=== PATIENT | female | born 1995 | race Caucasian/White ===

== ENCOUNTER 2022-10-04 21:47 | Emergency (ER) | payer OTHER, SELFPAY ==
[2022-10-04 21:54] VITALS: BP 141/95; PULSE 109; RESP 18; TEMP 36.8; O2SAT 98; BMI 32.0
--- NOTE | 2022-10-04 22:06 | ED.CHESTPAI1 ---
HPI - Chest Pain General Chief Complaint: Chest Pain Stated Complaint: CHEST PAIN Time Seen by Provider: 10/04/22 22:01 Source: patient Mode of arrival: walk-in Limitations: no limitations History of Present Illness HPI narrative: presents complaining of left sided chest pain. States present all day. 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 Describes lifting more than her share as others have left work for her. States she has a family history of heart disease. No dyspnea MD complaint: Reports chest pain Related Data Home Medications Medication Instructions Recorded Confirmed No Known Home Medications 10/04/22 10/04/22 Allergies Allergy/AdvReac Type Severity Reaction Status Date / Time No Known Drug Allergies Allergy Verified 10/04/22 21:58 Review of Systems ROS Status of ROS 10 or more systems reviewed and unremarkable except as noted in history and below [facility] Social History Smoking status: Current some day smoker Exam Constitutional Vital Signs - 24 hr 10/04/22 21:54 Temperature 98.3 F Pulse Rate [Monitor] 109 H Respiratory Rate 18 Blood Pressure [Left Arm] 141/95 H Pulse Oximetry 98 Oxygen Delivery Method Room Air Common normals: no apparent distress, average body habitus, oriented x3, no limitations and healthy appearing Eye Common normals: EOMs intact bilaterally and conjunctivae normal Chest Other: left chest wall is tender and reproduces symptoms Respiratory Common normals: normal respiratory effort, no retractions, no use of accessory muscles and clear to auscultation bilaterally Cardio Common normals: no JVD, regular rate, regular rhythm, S1 normal heart sound and S2 normal heart sound GI Common normals: Normal to inspection, nondistended, normoactive bowel sounds present and soft to palpation Extremity Common normals: normal to inspection and full ROM Neuro Common normals: oriented x3, CN's II-XII intact bilaterally, moves all extremities and no focal motor deficits Psych Appearance: grossly normal Course Vital Signs Vital signs: Vital Signs Temperature 98.3 F 10/04/22 21:54 Pulse Rate 109 H 10/04/22 21:54 Respiratory Rate 18 10/04/22 21:54 Blood Pressure 141/95 H 10/04/22 21:54 Pulse Oximetry 98 10/04/22 21:54 Oxygen Delivery Method Room Air 10/04/22 21:54 Temperature 98.3 F 10/04/22 21:54 Pulse Rate 109 H 10/04/22 21:54 Respiratory Rate 18 10/04/22 21:54 Blood Pressure 141/95 H 10/04/22 21:54 Pulse Oximetry 98 10/04/22 21:54 Oxygen Delivery Method Room Air 10/04/22 21:54 MDM - Chest Pain MDM Narrative Medical decision making narrative: patient presents complaining of chest pain that has been present all day. Exam with palpation of the chest that reproduces symptoms. workup in the department neg including normal cxray, EKG with 1st degree AVB but no acute changes. Troponin neg. Patient informed of the results and working diagnosis of chest wall strain. Discharged home with prescription of Norflex Lab Data Labs: Lab Results 10/04/22 Range/Units 22:06 WBC 11.1 H (4.0-11.0) 10^3/uL RBC 4.82 (4.20-5.40) 10^6/uL Hgb 12.5 (12.0-16.0) g/dL Hct 39.5 (36.0-48.0) % MCV 82.0 (81.0-99.0) fL MCH 25.9 L (26.7-34.0) pg MCHC 31.6 (29.9-35.2) g/dL RDW 13.5 (11.0-15.0) % Plt Count 328 (150-450) 10^3/uL MPV 10.9 (9.5-13.5) fL Neut % (Auto) 67.1 (43.0-75.0) % Lymph % (Auto) 22.9 (20.5-60.0) % [place] % (Auto) 6.6 (1.7-12.0) % Eos % (Auto) 2.2 (0.9-7.0) % Baso % (Auto) 0.8 (0.2-2.0) % Neut # (Auto) 7.5 H (1.4-6.5) 10^3/uL Lymph # (Auto) 2.6 (1.2-3.8) 10^3/uL [place] # (Auto) 0.7 (0.3-0.8) 10^3/uL Eos # (Auto) 0.2 (0.0-0.7) 10^3/uL Baso # (Auto) 0.1 (0.0-0.1) 10^3/uL Abs Immat Gran (auto) 0.05 H (0.00-0.03) 10^3/uL Imm/Tot Granulo (auto) 0.4 (0.0-0.5) % Sodium 140 (136-145) mmol/L Potassium 3.5 (3.5-5.1) mmol/L Chloride 103 (98-107) mmol/L Carbon Dioxide 24.9 (21.0-32.0) mmol/L Anion Gap 15.6 BUN 8.0 (7.0-18.0) mg/dL Creatinine 0.84 (0.55-1.02) mg/dL Est GFR ( Amer) >60 (>=60) Est GFR (Non-Af Amer) >60 (>=60) BUN/Creatinine Ratio 9.5 Glucose 120 H (74-106) mg/dL Calcium 9.2 (8.5-10.1) mg/dL Troponin I High Sens <4.0 L (4.0-51.3) pg/mL NT-Pro-B Natriuret Pep 35.0 (<=450.0) pg/mL Discharge Plan Discharge Chief Complaint: Chest Pain Clinical Impression: Chest wall muscle strain Patient Disposition: Home, Self-Care Prescriptions / Home Meds: No Action No Known Home Medications Instructions: Chest Wall Pain (ED) Additional Instructions: follow up with the family doctor next week Stand Alone Forms: Portal Instructions Referrals: Physician,Non-Staff, MD [Primary Care Provider] - 1 week
--- NOTE | 2022-10-04 22:10 | XR_ITS ---
[address] [address] Patient Name: SATURDAY Amber VENEGAS MRN: [id number] date: 1995 Sex: F Assigned Patient Location: ER Current Patient Location: ER Accession/Order Number: [id number] Exam Date: 10/04/2022 22:20 Report Date: 10/04/2022 22:52 At the request of: ITALO PINEDA Procedure: XR chest 1V EXAMINATION: XR chest 1V, , 10/04/2022 10:20 PM EDT INDICATION: chest pain HISTORY: Ordering Provider Reason for Exam: chest pain Technologist Note: Additional: COMPARISON: Chest x-ray dated 01/08/2022. TECHNIQUE: Chest x-ray: One view. FINDINGS: No pneumothorax, pleural effusion or focal airspace consolidation. Heart is normal in size. Bony thorax is unremarkable. IMPRESSION: No acute cardiopulmonary process. Electronically authenticated by: MALACHI THORNTON Date: 10/04/2022 22:52
--- NOTE | 2022-10-04 22:10 | ECG_ITS ---
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
--- NOTE | 2022-10-04 22:10 | PC.NURSE ---
patient states she started to develop left sided chest pain when she woke up to get ready for work earlier this evening. states she went to work and while at work the pain intensified. denies any nausea, vomiting, or shortness of breath with pain. denies cardiac history, states nothing like this has happened before. denies any recent injury or trauma.
[2022-10-04 22:20] LABS: Basophils Absolute Auto 0.1 10^3/uL (0.0-0.1); Basophils Percent Auto 0.8 % (0.2-2.0); Eosinophils Absolute Auto 0.2 10^3/uL (0.0-0.7); Eosinophils Percent Auto 2.2 % (0.9-7.0); Hematocrit 39.5 % (36.0-48.0); Hemoglobin 12.5 g/dL (12.0-16.0); Immature Granulocytes Abs Auto 0.05 10^3/uL (0.00-0.03); Immature Granulocytes Pct Auto 0.4 % (0.0-0.5); Lymphocytes Absolute Auto 2.6 10^3/uL (1.2-3.8); Lymphocytes Percent Auto 22.9 % (20.5-60.0); Mean Corpuscular HGB Conc 31.6 g/dL (29.9-35.2); Mean Corpuscular Hemoglobin 25.9 pg (26.7-34.0); Mean Platelet Volume 10.9 fL (9.5-13.5); Monocytes Absolute Auto 0.7 10^3/uL (0.3-0.8); Monocytes Percent Auto 6.6 % (1.7-12.0); Neutrophils Absolute Auto 7.5 10^3/uL (1.4-6.5); Neutrophils Percent Auto 67.1 % (43.0-75.0); Platelet Count 328 10^3/uL (150-450); Red Blood Count 4.82 10^6/uL (4.20-5.40); Red Cell Distribution Width 13.5 % (11.0-15.0); White Blood Count 11.1 10^3/uL (4.0-11.0)
[2022-10-04 22:45] LABS: Anion Gap 15.6; BUN Creatinine Ratio 9.5; Calcium 9.2 mg/dL (8.5-10.1); Carbon Dioxide 24.9 mmol/L (21.0-32.0); Chloride 103 mmol/L (98-107); Estimated GFR (African America >60 (>=60); Estimated GFR (Non-African Ame >60 (>=60); Glucose 120 mg/dL (74-106); Potassium 3.5 mmol/L (3.5-5.1); Sodium 140 mmol/L (136-145); Troponin I High Sensitivity <4.0 pg/mL (4.0-51.3)
[2022-10-04] MEDS: ORPHENADRINE CITRATE 100 MG TABLET.ER PO (23:31)
== END 2022-10-04 23:35 | disposition home or self-care (01) ==
PROVIDERS: Emergency Provider Internal Medicine
DX: S29.011A Strain of muscle and tendon of front wall of thorax, initial encounter (principal); X50.9XXA Other and unspecified overexertion or strenuous movements or postures, initial encounter; F17.210 Nicotine dependence, cigarettes, uncomplicated
CPT/HCPCS: 36415; 71045; 80048; 83880; 84484; 85025; 93005; 99285

== ENCOUNTER 2023-01-18 12:45 | Emergency (ER) | payer OTHER, SELFPAY ==
[2023-01-18 12:50] VITALS: BP 151/97; PULSE 89; RESP 18; O2SAT 99; BMI 37.8
--- NOTE | 2023-01-18 13:42 | ED_ITS ---
HPI - General Adult General Chief complaint: Upper Respiratory Infection Stated complaint: COUGH/BACK PAIN Time Seen by Provider: 01/18/23 12:53 Source: patient Mode of arrival: walk-in Limitations: no limitations History of Present Illness HPI narrative: Patient is a 27-year-old female who is presenting to the Emergency Room with multiple complaints. Patient's complaining of acute on chronic lower back pain. Patient has been diagnosed with scoliosis when she was and had a epidural with her child, that a hard time doing the epidural. Patient has no urinary complaints of frequency, urgency or burning. 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 Patient's been having chronic ongoing back pain with no radiation or paresthesias into her stomach. No signs or symptoms associated or cauda equina. Patient does have insurance. Patient has not called her insurance company, or done anything to establish PCP. Patient lives in [place], patient does not want to seek medical care in [place] because she does not like the physicians there she told me. Patient has no back specialist, no spinal specialist, no specialist for scoliosis. No new injury, fall, trauma, no other acute complaints. Patient is also complaining of upper respiratory and sinus congestion for the past 4-5 days.Patient went to an urgent care 4 days ago, was seen and evaluated and placed on prednisone. Patient is not doing any antihistamines, Flonase, Tylenol, Motrin, or anything to help treat her symptoms. . All systems are negative except as noted/marked. All systems reviewed and otherwise negative. . Nurses note and vital signs reviewed and patient is not hypoxic. General: The patient appears well and in no apparent distress. Patient is re sting comfortably on cart. Patient is not toxic, lethargic, or listless Skin: Warm, dry, no pallor noted. There is no rash noted. No petechiae, purpura. Multiple piercings and tattoos, no secondary signs of infection. Head: Normocephalic, atraumatic; Mild tenderness to palpation to bilateral frontal sinuses, no tenderness to palpation to bilateral maxillary sinuses. Eye: Normal conjunctiva, no drainage, EOMI. PERRL Ears, Nose, Mouth, and Throat: oral mucosa is moist. Nares patent. Mouth without vesicles. Cardiovascular: Regular Rate and Rhythm, no murmur, gallop, rub Respiratory: Patient is in no distress, no accessory muscle use, lungs are clear to auscultation, no wheezing, rales or rhonchi Back: Diffuse bilateral paralumbar tenderness to palpation, patient does have some evidence of curvature to her lumbar spine, patient has no new acute midline thoracic or lumbar tenderness to palpation, no tenderness to palpation to bilateral piriformis muscle, negative straight leg raising test bilateral, no signs of saddle anesthesia or cauda equina. otherwise non-tender, no CVA tenderness bilaterally to percussion. No CT LS midline pain GI: soft, obese, no tenderness to palpation, no masses appreciated. No rebound, guarding, or rigidity noted. No flank pain bilateral, No distention Musculoskeletal: Patient has full range of motion of all of the extremities, no motor, sensory, or focal neurological deficits Neurological: A&O x3, normal speech Psychiatric: Cooperative Related Data Home Medications Medication Instructions Recorded Confirmed No Known Home Medications 10/04/22 10/04/22 Allergies Allergy/AdvReac Type Severity Reaction Status Date / Time No Known Drug Allergies Allergy Verified 10/04/22 21:58 [facility] Social History Smoking status: Current every day smoker Exam Constitutional Vital Signs, click to edit/add: Last Vital Signs Pulse 89 01/18/23 12:50 Resp 18 01/18/23 12:50 BP 151/97 H 01/18/23 12:50 Pulse Ox 99 01/18/23 12:50 O2 Del Method Room Air 01/18/23 12:50 Course Vital Signs Vital signs: Vital Signs Pulse Rate 89 01/18/23 12:50 Respiratory Rate 18 01/18/23 12:50 Blood Pressure 151/97 H 01/18/23 12:50 Pulse Oximetry 99 01/18/23 12:50 Oxygen Delivery Method Room Air 01/18/23 12:50 Pulse Rate 89 01/18/23 12:50 Respiratory Rate 18 01/18/23 12:50 Blood Pressure 151/97 H 01/18/23 12:50 Pulse Oximetry 99 01/18/23 12:50 Oxygen Delivery Method Room Air 01/18/23 12:50 Medical Decision Making MDM Narrative Medical decision making narrative: Patient was educated that she can call her insurance company and asked them with PCP locally to her that she can see in her insurance plan. Patient was given multiple ideas and resources on how to follow up with a spinal surgeon to help treat with her scoliosis. Patient's chief concern today was she needed a work note for [place] secondary to not going to work today because of sinus congestion and bilateral lower back pain that is chronic. Patient has no acute findings on today's exam. Patient needs to start using mfno-xni-srgugpi products to help treat her symptoms. Education on DayQuil, NyQuil, Flonase was discussed at bedside. Discharge Plan Discharge Chief Complaint: Upper Respiratory Infection Clinical Impression: Scoliosis, Upper respiratory infection, Sinus congestion, Chronic bilateral back pain Patient Disposition: Home, Self-Care Condition: Fair Prescriptions / Home Meds: No Action No Known Home Medications Instructions: Upper Respiratory Infection (ED), Cold Symptoms (ED), Chronic Back Pain (DC), How to Use Nasal [place] (ED) Additional Instructions: Using DayQuil, NyQuil, Flonase. Use Tylenol and Motrin alternating every 4 hours. Use ice as needed 20 minutes on, 20 minutes off. Lumbar stretching exercises as discussed. Follow-up and establish PCP. As discussed at bedside, call your insurance company to see what PCP and year insurance plan you can see. Stand Alone Forms: Work/School Release, Portal Instructions Referrals: Physician,Non-Staff, MD [Primary Care Provider] - 1 week
== END 2023-01-18 13:57 | disposition home or self-care (01) ==
PROVIDERS: Emergency Provider Emergency Medicine
DX: M54.50 Low back pain, unspecified (principal); M41.9 Scoliosis, unspecified; R09.81 Nasal congestion; J06.9 Acute upper respiratory infection, unspecified; G89.29 Other chronic pain; F17.210 Nicotine dependence, cigarettes, uncomplicated; E66.9 Obesity, unspecified; Z68.37 Body mass index [BMI] 37.0-37.9, adult
CPT/HCPCS: 99281

== ENCOUNTER 2023-01-31 15:40 | Emergency (ER) | payer OTHER, SELFPAY ==
[2023-01-31 15:45] VITALS: BP 127/68; PULSE 77; RESP 14; TEMP 37.2; O2SAT 98; BMI 30.7
--- NOTE | 2023-01-31 16:10 | XR_ITS ---
[address] [address] Patient Name: SATURDAY Amber VENEGAS MRN: [id number] date: 1995 Sex: F Assigned Patient Location: ER Current Patient Location: ER Accession/Order Number: [id number] Exam Date: 01/31/2023 16:28 Report Date: 01/31/2023 17:02 At the request of: CAMMIE TAMEZ Procedure: XR acute abdomen series EXAMINATION: XR acute abdomen series HISTORY: Generalized abdominal pain COMPARISON: Chest x-ray 10/04/2022 TECHNIQUE: Portable chest FINDINGS: The lung parenchyma is free of consolidation or infiltrate. No pneumothorax or pleural effusion. The cardiac, mediastinal and hilar contours are normal. The bowel gas pattern is nonobstructed. No free intraperitoneal air or abdominal calcification. The visualized osseous structures exhibit no gross abnormality. XR/XR acute abdomen series IMPRESSION: No visualized abnormality. Electronically authenticated by: LUPILLO MORAN Date: 01/31/2023 17:02
--- NOTE | 2023-01-31 16:10 | ED_ITS ---
HPI - Abdominal Pain General Chief Complaint: Abdominal Pain Stated Complaint: ABDOMINAL PAIN Time Seen by Provider: 01/31/23 15:41 Source: patient Mode of arrival: walk-in Limitations: no limitations History of Present Illness HPI narrative: patient is a 27-year-old female who presents to the Emergency Room for three week history of diffuse abdominal pain. She reports some associated diarrhea. She has never seen a PCP before for the symptoms. She states pain had increased today to the point where she had a missed work so she came to the Emergency Room. She has had no fevers or vomiting. She denies urinary symptoms, flank or back pain. No medications taken prior to arrival for her symptoms. Related Data Home Medications Medication Instructions Recorded Confirmed prednisone 20 mg tablet 20 mg PO DAILY 01/31/23 01/31/23 Previous Rx's Medication Instructions Recorded dicyclomine 20 mg tablet 20 mg PO QID PRN abdominal pain 01/31/23 #12 tabs ondansetron 4 mg disintegrating 4 mg PO Q6H PRN nausea and 01/31/23 tablet vomiting #12 tabs Allergies Allergy/AdvReac Type Severity Reaction Status Date / Time No Known Drug Allergies Allergy Verified 10/04/22 21:58 Review of Systems ROS Constitutional Denies: fever or chills Ears, nose, mouth, and throat Denies: throat pain Cardiovascular Denies: chest pain Respiratory Denies: shortness of breath or cough Gastrointestinal Reports: abdominal pain and diarrhea; Denies: nausea or vomiting Genitourinary Denies: painful urination Musculoskeletal Denies: back pain or neck pain Neurological Denies: headache PFSH PFSH Social History Smoking status: Never smoker Exam Narrative Exam Narrative: Gen.: Awake, alert, in no distress Head: Normocephalic, atraumatic ENT: Moist mucous membranes Respiratory: No respiratory distress Gastrointestinal: Abdomen is soft, diffusely mildly tender to palpation with no guarding or rebound. No point tenderness Extremities: Moves extremities equally, no edema noted Psych: Normal mood and affect Neuro: No focal neuro deficit Skin: Warm, dry, intact Constitutional Vital Signs, click to edit/add: Last Vital Signs Temp 99.0 F 01/31/23 15:45 Pulse 76 01/31/23 17:04 Resp 18 01/31/23 17:04 BP 126/82 01/31/23 17:04 Pulse Ox 98 01/31/23 17:04 O2 Del Method Room Air 01/31/23 15:45 Course Vital Signs Vital signs: Vital Signs Temperature 99.0 F 01/31/23 15:45 Pulse Rate 77 01/31/23 15:45 Respiratory Rate 14 01/31/23 15:45 Blood Pressure 127/68 01/31/23 15:45 Pulse Oximetry 98 01/31/23 15:45 Oxygen Delivery Method Room Air 01/31/23 15:45 Temperature 99.0 F 01/31/23 15:45 Pulse Rate 76 01/31/23 17:04 Respiratory Rate 18 01/31/23 17:04 Blood Pressure 126/82 01/31/23 17:04 Pulse Oximetry 98 01/31/23 17:04 Oxygen Delivery Method Room Air 01/31/23 15:45 MDM - Abdominal Pain MDM Narrative Medical decision making narrative: patient given Levsin, Zofran and Toradol in the Emergency Room. Abdomen is soft and benign. Vital signs within normal limits. Symptoms of the present for several weeks with stable labs studies, unremarkable abdominal x-rays. She has no focal tenderness to the right lower quadrant. Follow-up with PCP, she was given referral list. Zofran, Bentyl given for home. Return to the Emergency Room if symptoms change or worsen Medical Records Attestation: I reviewed the patient's medical records. Lab Data Attestation: I reviewed the patient's lab results. Labs: Lab Results 01/31/23 01/31/23 Range/Units 16:00 16:18 WBC 7.7 (4.0-11.0) 10^3/uL RBC 4.78 (4.20-5.40) 10^6/uL Hgb 12.5 (12.0-16.0) g/dL Hct 39.4 (36.0-48.0) % MCV 82.4 (81.0-99.0) fL MCH 26.2 L (26.7-34.0) pg MCHC 31.7 (29.9-35.2) g/dL RDW 13.9 (11.0-15.0) % Plt Count 282 (150-450) 10^3/uL MPV 11.0 (9.5-13.5) fL Neut % (Auto) 56.4 (43.0-75.0) % Lymph % (Auto) 30.6 (20.5-60.0) % [place] % (Auto) 7.4 (1.7-12.0) % Eos % (Auto) 3.9 (0.9-7.0) % Baso % (Auto) 1.3 (0.2-2.0) % Neut # (Auto) 4.3 (1.4-6.5) 10^3/uL Lymph # (Auto) 2.4 (1.2-3.8) 10^3/uL [place] # (Auto) 0.6 (0.3-0.8) 10^3/uL Eos # (Auto) 0.3 (0.0-0.7) 10^3/uL Baso # (Auto) 0.1 (0.0-0.1) 10^3/uL Abs Immat Gran (auto) 0.03 (0.00-0.03) 10^3/uL Imm/Tot Granulo (auto) 0.4 (0.0-0.5) % Sodium 137 (136-145) mmol/L Potassium 3.5 (3.5-5.1) mmol/L Chloride 101 (98-107) mmol/L Carbon Dioxide 27.2 (21.0-32.0) mmol/L Anion Gap 12.3 BUN 9.0 (7.0-18.0) mg/dL Creatinine 0.76 (0.55-1.02) mg/dL Est GFR ( Amer) >60 (>=60) Est GFR (Non-Af Amer) >60 (>=60) BUN/Creatinine Ratio 11.8 Glucose 110 H (74-106) mg/dL Calcium 9.2 (8.5-10.1) mg/dL Total Bilirubin 0.3 (0.2-1.0) mg/dL AST 15 (15-37) U/L ALT 17 (14-59) U/L Alkaline Phosphatase 86 (46-116) U/L Total Protein 7.6 (6.4-8.2) g/dL Albumin 3.5 (3.4-5.0) g/dL Globulin 4.1 g/dL Albumin/Globulin Ratio 0.9 Lipase 26.0 (16.0-77.0) U/L Serum HCG, Qual Negative (NEGATIVE) Urine Color Lt. yellow (YELLOW) Urine Clarity Clear (CLEAR) Urine pH 6.0 (5.0-9.0) Ur Specific [place] 1.025 (1.005-1.025) Urine Protein Negative (NEG/TRACE) mg/dL Urine Glucose (UA) Negative (NEGATIVE) mg/dL Urine Ketones Negative (NEGATIVE) mg/dL Urine Occult Blood Negative (NEGATIVE) Urine Nitrite Negative (NEGATIVE) Urine Bilirubin Negative (NEGATIVE) Urine Urobilinogen 0.2 (0.2-1.0) EU/dL Ur Leukocyte Esterase Negative (NEGATIVE) Imaging Data Abdominal x-ray: Attestation: I have reviewed the pertinent imaging results. Radiologist's impression: Procedure: XR acute abdomen series EXAMINATION: XR acute abdomen series HISTORY: Generalized abdominal pain COMPARISON: Chest x-ray 10/04/2022 TECHNIQUE: Portable chest FINDINGS: The lung parenchyma is free of consolidation or infiltrate. No pneumothorax or pleural effusion. The cardiac, mediastinal and hilar contours are normal. The bowel gas pattern is nonobstructed. No free intraperitoneal air or abdominal calcification. The visualized osseous structures exhibit no gross abnormality. IMPRESSION: No visualized abnormality. Electronically authenticated by: LUPILLO MORAN Date: 01/31/2023 17:02 Discharge Plan Discharge Chief Complaint: Abdominal Pain Clinical Impression: Abdominal pain Patient Disposition: Home, Self-Care Time of Disposition Decision: 17:07 Condition: Good Prescriptions / Home Meds: New dicyclomine 20 mg tablet 20 mg PO QID PRN (Reason: abdominal pain) Qty: 12 0RF ondansetron 4 mg tablet,disintegrating 4 mg PO Q6H PRN (Reason: nausea and vomiting) Qty: 12 0RF No Action prednisone 20 mg tablet 20 mg PO DAILY Instructions: Abdominal Pain (ED) Stand Alone Forms: Portal Instructions Referrals: Physician,Non-Staff, MD [Primary Care Provider] - 1 week
[2023-01-31] MEDS: ONDANSETRON 4 MG RAPDIS TABLET SL (16:22)
[2023-01-31] MEDS: KETOROLAC TROMETHAMINE 10 MG TABLET PO (16:22)
[2023-01-31] MEDS: HYOSCYAMINE SULFATE 0.125 MG TAB.SUBL SL (16:22)
[2023-01-31 16:23] LABS: Basophils Absolute Auto 0.1 10^3/uL (0.0-0.1); Basophils Percent Auto 1.3 % (0.2-2.0); Eosinophils Absolute Auto 0.3 10^3/uL (0.0-0.7); Eosinophils Percent Auto 3.9 % (0.9-7.0); Hematocrit 39.4 % (36.0-48.0); Hemoglobin 12.5 g/dL (12.0-16.0); Immature Granulocytes Abs Auto 0.03 10^3/uL (0.00-0.03); Immature Granulocytes Pct Auto 0.4 % (0.0-0.5); Lymphocytes Absolute Auto 2.4 10^3/uL (1.2-3.8); Lymphocytes Percent Auto 30.6 % (20.5-60.0); Mean Corpuscular HGB Conc 31.7 g/dL (29.9-35.2); Mean Corpuscular Hemoglobin 26.2 pg (26.7-34.0); Mean Corpuscular Volume 82.4 fL (81.0-99.0); Monocytes Absolute Auto 0.6 10^3/uL (0.3-0.8); Monocytes Percent Auto 7.4 % (1.7-12.0); Neutrophils Absolute Auto 4.3 10^3/uL (1.4-6.5); Neutrophils Percent Auto 56.4 % (43.0-75.0); Platelet Count 282 10^3/uL (150-450); Red Blood Count 4.78 10^6/uL (4.20-5.40); Red Cell Distribution Width 13.9 % (11.0-15.0); White Blood Count 7.7 10^3/uL (4.0-11.0)
[2023-01-31 16:26] LABS: Bilirubin Urine NEGATIVE (NEGATIVE); Blood Urine NEGATIVE (NEGATIVE); Clarity Urine CLEAR (CLEAR); Color Urine LT. YELLOW (YELLOW); Glucose Urine UA NEGATIVE (NEGATIVE); Ketones Urine NEGATIVE (NEGATIVE); Leukocyte Esterase Urine NEGATIVE (NEGATIVE); Nitrite Urine NEGATIVE (NEGATIVE); Protein Urine NEGATIVE (NEG/TRACE); Specific Gravity Urine 1.025 (1.005-1.025); Urobilinogen Urine 0.2 EU/dL (0.2-1.0)
[2023-01-31 16:28] LABS: Urine Microscopic Indicated NO
[2023-01-31 16:41] LABS: Alanine Aminotransferase 17 U/L (14-59); Albumin Globulin Ratio 0.9; Albumin Level 3.5 g/dL (3.4-5.0); Alkaline Phosphatase 86 U/L (46-116); Anion Gap 12.3; Aspartate Amino Transferase 15 U/L (15-37); BUN Creatinine Ratio 11.8; Bilirubin Total 0.3 mg/dL (0.2-1.0); Calcium 9.2 mg/dL (8.5-10.1); Carbon Dioxide 27.2 mmol/L (21.0-32.0); Chloride 101 mmol/L (98-107); Estimated GFR (African America >60 (>=60); Estimated GFR (Non-African Ame >60 (>=60); Globulin 4.1 g/dL; Glucose 110 mg/dL (74-106); Potassium 3.5 mmol/L (3.5-5.1); Sodium 137 mmol/L (136-145); Total Protein 7.6 g/dL (6.4-8.2)
[2023-01-31 16:53] LABS: HCG Qualitative NEGATIVE (NEGATIVE)
[2023-01-31 17:04] VITALS: BP 126/82; PULSE 76; RESP 18; O2SAT 98
== END 2023-01-31 17:16 | disposition home or self-care (01) ==
PROVIDERS: Physician Assistant; Emergency Provider Emergency Medicine
DX: R10.9 Unspecified abdominal pain (principal)
CPT/HCPCS: 36415; 74022; 80053; 81003; 83690; 84703; 85025; 99285

== ENCOUNTER 2023-09-12 07:52 | Emergency (ER) | payer OTHER, SELFPAY ==
[2023-09-12 07:57] VITALS: BP 143/79; PULSE 87; TEMP 37.2; O2SAT 98; BMI 29.0
--- OUTSIDE RECORDS SUMMARY | 2023-09-12 08:01 | XMS_ITS | CCD ---
Author Organization [facility] Care Team Providers Care Trench Digger Name Role Phone NOHEMI TOM Attending Unavailable NONE Primary Care Unavailable Unavailable Primary Care Provider UnavailJesus Zapata Primary Care Provider Jesus Jessica DO Primary Care Provider LATANYA HUTCHINSON Attending Unavailable NO, PHYSICIAN Primary Care Unavailable Unavailable Primary Care Provider UnavailJESUS Zapata Primary Care Unavailable TANIA NEUMANN Attending Unavailable MARCIA HAIDER Attending Unavailable JESUS JESSICA Primary Care Unavailable SOL ROBLEDO Referring Unavailable JESUS JESSICA Primary Care Unavailable JESUS JESSICA Referring Unavailable JESUS JESSICA Primary Care Unavailable DON SOLO Referring Unavailable None, No PCP Unavailable Unavailable Unavailable Unavailable Required, No Pcp Unavailable Unavailable Harinder Horton Unavailable Lechuga, Racquel Unavailable Unavailable Manocchio, Renuka Unavailable Unavailable Unavailable Unavailable Deborah Dias Unavailable Unavailable DR JADYN MADDOX Admitting Unavailable VARSHA, DR SALAMANCA Attending Unavailable SARAH, DR VU LISTED Primary Care Unavaila DR JADYN Yusuf Consulting Unavailable DR JAMEE MCGOWAN Consulting Unavailable Magali Zhong Primary Care Physician Juliette ROGEL Unavailable Mayte Hahn Unavailable [phone] HINA KO Attending Unavailable Luigi King Attending Unavailable HINA KO Attending Unavailable Dk De León Attending Unavailable Allergies Allergy Classification Reported Allergen(s) Allergy Type Date of Onset Reaction(s) Facility (6 sources) Acetaminophen; Translations: [acetaminophen] Drug Allergy Palpitations [facility] Medications Current Medications Medication Drug Class(es) Dates Sig (Normalized) Sig (Original) acetaminophen 325 mg oral capsule (1 source) Start: 09-25-2021 take 3 capsules by mouth every six hours as needed acetaminophen 325 mg oral capsule ; 3 cap(s) orally every 6 hours, As Needed -.Meds to Beds Quantity: 45 Refills: 0 Ordered: 25-Sep-2021 Vanda Valle Start: 25-Sep-2021 Generic Substitution Allowed benzocaine 0.2 mg/mg oral gel (1 source) Standardized Chemical Allergen Start: 02-07-2021 benzocaine (ORAJEL) 20 % mucosal gel brompheniramine maleate 0.4 mg/ml / dextromethorphan hydrobromide 2 mg/ml / pseudoephedrine hydrochloride 6 mg/ml oral solution (1 source) alpha-Adrenergic Agonist, Uncompetitive T-asikeg-T-aspartate Receptor Antagonist, Sigma-1 Agonist Start: 02-04-2023 End: 02-09-2023 take 5 mL by mouth every six hours brompheniramine/d extromethorphan/P SE 2 mg-10 mg-30 mg/5 mL oral syrup 5 mL, Oral, q6hr for cold symptoms for 5 day(s), 120 mL, Refill(s) 0, [id number], 170, cm, 02/04/23 14:52:00 EST, Height/Length Dosing, 88.3, kg, 02/04/23 14:52:00 EST, Weight Dosing Start Date: 02/04/23 Stop Date: 02/09/23 Status: Ordered cephalexin 500 mg oral capsule (3 sources) Cephalosporin Antibacterial Start: 11-18-2020 take 1 capsule by mouth twice daily cephALEXin (KEFLEX) 500 MG capsule take 1 capsule by mouth twice a day 0 11/18/2020 Active dicyclomine hydrochloride 20 mg oral tablet (2 sources) Anticholinergic Start: 02-04-2023 dicyclomine 20 mg Tab Refills(s) 0 Start Date: 02/04/23 Status: Ordered docusate sodium 100 mg oral capsule (1 source) Start: 09-25-2021 take 1 capsule by mouth twice daily Colace 100 mg oral capsule ; 1 cap(s) orally 2 times a day, As Needed -.Meds to Beds Quantity: 60 Refills: 1 Ordered: 25-Sep-2021 Vanda Valle Start: 25-Sep-2021 Generic Substitution Allowed Comments: Medication should be taken with plenty of water. Comment on above: Medication should be taken with plenty of water. ferrous sulfate 325 mg oral tablet (11 sources) Start: 09-25-2021 take 1 tablet by mouth every other day ferrous sulfate 325 mg (65 mg elemental iron) oral tablet ; 1 tab(s) orally every other day Quantity: 0 Refills: 0 Ordered: 25-Sep-2021 Vanda Valle Start: 25-Sep-2021 Generic Substitution Allowed Start: 08-01-2021 Ferrous Sulfat e 325 (65 Fe) MG Oral Tablet TAKE 1 TABLET Other Take 1 tablet every other day for the remainder of the Quantity: 30 Refills: 10 Ordered: 01-Aug-2021 Racquel Lechuga DO Start : 01-Aug-2021 Active 120 actuat fluticasone propionate 0.22 mg/actuat metered dose inhaler (3 sources) Corticosteroid Start: 06-17-2020 End: 06-17-2021 take 2 puff(s) by inhalation twice daily fluticasone (FLOVENT HFA) 220 MCG/ACT inhaler Indications: Moderate asthma with acute exacerbation, unspecified whether persistent Inhale 2 puffs into the lungs 2 times daily 1 Inhaler 3 06/17/2020 06/17/2021 Active ketorolac tromethamine 10 mg oral tablet (3 sources) Nonsteroidal Anti-inflammatory Drug, Cyclooxygenase Inhibitor Start: 02-07-2021 take 1 tablet by mouth every eight hours as needed for pain ketorolac (TORADOL) 10 MG tablet Take 1 tablet by mouth every 8 hours as needed for Pain 15 tablet 0 02/07/2021 Active Start: 10-30-2019 End: 10-30-2019 ketorolac (TORADOL) injectio n 15 mg lidocaine hydrochloride 20 mg/ml mucous membrane topical solution (1 source) Antiarrhythmic, Amide Local Anesthetic Start: 02-07-2021 lidocaine viscous hcl (XYLOCAINE) 2 % solution 15 mL ondansetron 4 mg oral tablet (20 sources) Serotonin-3 Receptor Antagonist Start: 04-20-2023 take 1 tablet by mouth three times daily as needed for nausea Zofran ODT 4 mg Tab 4 mg = 1 tab(s), Oral, TID, PRN Nausea/Vomiting, # 12 tab(s), Refills(s) 0, Pharmacy: [facility] #[id number], 170, cm, 04/20/23 14:38:00 EST, Height/Length Dosing, 91.8, kg, 04/20/23 14:38:00 EST, Weight Dosing Start Date: 04/20/23 Status: Ordered Start: 02-04-2023 ondansetron 4 mg Dis Tab Refills(s) 0 Start Date: 02/04/23 Status: Ordered Start: 04-12-2021 take 1 tablet by patricia th every six hours Ondansetron HCl - 4 MG Oral Tablet TAKE 1 TABLET Every 6 hours PRN Quantity: 120 Refills: 10 Ordered: 12-Apr-2021 Ottoniel CLEARY Racquel Start : 12-Apr-2021 Active Start: 11-18-2020 ondansetron (Z OFRAN-ODT) 4 MG disintegrating tablet dissolve 1 tablet ON TONUGE three times a day 0 11/18/2020 Active penicillin v potassium 500 mg oral tablet (1 source) Start: 02-07-2021 End: 02-17-2021 take 1 tablet by mouth four times daily penicillin v potassium (VEETID) 500 MG tablet Take 1 tablet by mouth 4 times daily for 10 days 40 tablet 0 02/07/2021 02/17/2021 Active predniSONE 20 mg oral tablet (3 sources) Start: 01-29-2023 End: 02-03-2023 take 2 tablets by mouth once daily predniSONE 20 mg Tab 40 mg = 2 tab(s), Oral, Daily, X 5 day(s), # 10 tab(s), Refills(s) 0, Pharmacy: [facility] #[id number], 170, cm, 01/29/23 15:20:00 EDT, Height/Length Dosing, 88.7, kg, 01/29/23 15:20:00 EDT, Weight Dosing Start Date: 01/29/23 Stop Date: 02/03/23 Status: Ordered Start: 01-17-2023 End: 01-22-2023 take 1 tablet by mouth once daily predniSONE 20 mg Tab 20 mg = 1 tab(s), Oral, Daily, X 5 day(s), # 5 tab(s), Refills(s) 0, Pharmacy: [facility] #[id number], 168, cm, 01/17/23 12:52:00 EDT, Height/Length Dosing, 88.7, kg, 01/17/23 12:52:00 EDT, Weight Dosing Start Date: 01/17/23 Stop Date: 01/22/23 Status: Ordered Start: 05-25-2020 End: 05-28-2020 take 1 tablet by mouth once daily predniSONE (DELTASONE) 20 MG tablet Indications: Moderate asthma with acute exacerbation, unspecified whether persistent Take 1 tablet by mouth daily for 3 days 3 tablet 0 05/25/2020 05/28/2020 Active 1 oral capsule (1 source) take 1 tablet by mouth once daily 1 oral capsule ; 1 tab(s) orally once a day Quantity: 0 Refills: 0 Ordered: 06-Sep-2021 Anca Huizar Generic Substitution Allowed Respiratory Therapy Supplies (NEBULIZER/TUBING/PATRICIA THPIECE) KIT (3 sources) Start: Respiratory Therapy Supplies (NEBULIZER/TUBING/PATRICIA THPIECE) KIT Indications: Moderate asthma with acute exacerbation, unspecified whether persistent 1 kit by Does not apply route daily as needed (sob) 1 kit 0 06/22/2020 Active sertraline 50 mg oral tablet (4 sources) Serotonin Reuptake Inhibitor Start: 1 take 1 tablet by mouth once daily sertraline (ZOLOFT) 50 MG tablet Indications: Generalized anxiety disorder , Medication refill Take 1 tablet by mouth daily 60 tablet 1 07/26/2020 Active Start: 05-25-2020 take 1 tablet by patricia th once daily sertraline (ZOLOFT) 50 MG tablet Indications: Generalized anxiety disorder Take 1 tablet by mouth daily 30 tablet 0 05/25/2020 Active triamcinolone acetonide 1 mg/ml topical cream (2 sources) Corticosteroid Start: 04-20-2023 triamcinolone Top 0.1% Crm 15 gram 1 jose g, Topical, TID eczema rash, 60 gm, Refill(s) 0, [facility] #[id number], 170, cm, 04/20/23 14:38:00 EST, Height/Length Dosing, 91.8, kg, 04/20/23 14:38:00 EST, Weight Dosing Start Date: 04/20/23 Status: Ordered Start: 05-25-2020 End: 06-01-2020 triamcinolone (KENALOG) 0.1 % ointment Indications: Eczema, unspecified type Apply topically 2 times daily for 7 days 453.6 g 1 05/25/2020 06/01/2020 Active Completed/Discontinued Medications Medication Drug Class(es) Dates Sig (Normalized) Sig (Original) albuterol 5 mg/ml inhalation solution (20 sources) beta2-Adrenergic Agonist Start: 04-12-2021 Albuterol Sulfate 2.5 MG/0.5ML Inhalation Nebulization Solution USE 0.5ML IN 2 TO 3 ML OF SALINE EVERY 4 TO 6 HOURS NEEDED FOR COUGH AND WHEEZE. Quantity: 12 Refills: 10 Ordered: 12-Apr-2021 Racquel Lechuga DO Start : 12-Apr-2021 Active Start: 04-12-2021 take 1-2 puff(s) by inhalation every four to six hours as needed Albuterol Sulfate HFA 108 (90 Base) MCG/ACT Inhalation Aerosol Solution INHALE 1 TO 2 PUFFS EVERY 4 TO 6 HOURS NEEDED. Quantity: 1 Refills: 10 Ordered: 12-Apr-2021 Racquel Lechuga DO Start : 12-Apr-2021 Active Start: 04-12-2021 take 1-2 puff(s) by inhalation every four to six hours as needed Albuterol Sulfate HFA 108 (90 Base) MCG/ACT Inhalation Aerosol Solution INHALE 1 TO 2 PUFFS EVERY 4 TO 6 HOURS NEEDED. Quantity: 1 Refills: 10 Ordered: 12-Apr-2021 Racquel Lechuga DO Start : 12-Apr-2021 Active Start: 06-17-2020 albuterol (PRO VENTIL) (2.5 MG/3ML) 0.083% nebulizer solution Indications: Moderate asthma with acute exacerbation, unspecified whether persistent Take 3 mLs by nebulization every 6 hours as needed for Wheezing 120 each 3 06/17/2020 Active Start: 05-25-2020 take 2 puff(s) by in halation four times daily as needed for wheezing albuterol sulfate HFA (VENTOLIN HFA) 108 (90 Base) MCG/ACT inhaler Indications: History of asthma , Moderate asthma with acute exacerbation, unspecified whether persistent Inhale 2 puffs into the lungs 4 times daily as needed for Wheezing 1 Inhaler 5 05/25/2020 Active Start: 05-25-2020 take 2 puff(s) by in halation four times daily as needed for wheezing albuterol sulfate HFA (VENTOLIN HFA) 108 (90 Base) MCG/ACT inhaler Indications: History of asthma , Moderate asthma with acute exacerbation, unspecified whether persistent Inhale 2 puffs into the lungs 4 times daily as needed for Wheezing 1 Inhaler 5 05/25/2020 Active amoxicillin 875 mg oral tablet (2 sources) Penicillin-class Antibacterial Start: 07-08-2021 End: 07-17-2021 take 1 tablet by mouth every twelve hours amoxicillin 875 mg oral tablet ; 1 tab(s) orally every 12 hours Quantity: 20 Refills: 0 Ordered: 08-Jul-2021 Renuka Bryan Start: 08-Jul-2021 End: 17-Jul-2021 Status: Other Generic Substitution Allowed Comments: Finish all this medication unless otherwise directed by prescriber. Comment on above: Finish all this medi cation unless otherwise directed by prescriber. diphenhydrAMINE hydrochloride 25 mg oral capsule (1 source) Histamine-1 Receptor Antagonist End: 10-30-2019 take 1 capsule by mouth every six hours as needed diphenhydrAMINE (BENADRYL) 25 MG capsule Take 25 mg by mouth every 6 hours as needed for Itching. 0 10/30/2019 Discontinued famotidine 40 mg oral tablet (12 sources) Histamine-2 Receptor Antagonist Start: 06-06-2021 take 1 tablet by mouth once daily Famotidine 40 MG Oral Tablet TAKE 1 TABLET DAILY. Quantity: 30 Refills: 10 Ordered: 06-Jun-2021 Racquel Lechuga DO Start : 06-Jun-2021 Active ibuprofen 600 mg oral tablet (1 source) Nonsteroidal Anti-inflammatory Drug Start: 09-25-2021 take 1 tablet by mouth every six hours as needed ibuprofen 600 mg oral tablet ; 1 tab(s) orally every 6 hours, As Needed -.Meds to Beds Quantity: 40 Refills: 0 Ordered: 25-Sep-2021 Vanda Valle Start: 25-Sep-2021 Generic Substitution Allowed Comments: Do not take this drug if you are .It is very important that you take or use this exactly as directed. Do not skip doses or discontinue unless directed by your doctor.May cause drowsiness or dizziness.Obtain medical advice before taking any non-prescription drugs as some may affect the action of this medication.Take with food or milk. Comment on above: Do not take this kathia g if you are .It is very important that you take or use this exactly as directed. Do not skip doses or discontinue unless directed by your doctor.May cause drowsiness or dizziness.Obtain medical advice before taking any non-prescription drugs as some may affect the action of this medication.Take with food or milk. 3 ml insulin detemir 100 unt/ml pen injector (3 sources) Insulin Analog Start: 09-05-2021 Levemir FlexTouch 100 UNIT/ML Subcutaneous Solution Pen-injector Inject 10 units at night. May take up to 30 units if directed by physician. Quantity: 1 Refills: 5 Ordered: 05-Sep-2021 Maciej Betts MD Start : 05-Sep-2021 Active Please assist [facility] [place] assistance if needed. Levemir FlexTouc h 100 units/mL subcutaneous solution ; 10 microcurie subcutaneous once a day (at bedtime) Quantity: 0 Refills: 0 Ordered: 06-Sep-2021 Anca Huizar Status: Discontinued Generic Substitution Allowed magnesium oxide 400 mg oral tablet (16 sources) Start: 04-12-2021 take 1 tablet by mouth twice daily Magnesium Oxide 400 MG Oral Tablet TAKE 1 TABLET TWICE DAILY. Quantity: 60 Refills: 10 Ordered: 12-Apr-2021 Ottoniel CLEARY Racquel Start : 12-Apr-2021 Active Vitamin 27-0.8 MG Oral Tablet (19 sources) Start: 03-22-2021 take 1 tablet by mouth once daily Vitamin 27-0.8 MG Oral Tablet TAKE 1 TABLET DAILY DIRECTED. Quantity: 30 Refills: 10 Ordered: 22-Mar-2021 Lechuga DO, Racquel Start : 22-Mar-2021 Active 24 hr NIFEdipine 90 mg extended release oral tablet (1 source) Dihydropyridine Calcium Channel Liz Start: 09-25-2021 take 1 tablet by mouth once daily NIFEdipine 90 mg oral tablet, extended release ; 1 tab(s) orally once a day -.Meds to Beds Quantity: 30 Refills: 2 Ordered: 25-Sep-2021 Vanda Valle Start: 25-Sep-2021 Generic Substitution Allowed Comments: Avoid grapefruit and grapefruit juice while taking this medication.It is very important that you take or use this exactly as directed. Do not skip doses or discontinue unless directed by your doctor.Some non-prescription drugs may aggravate your condition. Read all labels carefully. If a warning appears, check with your doctor before taking.Swallow whole. Do not crush. Comment on above: Avoid grapefruit and grapefruit juice while taking this medication.It is very important that you take or use this exactly as directed. Do not skip doses or discontinue unless directed by your doctor.Some non-prescription drugs may aggravate your condition. Read all labels carefully. If a warning appears, check with your doctor before taking.Swallow whole. Do not crush. pantoprazole 40 mg delayed release oral tablet (13 sources) Proton Pump Inhibitor Start: 09-06-2021 take 1 tablet by mouth once daily Pantoprazole Sodium 40 MG Oral Tablet Delayed Release TAKE 1 TABLET DAILY. Quantity: 30 Refills: 10 Ordered: 06-Sep-2021 Racquel Lechuga DO Start : 06-Sep-2021 Active Start: 05-10-2021 take 40 mg by mouth once daily Pantoprazole Sodium 40 MG Oral Packet TAKE 40 MG Daily Quantity: 30 Refills: 10 Ordered: 10-May-2021 Racquel Lechuga DO Start : 10-May-2021 Active polyethylene glycol 3350 06681 mg powder for oral solution (13 sources) Osmotic Laxative Start: 05-10-2021 Polyethylene Glycol 3350 17 GM Oral Packet MIX 1 PACKET IN 8 OUNCES OF LIQUID AND DRINK ONCE DAILY. Quantity: 30 Refills: 10 Ordered: 10-May-2021 Racquel Lechuga DO Start : 10-May-2021 Active Pre- Formula TABS (19 sources) Pre- Formul a TABS Quantity: 0 Refills: 0 Ordered: 22-Mar-2021 DO Active prochlorperazine 10 mg oral tablet (17 sources) Phenothiazine Start: 03-22-2021 take 1 tablet by mouth every six hours Prochlorperazine Maleate 10 MG Oral Tablet TAKE 1 TABLET EVERY 6 HOURS NEEDED FOR NAUSEA. Quantity: 120 Refills: 10 Ordered: 22-Mar-2021 Racquel Lechuga DO Start : 22-Mar-2021 Active 50 ml sodium chloride 9 mg/ml injection (1 source) Start: 10-30-2019 End: 10-30-2019 0.9 % sodium chloride bolus Problems Active Problems Problem Classification Problem Date Documented Da te Episodic/Chronic Abdominal pain (1 source) Lower abdominal pain; Translations: [Lower abdominal pain] Episodic Anxiety disorders (9 sources) Generalized anxiety disorder; Translations: [Generalized anxiety disorder] Onset: 1 05-25-2020 Chronic Asthma (18 sources) Exacerbation of asthma; Translations: [Asthma, unspecified type, with (acute) exacerbation] Chronic Diabetes mellitus without complication (2 sources) Diabetes mellitus; Translations: [Diabetes mellitus without mention of complication, type II or unspecified type, not stated as uncontrolled] Chronic Diabetes or abnormal glucose tolerance complicating ; childbirth; or the puerperium (8 sources) Gestational diabetes mellitus; Translations: [Abnormal glucose tolerance of mother, unspecified as to episode of care or not applicable] Onset: 2 09-25-2021 Episodic Disorders of teeth and jaw (2 sources) Toothache; Translations: [Other specified disorders of teeth and supporting structures] Episodic Esophageal disorders (2 sources) Gastroesophageal reflux disease; Translations: [Esophageal reflux] Chronic Esophageal disorders (1 source) Esophageal disorders Onset: 9 Headache; including migraine (19 sources) Migraine; Translations: [Migraine, unspecified, without mention of intractable migraine without mention of status migrainosus] Chronic Heart valve disorders (2 sources) Aortic valve disorder; Translations: [Aortic valve disorders] Onset: 2 09-21-2021 Chronic Heart valve disorders (9 sources) Systolic murmur; Translations: [Cardiac murmur, unspecified] Onset: 1 05-25-2020 Episodic Hypertension complicating ; childbirth and the puerperium (4 sources) -induced hypertension; Translations: [Transient hypertension of , antepartum condition or complication] Onset: 2 09-25-2021 Episodic Immunizations and screening for infectious disease (19 sources) Contact with or exposure to other viral diseases; Translations: [Patient encounter status] Episodic Malaise and fatigue (1 source) Fatigue; Translations: [Other fatigue] Onset: 4 Episodic Menstrual disorders (1 source) Menorrhagia; Translations: [Menorrhagia with regular cycle] Chronic Nausea and vomiting (1 source) Nausea; Translations: [Nausea] Onset: 4 Episodic Nonspecific chest pain (3 sources) Chest pain, unspecified; Translations: [Chest pain, unspecified] Onset: 9 Episodic Other complications of (1 source) Low back pain in ; Translations: [Other specified related conditions, first trimester] Episodic Other gastrointestinal disorders (13 sources) Constipation; Translations: [Constipation, unspecified] Episodic Other gastrointestinal disorders (1 source) Diarrhea; Translations: [Diarrhea, unspecified] Onset: 3 Episodic Other lower respiratory disease (1 source) Shortness of breath Onset: 9 Episodic Other lower respiratory disease (20 sources) H/O: asthma; Translations: [Personal history of other diseases of the respiratory system] Onset: 1 05-25-2020 Episodic Other nutritional; endocrine; and metabolic disorders (3 sources) Obese class I; Translations: [Body mass index (BMI) 30.0-30.9, adult] Onset: 3 Chronic Other and delivery including normal (20 sources) Urine test positive; Translations: [ examination or test, positive result] 09-21-2021 Episodic Other upper respiratory infections (1 source) Acute upper respiratory infection; Translations: [Acute upper respiratory infection, unspecified] Onset: 3 Episodic Residual codes; unclassified (18 sources) Gestation period, 11 weeks; Translations: [ state, incidental] Episodic Residual codes; unclassified (13 sources) Gestation period, 15 weeks; Translations: [ state, incidental] Episodic Residual codes; unclassified (12 sources) Gestation period, 19 weeks; Translations: [ state, incidental] Episodic Residual codes; unclassified (9 sources) Gestation period, 27 weeks; Translations: [ state, incidental] Episodic Screening and history of mental health and substance abuse codes (1 source) H/O: Disorder; Translations: [Personal history of nicotine dependence] Onset: 3 Episodic Spondylosis; intervertebral disc disorders; other back problems (4 sources) Low back pain; Translations: [Low back pain, unspecified] Onset: 3 Episodic Substance-related disorders (17 sources) Nicotine dependence, cigarettes, uncomplicated; Translations: [Nicotine dependence] Onset: 9 05-25-2020 Chronic Comment on above: Added secondary to d ocumentation in Social History. Outside Source Comme nt: Comment on above: Added secondary to documentation in Social History. Unclassified (1 source) Family hx of ischem heart dis and oth dis of the circ sys Onset: 9 Unclassified (2 sources) 10 WEEKS PREG VOMITING 03-29-2021 Comment on above: 10 WEEKS PREG VOMITI NG Unclassified (1 source) 3 WK OB - PAP AND CULTURES 03-22-2021 Comment on above: 3 WK OB - PAP AND CU LTURES Unclassified (2 sources) TOOTH PAIN 24 WEEKS PREG 07-08-2021 Comment on above: TOOTH PAIN 24 WEEKS PREG Unclassified (1 source) 4 WEEK OB 07-04-2021 Comment on above: 4 WEEK OB Unclassified (1 source) Pain, dental 07-08-2021 Unclassified (2 sources) IUP @ 37WKS 09-21-2021 Comment on above: IUP @ 37WKS Unclassified (1 source) GESTATIONAL DIABETES - (O24.419) 09-06-2021 Comment on above: GESTATIONAL DIABETES - (O24.419) Unclassified (1 source) 09-21-2021 Unclassified (1 source) 35 weeks gestation of 09-21-2021 Unclassified (1 source) examination following vaginal delivery 09-23-2021 Unclassified (1 source) Severe pre-eclampsia in third trimester 09-25-2021 Unclassified (1 source) Severe pre-eclampsia, 09-25-2021 Unclassified (1 source) Gestational diabetes mellitus in the puerperium, insulin controlled 09-25-2021 Unclassified (1 source) Normal spontaneous vaginal delivery 09-25-2021 Viral infection (10 sources) Viral disease; Translations: [Viral infection, unspecified] Onset: 3 Episodic Past or Other Problems Problem Classification Problem Date Documented Da te Episodic/Chronic Unclassified (19 sources) Finding of menstrual bleeding; Translations: [Menstruation] Comment on above: AGE 14; Unclassified (1 source) IUP 37 09-21-2021 Comment on above: IUP 37 Results Test Name Value Interpretation Reference Range Facility Consent for Treatmenton 01-30 Consent for Treatment [id number] Normal [facility] ED Clinical Summaryon 2022 ED Clinical Summary [address] [address] ED Clinical Summary Person Information Name: THEO Saturday Suzanne[place] Age: 27 Years : 1995 Sex: Female Language: Tuvaluan PCP: Magali Zhong DO Marital Status: Single Phone: [phone] Visit Id: Visit Reason: Rash; RASH ON BOTH HANDS NOT SURE WHAT IS CAUSING IT Speciality: Acuity: 5 Enc Type: Emergency Med Service: Emergency Arrival: 02/17/2023 15:00:40 Discharge: 02/17/2023 16:16:04 LOS: 000 01:16 Checkin: 02/17/2023 15:00:40 Checkout: 02/17/2023 16:16:04 Dispo Type: Left Without Being Seen EVENTS: Event Name Event Status Request Date/Time Start Date/Time Complete Date/Time Arrive Complete 02/17/2023 15:00:40 02/17/2023 15:00:40 02/17/2023 15:00:40 Document Home Meds Request 02/17/2023 15:00:40 Triage Complete 02/17/2023 15:00:40 02/17/2023 15:14:36 02/17/2023 15:14:36 Registration Complete 02/17/2023 15:08:13 02/17/2023 15:08:13 02/17/2023 15:08:13 Reg Complete Request 02/17/2023 15:08:13 Reg Bed Request Complete 02/17/2023 15:08:13 02/17/2023 15:08:13 02/17/2023 15:08:13 Bed Assign Complete 02/17/2023 16:11:37 02/17/2023 16:11:37 02/17/2023 16:11:37 Dr Exam Complete 02/17/2023 16:11:37 02/17/2023 16:13:32 02/17/2023 16:13:32 RN Exam Request 02/17/2023 16:11:37 Registration Start 02/17/2023 16:13:32 02/17/2023 16:14:26 Discharge Complete 02/17/2023 16:16:17 02/17/2023 16:16:17 02/17/2023 16:16:17 Transfer Complete 02/17/2023 16:16:17 02/17/2023 16:16:17 02/17/2023 16:16:17 ADDRESS: [address] [place] [id number] [facility] DOC NOTES: MEDICAL INFORMATION: Prescriptions Given: Medications to Continue with No Changes Other Medications dicyclomine (dicyclomine 20 mg Tab) ondansetron (ondansetron 4 mg Dis Tab) PATIENT EDUCATION INFORMATION: Instructions: Follow up: DIAGNOSIS: [facility] ED Patient Education Noteon 02-17-2023 ED Patient Education Note [facility] ED Patient Summaryon 023 ED Patient Summary (Inserted Image. Yeni ble to display) [place] [id number] Patient Discharge Instructions Person Information Name: THEO Saturday Age: 27 Years Arrival Date: 02/17/2023 15:00:40 Discharge Diagnosis: Primary Care Physician: Magali Zhong DO Provider Information Primary Provider: [employer] Executive Director:None The exam and treatment you received in the Emergency Department were for an urgent problem and are not intended as complete care. It is important that you follow up with a doctor, nurse practitioner, or physician?s gallery assistant for ongoing care. If your symptoms become worse or you do not improve as expected and you are unable to reach your usual health care provider, you should return to the Emergency Department. We are available 24 hours a day. THEO, SATURDAY S has been given the following list of patient education materials, prescriptions and follow-up instructions: Follow-up Instructions: In the event that this physician does not participate in your insurance network, please consult with your insurance company to find a nearby participating provider. Patient Education Materials: A MESSAGE TO ALL PATIENTS REGARDING OPIOIDS PRESCRIPTION OPIOIDS: WHAT YOU NEED TO KNOW Prescription opioids can be used to help relieve mwphgvjq-qr-xgohbv pain and are often prescribed following a surgery or injury, or for certain health conditions. These medications can be an important part of the treatment but also come with serious risks. It is important to work with your healthcare provider to make sure you are getting the safest, most effective care. WHAT ARE THE RISKS AND SIDE EFFECTS OF OPIOID USE? Prescription opioids carry serious risks of addiction and overdose, especially with prolonged use. An opioid overdose, often marked by slowed breathing, can cause sudden . The use of prescription opioids can have a number of side effects as well, even when taken as directed: ? Tolerance?meaning you might need to take more of the medication for the same pain relief ? Physical dependence?meaning you have symptoms of withdrawal when a medication is stopped ? Increased sensitivity to pain ? Constipation ? Nausea, vomiting, and dry mouth ? Sleepiness and dizziness ? Confusion ? Depression ? Low levels of testosterone that can result in lower sex drive, energy, and strength ? Itching and sweating RISKS ARE GREATER WITH: ? History of drug misuse, substance use disorder, or overdose ? Mental health conditions (such as depression or anxiety) ? Sleep apnea ? Older age (65 years and older) ? Avoid alcohol while taking prescription opioids. Also, unless specifically advised by your health care provider, medications to avoid include: ? Benzodiazepines (such as Xanax or Valium) ? Muscle relaxants (such as Soma or Flexeril) ? Hypnotics (such as Ambien or Lunesta) ? Other prescription opioids KNOW YOUR OPTIONS Talk to your health care provider about ways to manage your pain that don?t involve prescription opioids. Some of these options may actually work better and have fewer risks and side effects. Options may include: ? Pain relievers such as acetaminophen, ibuprofen, and naproxen ? Some medication that are also used for depression or seizures ? Physical therapy and exercise ? Cognitive behavioral therapy, a psychological, goal-directed approach, in which patients learn how to modify physical, behavioral, and emotional triggers of pain and stress. IF YOU ARE PRESCRIBED OPIOIDS FOR PAIN: ? Never take opioids in greater amounts or more often than prescribed. ? Follow up with your primary health care provider. o Work together to create a plan on how to manage your pain. o Talk about ways to help manage your pain that don?t involve prescription opioids. o Talk about any and all concerns and side effects. ? Help prevent misuse and abuse o Never sell or share prescription opioids. o Never use another person?s prescription opioids. ? Store prescription opioids in a secure place and out of reach of others (this may include visitors, children, friends, and family). ? Safely dispose of unused prescription opioids: Find your community drug take-back program or your pharmacy mail-back program, or flush them down the toilet, following guidance from the Food and Drug Administration (www.fda.gov/Drugs/Resourc esForYou). ? Visit www.cdc.gov/drugoverdose to learn about the risks of opioids abuse and overdose. ? If you believe you may be struggling with addiction, tell your health health care marketing specialist and ask for guidance or call [facility] National Helpline at 3-970-167-OLBG. v Source: US Department of Health and Human Services/Center for Disease Control & Prevention [facility] Medications Given: Medication Dose Route No medications found. Medication Information: (more content not included)... [facility] Family Medicine Office/Clini c Noteon 02-04-2023 Family Medicine Office/Clinic Note Chief Complaint Current pt lower stomach pain, cough, nausea, diarrhea HPI Staff Saturday, 27 yo female stomach ache, pain/cramping, cough, diarrhea Symptoms began 2 days ago with worsening Pt states her lower abdomen has been hurting w/dry heaving, nausea, diarrhea Pt has a cough, sore throat from cough Pt has tested for COVID 3 times with negative results Pt denies OTC History of Present Illness I have reviewed and verified the staff HPI to be accurate for this encounter. Portions of this record have been created with voice recognition software. Occasional wrong-word or ?jmnuu-x-alpb? substitutions may have occurred due to the inherent limitations of voice recognition software. 27 yo female presents today with diarrhea, abdominal cramping, and cough. Patient was seen by myself about 1 week ago on January 29 at that time was treated for low back pain with prednisone 40 mg daily x5 days duration. She states a few days after seeing me approximately 5 days ago she developed dry cough runny stuffy nose. Denies ear pain sore throat body aches headache fever chills. Denies any concern for COVID-19 or influenza. States she has a hole in the back of home COVID-19 test which she test herself 3 times which were all negative. Patient also states intermittent constipation and diarrhea in which she has had diarrhea x1 episode today. States intermittent dry heaving with nausea but is wondering if that is also related to her coughing. Patient believes she has IBS that she states her brother has IBS. States she does not currently have a primary care provider needs to see a specialist. She states she has been seen in the past which she does have Zofran and Bentyl at home but believes that she is allergic to dicyclomine or Bentyl as she states it gave her palpitations are made it feel like her heart was racing. 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 He has no other concerns at this time. Review of Systems PHQ Score Initial Depression Screen Score: 0 ROS negative unless otherwise stated in HPI. Physical Exam Vitals & Measurements T: 36.7 ?C(Oral) HR: 77(Peripheral) BP: 122/78 SpO2: 99% HT: 67 in HT: 170 cm WT: 88.3 kg WT: 194.26 lb BMI: 30.55 General: Pleasant obese female, no acute distress Eyes: Bilateral conjunctiva within normal limits no injection Ears: Bilateral tympanic membranes are within normal limits. No erythema or bulging. Bilateral external auditory canals are within normal limits no erythema or edema. Nose: No deformity, discharge, inflammation, or lesions Mouth: Moist mucous membranes. No tonsillar erythema or exudate. No signs of peritonsillar abscess. No trismus or drooling. Neck: no adenopathy Lungs: Lung sounds are clear bilaterally. No wheezes rhonchi or crackles on exam. Cardio: S1, S2, regular rhythm. No murmurs gallops rubs. Abdomen: Bowel sounds are present x4 quadrants. Abdomen is soft, nontender, nondistended. No rigidity rebound or guarding on exam. Musculoskeletal: not assessed Extremity: Patient walked back into convenient care on her own without gait abnormality. Neurologic: not assessed Skin: No rashes, ulcerations, or suspicious lesions Mental Status: Alert and oriented x3. Normal mood and affect Assessment/Plan I spoke with patient in regards to her symptoms. Patient states she has taken 3 at home COVID-19 test which did not feel necessary to swab patient for COVID-19 or influenza at this time given patient duration of symptoms x5 days. Discussed with patient that she most likely has a viral upper respiratory infection in which I can send a prescription for Bromfed-DM cough suppressant 5 mL every 6 hours as needed for cough and congestion. Patient is in agreement. Discussed in regards to the intermittent diarrhea and constipation she could have underlying irritable bowel syndrome however she needs to seek primary care provider. At patient's last visit on January 29 I did give patient information for providers within [facility] system in addition to pamphlet for PCP and family health services here in [place]. Discussed with her that they also have not been at the office that she does work at [employer] and did not ski. Patient is understanding. Discussed with patient to increase fiber drink plenty of water make sure she is eating fruits and vegetables which patient is in agreement with. Patient declines Bentyl or dicyclomine given previous allergy. States that she does have Zofran at home which I discussed taking and dissolving 1 tablet under the tongue every 8 hours as needed for nausea or vomiting. Patient is understanding. She will return if needed for any worsening or concerning symptoms. She is provided with a work note for today as she states she missed her shift today. She does have tomorrow off. Patient agrees and understands plan of care. 1. Viral URI (J06.9: Acute upper respiratory infection, unspecified) Discussed exam and hx are cons (more content not included)... [facility] Comment on above: Result Comment: Elec tronically Signed By: Fernando FLORES, Luigi Perez\.br\Date and Time Signed: 02/04/23 15:23 EST Patient Educationon 02-05-20 Patient Education Infectious Disease Diarrhea, Adult Diarrhea is frequent loose and watery bowel movements. Diarrhea can make you feel weak and cause you to become dehydrated. Dehydration can make you tired and thirsty, cause you to have a dry mouth, and decrease how often you urinate. Diarrhea typically lasts 2?3 days. However, it can last longer if it is a sign of something more serious. It is important to treat your diarrhea as told by your health care provider. Follow these instructions at home: Eating and drinking Follow these recommendations as told by your health care provider: ? Take an oral rehydration solution (ORS). This is an amvt-mbx-skimmdw medicine that helps return your body to its normal balance of nutrients and water. It is found at pharmacies and retail stores. ? Drink plenty of fluids, such as water, ice chips, diluted fruit juice, and low-calorie sports drinks. You can drink milk also, if desired. ? Avoid drinking fluids that contain a lot of sugar or caffeine, such as energy drinks, sports drinks, and soda. ? Eat bland, iwkn-te-krprjx foods in small amounts as you are able. These foods include bananas, applesauce, rice, lean meats, toast, and crackers. ? Avoid alcohol. ? Avoid spicy or fatty foods. Medicines ? Take cvfq-gfg-csjrars and prescription medicines only as told by your health care provider. ? If you were prescribed an antibiotic medicine, take it as told by your health care provider. Do not stop using the antibiotic even if you start to feel better. General instructions ? Wash your hands often using soap and water. If soap and water are not available, use a hand nursery laborer. Others in the household should wash their hands as well. Hands should be washed: ? After using the toilet or changing a diaper. ? Before preparing, cooking, or serving food. ? While caring for a sick person or while visiting someone in a hospital. ? Drink enough fluid to keep your urine pale yellow. ? Rest at home while you recover. ? Watch your condition for any changes. ? Take a warm bath to relieve any burning or pain from frequent diarrhea episodes. ? Keep all follow-up visits as told by your health care provider. This is important. Contact a health care provider if: ? You have a fever. ? Your diarrhea gets worse. ? You have new symptoms. ? You cannot keep fluids down. ? You feel light-headed or dizzy. ? You have a headache. ? You have muscle cramps. Get help right away if: ? You have chest pain. ? You feel extremely weak or you faint. ? You have bloody or black stools or stools that look like tar. ? You have severe pain, cramping, or bloating in your abdomen. ? You have trouble breathing or you are breathing very quickly. ? Your heart is beating very quickly. ? Your skin feels cold and clammy. ? You feel confused. ? You have signs of dehydration, such as: ? Dark urine, very little urine, or no urine. ? Cracked lips. ? Dry mouth. ? Sunken eyes. ? Sleepiness. ? Weakness. Summary ? Diarrhea is frequent loose and sometimes watery bowel movements. Diarrhea can make you feel weak and cause you to become dehydrated. ? Drink enough fluids to keep your urine pale yellow. ? Make sure that you wash your hands after using the toilet. If soap and water are not available, use hand nursery laborer. ? Contact a health care provider if your diarrhea gets worse or you have new symptoms. ? Get help right away if you have signs of dehydration. This information is not intended to replace advice given to you by your health care provider. Make sure you discuss any questions you have with your health care provider. Document Revised: 09/27/2021 Document Reviewed: 09/27/2021 [employer] [facility] Patient Education ? 2022 [employer] Upper Respiratory Infection, Adult An upper respiratory infection (URI) is a common viral infection of the nose, throat, and upper air passages that lead to the lungs. The most common type of URI is the common cold. URIs usually get better on their own, without medical treatment. What are the causes? A URI is caused by a virus. You may catch a virus by: ? Breathing in droplets from an infected person's cough or sneeze. ? Touching something that has been exposed to the virus (is contaminated) and then touching your mouth, nose, or eyes. What increases the risk? You are more likely to get a URI if: ? You are very young or very old. ? You have close contact with others, such as at work, school, or a health care facility. ? You smoke. ? You have long-term (chronic) heart or lung disease. ? You have a weakened disease-fighting system (immune system). ? You have nasal allergies or asthma. ? You are experiencing a lot of stress. ? You have poor nutrition. What are the signs or symptoms? A URI usually involves some of the following symptoms: ? Runny or stuffy (congested) nose. ? (more content not included)... [facility] Patient Letter FTMCon 2022 Patient Letter [facility] [address] [place] [address] [id number] February 04, 2023Saturday THEO [address] [place] [address] : 1995 Please excuse , SATURDAY S from work . Date and/or Time of Absence: From: 02/04/23 To: 02/06/23 May return to work on: 02/06/23 Restrictions: None Comments: Please excuse due to an acute illness. 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 [address] [facility] [place] 01-30-2023 Consent [phone] [id number] [facility] Family Medicine Office/Clini c Noteon 01-29-2023 Family Medicine Office/Clinic Note Chief Complaint lower back pain HPI Staff 27 yr old female here for lower back pain. hx of scoliosis. History of Present Illness I have reviewed and verified the staff HPI to be accurate for this encounter. Portions of this record have been created with voice recognition software. Occasional wrong-word or ?lkwbz-e-ejub? substitutions may have occurred due to the inherent limitations of voice recognition software. 27 yo female presents today with cc of severe back pain. Patient states she has had intermittent back pain x1 week duration. She denies any falls trauma or injuries. 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 Patient states a history of scoliosis in which they noted or stated during delivery of her daughter in 2021 as they noted that her spine was not in the anatomic position per patient. Patient states that they had to put her epidural in from the side or sideways. She states on occasion the back pain will flare which she relates this to the cool weather. States the cold weather seems to make this flare. Patient states she does not currently have a primary care provider and has not ever been seen in regards to back pain. She denies any dysuria hematuria urinary urgency or frequency with her back discomfort denies any abdominal pain nausea vomiting or diarrhea with back discomfort. Denies any flank pain or history of kidney stones. Denies any fever chills or weakness. Denies any numbness tingling or weakness of the lower extremities pain does not travel into the lower extremities. She denies any urinary or bowel incontinence or retention. Denies any saddle anesthesia. She has no other concerns at this time. Patient states that she has tried modifying factors including heating pad and ibuprofen. Has not taken any ibuprofen today as she states it did not seem to be helping. Review of Systems PHQ Score Initial Depression Screen Score: 0 ROS negative unless otherwise stated in HPI. Physical Exam Vitals & Measurements T: 36.7 ?C(Oral) HR: 78(Peripheral) BP: 115/77 SpO2: 96% HT: 67 in HT: 170 cm WT: 88.7 kg WT: 195.14 lb BMI: 30.69 General: Pleasant obese female, no acute distress Eyes: not assessed Ears: not assessed Nose: not addressed Mouth: not assessed Neck: Normal alignment of cervical spine. No step-offs. No localized cervical spine or paraspinal tenderness. Normal range of motion of the neck. Neck is supple. Lungs: Lung sounds are clear bilaterally. No wheezing rhonchi or crackles on exam. Cardio: S1, S2, regular rhythm. No murmurs gallops or rubs. Abdomen: not assessed Musculoskeletal: Normal alignment of spinal column. No acute curvature noted on my examination today. No localized thoracic or lumbar spine tenderness. No paraspinal tenderness. No CVA tenderness. Patient has pain and discomfort just to the left of the spinal column no pain of bilateral SI joint regions with palpation. Bilateral straight leg raise is negative. Patient stood from a seated position without difficulty in the room. Extremity: Patient walked back in the convenient care on her own without gait abnormality. Neurologic: not assessed Skin: No rashes, ulcerations, or suspicious lesions Mental Status: Alert and oriented x3. Normal mood and affect Assessment/Plan 1. Low back pain (M54.50: Low back pain, unspecified) I spoke with patient in regards to flare of low back pain. There is no falls trauma or injuries which I do not believe patient requires any x-ray imaging at this time in which patient is in agreement with patient has not tried any modifying factors in which I discussed with her in regards to an injection of Toradol 30 mg here in office which patient is in agreement with discussed to refrain from use of NSAID medications for 8 hours and while taking prednisone 40 mg daily x5 days duration for treatment of low back pain and discomfort. Patient is understanding and agreement understands that she may take Tylenol as needed for pain or discomfort. Patient does not currently have a primary care provider was provided with a list of providers within [facility] in addition to family health services pamphlet. She understands to return if needed for any worsening or concerning symptoms in which patient agrees and understands plan of care. She understands to seek ER for reevaluation if she were develop any saddle anesthesia any weakness numbness or tingling of the extremities any difficulty walking any urinary or bowel incontinence or retention or for any other worsening or concerning symptoms. Ordered: ketorolac, 30 mg = 1 mL, Injection, IntraMuscular, Once, Stop date 01/29/23 15:33:00 EDT, Routine, Start date 01/29/23 15:33:00 EDT, 01/29/23 15:33:00 EDT predniSONE, 40 mg = 2 tab(s), Oral, Daily, X 5 day(s), # 10 tab(s), Refills(s) 0, Pharmacy: [id number], 170, cm, 01/29/23 15:20:00 EDT, Height/Length Dosing, 88.7, kg, 01/29/23 15:20:00 EDT, Weight Dosing 2. Former smoker (more content not included)... [facility] Comment on above: Result Comment: Elec tronically Signed By: Fernando FLORES, Luigi Perez\.br\Date and Time Signed: 01/29/23 16:00 EDT Patient Educationon 01-30-20 Patient Education Nutrition BMI for Adults What is BMI? Body mass index (BMI) is a number that is calculated from a person's weight and height. BMI can help estimate how much of a person's weight is composed of fat. BMI does not measure body fat directly. Rather, it is an alternative to procedures that directly measure body fat, which can be difficult and expensive. BMI can help identify people who may be at higher risk for certain medical problems. What are BMI measurements used for? BMI is used as a screening tool to identify possible weight problems. It helps determine whether a person is obese, overweight, a healthy weight, or underweight. BMI is useful for: ? Identifying a weight problem that may be related to a medical condition or may increase the risk for medical problems. ? Promoting changes, such as changes in diet and exercise, to help reach a healthy weight. BMI screening can be repeated to see if these changes are working. How is BMI calculated? BMI involves measuring your weight in relation to your height. Both height and weight are measured, and the BMI is calculated from those numbers. This can be done either in [place] or metric measurements. Note that charts and online BMI calculators are available to help you find your BMI quickly and easily without having to do these calculations yourself. To calculate your BMI in [place] measurements: 1. Measure your weight in pounds (lb). 2. Multiply the number of pounds by 703. ? For example, for a person who weighs 180 lb, multiply that number by 703, which equals 126,540. 3. Measure your height in inches. Then multiply that number by itself to get a measurement called inches squared. ? For example, for a person who is 70 inches tall, the inches squared measurement is 70 inches x 70 inches, which equals 4,900 inches squared. 4. Divide the total from step 2 (number of lb x 703) by the total from step 3 (inches squared): 126,540 ? 4,900 = 25.8. This is your BMI. To calculate your BMI in metric measurements: 1. Measure your weight in kilograms (kg). 2. Measure your height in meters (m). Then multiply that number by itself to get a measurement called meters squared. ? For example, for a person who is 1.75 m tall, the meters squared measurement is 1.75 m x 1.75 m, which is equal to 3.1 meters squared. 3. Divide the number of kilograms (your weight) by the meters squared number. In this example: 70 ? 3.1 = 22.6. This is your BMI. What do the results mean? BMI charts are used to identify whether you are underweight, normal weight, overweight, or obese. The following guidelines will be used: ? Underweight: BMI less than 18.5. ? Normal weight: BMI between 18.5 and 24.9. ? Overweight: BMI between 25 and 29.9. ? Obese: BMI of 30 or above. Keep these notes in mind: ? Weight includes both fat and muscle, so someone with a muscular build, such as an athlete, may have a BMI that is higher than 24.9. In cases like these, BMI is not an accurate measure of body fat. ? To determine if excess body fat is the cause of a BMI of 25 or higher, further assessments may need to be done by a health care provider. ? BMI is usually interpreted in the same way for men and women. Where to find more information For more information about BMI, including tools to quickly calculate your BMI, go to these websites: ? Centers for Disease Control and Prevention: www.cdc.gov ? [place] [employer]: www.heart.org ? National Heart, Lung, and Blood Mathews: www.nhlbi.nih.gov Summary ? Body mass index (BMI) is a number that is calculated from a person's weight and height. ? BMI may help estimate how much of a person's weight is composed of fat. BMI can help identify those who may be at higher risk for certain medical problems. ? BMI can be measured using [place] measurements or metric measurements. ? BMI charts are used to identify whether you are underweight, normal weight, overweight, or obese. This information is not intended to replace advice given to you by your health care provider. Make sure you discuss any questions you have with your health care provider. Document Revised: 12/09/2019 Document Reviewed: 10/16/2019 ElseDapt Patient Education ? 2022 [employer] Orthopedics Acute Back Pain, Adult Acute back pain is sudden and usually short-lived. It is often caused by an injury to the muscles and tissues in the back. The injury may result from: ? A muscle, tendon, or ligament getting overstretched or torn. Ligaments are tissues that connect bones to each other. Lifting something improperly can cause a back strain. ? Wear and tear (degeneration) of the spinal disks. Spinal disks are circular tissue that provide cushioning between the bones of the spine (vertebrae). ? Twisting motions, such as while playing sports or doing yard work. ? A hit to the back. ? Arthritis. You may have a physical exam, lab tests, and imaging tests to find t (more content not included)... Normal [facility] Patient Letter FTMCon 2022 Patient Letter [facility] [address] [place] [address] [id number] January 29, 2023Saturday THEO [address] [place] [address] : 1995 Please excuse THOE, SATURDAY S from work . Date and/or Time of Absence: From: 01/29/23 To: 01/31/23 May return to work on: 01/31/23 Restrictions: None Comments: Please excuse due to an acute illness. 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 [address] Normal [facility] Family Medicine Office/Clini c Noteon 01-17-2023 Family Medicine Office/Clinic Note Chief Complaint EST runny nose stomach pain HPI Staff 27 year old female presents with runny nose and stomach pain for 2 nights History of Present Illness Reviewed and agree with above documented HPI by medical aides teacher. Portions of this record may have been created with voice recognition artificial intelligence software, specifically [employer], [employer] and or [place]. Substitutions may have occurred due to the inherent limitations of voice recognition and artificial intelligence software. Patient is a 27-year-old female who presents to [facility], for clear nasal drainage, sinus congestion, abdominal pain, patient states symptoms started 2 days ago, worsening pain at night, sat postnasal drip, states she continues to eat and drink, has had nausea but without vomiting, but is able to eat. Patient states no one else at home is sick. Patient states she missed work today. Patient states concerned about COVID-19. States he does have a history of GERD and IBS chronic diarrhea and chronic constipation, has not seen a doctor in a while, thinks that her GERD is irritating her IBS, denies any vomiting, ongoing nausea, fevers, chills, headache, dizziness, sore throat, difficulty swallowing, cough, chest pain, shortness of breath, symptoms, patient, worsening diarrhea, or worsening abdominal pain. Review of Systems PHQ Score Initial Depression Screen Score: 0 Physical Exam Vitals & Measurements T: 37 ?C(Oral) HR: 91(Peripheral) BP: 120/80 SpO2: 97% HT: 66 in HT: 168 cm WT: 88.7 kg WT: 195.14 lb BMI: 31.43 General: Well developed, well nourished, in no acute distress, patient appears ill but not septic, no respiratory disorders noted, answers questions appropriately in complete sentences, and follows commands appropriately. Head: Normocephalic/atraumatic, no upper respiratory infections noted. Eyes: Pupils equal, round, and reactive to light. Conjunctivae and sclerae normal Ears: Bilateral TMs and bilateral external canals are both within normal limits. Hearing is intact. Nose: No deformity, discharge, inflammation, or lesions Mouth: Mucous membranes moist. Normal oropharynx, and posterior pharynx without any erythema, lesions, or exudates. Lungs: Normal respiratory effort and clear to auscultation throughout, no wheezing, no rales, crackles, or decreased breath sounds noted on examination. Cardio: regular rate and rhythm, no murmur, no chest wall tenderness. Abdomen: soft, nondistended, BS normal and active x4. Denies tenderness with palpation, no guarding, no grimacing, no left or right CVA tenderness. No lumbar back pain on examination. No acute abdomen. Extremity: patient is able to move all 4 extremities equally well no pain or weakness. Neurologic: Grossly normal Skin: No rashes, ulcerations, or suspicious lesions Lymph Nodes: no lad Mental Status: alert, active Assessment/Plan Discussed with patient negative COVID-19 results. 27-year-old female presents to [facility], for viral illness started 2 days ago, had abdominal pain, which subsided, send no nausea or vomiting, patient did appear ill but not septic, no respiratory disorder or difficulty swallowing was noted. Patient was given a prescription for prednisone, instructed take [id number] Tylenol as needed for body aches, fevers, or headaches. Drink plenty water stay hydrated. Given a work excuse note. Patient agree with the plan. 1. Viral illness (B34.9: Viral infection, unspecified) See above Ordered: predniSONE, 20 mg = 1 tab(s), Oral, Daily, X 5 day(s), # 5 tab(s), Refills(s) 0, Pharmacy: [facility] #[id number], 168, cm, 01/17/23 12:52:00 EDT, Height/Length Dosing, 88.7, kg, 01/17/23 12:52:00 EDT, Weight Dosing Rapid COVID POC [id number] Follow-up With When Contact Information Magali Zhong DO Additional Instructions: Patient Education Viral Respiratory Infection, Ulep-Dc-Bomt Problem List/Past Medical History Ongoing Smoker Viral illness Historical Anxiety depression Heart murmur Medications predniSONE 20 mg Tab, 20 mg= 1 tab(s), Oral, Daily Allergies acetaminophen (Palpitations) Social History Alcohol - Denies Alcohol Use, 06/08/2016 Current, 04/17/2018 Current, 12/02/2017 Current, 07/03/2017 Substance Abuse - Denies Substance Abuse, 06/08/2016 Current, 04/17/2018 Tobacco - High Risk, 08/07/2016 Former smoker, quit more than 30 days ago Tobacco Use:. Yes, 01/17/2023 4 or less cigarettes(less than 1/4 pack)/day in last 30 days Tobacco Use:., 04/17/2018 10 or more cigarettes (1/2 pack or more)/day in last 30 days Tobacco Use:., 01/30/2018 4 or less cigarettes(less than 1/4 pack)/day in last 30 days Tobacco Use:., 01/07/2018 4 or less cigarettes(less than 1/4 pack)/day in last 30 days Tobacco Use:. Cigarettes, 12/02/2017 5-9 cigarettes (between 1/4 to 1/2 pack)/day in last 30 days Tobacco Use:. Cigarettes, 07/03/2017 Current Every Day Smoker, Cigarettes, 08/07/2016 Famil (more content not included)... Normal [facility] Comment on above: Result Comment: Elec tronically Signed By: SALEEM FLORES, HINA\.br\Date and Time Signed: 01/17/23 18:40 EDT Patient Educationon 01-18-20 Patient Education Infectious Disease Viral Respiratory Infection A viral respiratory infection is an illness that affects parts of the body that are used for breathing. These include the lungs, nose, and throat. It is caused by a germ called a virus. Some examples of this kind of infection are: ? A cold. ? The flu (influenza). ? A respiratory syncytial virus (RSV) infection. What are the causes? This condition is caused by a virus. It spreads from person to person. You can get the virus if: ? You breathe in droplets from someone who is sick. ? You come in contact with people who are sick. ? You touch mucus or other fluid from a person who is sick. What are the signs or symptoms? Symptoms of this condition include: ? A stuffy or runny nose. ? A sore throat. ? A cough. ? Shortness of breath. ? Trouble breathing. ? Yellow or green fluid in the nose. Other symptoms may include: ? A fever. ? Sweating or chills. ? Tiredness (fatigue). ? Achy muscles. ? A headache. How is this treated? This condition may be treated with: ? Medicines that treat viruses. ? Medicines that make it easy to breathe. ? Medicines that are sprayed into the nose. ? Acetaminophen or NSAIDs, such as ibuprofen, to treat fever. Follow these instructions at home: Managing pain and congestion ? Take xhst-phk-rmobnhr and prescription medicines only as told by your doctor. ? If you have a sore throat, gargle with salt water. Do this 3?4 times a day or as needed. ? To make salt water, dissolve ??1 tsp (3?6 g) of salt in 1 cup (237 mL) of warm water. Make sure that all the salt dissolves. ? Use nose drops made from salt water. This helps with stuffiness (congestion). It also helps soften the skin around your nose. ? Take 2 tsp (10 mL) of honey at bedtime to lessen coughing at night. ? Do not give honey to children who are younger than 1 year old. ? Drink enough fluid to keep your pee (urine) pale yellow. General instructions ? Rest as much as possible. ? Do not drink alcohol. ? Do not smoke or use any products that contain nicotine or tobacco. If you need help quitting, ask your doctor. ? Keep all follow-up visits. How is this prevented? ? Get a flu shot every year. Ask your doctor when you should get your flu shot. ? Do not let other people get your germs. If you are sick: ? Wash your hands with soap and water often. Wash your hands after you cough or sneeze. Wash hands for at least 20 seconds. If you cannot use soap and water, use hand nursery laborer. ? Cover your mouth when you cough. Cover your nose and mouth when you sneeze. ? Do not share cups or eating utensils. ? Clean commonly used objects often. Clean commonly touched surfaces. ? Stay home from work or school. ? Avoid contact with people who are sick during cold and flu season. This is in fall and winter. Get help if: ? Your symptoms last for 10 days or longer. ? Your symptoms get worse over time. ? You have very bad pain in your face or forehead. ? Parts of your jaw or neck get very swollen. ? You have shortness of breath. Get help right away if: ? You feel pain or pressure in your chest. ? You have trouble breathing. ? You faint or feel like you will faint. ? You keep vomiting and it gets worse. ? You feel confused. These symptoms may be an emergency. Get help right away. Call your local emergency services (911 in the [place] ? Do not wait to see if the symptoms will go away. ? Do not drive yourself to the hospital. Summary ? A viral respiratory infection is an illness that affects parts of the body that are used for breathing. ? Examples of this illness include a cold, the flu, and a respiratory syncytial virus (RSV) infection. ? The infection can cause a runny nose, cough, sore throat, and fever. ? Follow what your doctor tells you about taking medicines, drinking lots of fluid, washing your hands, resting at home, and avoiding people who are sick. This information is not intended to replace advice given to you by your health care provider. Make sure you discuss any questions you have with your health care provider. Document Revised: 06/22/2021 Document Reviewed: 06/22/2021 Elsevier Patient Education ? 2022 [employer] Normal [facility] Patient Letter FTon 2022 Patient Letter [facility] [address], [place] [address] January 17, 2023Saturday THEO [address] [place] [address] : 1995 Please excuse THEO, SATURDAY S from work . Date and/or Time of Absence: From: 01/17/23 May return to work on: 01/18/23 Restrictions: None Comments: Please excuse due to an acute illness. Provider Signature: Hina Ko PA-C [facility] [address] [place] [address] Normal [facility] XR CHEST 2 Von 01-08-2022 XR CHEST 2 V EXAMINATION: XR CHES T 2 V HISTORY: Chest pain ; acute right chest pain for 2 months COMPARISON: No relevant comparison available. FINDINGS: LUNGS: No significant pulmonary parenchymal abnormalities. VASCULATURE: No increased pulmonary vasculature. PLEURA: No pneumothorax, effusion, or pleural thickening. CARDIAC: No cardiomegaly or cardiac silhouette abnormality. MEDIASTINUM: No visible mass or adenopathy. BONES: No fracture or visible bone lesion. OTHER: Negative. IMPRESSION: 1. No acute or specific findings to account for patient's symptoms. Electronically authenticated by: JAMEE MCGOWAN Date: 2022-01-08 16:[address] [facility] ABO/RH GROUP TESTon 09-26-19 22 RH TYPE Positive Normal [facility] Comment on above: Performed By: #### V ERAB #### [facility] [address] [place] [address] Clinical Event Note-BP Cuffo n 09-25-2021 Clinical Event Note-BP Cuff Clinical Event: Clinical Event Note: TopicBP Cuff Details Patient meets criteria for home monitoring of blood pressure post discharge. Met with patient to assess for availability of home BP monitor. Patient stated she owns home BP monitor. Patient educated on importance of continuing to monitor BP at home, recording BP on home monitoring log and s/sx of when to call her provider. Pt verbalized understanding the above information. 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 Home Medications Review Status for Reconciliation: Complete Med Status: Patient Currently Takes Medications Drug Name: acetaminophen 325 mg oral capsule Instructions: 3 cap(s) orally every 6 hours, As Needed -.Meds to Beds Drug Name: Colace 100 mg oral capsule Instructions: 1 cap(s) orally 2 times a day, As Needed -.Meds to Beds Drug Name: ibuprofen 600 mg oral tablet Instructions: 1 tab(s) orally every 6 hours, As Needed -.Meds to Beds Drug Name: NIFEdipine 90 mg oral tablet, extended release Instructions: 1 tab(s) orally once a day -.Meds to Beds Medications Delivered Topatient Delivery Date/[id number] 11:29 Education TopicADR counseling; dosage, frequency, storage; medication indication Learnerpatient Barriers to Learningnone Methodverbal Outcome Evaluation2=meets goals/outcomes Allergy: Allergies Summary No Known Allergies Electronic Signatures: Kwabena Duarte (PharmD) (Signed 25-Sep-2021 13:29) Authored: Discharge Meds, Allergy Last Updated: 25-Sep-2021 13:29 by Kwabena Duarte (PharmD) Normal [facility] Order Reconciliationon 09-25 Order Reconciliation Page 1 Discharge Reconciliation Document Reconciliation Type: Discharge requested on behalf of Vanda Valle (Advanced Practice Nurse) done by Vanda Valle (BAG BUNDLER-CANDY SPREADER) Discharge - Reconciliation: 25-Sep-2021 08:41 by: Vanda Valle (BAG BUNDLER-CANDY SPREADER) Home Medications EnteredHOME MEDICATIONS AT DISCHARGE DateReconciliation Comment/ Additional Information Levemir FlexTouch 100 units/mL subcutaneous solution 10 microcurie subcutaneous once a day (at bedtime) 06-Sep-2021 13:53 Discontinued; Discontinue from ORM Levemir FlexTouch 100 units/mL subcutaneous solution is not required 1 oral capsule 1 tab(s) orally once a day 06-Sep-2021 13:54 1 oral capsule 1 tab(s) orally once a day 06-Sep-2021 13:54 1 oral capsule is continued as 1 oral capsule Current OrdersDateHOME MEDICATIONS AT DISCHARGE DateReconciliation Comment/ Additional Information Acetaminophen Tablet (TYLENOL)DOSE = 975 mg Oral Every 6 HoursClinician Notes: Give with Ibuprofen. 22-Sep-2021 06:00 Acetaminophen is not required Benzocaine 20% - Menthol 0.5% Topical [place] (DERMOPLAST)DOSE = 1 application(s) Topical 4 Times a Day, PRN DiscomfortApply to Perianal Area 22-Sep-2021 06:00 Benzocaine 20% - Menthol 0.5% Topical is not required Bisacodyl Rectal Suppository (DULCOLAX)DOSE = 10 mg Rectal Daily, PRN Severe constipation 22-Sep-2021 06:00 Bisacodyl Rectal is not required Calcium Gluconate Injectable DOSE = 1 gram(s) IntraVenous Push Once, PRN Magnesium toxicityClinician Notes: IV push over 5 minutes 21-Sep-2021 01:04 Calcium Gluconate Injectable is not required Carboprost IntraMuscular (HEMABATE)DOSE = 250 microgram(s) IntraMuscular Once, PRN post bleeding in non-asthmatic patientClinician Notes: Consult provider prior to administration. 22-Sep-2021 06:00 Carboprost IntraMuscular is not required diphenhydrAMINE Capsule (BENADRYL)DOSE = 25 mg Oral Every 6 Hours, PRN Itching 22-Sep-2021 06:00 diphenhydrAMINE is not required Docusate Capsule (COLACE)DOSE = 100 mg Oral 2 Times a Day, PRN Stool Softening 22-Sep-2021 06:00 Docusate is not required Enoxaparin SubCutaneous (LOVENOX)DOSE = 40 mg SubCutaneous Every 24 HoursClinician Notes: Wait 4 hours after neuraxial catheter removal AND 12 hours after placement of neuraxial catheter. BMI less than 35 with a score greater than 5 OR BMI 35 to 39. 22-Sep-2021 06:00 Enoxaparin SubCutaneous is not required Ferrous Sulfate Tablet (FEOSOL)DOSE = 325 mg Oral Every Other Day 21-Sep-2021 01:29 ferrous sulfate 325 mg (65 mg elemental iron) oral tablet 1 tab(s) orally every other day 25-Sep-2021 08:41 Ferrous Sulfate is continued as ferrous sulfate 325 mg (65 mg elemental iron) oral tablet hydrALAZINE (APRESOLINE) Injectable DOSE = 5 mg IntraVenous Push Once, PRN Acute-onset, severe HTN w/out known, suspected CADClinician Notes: Consult provider prior to administration. Push over more than 2 minutes. Systolic greater than or equal to 16 22-Sep-2021 06:00 hydrALAZINE (APRESOLINE) Injectable is not required hydrOXYzine Pamoate (VISTARIL) CapsuleDOSE = 50 mg Oral At Bedtime, PRN insomnia 24-Sep-2021 19:32 hydrOXYzine Pamoate (VISTARIL) is not required Ibuprofen Tablet (ADVIL, MOTRIN)DOSE = 600 mg Oral Every 6 HoursClinician Notes: Give with Acetaminophen. 22-Sep-2021 06:00 Ibuprofen is not required Labetalol Injectable (TRANDATE)DOSE = 20 mg IntraVenous Push Once, PRN Acute-onset, sev HTN w/o active asthma, mesfin<60Clinician Notes: Consult provider prior to administration. Push over more than 2 minutes. Systolic greater than or equal to 160 OR 22-Sep-2021 06:00 Labetalol Injectable is not required Lanolin Topical Ointment (LANSINOH)DOSE = 1 application(s) Topical Every 24 Hours, PRN Dry SkinApply to NippleClinician Notes: After and PRN 22-Sep-2021 06:00 Lanolin Topical is not required Loperamide Capsule (IMODIUM)DOSE = 4 mg Oral Every 2 Hours, PRN If Carboprost given or loose stoolsClinician Notes: Max dose of 16mg / 24 hours 22-Sep-2021 06:00 Loperamide is not required Magnesium Hydroxide -Al Hydrox -Simethicone Oral Liquid (MAALOX)DOSE = 30 mL Oral Every 4 Hours, PRN Indigestion 22-Sep-2021 06:00 Magnesium Hydroxide -Al Hydrox -Simethicone Oral Liquid is not required Magnesium Hydroxide Oral Liquid CONCENTRATE (MILK OF MAGNESIA)DOSE = 10 mL Oral Every 24 Hours, PRN Constipation 22-Sep-2021 06:00 Magnesium Hydroxide Oral Liquid CONCENTRATE is not required Magnesium Sulfate 20 gram/ Sterile Water 500 mL Infusion with Bolus from Bag IntraVenous INITIAL Bolus = 0 gram(s) infused over 20 minutesDose Rate: 2 g/hrAdmin Rate = 50 mL/hrClinician Notes: Continuous pulse ox throughout IV bolus. 21-Sep-2021 01:04 Magnesium Sulfate 20 gram/ Sterile Water 500 mL Infusion with Bolus from Bag is not required Methylergonovine Injectable (METHERGINE)DOSE = 0.2 mg IntraMuscular Once, PRN PPH in pts w/o HTN or receiving A (more content not included)... Normal [facility] Daily Progress Note - OB-Pos t-partumon 09-24-2021 Daily Progress Note - HP-Qhpz-[id number] Current Stage: Stage: Post- Subjective Data: Post : : Resting comfortably. Denied VENEGAS, changes in vision, shortness of breath, or RUQ pain. No acute concerns voiced. Pain is well controlled. Patient tearful and visibly upset due to separation from partner and family. Both live about 1 hour from . Her FOB had to leave for work. Patient feels overwhelmed with caring for in the NICU and losing the support of her FOB. She reports a history of anxiety with medication use but states that it made things much worse when she was on medication. She denies having an established counselor or therapist; however, she is interested in establishing care. Objective Information: Objective Information: T PRBPMAPSpO2 [id number]% Date/Time09/24 12: 12: 12: 12: 12: 12:29 Range(36.3C - 37.2C ) (77 - 109 ) (18 - 20 ) (125 - 143 )/ (68 - 92 ) (90 - 108 ) (89% - 99% ) Highest temp of 37.2 C was recorded at 09/24 4:43 Pain reported at 09/24 16:10: 6 = Moderate Physical Exam: Constitutional: alert, oriented, NAD, tearful Obstetric: Fundus firm, below umbilicus Respiratory/Thorax: no respiratory distress, normal effort; CTAB Cardiovascular: RRR Gastrointestinal: soft, non-tender Extremities: no calf tenderness, redness, or swelling Neurological: 2+ reflexes Psychological: appropriate affect, normal mood Skin: no rashes or lesions visualized Assessment and Plan: Assessment: 26 yo who is PPD#2 s/p @ 35.1 wga (09/21) in s/o PEC Severe PEC - dx based on elevated BP requiring IV antihypertensive and P:C 0.7 - asymptomatic at this time - HELLP labs neg x2 - s/p Mg for 24hr - s/p IV hydral 5/10, 5, 5/5 (1315 09/21) - PO Nifedipine 90mg (09/21 @1999) - UOP adequate GDMA2 - FBS 86 on PPD#1, 2hr OGT at 6 wk visit Asthma - Continue albuterol as needed - continue routine care - declines PPBC, counselled on recommendations for safe spacing and availability of a variety of contraceptive options, should she desire Anxiety - Appears to be exacerbated by state and social issues (separation from FOB for work, separation from baby overnight in NICU, etc.) - Patient reports minimal sleep over the last couple of days. She is amenable to Vistaril PRN for anxiety and sleep - She is also amenable to social work consultation with possible arrangement of outpatient mental health follow up. Will reassess with social work and tomorrow AM rounds. Dispo: likely home on PPD#3 pending blood pressure control. Ladan Cowan MD Obstetrics & Gynecology Electronic Signatures: Ladan Cowan ( (Fellow)) (Signed 24-Sep-2021 21:39) Authored: Current Stage, Subjective Data, Objective Data, Assessment and Plan, Note Completion Last Updated: 24-Sep-2021 21:39 by Ladan Cowan ( (Fellow)) Normal [facility] Clinical Event Note-Mag Chec megan 09-23-2021 Clinical Event Note-Mag Check Clinical Event: Clinical Event Note: TopicMag Check Details investment officer at bedside for Mag check. Pt denying VENEGAS, changes in vision, shortness of breath, or right upper quadrant pain. Vitals below. Physical Exam: General: well-appearing Cardiac: S1/S2, no murmurs Pulm: LCTA, bilateral chest expansion wnl GI: nontender to palpation MSK: ROM intact Neuro: 2+ reflexes bilaterally UOP adequate. sPEC -Diagnosed by severe range BPs requiring IV antihypertensives -s/p IV hydral 08/08, 5, 5/ (1315 09/21) -PO Nifedipine 90mg (09/21 @1999) -HELLP labs neg x2 -P:C 0.7 -Asymptomatic -Mg @ 2g/hr Maciej Betts, PGY3 d/w Dr. Delgado Obstetrics & Gynecology Objective Information T PRBPMAPSpO2 [id number]% Date/ 23: 1: 23: 1: 1: 1:06 Range(36.1C - 37.6C ) (83 - 136 ) (17 - 18 ) (87 - 167 )/ (44 - 93 ) (63 - 120 ) (90% - 99% ) Highest temp of 37.6 C was recorded at 09/22 7:35 Electronic Signatures: Maciej Betts ( (Resident)) (Signed 23-Sep-2021 01:13) Authored: Clinical Event Note Last Updated: 23-Sep-2021 01:13 by Maciej Betts ( (Resident)) Normal [facility] Daily Progress Note - OB-Pos t-partumon 09-23-2021 Daily Progress Note - XE-Koih-szmwbm Current Stage: Stage: Post- Subjective Data: Post : : Resting comfortably. Denied VENEGAS, changes in vision, shortness of breath, or RUQ pain. No acute concerns voiced. Pain is well controlled. Objective Information: Objective Information: T PRBPMAPSpO2 [id number]/538027% Date/Time09/23 1: 5: 4: 4: 4: 5:01 Range(36.1C - 37.6C ) (83 - 136 ) (17 - 18 ) (87 - 167 )/ (44 - 93 ) (63 - 120 ) (89% - 99% ) Highest temp of 37.6 C was recorded at 09/22 7:35 Pain reported at 09/23 4:41: 0 = None ---- Intake and Output ----- Mn/Dy/Year TimeIntakeOutputNet Sep 21, 2021 10:00 [id number] Sep 21, 2021 2:00 [id number] Sep 21, 2021 6:00 [id number] The Intake and Output Totals for the last 24 hours are: IntakeOutputNet [id number] Physical Exam: Constitutional: alert, oriented, NAD Obstetric: Fundus firm, below umbilicus Respiratory/Thorax: no respiratory distress, normal effort; CTAB Cardiovascular: RRR Gastrointestinal: soft, non-tender Extremities: no calf tenderness, redness, or swelling Neurological: 2+ reflexes Psychological: appropriate affect, normal mood Skin: no rashes or lesions visualized Assessment and Plan: Assessment: 26 yo who is PPD#1 s/p @ 35.1 wga (09/21) in s/o PEC Severe PEC - dx based on elevated BP requiring IV antihypertensive and P:C 0.7 - asymptomatic at this time - HELLP labs neg x2 - s/p Mg for 24hr - s/p IV hydral 5/10, 5, 5/5 (1315 09/21) - PO Nifedipine 90mg (09/21 @1999) - UOP adequate GDMA2 - For FBS this AM, 2hr OGT at 6 wk visit Asthma - Continue albuterol as needed - continue routine care - declines, counselled on recommendations for safe spacing and availability of a variety of contraceptive options, should she desire - EBL 200. Fundus boggy, 350 cc --> straight cath 1100 cc, bleeding improved. Total EBL 550 cc Dispo: likely home on PPD#3 pending blood pressure control. Maciej Betts, PGY3 Obstetrics & Gynecology Attestation: Note Completion: I am a: Resident/Fellow Attending AttestationI saw and evaluated the patient. I personally obtained the tejada and critical portions of the history and physical exam or was physically present for tejada and critical portions performed by the resident/fellow. I reviewed the resident/fellows documentation and discussed the patient with the resident/fellow. I agree with the resident/fellows medical decision making as documented in the note. I personally evaluated the patient [id number] Electronic Signatures: Maciej Betts ( (Resident)) (Signed 23-Sep-2021 06:10) Authored: Current Stage, Subjective Data, Objective Data, Assessment and Plan, Note Completion Chad Brian) (Signed 23-Sep-2021 06:43) Authored: Note Completion Co-Signer: Current Stage, Subjective Data, Objective Data, Assessment and Plan, Note Completion Last Updated: 26-Sep-2021 10:02 by Dallin Santillan) Normal [facility] Discharge Planning [id number] 09-23-2021 Discharge Planning Note2 Discharge Planning: Anticipated Discharge [id number] Discharge Planning Date and Time: 09/23/2021 @ 0540 Nursing Note/Admission/Health Maintenance: D: Patient admitted to the ANTICHECKING IRON WORKER unit from L&D Patient admitted for or s/p @ 35.1wks Patient lives at home Patient was independent with ambulation and ADL's prior to admission. Patient's caregiver/help after discharge will be family Home going needs anticipated at this time: none Upon arrival, admitting assessment completed. See flowsheets. Stable upon admission. Discharge folder handouts and/or brochures given to patient/caregiver and reviewed with them. E: Discharge planning initiated. P: Continue to assess home going/discharge needs. Coordinate with Dietitian Chief as needed. Signature: Chris Stern RN Assessment: Discharge Planning Assessment [id number] Lives Withsignificant other(1) [place]) Resource/Environmental Concernsnon(1) Anticipated Transition [place](1) Services Anticipated at Transitionnon(1) Discharge Documentation: [place] DNR Form Sent with Patient and/or Familyn/a Electronic Signatures: Zandra Stern) (Signed 23-Sep-2021 05:45) Authored: Discharge Planning, Assessment, Discharge Documentation Last Updated: 23-Sep-2021 05:45 by Zandra Stern (MARK) References: 1. Data Referenced From Patient Profile - OB v3 21-Sep-2021 00:19 [facility] Discharge [id number] Discharge Profile2 Discharge Orders: Anticipated Discharge Date: Anticipated Discharge [id number] DNAR: Code Status at Discharge: Full Code : Call Provider: Call your OB Provider if you have: (If you can't reach your healthcare provider, call 911 or go to an emergency room). Headache that does not get better, even after taking medicine; bad headache with vision changes; pain in the upper right area of your belly. Activity: Return to normal activity as tolerated. Patient Instructions: Pelvic Rest: DO NOT place anything in vagina until cleared by OB Provider. Blood Pressure: Any Blood Pressure Systolic (upper number) 160 or higher OR Diastolic (bottom number) 110 or higher, call your doctor or sleeve turner immediately. Blood Pressure Systolic (upper number) 150 - 159 OR Diastolic (bottom number) 100 - 109, repeat in one hour. If repeat Blood Pressure Systolic 150 - 159 OR Diastolic 100 - 109, call your doctor or sleeve turner to discuss blood pressure management.. Follow-Up - OB Provider: Physician/Dept/ServiceOB Provider Call to Schedule in1 week LocationMac 1200 CommentsConcierge order placed for blood pressure check within 7 days of DC Provider FINAL REVIEW of Orders: Final Review: Final Review of Medication Reconciliation and Orders Completedby CHARI Wright at 25-Sep-2021 16:18:58 Appointments: Follow-Up Appointment 01: Physician/Dept/ServiceRN Renae / ANTICHECKING IRON WORKER CommentsOrder received after discharge. Reached out to patient lvm Follow-Up Appointment 02: Physician/Dept/ServiceDr. Lechuga ANTICHECKING IRON WORKER CommentsOrder received after discharge. Reached out to patient lvm Other Clinician Instructions: Other Instructions: Nursing InstructionsAny woman can have complications after the of a baby including a blood clot, a heart problem, hypertensive disorder/eclampsia, depression, hemorrhage, or infection. Notify all providers of your delivery date up to one year after .* Call 911 or go to nearest emergency room right away if you have: PAIN or pressure in chest; OBSTRUCTED breathing or shortness of breath; SEIZURES; THOUGHTS of hurting yourself or your baby; heart palpitations/racing; change in alertness/confusion. Call your provider if you have: BLEEDING, soaking through a pad/hour, or blood clots the size of an egg or bigger; INCISION (episiotomy stitches or site) that is not healing (increased redness, pain, drainage/pus, or separation); RED or swollen leg/calf that is painful or warm to touch, especially in one leg more than the other; TEMPERATURE of 100.4 F or higher or chills; HEADACHE that does not get better with medicine, rest or hydration, or bad headache with vision changes like spots or flashing lights; increased swelling of face, hands or legs; severe cramps or upper right belly pain; red or swollen breast that is painful or warm to touch; an unusual, foul odor from your vaginal discharge; pain, burning, or difficulty during urination; severe constipation (more than 5 days); feelings of depression (such as depressed mood, loss of interest in enjoyable things, unable to care for yourself, trouble sleeping, lack of appetite, or feeling worthless). If you cant reach your provider or symptoms worsen, call 911 or go to nearest emergency room. *Information obtained from [facility]: Save Your Life: Get Care for These POST- Warning Signs Other Clinician InstructionsA few days after your discharge, one of our care coordinators, will be calling you to see how things have been going at home. This phone call also gives you the opportunity to clarify any information on your discharge instructions or ask any questions that may have come up since leaving the hospital. Electronic Signatures: Sneha Knutson (PT ACC REP) (Signed 26-Sep-2021 14:51) Authored: Discharge Orders, Appointments Vanda Valle (BAG BUNDLER-CANDY SPREADER) (Signed 25-Sep-2021 16:18) Authored: Discharge Orders, , Provider FINAL REVIEW of Orders Zandra Stern (RN) (Signed 23-Sep-2021 05:52) Authored: Discharge Orders, Other Clinician Instructions, Gold Form - Second Baller Summary Last Updated: 26-Sep-2021 14:51 by Sneha Knutson (PT ACC REP) Normal [facility] GLUCOSE-POCTon 09-23-2021 Glucose [Mass/Vol] 86 mg/dL Normal 74 - 99 [facility] Comment on above: Performed By: #### G TTP3 #### [place] [address] Laboratory - Chemistry and C hemistry - challengeon 09-23-2021 Glucose [Mass/Vol] 86 mg/dL 74 - 99 [facility] [place] Work Phone: Spreader Operator Automatic Noteon 09-23-2021 Spreader Operator Automatic Note Feeding Source/Method: Nutrition Sourceat NICU Feeding Methodat NICU Assessments: Feeding Assessment: Unable to assess infant feeding at this timeat NICU Pumping: Methodhospital grade electric pump, double breast pumping Frequency8-10 times per day Cfuyixfl10-35 minutes per session Breast Shield Size and Type24 mm Volume of Milk Productiondrops Recommendations/Summary: Recommendations / Summary Mom pumping q2-3 hours for 35 week in NICU. not yet going to breast. Denies question regarding use of pump. Supplies given and instructed on cleaning and sterilizing of pump parts. Has pump for use at home. Discussed availability of Geoff rental pump as well along with need for $20 refundable deposit. Discussed milk production and reassured about only getting drops. Discussed benefits of skin to skin and encouraged as much as possible when visiting infant. Praised for all her efforts to provide breast milk for her infant. Electronic Signatures: Layne Roy (OSCAR) (Signed 23-Sep-2021 11:15) Authored: Feeding Source/Method, Assessments, Pumping, Recommendations/Summary Last Updated: 23-Sep-2021 11:15 by Layne Roy (OSCAR) Normal [facility] ABO/RH GROUP TESTon 09-23-19 22 ABO TYPE O Normal [facility] Comment on above: Performed By: #### V ERAB #### [facility] [address] [place] [address] Clinical Event Note-Pit paus edon 09-22-2021 Clinical Event Note-Pit paused Clinical Event: Clinical Event Note: TopicPit paused Details Comfortable s/p epidural. Denies PEC sx. Ctx q2 min. Recurrent late decels with moderate variability and good recovery in between. BPs 80s/50s after epidural. Anesthesia at bedside treating. Pit paused. To continue to treat BPs and restart pit when clinically able. Serenity Phipps MD PGY-4, ANTICHECKING IRON WORKER Electronic Signatures: Serenity Phipps ( (Resident)) (Signed 22-Sep-2021 01:37) Authored: Clinical Event Note Last Updated: 22-Sep-2021 01:37 by Serenity Phipps (Resident)) Normal [facility] Daily Progress Note - OB-Pos t-partumon 09-22-2021 Daily Progress Note - FK-Irth-fuskli Current Stage: Stage: Post- Subjective Data: Post : : Feeling well this AM. Tolerating PO well. Pain is well controlled. Pt is pumping/. Mood is good. Objective Information: Objective Information: T PRBPMAPSpO2 [id number]% Date/Time09/22 17: 21: 18: 20: 20: 21:01 Range(36.1C - 37.6C ) (83 - 136 ) (16 - 18 ) (87 - 180 )/ (44 - 96 ) (63 - 124 ) (83% - 100% ) Highest temp of 37.6 C was recorded at 09/22 7:35 Pain reported at 09/22 17:32: 0 = None ---- Intake and Output ----- Mn/Dy/Year TimeIntakeOutputNet Sep 22, 2021 2:00 [id number] Sep 22, 2021 6:00 [id number] Sep 21, 2021 10:00 [id number] The Intake and Output Totals for the last 24 hours are: IntakeOutputNet [id number] Physical Exam: Constitutional: alert, oriented, NAD Obstetric: Fundus firm, below umbilicus Respiratory/Thorax: no respiratory distress, normal effort; CTAB Cardiovascular: RRR Gastrointestinal: soft, non-tender Extremities: no calf tenderness, redness, or swelling Neurological: 2+ reflexes Psychological: appropriate affect, normal mood Skin: no rashes or lesions visualized Assessment and Plan: Assessment: 26 yo who is PPD#0 s/p @ 35.1 wga (09/21) in s/o PEC Severe PEC - dx based on elevated BP requiring IV antihypertensive and P:C 0.7 - asymptomatic at this time - HELLP labs neg x2 - onMg for 24 hours - s/p IV hydral 5/10, 5, 5/5 (1315 09/21) - PO Nifedipine 90mg (09/21 @1999) - UOP adequate - continue routine care - declines, counselled on recommendations for safe spacing and availability of a variety of contraceptive options, should she desire - EBL 200. Fundus boggy, 350 cc --> straight cath 1100 cc, bleeding improved. Total EBL 550 cc Dispo: On L&D for 24hrs of PP mag until 09/23 D/w Dr. Danny Hart MD, PGY-2 Vocera Attestation: Note Completion: I am a: Resident/Fellow Attending AttestationI saw and evaluated the patient. I personally obtained the tejada and critical portions of the history and physical exam or was physically present for tejada and critical portions performed by the resident/fellow. I reviewed the resident/fellows documentation and discussed the patient with the resident/fellow. I agree with the resident/fellows medical decision making as documented in the note. I personally evaluated the patient [id number] Electronic Signatures: Elsie Delgado) (Signed 22-Sep-2021 21:25) Authored: Note Completion Co-Signer: Current Stage, Subjective Data, Objective Data, Assessment and Plan, Note Completion Radha Hart (Resident)) (Signed 22-Sep-2021 21:08) Authored: Current Stage, Subjective Data, Objective Data, Assessment and Plan, Note Completion Last Updated: 22-Sep-2021:25 by Elsie Delgado) Normal [facility] Daily Progress Note - MI-Wvmg-rmpcxt Current Stage: Stage: Post- Subjective Data: Intrapartum: Intrapartum Progress Notes Uncomfortable with ctx, denies PEC sx Post : : Denies VENEGAS, CP, SOB, RUQ pain, vision changes. Objective Information: Objective Information: T PRBPMAPSpO2 [id number]/791586% Date/Time09/22 16: 17: 16: 16: 16: 17:16 Range(36.2C - 37.6C ) (83 - 136 ) (16 - 18 ) (87 - 180 )/ (44 - 96 ) (63 - 124 ) (83% - 100% ) Highest temp of 37.6 C was recorded at 09/22 7:35 Pain reported at 09/22 16:31: 2 = Mild ---- Intake and Output ----- Mn/Dy/Year TimeIntakeOutputNet Sep 22, 2021 2:00 [id number] Sep 22, 2021 6:00 [id number] Sep 21, 2021 10:00 [id number] The Intake and Output Totals for the last 24 hours are: [facility] [id number] Physical Exam: Constitutional: Awake, alert, no acute distress Obstetric: fundus firm Eyes: Clear sclera ENMT: MMM Head/Neck: NC/AT Respiratory/Thorax: normal respiratory effort, lungs clear, no wheezes or rhonchi Cardiovascular: S1 S2 RRR, no murmurs Gastrointestinal: Gravid, no RUQ tenderness Genitourinary: Arriola draining clear yellow urine Musculoskeletal: Moving all four extremities Neurological: Alert and oriented, DTRs 2+ Psychological: Appropriate affect Skin: Warm and dry Medications: Medications: ANTI-INFECTIVES: 1. Penicillin G Potassium 3 Million Units/ D5W 50 mL Premix IVPB: 3 million units IntraVenous Piggyback Every 4 Hours 2. Penicillin G Potassium 3 Million Units/ D5W 50 mL Premix IVPB: 3 million units IntraVenous Piggyback Every 4 Hours CARDIOVASCULAR AGENTS: 1. Labetalol Injectable: 20 mg IntraVenous Push Once PRN 2. NIFEdipine (PROCARDIA) Immediate Release: 10 mg Oral Once PRN 3. hydrALAZINE (APRESOLINE) Injectable: 5 mg IntraVenous Push Once CENTRAL NERVOUS SYSTEM AGENTS: 1. Acetaminophen Rectal: 650 mg Rectal Once PRN 2. Nalbuphine Injectable: 10 mg IntraVenous Push Once 3. Magnesium Sulfate 20 gram/ Sterile Water 500 mL Infusion with Bolus from Ba g/hr IntraVenous 4. Ondansetron Injectable: 4 mg IntraVenous Push Once PRN COAGULATION MODIFIERS: 1. Tranexamic Acid Injectable: 1000 mg IntraVenous Push Once PRN GASTROINTESTINAL AGENTS: 1. Loperamide: 4 mg Oral Every 2 Hours PRN 2. miSOPROStol IntraVaginal: 25 microgram(s) IntraVaginal Every 3 Hours 3. miSOPROStol Rectal: 800 microgram(s) Rectal Once PRN GENITOURINARY TRACT AGENTS: 1. Carboprost IntraMuscular: 250 microgram(s) IntraMuscular Once PRN 2. Methylergonovine Injectable: 0.2 mg IntraMuscular Once PRN 3. Oxytocin 30 units/ NaCL 0.9% 500 mL Infusion.: 2 milliunits/min IntraVenous 4. Oxytocin Injectable: 10 unit(s) IntraMuscular Once PRN HORMONES/HORMONE MODIFIERS: 1. Levonorgestrel (LILETTA) 52 mg Implant: 52 mg IntraUterine Once PRN METABOLIC AGENTS: 1. Insulin Lispro Customizable Corrective Scale: unit(s) SubCutaneous Every 4 Hours 2. Dextrose 50% in Water Injectable: 25 gram(s) IntraVenous Push Every 15 Minutes PRN 3. Glucagon Injectable: 1 mg IntraMuscular Every 15 Minutes PRN NUTRITIONAL PRODUCTS: 1. Lactated Ringers Infusion: 1000 mL IntraVenous 2. Lactated Ringers IV Bolus: 500 mL IntraVenous Piggyback Once PRN 3. Lactated Ringers IV Bolus: 500 mL IntraVenous Piggyback Once PRN 4. Ferrous Sulfate: 325 mg Oral Every Other Day 5. Calcium Gluconate Injectable: 1 gram(s) IntraVenous Push Once PRN 6. Sodium Chloride 0.9% Injectable Flush: 10 mL IntraVenous Flush Every 12 Hours and as Needed PRN 7. with Folic Acid: 1 tablet(s) Oral Daily RESPIRATORY AGENTS: 1. Terbutaline Injectable: 0.25 mg SubCutaneous Once PRN Conditional Medication Orders ------ 1. Oxytocin Injectable: 10 unit(s) IntraMuscular Once Recent Lab Results: Results: CBC: 09/21/2021 03:17 \ Hgb / \ Canceled / WBC Plt Canceled Canceled / Hct \ / Canceled \ RBC: Canceled MCV: Canceled CMP: 09/21/2021 03:17 NA+ Cl- BUN / 136 100 5 L / ------ Glucose - 81 K+ HCO3- Creat \ 3.9 19 L 0.43 L \ \ T Bili / \ 0.4 / AST x ---- x ALT 21 x ---- x 13 / Alk P \ / 208 H \ Calcium : 8.4 L Anion Gap : 21 H Albumin : 3.7 T Protein : 7.2 Testing: NST Interpretation - Baby A: Variabilitymoderate (amplitude range 6 to 25 bpm) Assessment and Plan: Assessment: 26 yo who is PPD#0 s/p @ 35.1 wga (09/21) in s/o PEC Severe PEC - dx based on elevated BP requiring IV antihypertensive and P:C 0.7 - asymptomatic at this time - HELLP labs neg x2 - Mg for 24 hours -s/p IV hydral 5/10, 5, 5/5 (1315 09/21) -PO Nifedipine 90mg (09/21 @1999) -UOP adequate - continue routine care - declines, counselled (more content not included)... Normal [facility] Delivery Recordon 09-22-2021 Delivery Record Lab Tests/Results: Labs: Labs: Blood Typed Date: 26-Apr-2021 Blood Type: O positive Chlamydia Date: 12-Apr-2021 Chlamydia Results: negative Gonorrhea Date: 12-Apr-2021 Gonorrhea Results: negative Strep Results: not ordered GCT (dd--): 01-Aug-2021 GCT result: 197 GTT - Extended (--): 11-Aug-2021 GTT - Extended - Fastin GTT - Extended - 1 hour: 193 GTT - Extended - 2 hour: 201 GTT - Extended - 3 hour: 154 HBsAG Date: 26-Apr-2021 HBsAG Results: negative Hemoglobin A1C (--): 06-Sep-2021 Hemoglobin A1C: 5.4 % Estimated Average Glucose: 108 HIV Date: 26-Apr-2021 HIV Results: negative Rubella Date: 01-Aug-2021 Rubella Results: pending result Rubella Comments: Result Value null Syphilis (mmm--yy): 21-Sep-2021 Syphilis Results: negative Urine Spot (): 20-Sep-2021 Total Protein/Creatinine Ratio: 0.7 Maternal Delivery Information: Vaginal Delivery Information: Counts Correctyes Circulating MARK Khan [place] Delivery Information: Team: Team -[id number] 05:26 Code Level CalledCode [place] Level 2 team [id number] 05:30 [place] A Delivery Information: Baby A Delivery: Rupture of Membranes date/[id number] 20:45 Amniotic Fluid Colorclear Delivery Typevaginal delivery Delivery Locationlabor and delivery Delivery Date/Nctz67-[id number]-1605 05:32 Delivery Date/Time Verified ByMARK pelletier and MARK Slade Length of Time of ROM (rounded down to nearest hour)8 Sexfemale Identification Band [id number] Electronic Transponder [id number] ID Bands Verified byMARK pelletier and MARK slade 4th ID band tofather Weight (kg)1.87 kilogram(s) Length (cm)45 centimeter(s) Head Circumference (cm)32 centimeter(s) Delivery of Placenta (hh:mm)05:33 Baby A: Placenta disposalsent to pathology 1 Min: Heart [place] than 100 beats/min Respiratory Rategood, crying Muscle Toneflaccid Reflex Irritabilitycough or sneeze Colorbody pink, extremities blue 1 Minute Score, Baby A7 Apgars assessed MARK Bailey 5 Min: Heart [place] than 100 beats/min Respiratory Rategood, crying Muscle Tonesome flexion of extremities Reflex Irritabilitycough or sneeze Colorbody pink, extremities blue 5 Minute Score, Baby A8 Apgars assessed MARK Bailey Resuscitation Efforts: Vigorous at Birthyes Resuscitation Effortssee Code Sheet Baby A: Transfer Baby A: Transfer toRemains with mother Baby A: Labs sentCord Blood Workup (Type/Rh/Antibody) Delivery Team: Bo Plascencia RN Neonatal TeamchMARK glover Respiratory Therapyjudith, RT Electronic Signatures: Batool Pelletier) (Signed 22-Sep-2021 06:07) Authored: Lab Tests/Results, Maternal Delivery Information, Delivery Information Last Updated: 22-Sep-2021 06:07 by Batool Pelletier) Normal [facility] GLUCOSE-POCTon 09-22-2021 Glucose [Mass/Vol] 124 mg/dL High 74 - 99 [facility] Comment on above: Performed By: #### V ERAB #### [facility] [address] [place] [address] Glucose [Mass/Vol] 153 mg/dL High 74 - 99 [facility] Comment on above: Performed By: #### V ERAB #### [facility] [address] [place] [address] Laboratory - Blood bankon ABO group Nom (Bld) O [facility] ANTICHECKING IRON WORKER [facility] [place] Work Phone: Rh immune globulin screen (Bld) [Interp] Positive [facility] ANTICHECKING IRON WORKER [facility] [place] Work Phone: Laboratory - Chemistry and C hemistry - challengeon 09-22-2021 Glucose [Mass/Vol] 124 mg/dL above high threshold 74 - 99 [facility] ANTICHECKING IRON WORKER [facility] [place] Work Phone: Glucose [Mass/Vol] 153 mg/dL above high threshold 74 - 99 [facility] ANTICHECKING IRON WORKER [facility] [place] Work Phone: No Panel Informationon 09-22 [facility] ANTICHECKING IRON WORKER [facility] [place] Work Phone: Order Reconciliationon 09-22 Order Reconciliation Page 1 Transfer Reconciliation Document Reconciliation Type: Transfer requested on behalf of Belinda Hogan (Resident) done by Belinda Hogan ( (Resident)) Transfer - Reconciliation: 22-Sep-2021 05:58 by: Belinda Hogan ( (Resident)) Pre-Transfer OrdersDateReconciliation Comment/ Additional InformationPost Transfer OrdersDateStop Medications Acetaminophen Rectal Suppository (TYLENOL)DOSE = 650 mg Rectal Once, PRN Initial pain mgmt following deliveryClinician Notes: Administer in the OR. 21-Sep-2021 00:59 Betamethasone Injectable (CELESTONE)DOSE = 12 mg IntraMuscular Once 21-Sep-2021 16:00 Betamethasone Injectable (CELESTONE)DOSE = 12 mg IntraMuscular Once 21-Sep-2021 16:01 Calcium Gluconate Injectable DOSE = 1 gram(s) IntraVenous Push Once, PRN Magnesium toxicityClinician Notes: IV push over 5 minutes 21-Sep-2021 01:04 Reviewed and Reconciled Calcium Gluconate Injectable DOSE = 1 gram(s) IntraVenous Push Once, PRN Magnesium toxicityClinician Notes: IV push over 5 minutes 21-Sep-2021 01:04 21-Sep-2022 23:59 Carboprost IntraMuscular (HEMABATE)DOSE = 250 microgram(s) IntraMuscular Once, PRN post bleeding in non-asthmatic patientClinician Notes: Consult provider prior to administration. 21-Sep-2021 00:59 Dextrose 50% in Water Injectable DOSE = 25 gram(s) IntraVenous Push Every 15 Minutes, PRN Blood Glucose 70 mg/dL or LESS & HAS IV accessClinician Notes: IF patient HAS a secure IV access & is Unconscious, Conscious, NPO or Unable to Eat or Drink. Repe 21-Sep-2021 01:29 Discontinue/Cancel Dextrose 50% in Water Injectable DOSE = 25 gram(s) IntraVenous Push Every 15 Minutes, PRN Blood Glucose 70 mg/dL or LESS & HAS IV accessClinician Notes: IF patient HAS a secure IV access & is Unconscious, Conscious, NPO or Unable to Eat or Drink. Repe 21-Sep-2021 01:29 22-Sep-2021 05:57 Ferrous Sulfate Tablet (FEOSOL)DOSE = 325 mg Oral Every Other Day 21-Sep-2021 01:26 Reviewed and Reconciled Ferrous Sulfate Tablet (FEOSOL)DOSE = 325 mg Oral Every Other Day 21-Sep-2021 01:26 21-Sep-2022 23:59 Glucagon Injectable DOSE = 1 mg IntraMuscular Every 15 Minutes, PRN Blood Glucose 70 mg/dL or LESS & NO IV accessClinician Notes: IF patient DOES NOT have secure IV access & is Unconscious, Conscious, NPO or Unable to Eat or Drink. Repeat until BG hamzah 21-Sep-2021 01:29 Discontinue/Cancel Glucagon Injectable DOSE = 1 mg IntraMuscular Every 15 Minutes, PRN Blood Glucose 70 mg/dL or LESS & NO IV accessClinician Notes: IF patient DOES NOT have secure IV access & is Unconscious, Conscious, NPO or Unable to Eat or Drink. Repeat until BG hamzah 21-Sep-2021 01:29 22-Sep-2021 05:57 hydrALAZINE (APRESOLINE) Injectable DOSE = 5 mg IntraVenous Push Once 21-Sep-2021 09:41 hydrALAZINE (APRESOLINE) Injectable DOSE = 5 mg IntraVenous Push Once 21-Sep-2021 11:55 hydrALAZINE (APRESOLINE) Injectable DOSE = 5 mg IntraVenous Push Once 21-Sep-2021 13:12 Reviewed and Reconciled hydrALAZINE (APRESOLINE) Injectable DOSE = 5 mg IntraVenous Push Once 21-Sep-2021 13:12 21-Sep-2022 23:59 hydrALAZINE (APRESOLINE) Injectable DOSE = 5 mg IntraVenous Push Once, PRN Acute-onset, severe HTN w/out known, suspected CADClinician Notes: Consult provider prior to administration. Push over more than 2 minutes. Systolic greater than or equal to 16 21-Sep-2021 00:59 Insulin Detemir (Levemir) Injectable DOSE = 10 unit(s) SubCutaneous At BedtimeClinician Notes: 30 minutes pre-meal or, no more than 5 minutes pre-meal if combined with Lispro. Morning and Bedtime Meals.Notes from Pharmacy: JAVAD 21-Sep-2021 01:28 Insulin Lispro Customizable Corrective Scale Give SubCutaneous 3 Times a Day After Meals 0 unit(s) if Blood Glucose is between 0 - 119 2 unit(s) if Blood Glucose is between 120 - 150 4 unit(s) if Blood Glucose is between 151 - 200 6 unit 21-Sep-2021 06:46 Insulin Lispro Customizable Corrective Scale Give SubCutaneous 3 Times a Day After Meals Hypogylcemia Protocol Call LIP unit(s) if Blood Glucose is between 0 - 70 0 unit(s) if Blood Glucose is between 71 - 150 2 unit(s) if Blood Glucose is b 21-Sep-2021 07:00 Insulin Lispro Customizable Corrective Scale Give SubCutaneous Every 4 Hours 0 unit(s) if Blood Glucose is between 0 - 119 2 unit(s) if Blood Glucose is between 120 - 150 4 unit(s) if Blood Glucose is between 151 - 200 6 unit(s) if Blood 21-Sep-2021 11:17 Discontinue/Cancel Insulin Lispro Customizable Corrective Scale Give SubCutaneous Every 4 Hours 0 unit(s) if Blood Glucose is between 0 - 119 2 unit(s) if Blood Glucose is between 120 - 150 4 unit(s) if Blood Glucose is between 151 - 200 6 unit(s) if Blood 21-Sep-2021 11:17 22-Sep-2021 05:57 Labetalol Injectable (TRANDATE)DOSE = 20 mg IntraVenous Push Once, PRN Acute-onset, sev HTN w/o active asthma/ mesfin<60Clinician Notes: Consult provider prior to administration. Push over more than 2 minutes. Systolic greater than or equ (more content not included)... Normal [facility] Surgical Pathology Depar tmenton 09-22-2021 [facility] Surgical Pathology Department Name THEO SATURDAY Silvia Pathologist: HÉCTOR SAMANIEGO DO Date of Procedure: 09/22/2021 Date Received: 09/23/2021 Date Reported 09/28/2021 Submitting Physician: VIOLETTE ALVAREZ MD Location: [id number] Copy To/Referring/Attending: DEBORAH DIAS MD Other External # FINAL DIAGNOSIS A. PLACENTA: -- HISTOLOGICALLY MATURE MATURE PLACENTA (332 GRAMS). -- FINDINGS CONSISTENT WITH VASCULAR MALPERFUSION: STEM VESSEL OCCLUSION AND MULTIPLE LARGE AND SMALL FOCI OF AVASCULAR VILLI. -- MARGINAL FOCUS OF INCREASED PERIVASCULAR FIBRIN ASSOCIATED WITH CHRONIC LOW-GRADE VILLITIS AND AVASCULAR VILLI. SEE NOTE. Note: Chronic villitis can be associated with adverse outcomes and has a recurrence risk of 25-50%. technology methodology consultant (A3-5): Dr. Xin Álvarez. Electronically Signed Out By HÉCTOR SAMANIEGO DO/CMB By the signature on this report, the individual or group listed as making the Final Interpretation/Diagnosis certifies that they have reviewed this case. Diagnostic interpretation performed at [facility], [place], operated by [facility] [address] [facility] [address] Clinical History: Gestational age: 35.1 Ob index: G 2, Full term 0, Tristen 0, Ab 1, Lvg 0 Maternal history: presenting as a transfer from [facility] for severe pre-eclampsia diagnosed based on severe range BP requiring IV antihypertensive and P:C 0.7. GDMA2. Asthma. BMI 30 at first visit Baby weight: 1.87 kg Apgars: 7 at 1 minute, 8 at 5 minutes Specific questions: Hypertensive disorder Specimens Submitted As: A: PLACENTA A: 0 CORD CLAMP Gross Description: Received fresh, labeled with the patient?s name and hospital number, with an accompanying placental record sheet, is a placenta. The placental membranes are translucent, and complete. The membrane insertion is marginal. The point of membrane rupture is 5.4 cm from the nearest margin. The umbilical cord is pale-yellow, 23.2 cm in total length, and inserts in the placenta, 3.9 cm from the margin. The umbilical cord has 3 coils per 10 cm. On cut section, the cord has 3 vessels, and measures 1.0 x 0.8 cm. The placenta is discoid, 16.2 x 11.7 x 2.4 cm, and weighs 332 g without cord or membranes. The surface is blue-red, and translucent. The maternal surface is complete. The cut surface is dark red, and spongy. A white-hough, firm, peripheral lesion is present measuring 2.0 x 2.2 x 1.8 cm. Mineral Surveying Technician sections are submitted in 5 cassettes. CJN Summary of Cassettes: Specimen Label Site A 1 umbilical cord sections 2 membrane rolls 3 placental parenchyma, umbilical cord insertion site 4 placental parenchyma 5 placental parenchyma with lesion cjn/09/23/2021 [facility] Department of Pathology [address] [place] [address] Comment on above: Performed By: #### H BA1E #### [place] [address] Admission Risk Screen - OBon 09-21-2021 Admission Risk Screen - OB Allergies: Allergies: No Known Allergies: Patient Verification: New W ID Band Applied in my Departmentyes Patient Identity Verified Bypatient ID Band FULL Name, include Middle, spelling matches patient's ID used for verificationyes ID Band Matches Patient ID used for Verficationyes ID Band MRN Matches EMR MRNyes Visitor Restriction: Coronavirus Visitor Restriction: Reasonable restrictions to in-person visitors will be observed due to current coronavirus pandemic. Travel History: COVID-19 Screening Completedno exposure or symptoms(1) Travel or Exposure Past 30 DaysNO travel to International locations in the past 30 days Advance Directive: Advance Directive/DNRno Advance Directive Information Givenpatient/family declined Reyes Fall Screen: History of falling (immediate or previous)no (0) Secondary Diagnosisyes (15) Intravenous Therapy/ Heparin/Saline Lockyes (20) Gait/Transferringnormal/be drest/wheelchair (0) Ambulatory Aidsnone/bedrest/nurse assist (0) Mental Statusoriented to own ability (0) Score: Low risk (<25). Moderate risk (25-44). High risk (>44).35 Reyes InterventionsMODERATE INTERVENTIONS: *Low Interventions Plus: * falls risk band/sticker applied to patient, *yellow non-skid footwear, *instruct to call for assistance before getting out of bed, *bed/chair/bedside commode/toilet alarms, *sensory devices/ambulatory aides available and in reach, *medications reviewed for potential side effects and care planning. Functional screen: Functional Screen: In the recent/past 2-4 weeks, patient or family have noticedno issues that require a rehabilitation consult at this time Learning Assessment (Patient): Patient is Able to be Assessed for Learningyes Factors Influencing Readiness to Learninterest in learning; motivation to learn Factors that Impact Ability to Learnnone Devices/Methods Used to Communicatenone Learning Preferencesverbal instruction Cultural Considerationsnone Developmental Considerationsnone Religion Considerationsnone Learning Assessment (Other Learner): Other learner availableno Nutrition Risk Screen: Nutrition Risk Screendiabetes in Nutrition Consult needed this visitno Can Patient Participate in Room Serviceyes Pain Screen: Pain Control Method: Labornone Pain Control Method: Postpartumnone Pain Scalenumerical 0-10 Pain Scale Educationteaching provided Acceptable Pain Level5 = Moderate Expression of Pain (nonverbal)verbalization Chronic Painno Skin - Darnell Scale: Darnell Scale (daily): Darnell: Sensory Perception (response to environment)(4) no impairment Darnell: Moisture (degree skin exposed to moisture)(4) rarely moist Darnell: Activity (ability to walk)(1) bedfast Darnell: Mobility (amount/control of body movement)(4) no limitation Darnell: Nutrition (quality of food intake)(3) adequate Darnell: Friction and Shear(3) no apparent problem Darnell: Score19 Pressure Injury Present on Admissionno Spiritual Screen: Are there any cultural, spiritual, holiness practices/values/needs that are important for us to knowno Depression Screen: During the past month, have you often been bothered by feeling down, depressed or hopelessno During the past month, have you often had little interest or pleasure in doing thingsno Have you had any thoughts of harming anyone elseno [place] Suicide: Risk Screen Not Applicable/Able to Answerable to be screened In the Past Month: Have you wished you were or could go to sleep and not wake upno In the Past Month: Have you had any actual thoughts of killing yourselfno Lifetime: Have you ever done, started to do, or prepared to do anything to end your lifeno [place] Suicide Risknegative Family Violence Screen: Are you or have you been threatened or abused physically, emotionally, or sexually by anyoneno Do you feel UNSAFE going back to the place where you are livingno Clinical assessment: Are there any apparent signs of injuries/behaviors that could be related to abuse/neglectno Social Service Consult for abuse/neglect needed this visitno Vaccinations: Vaccination - Influenza Vaccination Screen: Is it flu season (between and June 29)No Vaccination - Pneumonia Vaccination Screen: Patient has received a previous pneumonia vaccine:no/unknown... Immunocompetent persons with underlying chronic conditions or reside in termite inspector care facilitiesnone of these conditions Persons with Functional or Anatomic Asplenianone of these conditions Immunocompromised Personsnone of these conditions Pneumonia vaccine NOT indicated due to:patient DOES NOT have a condition that indicates vaccination Vaccination - TDap Vaccination Screen: Have you received a TDap vaccine this pregnancyyes (no further action required) Significant Indicatiors: Significant Indicators: Complete Note Name:Admission (more content not included)... Normal [facility] CBCon 09-21-2021 HCT Canceled Normal [facility] Comment on above: Order Comment: TEST CBC WAS CANCELLED, 09/21/2021 08:53 DUPLICATE ORDER. Performed By: #### V ERAB #### [facility] [address] [place] [id number] HGB Canceled Normal [facility] Comment on above: Order Comment: TEST CBC WAS CANCELLED, 09/21/2021 08:53 DUPLICATE ORDER. Performed By: #### V ERAB #### [facility] [address] [place] [address] MCHC Canceled Normal [facility] Comment on above: Order Comment: TEST CBC WAS CANCELLED, 09/21/2021 08:53 DUPLICATE ORDER. Performed By: #### V ERAB #### [facility] [address] [place] [address] MCV Canceled Normal [facility] Comment on above: Order Comment: TEST CBC WAS CANCELLED, 09/21/2021 08:53 DUPLICATE ORDER. Performed By: #### V ERAB #### [place] [address] [place] [address] NUCLEATED RBC Canceled Normal [facility] Comment on above: Order Comment: TEST CBC WAS CANCELLED, 09/21/2021 08:53 DUPLICATE ORDER. Performed By: #### V ERAB #### [facility] [address] [place] [address] PLT Canceled Normal [facility] Comment on above: Order Comment: TEST CBC WAS CANCELLED, 09/21/2021 08:53 DUPLICATE ORDER. Performed By: #### V ERAB #### [facility] [address] [place] [address] RBC Canceled Normal [facility] Comment on above: Order Comment: TEST CBC WAS CANCELLED, 09/21/2021 08:53 DUPLICATE ORDER. Performed By: #### V ERAB #### [facility] [address] [place] [address] RDW-CV Canceled Normal [facility] Comment on above: Order Comment: TEST CBC WAS CANCELLED, 09/21/2021 08:53 DUPLICATE ORDER. Performed By: #### V ERAB #### [facility] [address] [place] [address] WBC Canceled Normal [facility] Comment on above: Order Comment: TEST CBC WAS CANCELLED, 09/21/2021 08:53 DUPLICATE ORDER. Performed By: #### V ERAB #### [facility] [address] [place] [address] Erythrocyte distribution width (RBC) [Ratio] 15.3 % High 11.5 - 14.5 [facility] Comment on above: Performed By: #### G LUS1 #### [facility] [address] [place] [address] Hematocrit (Bld) [Volume fraction] 46.2 % High 36.0 - 46.0 [facility] Comment on above: Performed By: #### G LUS1 #### [address] [address] Hemoglobin (Bld) [Mass/Vol] 14.9 g/dL Normal 12.0 - 16.0 [facility] Comment on above: Performed By: #### Moisés LUS1 #### [address] [address] MCHC (RBC) [Mass/Vol] 32.3 g/dL Normal 32.0 - 36.0 [facility] Comment on above: Performed By: #### Moisés ANNS1 #### [address] [address] MCV (RBC) [Entitic vol] 89 fL Normal 80 - 100 [facility] Comment on above: Performed By: #### Moisés ANNS1 #### [address] [address] NUCLEATED RBC 0.0 /100 WBC Normal 0.0-0.0 [facility] Comment on above: Performed By: #### Moisés ANNS1 #### [address] [address] Platelets (Bld) [#/Vol] 233 10*3/uL Normal 150 - 450 [facility] Comment on above: Performed By: #### Moisés LUS1 #### [address] [address] RBC 5.19 x10E12/L Normal 4.00 - 5.20 [facility] Comment on above: Performed By: #### Moisés LUS1 #### [address] [address] WBC (Bld) [#/Vol] 11.7 10*3/uL High 4.4 - 11.3 [facility] Comment on above: Performed By: #### Moisés LUS1 #### [address] [address] HCT Canceled Normal [facility] Comment on above: Order Comment: TEST TYPE + SCREEN WAS CANCELLED, 04/26/2021 13:20 T+S DONE SEPERATELY. Performed By: #### T +S #### [facility] [address] [place] [address] HGB Canceled Normal [facility] Comment on above: Order Comment: TEST TYPE + SCREEN WAS CANCELLED, 04/26/2021 13:20 T+S DONE SEPERATELY. Performed By: #### T +S #### [facility] [address] [place] [address] MCHC Canceled Normal [facility] Comment on above: Order Comment: TEST TYPE + SCREEN WAS CANCELLED, 04/26/2021 13:20 T+S DONE SEPERATELY. Performed By: #### T +S #### [facility] [address] [place] [address] MCV Canceled Normal [facility] Comment on above: Order Comment: TEST TYPE + SCREEN WAS CANCELLED, 04/26/2021 13:20 T+S DONE SEPERATELY. Performed By: #### T +S #### [facility] [address] [place] [address] NUCLEATED RBC Canceled Normal [facility] Comment on above: Order Comment: TEST TYPE + SCREEN WAS CANCELLED, 04/26/2021 13:20 T+S DONE SEPERATELY. Performed By: #### T +S #### [facility] [address] [place] [address] PLT Canceled Normal [facility] Comment on above: Order Comment: TEST TYPE + SCREEN WAS CANCELLED, 04/26/2021 13:20 T+S DONE SEPERATELY. Performed By: #### T +S #### [facility] [address] [place] [address] RBC Canceled Normal [facility] Comment on above: Order Comment: TEST TYPE + SCREEN WAS CANCELLED, 04/26/2021 13:20 T+S DONE SEPERATELY. Performed By: #### T +S #### [facility] [address] [place] [address] RDW-CV Canceled Normal [facility] Comment on above: Order Comment: TEST TYPE + SCREEN WAS CANCELLED, 04/26/2021 13:20 T+S DONE SEPERATELY. Performed By: #### T +S #### [facility] [address] [place] [address] WBC Canceled Normal [facility] Comment on above: Order Comment: TEST TYPE + SCREEN WAS CANCELLED, 04/26/2021 13:20 T+S DONE SEPERATELY. Performed By: #### T +S #### [facility] [address] [place] [address] COMPREHENSIVE PANELon 2021 Albumin [Mass/Vol] 3.7 g/dL Normal 3.4 - 5.0 [facility] Comment on above: Performed By: #### V ERAB #### [facility] [address] [place] [address] ALP [Catalytic activity/Vol] 208 U/L High 33 - 110 [facility] Comment on above: Performed By: #### V ERAB #### [facility] [address] [place] [address] ALT [Catalytic activity/Vol] 13 U/L Normal 7 - 45 [facility] Comment on above: Result Comment: Hali ents treated with Sulfasalazine may generate falsely decreased results for ALT. Performed By: #### V ERAB #### [facility] [address] [place] [address] Anion gap [Moles/Vol] 21 mmol/L High 10 - 20 [facility] Comment on above: Performed By: #### V ERAB #### [facility] [address] [place] [address] AST [Catalytic activity/Vol] 21 U/L Normal 9 - 39 [facility] Comment on above: Performed By: #### V ERAB #### [facility] [address] [place] [address] Bilirubin [Mass/Vol] 0.4 mg/dL Normal 0.0 - 1.2 [facility] Comment on above: Performed By: #### V ERAB #### [facility] [address] [place] [address] Calcium [Mass/Vol] 8.4 mg/dL Low 8.6 - 10.6 [facility] Comment on above: Performed By: #### V ERAB #### [facility] [address] [place] [address] Chloride [Moles/Vol] 100 mmol/L Normal 98 - 107 [facility] Comment on above: Performed By: #### V ERAB #### [facility] [address] [place] [address] Creatinine [Mass/Vol] 0.43 mg/dL Low 0.50 - 1.05 [facility] Comment on above: Performed By: #### V ERAB #### [facility] [address] [place] [address] eGFR FEMALE >90 Normal >90 [facility] Comment on above: Result Comment: CALC ULATIONS OF ESTIMATED GFR ARE PERFORMED USING THE 2020 CKD-EPI STUDY REFIT EQUATION WITHOUT THE RACE VARIABLE FOR THE IDMS-TRACEABLE CREATININE METHODS. https://jasn.asnjournals.org/content//ASN.488813109 8 Performed By: #### V ERAB #### [facility] [address] [place] [address] Glucose [Mass/Vol] 81 mg/dL Normal 74 - 99 [facility] Comment on above: Performed By: #### V ERAB #### [facility] [address] [place] [address] HCO3 (Bld) [Moles/Vol] 19 mmol/L Low 21 - 32 [facility] Comment on above: Performed By: #### V ERAB #### [facility] [address] [place] [address] Potassium [Moles/Vol] 3.9 mmol/L Normal 3.5 - 5.3 [facility] Comment on above: Performed By: #### V ERAB #### [facility] [address] [place] [address] Protein [Mass/Vol] 7.2 g/dL Normal 6.4 - 8.2 [facility] Comment on above: Performed By: #### V ERAB #### [facility] [address] [place] [address] Sodium [Moles/Vol] 136 mmol/L Normal 136 - 145 [facility] Comment on above: Performed By: #### V ERAB #### [facility] [address] [place] [address] Urea nitrogen [Mass/Vol] 5 mg/dL Low [facility] Comment on above: Performed By: #### V ERAB #### [facility] [address] [place] [address] Clinical Event Note-AROMon 0 09-21-2021 Clinical Event Note-AROM Clinical Event: Clinical Event Note: TopicAROM Details Comfortable with nubain. 5/-3. 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 Denies VENEGAS, CP, SOB, RUQ pain, vision changes. baseline 120s, mod variability, + accels, - decels rare ctx 26 yo at 35.0 wga (09/21) by last menstrual period c/w 9 wk ultrasound admitted for severe pre-eclampsia. IOL had been delayed to allow for echo given discovered h/o heart surgery. Echo wnl, ok to proceed with IOL Severe PEC - dx based on elevated BP requiring IV antihypertensive and P:C 0.7 - asymptomatic at this time - HELLP labs neg x2 - On mag at 2g/hr, asx on mg, no si/sxs mag tox - IV 08/08 hydralazine 09/20, hydral 5 09/21 @ 0945, continue to treat BPs >/= 160/110 with IV antihypertensive therapy - on nifedipien 30 mg ER daily (09/21) - proceed with delivery given GA Delivery plan - IOL SVE 0.5/0/-3, CRB and cyto#1 placed - for Pit & AROM as indicated IUP - Cat 1 FHT, cEFM - betamethasone administered prior to transfer, plan for repeat dose in24 hours given GDM and well controlled GDMA2 - well controlled on levemir 10 u every night, held for IOL - EFW 1863g/20th%ile on 09/05 - plan for fasting and postprandial bgs during cervical ripening with corrective scale insulin, transition to every 4 hr BGs once pitocin initiated - offer 2 hr glucose tolerance test during hospitalization Asthma - albuterol as needed - avoid hemabate and labetalol Migraines - none present currently, treat sx as needed Contraception - declines Discussed with and seen by Dr. Jena Amaral MD, PGY-3 Electronic Signatures: Rose Amaral ( (Resident)) (Signed 21-Sep-2021 11:57) Authored: Clinical Event Note Last Updated: 21-Sep-2021 11:57 by Rose Amaral ( (Resident)) Normal [facility] Clinical Event Note-cyto#on 09-21-2021 Clinical Event Note-cyto# Clinical Event: Clinical Event Note: Topiccyto# Details cyto#2 placed baseline 120s, mod variability, - accels, - decels ctx every 2-3 min cat 1 FHT, cEFM GDMA2, every 4 hr BG, SSI sPEC, on nifedipine 60 mg ER daily, continue Mg, no s/s Mg tox Rose Amaral MD, PGY-3 Electronic Signatures: Rose Amaral (Resident)) (Signed 21-Sep-2021 15:18) Authored: Clinical Event Note Last Updated: 21-Sep-2021 15:18 by Rose Amaral ( (Resident)) Normal [facility] Daily Progress Note - OB-Int rapartumon 09-21-2021 Daily Progress Note - OB-Intrapartum Current Stage: Stage: Intrapartum Subjective Data: Intrapartum: Intrapartum Progress Notes Uncomfortable with ctx, denies PEC sx Objective Information: Objective Information: T PRBPMAPSpO2 [id number]% Date/Time09/21 19: 20: 19: 19: 19: 20:15 Range(36.2C - 36.8C ) (96 - 121 ) (16 - 18 ) (136 - 180 )/ (74 - 96 ) (99 - 124 ) (83% - 100% ) Pain reported at 09/21 10:46: 0 = None ---- Intake and Output ----- [facility] 21, 2021 2:00 [id number] Sep 21, 2021 6:00 [id number] Sep 20, 2021 10:00 [id number] The Intake and Output Totals for the last 24 hours are: IntakeOuttsaile [facility] centerNet [id number] Physical Exam: Constitutional: Awake, alert, no acute distress Obstetric: TOCO: ctx q2-4 min SVE: 4/50/-3 Eyes: Clear sclera ENMT: MMM Head/Neck: NC/AT Respiratory/Thorax: normal respiratory effort, lungs clear, no wheezes or rhonchi Cardiovascular: S1 S2 RRR, no murmurs Gastrointestinal: Gravid, no RUQ tenderness Genitourinary: Arriola draining clear yellow urine Musculoskeletal: Moving all four extremities Neurological: Alert and oriented, DTRs 3+ Psychological: Appropriate affect Skin: Warm and dry Medications: Medications: ANTI-INFECTIVES: 1. Penicillin G Potassium 3 Million Units/ D5W 50 mL Premix IVPB: 3 million units IntraVenous Piggyback Every 4 Hours 2. Penicillin G Potassium 3 Million Units/ D5W 50 mL Premix IVPB: 3 million units IntraVenous Piggyback Every 4 Hours CARDIOVASCULAR AGENTS: 1. Labetalol Injectable: 20 mg IntraVenous Push Once PRN 2. NIFEdipine (PROCARDIA) Immediate Release: 10 mg Oral Once PRN 3. hydrALAZINE (APRESOLINE) Injectable: 5 mg IntraVenous Push Once CENTRAL NERVOUS SYSTEM AGENTS: 1. Acetaminophen Rectal: 650 mg Rectal Once PRN 2. Nalbuphine Injectable: 10 mg IntraVenous Push Once 3. Magnesium Sulfate 20 gram/ Sterile Water 500 mL Infusion with Bolus from Ba g/hr IntraVenous 4. Ondansetron Injectable: 4 mg IntraVenous Push Once PRN COAGULATION MODIFIERS: 1. Tranexamic Acid Injectable: 1000 mg IntraVenous Push Once PRN GASTROINTESTINAL AGENTS: 1. Loperamide: 4 mg Oral Every 2 Hours PRN 2. miSOPROStol IntraVaginal: 25 microgram(s) IntraVaginal Every 3 Hours 3. miSOPROStol Rectal: 800 microgram(s) Rectal Once PRN GENITOURINARY TRACT AGENTS: 1. Carboprost IntraMuscular: 250 microgram(s) IntraMuscular Once PRN 2. Methylergonovine Injectable: 0.2 mg IntraMuscular Once PRN 3. Oxytocin 30 units/ NaCL 0.9% 500 mL Infusion.: 2 milliunits/min IntraVenous 4. Oxytocin Injectable: 10 unit(s) IntraMuscular Once PRN HORMONES/HORMONE MODIFIERS: 1. Levonorgestrel (LILETTA) 52 mg Implant: 52 mg IntraUterine Once PRN METABOLIC AGENTS: 1. Insulin Lispro Customizable Corrective Scale: unit(s) SubCutaneous Every 4 Hours 2. Dextrose 50% in Water Injectable: 25 gram(s) IntraVenous Push Every 15 Minutes PRN 3. Glucagon Injectable: 1 mg IntraMuscular Every 15 Minutes PRN NUTRITIONAL PRODUCTS: 1. Lactated Ringers Infusion: 1000 mL IntraVenous 2. Lactated Ringers IV Bolus: 500 mL IntraVenous Piggyback Once PRN 3. Lactated Ringers IV Bolus: 500 mL IntraVenous Piggyback Once PRN 4. Ferrous Sulfate: 325 mg Oral Every Other Day 5. Calcium Gluconate Injectable: 1 gram(s) IntraVenous Push Once PRN 6. Sodium Chloride 0.9% Injectable Flush: 10 mL IntraVenous Flush Every 12 Hours and as Needed PRN 7. with Folic Acid: 1 tablet(s) Oral Daily RESPIRATORY AGENTS: 1. Terbutaline Injectable: 0.25 mg SubCutaneous Once PRN Conditional Medication Orders ------ 1. Oxytocin Injectable: 10 unit(s) IntraMuscular Once Recent Lab Results: Results: CBC: 09/21/2021 03:17 \ Hgb / \ Canceled / WBC Plt Canceled Canceled / Hct \ / Canceled \ RBC: Canceled MCV: Canceled CMP: 09/21/2021 03:17 NA+ Cl- BUN / 136 100 5 L / ------ Glucose - 81 K+ HCO3- Creat \ 3.9 19 L 0.43 L \ \ T Bili / \ 0.4 / AST x ---- x ALT 21 x ---- x 13 / Alk P \ / 208 H \ Calcium : 8.4 L Anion Gap : 21 H Albumin : 3.7 T Protein : 7.2 Testing: NST Interpretation - Baby A: Baseline [id number] Variabilitymoderate (amplitude range 6 to 25 bpm) InterpretationReactive (2 15x15 accels) Accelerations+ Decelerations- Assessment and Plan: Assessment: 26 yo at 35.0 wga (09/21) by last menstrual period c/w 9 wk ultrasound undergoing IOL for sPEC Severe PEC - dx based on elevated BP requiring IV antihypertensive and P:C 0.7 - asymptomatic at this time - HELLP labs unremarkable prior to transfer, repeat set pending - Mg infusion initiated prior to transfer, to continue - last IV 5 mg hydralazine at 1700 09/20, continue to treat BPs >/= 160/110 w (more content not included)... Normal [facility] Echocardiogramon 09-21-2021 Echocardiography [facility], [address] [place] [address] and TRANSTHORACIC ECHOCARDIOGRAM REPORT Patient Name: Saturday THEO Reading Physician: [id number] Junito Winn MD Study Date: 09/21/2021 Referring SHIRA MORRISSEY Physician: MRN/PID: [id number] PCP: Accession/Order#: [id number] Department [place] [address] Location: Date of : 1995 Fellow: Gender: F Nurse: Admit Date: Event Decorator: Mino Tucker [facility] Admission Status: Inpatient - Additional Staff: Critical/Stat (within 1-3 hours) Height: 170.18 cm CC Report to: [address] Weight: 107.05 kg Study Type: Echocardiogram BSA: 2.17 m2 Blood Pressure: 142 /83 mmHg Diagnosis/ICD: 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 Study Detail: The following Echo studies were performed: 2D, M-Mode, Doppler and color flow. PHYSICIAN INTERPRETATION: Left Ventricle: The left ventricular systolic function is normal, with an estimated ejection fraction of 60-65%. There are no regional wall motion abnormalities. The left ventricular cavity size is normal. Spectral Doppler shows a normal pattern of left ventricular diastolic filling. Left Atrium: The left atrium is normal in size. Right Ventricle: The right ventricle is normal in size. There is normal right ventricular global systolic function. Right Atrium: The right atrium is normal in size. Aortic Valve: The aortic valve is trileaflet. There is no evidence of aortic valve regurgitation. The peak instantaneous gradient of the aortic valve is 11.4 mmHg. The mean gradient of the aortic valve is 7.0 mmHg. Mitral Valve: The mitral valve is normal in structure. There is trace mitral valve regurgitation. Tricuspid Valve: The tricuspid valve is structurally normal. There is trace tricuspid regurgitation. Pulmonic Valve: The pulmonic valve is structurally normal. There is trace pulmonic valve regurgitation. Pericardium: There is a trivial pericardial effusion. Aorta: The aortic root is normal. Systemic Veins: The inferior vena cava appears to be of normal size. There is IVC inspiratory collapse greater than 50%. CONCLUSIONS: 1. The left ventricular systolic function is normal with a 60-65% estimated ejection fraction. QUANTITATIVE DATA SUMMARY: 2D MEASUREMENTS: Normal Ranges: LAs: 3.70 cm (2.7-4.0cm) IVSd: 1.00 cm (0.6-1.1cm) LVPWd: 1.00 cm (0.6-1.1cm) LVIDd: 4.50 cm (3.9-5.9cm) LVIDs: 2.90 cm LV Mass Index: 70.7 g/m2 LV % FS 35.6 % LA VOLUME: Normal Ranges: LA Vol A4C: 55.7 ml (22+/-6mL/m2) LA Vol A2C: 70.1 ml LA Vol BP: 63.8 ml LA Vol Index A4C: 25.7ml/m2 LA Vol Index A2C: 32.3 ml/m2 LA Vol Index BP: 29.4 ml/m2 LA Area A4C: 21.1 cm2 LA Area A2C: 24.2 cm2 LA Major [place] A4C: 6.8 cm LA Major [place] A2C: 7.1 cm LA Vol A4C: 55.7 ml LA Vol A2C: 68.9 ml RA VOLUME BY A/L METHOD: Normal Ranges: RA Area A4C: 19.2 cm2 AORTA MEASUREMENTS: Normal Ranges: Asc Ao, d: 2.40 cm (2.1-3.4cm) LV DIASTOLIC FUNCTION: Normal Ranges: MV Peak E: 1.02 m/s (0.7-1.2 m/s) MV e' 0.10 m/s (>8.0) MV lateral e' 0.08 m/s MV medial e' 0.11 m/s E/e' Ratio: 10.20 (<8.0) AORTIC VALVE: Normal Ranges: AoV Vmax: 1.69 m/s (<1.7m/s) AoV Peak P.4 mmHg (<20mmHg) AoV Mean P.0 mmHg (1.7-11.5mmHg) LVOT Max Grant: 1.23 m/s (<1.1m/s) AoV VTI: 28.20 cm (18-25cm) LVOT VTI: 17.30 cm LVOT Diameter: 2.00 cm (1.8-2.4cm) AoV Area, VTI: 1.93 cm2 (2.5-5.5cm2) AoV Area,Vmax: 2.29 cm2 (2.5-4.5cm2) AoV Dimensionless Index: 0.61 RIGHT VENTRICLE: RV 1 3.9 cm RV 2 2.6 cm RV 3 8.5 cm TAPSE: 29.6 mm RV s' 0.18 m/s PULMONIC VALVE: Normal Ranges: PV Max Grant: 2.0 m/s (0.6-0.9m/s) PV Max P.4 mmHg [id number] Junito Winn MD Electronically signed on 09/21/2021 at 10:53:02 AM Final Normal [facility] GLUCOSE-POCTon 09-21-2021 Glucose [Mass/Vol] 110 mg/dL High 74 - 99 [facility] Comment on above: Performed By: #### V ERAB #### [facility] [address] [place] [address] Glucose [Mass/Vol] 125 mg/dL High 74 - 99 [facility] Comment on above: Performed By: #### G LUI #### [facility] [address] [place] [address] Glucose [Mass/Vol] 127 mg/dL High 74 - 99 [facility] Comment on above: Performed By: #### T +S #### [facility] [address] [place] [address] Glucose [Mass/Vol] 131 mg/dL High 74 - 99 [facility] Comment on above: Performed By: #### T +S #### [facility] [address] [place] [address] Glucose [Mass/Vol] 99 mg/dL Normal 74 - 99 [facility] Comment on above: Performed By: #### T +S #### [facility] [address] [place] [address] Laboratory - Blood bankon ABO group Nom (Bld) O -[facility] [employer] [facility] [place] Work Phone: [phone] Blood group antibody screen Ql Negative -[facility] [employer] [facility] [place] Work Phone: [phone] Rh immune globulin screen (Bld) [Interp] Positive -[facility] [employer] [facility] [place] Work Phone: [phone] Laboratory - Chemistry and C hemistry - challengeon 09-21-2021 Glucose [Mass/Vol] 110 mg/dL above high threshold 74 - 99 -[facility] [employer] [facility] [place] Work Phone: [phone] Glucose [Mass/Vol] 125 mg/dL above high threshold 74 - 99 -[facility] [employer] [facility] [place] Work Phone: Glucose [Mass/Vol] 127 mg/dL above high threshold 74 - 99 -[facility] [employer] [facility] [place] Work Phone: [phone] Glucose [Mass/Vol] 131 mg/dL above high threshold 74 - 99 [facility] [employer] [employer] [facility] [employer] Work Phone: [phone] Albumin BCP dye [Mass/Vol] 3.7 g/dL 3.4 - 5.0 [facility] [employer] Work Phone: [phone] ALP [Catalytic activity/Vol] 208 U/L above high threshold 33 - 110 [facility] [employer] Work Phone: [phone] ALT With P-5'-P [Catalytic activity/Vol] 13 U/L 7 - 45 [facility] [employer] Work Phone: [phone] Comment on above: Patients treated wit Sulfasalazine may generate falsely decreased results for ALT. Anion gap [Moles/Vol] 21 mmol/L above high threshold 10 - 20 [facility] [employer] Work Phone: [phone] With P-5'-P [Catalytic activity/Vol] 21 U/L 9 - 39 [facility] [employer] Work Phone: [phone] Bilirubin [Mass/Vol] 0.4 mg/dL 0.0 - 1.2 [facility] [employer] Work Phone: [phone] Calcium [Mass/Vol] 8.4 mg/dL below low threshold 8.6 - 10.6 [facility] [employer] [facility] [employer] Work Phone: [phone] Chloride [Moles/Vol] 100 mmol/L 98 - 107 [facility] [employer] Work Phone: [phone] CO2 [Moles/Vol] 19 mmol/L below low threshold 21 - 32 [facility] [employer] [facility] [employer] Work Phone: [phone] Creatinine [Mass/Vol] 0.43 mg/dL below low threshold See Below [facility] [employer] [facility] [employer] Work Phone: [phone] Comment on above: Reference Range: 0.5 0 - 1.05 Glucose [Mass/Vol] 81 mg/dL 74 - 99 [facility] [employer] [facility] [employer] [place] Work Phone: [phone] Potassium [Moles/Vol] 3.9 mmol/L 3.5 - 5.3 [facility] [employer] [facility] [employer] [place] Work Phone: [phone] Protein [Mass/Vol] 7.2 g/dL 6.4 - 8.2 [facility] [employer] [facility] [employer] [place] Work Phone: [phone] Sodium [Moles/Vol] 136 mmol/L 136 - 145 [facility] [employer] [facility] [employer] [place] Work Phone: [phone] Urea nitrogen [Mass/Vol] 5 mg/dL below low threshold 6 - 23 [facility] [employer] [facility] [employer] [place] Work Phone: [phone] Glucose [Mass/Vol] 99 mg/dL 74 - 99 -[employer] [place] Work Phone: [phone] Laboratory - Hematology and Cell countson 09-21-2021 Hematocrit (Bld) [Volume fraction] Canceled -[facility] [employer] [facility] [employer] [place] Work Phone: [phone] Hemoglobin (Bld) [Mass/Vol] Canceled -[facility] [employer] [facility] [place] Work Phone: [phone] Platelets (Bld) [#/Vol] Canceled [facility] [employer] [facility] [employer] [place] Work Phone: [phone] RBC (Bld) [#/Vol] Canceled [facility] [employer] [facility] [place] Work Phone: [phone] Erythrocyte distribution width (RBC) [Ratio] 15.3 % above high threshold See Below [facility] [employer] [facility] [place] Work Phone: [phone] Comment on above: Reference Range: 11. 5 - 14.5 Hematocrit (Bld) [Volume fraction] 46.2 % above high threshold See Below -[facility] [employer] [facility] [place] Work Phone: [phone] Comment on above: Reference Range: 36. 0 - 46.0 Hemoglobin (Bld) [Mass/Vol] 14.9 g/dL See Below -[facility] [employer] [facility] [place] Work Phone: [phone] Comment on above: Reference Range: 12. 0 - 16.0 MCHC (RBC) [Mass/Vol] 32.3 g/dL See Below -[facility] [employer] [facility] [place] Work Phone: [phone] Comment on above: Reference Range: 32. 0 - 36.0 MCV (RBC) [Entitic vol] 89 fL 80 - 100 [facility] [employer] [facility] [place] Work Phone: [phone] Platelets (Bld) [#/Vol] 233 10*3/uL 150 - 450 [facility] [employer] [facility] [place] Work Phone: [phone] RBC (Bld) [#/Vol] 5.19 {x10E12/L} See Below [facility] [employer] [facility] [place] Work Phone: [phone] Comment on above: Reference Range: 4.0 0 - 5.20 WBC (Bld) [#/Vol] 11.7 10*3/uL above high threshold 4.4 - 11.3 -[facility] [employer] [facility] [place] Work Phone: [phone] Panel Informationon 09-21 ORDER RECD [facility] [employer] [facility] [place] Work Phone: [phone] Canceled [facility] [employer] [facility] [place] Work Phone: [phone] >90 >90 [facility] [employer] [facility] [place] Work Phone: [phone] Comment on above: CALCULATIONS OF MEL MATED GFR ARE PERFORMED USING THE 2020 CKD-EPI STUDY REFIT EQUATION WITHOUT THE RACE VARIABLE FOR THE IDMS-TRACEABLE CREATININE METHODS.https://jasn.asnjournals.org/content//ASN.2 901150224 0.0 {/100_WBC} 0.0-0.0 [facility] [employer] [employer] [place] Work Phone: Order Reconciliationon 09-21 Order Reconciliation Page 1 Admission Reconciliation Document Reconciliation Type: Admission requested on behalf of Shira Morrissey (Resident) done by Shira Morrissey ( (Resident)) Admission - Reconciliation: 21-Sep-2021 01:29 by: Shira Morrissey ( (Resident)) Home MedicationsEnteredLast Dose TakenReconciled with current Order Reconciliation Comment/ Additional Information ferrous sulfate 325 mg (65 mg elemental iron) oral tablet 1 tab(s) orally every other day 21-Sep-2021 Ferrous Sulfate Tablet (FEOSOL)DOSE = 325 mg Oral Every Other DayDiscontinued ferrous sulfate 325 mg (65 mg elemental iron) oral tablet continued as the inpatient order Ferrous Sulfate Levemir FlexTouch 100 units/mL subcutaneous solution 10 microcurie subcutaneous once a day (at bedtime)21-Sep-2021 Communication Order Every 15 Minutes, PRN, BG 41-70 mg/dLGive 15 Grams of Carbohydrates and Repeat until BG reaches goal. Select 1 of the followin cup of skim milk, or 4 ounces of fruit juice or regular soda. Patient must be CONSCIOUS & able to eat or drink. Discontinue when BG reaches 100 mg/dL or greater.Levemir FlexTouch 100 units/mL subcutaneous solution continued as the inpatient order Communication Order; Levemir FlexTouch 100 units/mL subcutaneous solution continued as the inpatient order Blood Glucose POCT; Levemir FlexTouch 100 units/mL subcutaneous solution continued as the inpatient order Education, Diabetes Self Management; Levemir FlexTouch 100 units/mL subcutaneous solution continued as the inpatient order Call Provider; Levemir FlexTouch 100 units/mL subcutaneous solution continued as the inpatient order Call Provider; Levemir FlexTouch 100 units/mL subcutaneous solution continued as the inpatient order Dextrose 50% in Water Injectable; Levemir FlexTouch 100 units/mL subcutaneous solution continued as the inpatient order Glucagon Injectable; Levemir FlexTouch 100 units/mL subcutaneous solution continued as the inpatient order Insulin Detemir (Levemir) Injectable; Levemir FlexTouch 100 units/mL subcutaneous solution continued as the inpatient order Call Physician; Levemir FlexTouch 100 units/mL subcutaneous solution continued as the inpatient order Education, Diabetes Self Management Levemir FlexTouch 100 units/mL subcutaneous solution 10 microcurie subcutaneous once a day (at bedtime)21-Sep-2021 Blood Glucose POCT Once, PRN for BG 41-70 mg/dL Retest BG 15 Minutes AFTER every hypoglycemic intervention. Discontinue when BG is greater than 100 mg/dL.Levemir FlexTouch 100 units/mL subcutaneous solution continued as the inpatient order Communication Order; Levemir FlexTouch 100 units/mL subcutaneous solution continued as the inpatient order Blood Glucose POCT; Levemir FlexTouch 100 units/mL subcutaneous solution continued as the inpatient order Education, Diabetes Self Management; Levemir FlexTouch 100 units/mL subcutaneous solution continued as the inpatient order Call Provider; Levemir FlexTouch 100 units/mL subcutaneous solution continued as the inpatient order Call Provider; Levemir FlexTouch 100 units/mL subcutaneous solution continued as the inpatient order Dextrose 50% in Water Injectable; Levemir FlexTouch 100 units/mL subcutaneous solution continued as the inpatient order Glucagon Injectable; Levemir FlexTouch 100 units/mL subcutaneous solution continued as the inpatient order Insulin Detemir (Levemir) Injectable; Levemir FlexTouch 100 units/mL subcutaneous solution continued as the inpatient order Call Physician; Levemir FlexTouch 100 units/mL subcutaneous solution continued as the inpatient order Education, Diabetes Self Management Levemir FlexTouch 100 units/mL subcutaneous solution 10 microcurie subcutaneous once a day (at bedtime)21-Sep-2021 Education, Diabetes Self Management Educational materials to be reviewed by Nursing Division of Care.Levemir FlexTouch 100 units/mL subcutaneous solution continued as the inpatient order Communication Order; Levemir FlexTouch 100 units/mL subcutaneous solution continued as the inpatient order Blood Glucose POCT; Levemir FlexTouch 100 units/mL subcutaneous solution continued as the inpatient order Education, Diabetes Self Management; Levemir FlexTouch 100 units/mL subcutaneous solution continued as the inpatient order Call Provider; Levemir FlexTouch 100 units/mL subcutaneous solution continued as the inpatient order Call Provider; Levemir FlexTouch 100 units/mL subcutaneous solution continued as the inpatient order Dextrose 50% in Water Injectable; Levemir FlexTouch 100 units/mL subcutaneous solution continued as the inpatient order Glucagon Injectable; Levemir FlexTouch 100 units/mL subcutaneous solution continued as the inpatient order Insulin Detemir (Levemir) Injectable; Levemir FlexTouch 100 units/mL subcutaneous solution continued as the inpatient order Call Physician; Levemir FlexTouch 100 units/mL subcutaneous solution continued as the inpatient order (more content not included)... Normal [facility] Patient Profile - OB v3on Patient Profile - OB v3 Profile: Initial Info: How to be Addressedwednesday Spoken Language PreferredEnglish (1) Source of Informationpatient Reason for admission this visitpregnancy complication Wants Family/Rep Notified of Admissionn/a; family present Notify PCPdo not notify PCP Informed of Patient Visiting Rightsyes [place] [facility] Bel[facility]ings Remaining with Patientcash/credit card; cell phone/electronics; clothing Home Meds have been Reviewed and Verified with Patient/Familyyes Medications Brought to Hospitalno Info: Gravida2 (1) Term Deliveries0 (1) Deliveries0 (1) Abortions1 (1) Living Children0 (1) Patient stated [id number] Calculation of EGA based on patient stated EDD35 Records availableyes Trimester Care Initiatedfirst Care ProviderRafaela Lechuga Current Risksgestational diabetes, preeclampsia Previous live (any gestational age)no Baby's Post Discharge Care Provider (Provider Name, Address and Phone Number) undecided Feedingbreastmilk Benefits of Breast Milk DiscussionThe benefits of exclusive breast milk feeding and the risk of adding formula have been discussed with patient / mother. Discussion Date / [id number] 00:22 Previous Experienceno General Health: Current Weight in kg107 kilogram(s) Current Weight in vrg873.8 pound(s) Weight Methodstated Pre Weight (lb)200 pound(s) Total Weight Gain (lb)35 pound(s) Height in feet5 feet Height in inches6.97 inch(es) Height in cm170.1 centimeter(s) Height Methodstated BMI (kg/m2)36.98 square meter Patient or Family Member Reaction to Anesthesiano previous reaction Blood Avoidance/Restrictionsnone Previous Transfusion Reactionnot applicable Rsp Based Care: How would you like to participate in your caremake decisions What is the number one concern for you during this hospitalizationhaving my baby early What is the most important thing we can do to support you during this hospitalizationcommunicati on Is there anything we need to know to best care for younot at this time Substance: Smoking Statusformer smoker (2) Alcohol Usedenies(2) Drug Usedenies (2) Drug 2 Usedenies (2) Health Mgmt: Symptoms/Conditions Managed at Homerespiratory Respiratory Symptoms/Conditionsasthma Respiratory Management Strategiesmedication therapy Respiratory Managementmanaged Relationship/Environ: Primary Source of Support/Comfortsignificant other; parent Lives Withsignificant other Resource/Environmental Concernsnone Anticipated Transition [facility] Anticipated at Transitionnone Additional Information: Information Review: Allergies and Significant Events have been Reviewed and Verified with Patient/Familyyes Allergy, Intolerance, Adverse Event: Allergies: No Known Allergies: Active Electronic Signatures: Sharona Rowe (MARK) (Signed 21-Sep-2021 00:24) Authored: Initial Info, Info, General Health, Rsp Based Care, Substance, Health Mgmt, Relationship/Environ, Additional Information Last Updated: 21-Sep-2021 00:24 by Sharona Rowe (MARK) References: 1. Data Referenced From Triage Note - OB v4 20-Sep-2021 13:02 2. Data Referenced From History and Physical - OB 20-Sep-2021 17:23 Normal [facility] REQUEST-LEUKOREDUCED RED MORIAH LSon 09-21-2021 REQUEST-LEUKOREDUC ED RED CELLS ORDER RECD Normal [facility] Comment on above: Performed By: #### V ERAB #### [facility] [address] [place] [address] SYPHILIS SCREENING WITH REFL EXon 09-21-2021 SYPHILIS TOTAL AB Non-Reactive Normal NONREACTIVE [facility] Comment on above: Result Comment: No s ignificant level of Treponema pallidum antibody detected. Repeat testing in 2 to 4 weeks may be considered if early infection or incubating syphilis infection is suspected. Performed By: #### V ERAB #### [facility] [address] [place] [address] Lab Specimen Source Normal [facility] Comment on above: Performed By: #### V ERAB #### [facility] [address] [place] [address] T. pallidum IgG+IgM IA Ql (S) Non-Reactive See Below [facility] [employer] [facility] [place] Work Phone: Comment on above: SOURCE: Reference Ra nge: NONREACTIVENo significant level of Treponema pallidum antibody detected. Repeat testing in 2 to 4 weeks may be considered if early infection or incubating syphilis infection is suspected. TYPE + SCREENon 09-21-2021 ABO TYPE O Normal [facility] Comment on above: Performed By: #### V ERAB #### [facility] [address] [place] [address] RH TYPE Positive Normal [facility] Comment on above: Performed By: #### V ERAB #### [facility] [address] [place] [address] CBCon 09-20-2021 Erythrocyte distribution width (RBC) [Ratio] 15.7 % High 11.5 - 14.5 [facility] Comment on above: Performed By: #### C BC #### [address] [address] Hematocrit (Bld) [Volume fraction] 36.6 % Normal 36.0 - 46.0 [facility] Comment on above: Performed By: #### C BC #### [address] [address] Hemoglobin (Bld) [Mass/Vol] 12.7 g/dL Normal 12.0 - 16.0 [facility] Comment on above: Performed By: #### C BC #### [address] [address] MCHC (RBC) [Mass/Vol] 34.6 g/dL Normal 32.0 - 36.0 [facility] Comment on above: Performed By: #### C BC #### [address] [address] MCV (RBC) [Entitic vol] 83 fL Normal 80 - 100 [facility] Comment on above: Performed By: #### C BC #### [place] [id number] Platelets (Bld) [#/Vol] 177 10*3/uL Normal 150 - 450 [facility] Comment on above: Performed By: #### C BC #### [place] [id number] RBC 4.43 x10E12/L Normal 4.00 - 5.20 [facility] Comment on above: Performed By: #### C BC #### [place] [id number] WBC (Bld) [#/Vol] 8.3 10*3/uL Normal 4.4 - 11.3 [facility] Comment on above: Performed By: #### C BC #### [place] [address] COMPREHENSIVE PANELon 09-20- 2021 Albumin [Mass/Vol] 3.0 g/dL Low 3.4 - 5.0 [facility] Comment on above: Performed By: #### C MP #### [place] [id number] ALP [Catalytic activity/Vol] 164 U/L High 33 - 110 [facility] Comment on above: Performed By: #### C MP #### [place] [address] ALT [Catalytic activity/Vol] 12 U/L Normal 7 - 45 [facility] Comment on above: Result Comment: Hali ents treated with Sulfasalazine may generate falsely decreased results for ALT. Performed By: #### C MP #### [place] [id number] Anion gap [Moles/Vol] 11 mmol/L Normal 10 - 20 [facility] Comment on above: Performed By: #### C MP #### [place] [id number] AST [Catalytic activity/Vol] 17 U/L Normal 9 - 39 [facility] Comment on above: Performed By: #### C MP #### [address] [address] Bilirubin [Mass/Vol] 0.3 mg/dL Normal 0.0 - 1.2 [facility] Comment on above: Performed By: #### C MP #### [address] [address] Calcium [Mass/Vol] 8.7 mg/dL Normal 8.6 - 10.3 [facility] Comment on above: Performed By: #### C MP #### [address] [address] Chloride [Moles/Vol] 105 mmol/L Normal 98 - 107 [facility] Comment on above: Performed By: #### C MP #### [address] [address] Creatinine [Mass/Vol] 0.39 mg/dL Low 0.50 - 1.05 [facility] Comment on above: Performed By: #### C MP #### [address] [address] eGFR FEMALE >90 Normal >90 [facility] Comment on above: Result Comment: CALC ULATIONS OF ESTIMATED GFR ARE PERFORMED USING THE 2020 CKD-EPI STUDY REFIT EQUATION WITHOUT THE RACE VARIABLE FOR THE IDMS-TRACEABLE CREATININE METHODS. https://jasn.asnjournals.org/content//ASN.513166986 8 Performed By: #### C MP #### [address] [address] Glucose [Mass/Vol] 80 mg/dL Normal 74 - 99 [facility] Comment on above: Performed By: #### C MP #### [address] [address] HCO3 (Bld) [Moles/Vol] 26 mmol/L Normal 21 - 32 [facility] Comment on above: Performed By: #### C MP #### [address] [address] Potassium [Moles/Vol] 3.7 mmol/L Normal 3.5 - 5.3 [facility] Comment on above: Performed By: #### C MP #### [place] [address] Protein [Mass/Vol] 6.1 g/dL Low 6.4 - 8.2 [facility] Comment on above: Performed By: #### C MP #### [place] [address] Sodium [Moles/Vol] 138 mmol/L Normal 136 - 145 [facility] Comment on above: Performed By: #### C MP #### [place] [address] Urea nitrogen [Mass/Vol] 6 mg/dL Normal 6 - 23 [facility] Comment on above: Performed By: #### C MP #### [place] [address] CORONAVIRUS 2019, SCREEN ASY MPTOMATICon 09-20-2021 SARS-CoV-2 (COVID-19) RNA DILCIA+probe Ql (Unsp spec) Not detected Normal Not Detected [facility] Comment on above: Result Comment: . This test has received FDA Emergency Use Authorization (EUA) and has been verified by [facility]. This test is only authorized for the duration of time that circumstances exist to justify the authorization of the emergency use of in vitro diagnostic tests for the detection of SARS-CoV-2 virus and/or diagnosis of COVID-19 infection under section 564(b)(1) of the Act, 21 U.S.C. 360bbb-3(b)(1), unless the authorization is terminated or revoked sooner. [facility] is certified under CLIA-88 as qualified to perform high complexity testing. Testing is performed in the [facility] laboratory located at [address] [place] [address]. SARS-CoV-2/Flu/RSV Multiplex Test: Fact sheet for providers: https://www.fda.gov/media/971241/download Fact sheet for patients: https://www.fda.gov/media/692371/download Performed By: #### C OVSC #### [place] [address] Lab Specimen Source Nasal, Nasopharyngeal Normal [facility] Comment on above: Performed By: #### C OVSC #### [place] [id number] Coronavirus 2019 RNA by PCR, Screening Asymptomticon 09-20-2021 Coronavirus 2019 RNA by PCR, Screening Asymptomtic Not detected Normal See Below -[facility] [employer] [place] Work Phone: Comment on above: SOURCE: Nasal, Nasop haryngealReference Range: Not Detected.This test has received FDA Emergency Use Authorization (EUA) and has been verified by [facility]. This test is only authorized for the duration of time that circumstances exist to justify the authorization of the emergency use of in vitro diagnostic tests for the detection of SARS-CoV-2 virus and/or diagnosis of COVID-19 infection under section 564(b)(1) of the Act, 21 U.S.C. 360bbb-3(b)(1), unless the authorization is terminated or revoked sooner. [facility] is certified under CLIA-88 as qualified to perform high complexity testing. Testing is performed in the [facility] laboratory located at [address] [place] [address].SARS-CoV-2/Flu/RSV Multiplex Test: Fact sheet for providers: https://www.fda.gov/media/392878/downloadFact sheet for patients: https://www.fda.gov/media/533111/download Covid 19 Resultson 2 SARS-CoV-2 (COVID-19) RNA DILCIA+probe Ql (Unsp spec) NEGATIVE COVID-19 Test Coronaviruses are common world-wide and are the cause of many common colds. SARS-COV2 is a new coronavirus that began circulating worldwide in 2019 so we are calling it COVID-19. It has been estimated that four out of five patients with COVID-19 will recover at home without the need for medical attention. Symptoms of COVID-19 may include cough, fever, shortness of breath, loss of taste or smell and other flu-like symptoms including chills, sore muscles, sore throat, and headache. Severe illness is more common in older people and people with other health problems such as high blood pressure, obesity, and immune system problems. If the test is positive, you have COVID-19. You will be contacted by the ordering physicians office and instructed to remain on home isolation, in accordance with CDC guidelines. You may also be contacted by the [facility] to see if any of your close contacts may have been exposed to the virus and need to quarantine. If the test is negative, you likely do not have COVID-19 at this time, but you still may have a different illness that can spread to other people (like Influenza, or the Flu) and could still be at risk for getting COVID-19. We recommend that you stay away from other people to limit the spread of illness until your symptoms are improving and you are fever-free for 24 hours without the use of fever lowering medications such as acetaminophen or ibuprofen. No test is 100% accurate so if you are still concerned you may have COVID-19, talk to your doctor about the need to continue to stay away from others. Medicines Unless your provider told you not to use the following: Acetaminophen (Tylenol and others) is generally safe. Anti-inflammatory medications, such as Ibuprofen (Advil or Motrin) or Naproxen (Aleve) can also be used. Newx-gnm-gdtpsqq cough and cold medicines can be used according to the instructions on the package. Some pdsu-ymc-rohfrts medicines also contain acetaminophen. Make sure you are not taking more than your recommended dose. For those not hospitalized, there is no specific treatment available for this illness. Antibiotics do not treat Coronaviruses. Follow-Up Follow up with your doctor by scheduling a virtual visit or consider follow-up at one of our urgent care fever clinics. If you are having difficulty breathing, or are very weak and having difficulty standing, this is a medical emergency. Call 911 or have someone take you to the nearest emergency room immediately. If possible, wear a facemask. Additional guidance from the CDC for patients who tested POSITIVE for COVID-19 How to isolate: Isolate yourself in a specific room at home and limit your contact with others. Use a separate bathroom from other members of the household, when possible. Leave home only to get essential medical care. Do not go to work, school or public areas. Avoid using public transportation, ride-sharing, or taxis. Restrict contact with pets and other animals. If you must care for your pet or be around animals while you are sick, wash your hands before and after your interaction and wear a facemask. Make sure that shared spaces in the home have good airflow, such as by an air conditioner or an opened window, weather permitting. Personal Hygiene Procedures: Wear a face mask when in the same room as other people or pets. If a face mask interferes with your breathing, others should wear a mask when sharing space with you. Frequent hand-washing: wash your hands with soap and water for at least 20 seconds. If soap and water are not available, use alcohol-based hand nursery laborer. Avoid touching your eyes, nose, and mouth with unwashed hands. Household Hygiene Procedures: Avoid sharing personal household items such as dishes, glassware, cups, eating utensils, towels or bedding with other people or pets in your home. After use, these items should be washed with soap and hot water. Disinfect all high-touch surfaces every day with antibacterial cleaning solutions such as Lysol wipes, bleach, cleansers, etc. High-touch surfaces include tabletops, doorknobs, bathroom fixtures, toilets, phones, keyboards, tablets and bedside tables. Immediately clean any surfaces that may have blood, poop or body fluids on them, using antibacterial cleaning solutions such as Lysol wipes, bleach, cleansers, etc. If clothing or bedding come into contact with blood, poop or body fluids, they should be washed immediately. Follow the directions on the laundry detergent and clothing labels but hot water is recommended when possible. Stopping home isolation precautions: If possible, consult your doctor before stopping home isolation precautions. According to the CDC, you can discontinue home isolation precautions when you have met both of these criteria: Your fever and respiratory symptoms have been gone for 24 cale (more content not included)... Normal [facility] GROUP B STREP SCREENon 09-20 GROUP B STREP SCREEN PATIENT: THEO SATURDAY S LOCATION: [facility] BILL#: [id number] : 89 AGE: SEX: F ORDERED BY: RACQUEL LECHUGA SOURCE: VAG-RECTAL COLLECTED: 09/20/21 16:15 ANTIBIOTICS AT [facility].: RECEIVED : 09/20/21 23:03 SITE: R Shara Clark U Malini T S GROUP B STREP SCREEN FINAL 09/22/21 09:39 NEGATIVE FOR GROUP B BETA STREP. [facility] Comment on above: Performed By: #### G BSCR #### [facility] [address] [place] [address] Laboratory - Chemistry and C hemistry - challengeon 09-20-2021 Albumin BCP dye [Mass/Vol] 3.0 g/dL below low threshold 3.4 - 5.0 [facility] [employer] [facility] [place] Work Phone: [phone] ALP [Catalytic activity/Vol] 164 U/L above high threshold 33 - 110 [facility] [employer] [facility] [place] Work Phone: [phone] ALT With P-5'-P [Catalytic activity/Vol] 12 U/L 7 - 45 [facility] [employer] [facility] [place] Work Phone: [phone] Comment on above: Patients treated wit h Sulfasalazine may generate falsely decreased results for ALT. Anion gap [Moles/Vol] 11 mmol/L 10 - 20 [facility] [employer] [facility] [place] Work Phone: [phone] AST With P-5'-P [Catalytic activity/Vol] 17 U/L 9 - 39 [facility] [employer] [facility] [place] Work Phone: [phone] Bilirubin [Mass/Vol] 0.3 mg/dL 0.0 - 1.2 [facility] [employer] [facility] [place] Work Phone: [phone] Calcium [Mass/Vol] 8.7 mg/dL 8.6 - 10.3 [facility] [employer] [facility] [place] Work Phone: [phone] Chloride [Moles/Vol] 105 mmol/L 98 - 107 [facility] [employer] [facility] [place] Work Phone: [phone] CO2 [Moles/Vol] 26 mmol/L 21 - 32 -[facility] [employer] [facility] [place] Work Phone: [phone] Creatinine [Mass/Vol] 0.39 mg/dL below low threshold See Below [facility] [employer] [facility] [place] Work Phone: [phone] Comment on above: Reference Range: 0.5 0 - 1.05 Glucose [Mass/Vol] 80 mg/dL 74 - 99 -[employer] [facility] [place] Work Phone: [phone] Potassium [Moles/Vol] 3.7 mmol/L 3.5 - 5.3 [facility] [employer] [facility] [employer] Work Phone: [phone] Protein [Mass/Vol] 6.1 g/dL below low threshold 6.4 - 8.2 [facility] [employer] [facility] [employer] Work Phone: [phone] Sodium [Moles/Vol] 138 mmol/L 136 - 145 [facility] [employer] [facility] [employer] Work Phone: [phone] Urea nitrogen [Mass/Vol] 6 mg/dL 6 - 23 [facility] [employer] [facility] [employer] Work Phone: Laboratory - Hematology and Cell countson 09-20-2021 Erythrocyte distribution width (RBC) [Ratio] 15.7 % above high threshold See Below [facility] [employer] [facility] [employer] Work Phone: Comment on above: Reference Range: 11. 5 - 14.5 Hematocrit (Bld) [Volume fraction] 36.6 % See Below [facility] [employer] [facility] [place] Work Phone: Comment on above: Reference Range: 36. 0 - 46.0 Hemoglobin (Bld) [Mass/Vol] 12.7 g/dL See Below [facility] [employer] [facility] [place] Work Phone: Comment on above: Reference Range: 12. 0 - 16.0 MCHC (RBC) [Mass/Vol] 34.6 g/dL See Below [facility] [place] Work Phone: [phone] Comment on above: Reference Range: 32. 0 - 36.0 MCV (RBC) [Entitic vol] 83 fL 80 - 100 [facility] [place] Work Phone: [phone] Platelets (Bld) [#/Vol] 177 10*3/uL 150 - 450 [facility] [place] Work Phone: [phone] RBC (Bld) [#/Vol] 4.43 {x10E12/L} See Below [facility] [place] Work Phone: [phone] Comment on above: Reference Range: 4.0 0 - 5.20 WBC (Bld) [#/Vol] 8.3 10*3/uL 4.4 - 11.3 [facility] [place] Work Phone: [phone] Laboratory - Microbiology an d Antimicrobial susceptibilityon 09-20-2021 Bacteria identified Aer cx Nom (Genital specimen) [facility] [place] Work Phone: [phone] No Panel Informationon 09-20 >90 >90 [facility] [place] Work Phone: [phone] Comment on above: CALCULATIONS OF MEL MATED GFR ARE PERFORMED USING THE 2020 CKD-EPI STUDY REFIT EQUATION WITHOUT THE RACE VARIABLE FOR THE IDMS-TRACEABLE CREATININE METHODS.https://jasn.asnjournals.org/content//ASN.2 824308043 Order Reconciliationon 09-20 Order Reconciliation Page 1 Admission Reconciliation Document Reconciliation Type: Admission requested on behalf of Racquel Lechuga (Physician) done by Racquel Lechuga) Admission - Reconciliation: 20-Sep-2021 17:31 by: Racquel Lechuga) Home MedicationsEnteredLast Dose TakenReconciled with current Order Reconciliation Comment/ Additional Information ferrous sulfate 325 mg (65 mg elemental iron) oral tablet 1 tab(s) orally every other [id number] PM Reviewed and Held Levemir FlexTouch 100 units/mL subcutaneous solution 10 microcurie subcutaneous once a day (at bedtime)2021 PM Reviewed and Held 1 oral capsule 1 tab(s) orally once a [id number] PM Reviewed and Held Additional Current Orders Acetaminophen Rectal Suppository (TYLENOL)DOSE = 650 mg Rectal Once, PRN Initial pain mgmt following deliveryClinician Notes: Administer in the OR. Betamethasone Injectable (CELESTONE)DOSE = 12 mg IntraMuscular Every 24 Hours Calcium Gluconate Injectable DOSE = 1 gram(s) IntraVenous Push Once, PRN Magnesium toxicityClinician Notes: IV push over 5 minutes Carboprost IntraMuscular (HEMABATE)DOSE = 250 microgram(s) IntraMuscular Once, PRN post bleeding in non-asthmatic patientClinician Notes: Consult provider prior to administration. Enoxaparin SubCutaneous (LOVENOX)DOSE = 40 mg SubCutaneous Every 24 HoursClinician Notes: Wait 4 hours after neuraxial catheter removal AND 12 hours after placement of neuraxial catheter. BMI less than 35 with a score greater than 5 OR BMI 35 to 39.9 regardless of score. Labetalol Injectable (TRANDATE)DOSE = 20 mg IntraVenous Push Once, PRN Acute-onset, sev HTN w/o active asthma/ mesfin<60Clinician Notes: Consult provider prior to administration. Push over more than 2 minutes. Systolic greater than or equal to 160 OR Diastolic greater than or equal to 110. Contraindications: active asthma, heart disease, heart failure, maternal bradycardia < 60. Lactated Ringers Infusion IV Bag Volume = 1,000 mL Run at: 125 mL/hr IntraVenous Lactated Ringers IV Bolus DOSE = 500 mL Once, PRN resuscitationInfuse over 30 minute(s) Lactated Ringers IV Bolus DOSE = 500 mL Once, PRN If patient is given an EpiduralInfuse over 30 minute(s)Clinican Notes: Give 30 minutes prior to Epidural catheter placement Magnesium Sulfate 20 gram/ Sterile Water 500 mL Infusion with Bolus from Bag IntraVenous INITIAL Bolus = 6 gram(s) infused over 20 minutesDose Rate: 2 g/hrAdmin Rate = 50 mL/hrClinician Notes: Continuous pulse ox throughout IV bolus. Blood pressure, pulse, respirations and pulse oximetry every 15 minutes first hour of Magnesium Sulfate administration, then every hour.Notes from Pharmacy: DOSE Rate = 2 g/hr = 50 mL/hr. Magnesium Sulfate IV Bolus DOSE = 6 gram(s) OnceInfuse over 20 minute(s)Clinican Notes: Continuous Pulse Ox throughout IV Bolus. Blood pressure, pulse, respirations and pulse oximetry every 15 minutes x 1 hour, then hourly. Creatinine greater than or equal to 2.5 mg/dL; IV bolus only, no continuous IV infusion. Methylergonovine Injectable (METHERGINE)DOSE = 0.2 mg IntraMuscular Once, PRN PPH in pts w/o HTN or receiving ART for HIV mgmt.Clinician Notes: Consult provider prior to administration.Notes from Pharmacy: Reproductive Risk - Single Nitrile Glove miSOPROStol Rectal Tablet (Cytotec)DOSE = 800 microgram(s) Rectal Once, PRN post bleedingClinician Notes: Consult provider prior to administration.Notes from Pharmacy: Reproductive Risk - Single Nitrile Glove NIFEdipine (PROCARDIA) Immediate Release CapsuleDOSE = 10 mg Oral Once, PRN Acute-onset, severe HTN w/out IV access/ pref oralClinician Notes: Consult provider prior to administration. Systolic greater than or equal to 160 OR Diastolic greater than or equal to 110. Capsules administered orally and swallowed whole; Do not puncture or crush; Do not administer sublingually. Ondansetron Injectable (ZOFRAN)DOSE = 4 mg IntraVenous Push Once, PRN Nausea & Vomiting Oxytocin 30 units/ NaCL 0.9% 500 mL Infusion with Bolus from Bag IntraVenous (PITOCIN)INITIAL Bolus = 600 milliunits/min infused over 30 minutesDose Rate: 60 milliunits/minAdmin Rate = 60 mL/hrStop After 1 DosesClinician Notes: 600 milliunits/min x 30 mins., then 60 milliunits/min for the remainder of the bag. Begin infusion at delivery of (s).Notes from Pharmacy: DOSE Rate = 60 milliunits/min = 60 mL/hr.Reproductive Risk - Single Nitrile Glove Oxytocin 30 units/ NaCL 0.9% 500 mL Infusion with Bolus from Bag IntraVenous (PITOCIN)INITIAL Bolus = 600 milliunits/min infused over 30 minutesDose Rate: 60 milliunits/minAdmin Rate = 60 mL/hrStop After 1 DosesClinician Notes: Conditional order. 600 milliunits/min x 30 mins., then 60 milliunits/min for the remainder of the bag. Consult Provider prior to administration.Notes from Pharmacy: DOSE Rate = 60 milliunits/min = (more content not included)... Normal [facility] Risk Screen - OB Triageon Risk Screen - OB Triage Allergies: Allergies: Allergies: No Known Allergies: Patient Verification: Patient Verification: New W ID Band Applied in my Departmentyes Patient Identity Verified Bypatient ID Band FULL Name, include Middle, spelling matches patient's ID used for verificationyes ID Band Matches Patient ID used for Verficationyes ID Band MRN Matches EMR MRNyes Travel History: Travel History: COVID-19 Screening Completedno exposure or symptoms Travel or Exposure Past 30 DaysNO travel to International locations in the past 30 days Advance Directives: Advance Directive: Advance Directive/DNRno Advance Directive Information Givenpatient/family declined Falls Risk: Reyes Fall Screen: History of falling (immediate or previous)no (0) Secondary Diagnosisno (0) Intravenous Therapy/ Heparin/Saline Lockno (0) Gait/Transferringnormal/be drest/wheelchair (0) Ambulatory Aidsnone/bedrest/nurse assist (0) Mental Statusoriented to own ability (0) Score: Low risk (<25). Moderate risk (25-44). High risk (>44).0 Reyes InterventionsLOW INTERVENTIONS: *patient oriented to surroundings and call system, * patient/family falls education completed and documented, *patients fall status communicated during bedside handoff, *whiteboard updated, *mode of toileting discussed with patient, *bed in low position with brakes locked, *call light in reach, * non-skid footwear Learning Assessment (Patient): Learning Assessment (Patient): Patient is Able to be Assessed for Learningyes Factors Influencing Readiness to Learnanxiety Factors that Impact Ability to Learnnone Devices/Methods Used to Communicatenone Learning Preferencesverbal instruction Cultural Considerationsnone Developmental Considerationsnone Religion Considerationsnone Other Learnerssignificant other Learning Assessment (Other Learner): Other learner availableyes... Learnersignificant other Factors Influencing Readiness to Learnanxiety Factors that Impact Ability to Learnnone Devices/Methods Used to Communicatenone Learning Preferencesverbal instruction Cultural Considerationsnone Developmental Considerationsnone Religion Considerationsnone Depression/Suicide: Depression Screen: During the past month, have you often been bothered by feeling down, depressed or hopelessno During the past month, have you often had little interest or pleasure in doing thingsno Have you had any thoughts of harming anyone elseno [place] Suicide: Risk Screen Not Applicable/Able to Answerable to be screened In the Past Month: Have you wished you were or could go to sleep and not wake upno In the Past Month: Have you had any actual thoughts of killing yourselfno Lifetime: Have you ever done, started to do, or prepared to do anything to end your lifeno [place] Suicide Risknegative Family Violence: Abuse Screen: Are you or have you been threatened or abused physically, emotionally, or sexually by anyoneno Do you feel UNSAFE going back to the place where you are livingno Clinical assessment: Are there any apparent signs of injuries/behaviors that could be related to abuse/neglectno Electronic Signatures: Megan Lopez (RN) (Signed 20-Sep-2021 16:43) Authored: Allergies, Patient Verification, Travel History, Advance Directives, Reyes Fall Screen, Learning Assessment (Patient), Learning Assessment (Other Learner), Depression/Suicide, Family Violence Last Updated: 20-Sep-2021 16:43 by Megan Lopez (RN) Normal [facility] TOTAL PROTEIN, URINE SPOTon 09-20-2021 CREATININE,URINE 53.0 mg/dL Normal 20.0 - 320.0 [facility] Comment on above: Performed By: #### T PS2 ####[address] [address] T. PROTEIN/CREAT RATIO 0.70 mg/mg Creat High 0.00 - 0.17 [facility] Comment on above: Performed By: #### T PS2 ####[address] [address] TOTAL PROT,URINE SPOT 37 mg/dL High 5 - 24 [facility] Comment on above: Performed By: #### T PS2 ####[address] [place] [address] Total Protein, Urine Spoton 09-20-2021 Creatinine (U) [Mass/Vol] 53.0 mg/dL See Below [facility] [employer] Work Phone: Comment on above: Reference Range: 20. 0 - 320.0 Protein (U) [Mass/Vol] 37 mg/dL above high threshold 5 - 24 [facility] [employer] Work Phone: [phone] Protein/Creatinine (U) [Ratio] 0.70 {mg/mg_Creat} above high threshold See Below [facility] [employer] Work Phone: Comment on above: Reference Range: 0.0 0 - 0.17 Triage Note - OB v4on 2021 Triage Note - OB v4 Triage: General Info: Time of Arrival on [id number] 12:55 [facility] Acuity Level5 Time Acuity Level [id number]-[id number] 12:55 Chief Complaintscheduled NST pt states has high blood pressure during the and gestational diabetes Spoken Language PreferredEnglish (1) Weight in kg107 kilogram(s) Weight in oos074.8 pound(s) Weight Methodactual (measured) Scale Typestanding Height in feet5 feet Height in inches6.97 inch(es) Height in cm170.1 centimeter(s) Height Methodstated BMI (kg/m2)36.98 square meter Patient Belongingsremains with patient Patient Belongings Remaining with Patientcell phone/electronics Home Meds have been Reviewed and Verified with Patient/Familyyes Info: Gravida2 Term Deliveries0 Deliveries0 Abortions1 Living Children0 Patient stated [id number] Calculation of EGA based on patient stated EDD34.6 Records availableyes Trimester Care Initiatedfirst Care Providerdr lechuga Current Risksgestational diabetes, hypertension, gestational Testsnonstress test Previous live (any gestational age)no Substance: Smoking Statusformer smoker Alcohol Usedenies Drug Usedenies Drug 2 Usedenies Disposition/Disch: Dispositiontransferred to another facility Reason for Facility Transferpre eclampsia Patient Meets Criteria for Home Blood Pressure Monitorno Admission/Observation/Disc harge/Transfer Date/[id number]-Neh-7745 22:07 Discharged Accompanied Bysignificant other/partner; parent Discharge [facility] Transportation Methodambulance Travel History: Travel or ExposureNO travel to International locations in the past 30 days Additional Information: Information Review: Allergies have been Reviewed and Verified with Patient/Familyyes Allergy, Intolerance, Adverse Event: Allergies: No Known Allergies: Active Electronic Signatures: Kierra Montero (RN) (Signed 20-Sep-2021 13:10) Authored: General Info, Info, Substance, Disposition/Disch, Travel History, Additional Information Megan Lopez (MARK) (Signed 20-Sep-2021 22:35) Authored: Disposition/Disch Last Updated: 20-Sep-2021 22:35 by Megan Lopez (RN) References: 1. Data Referenced From Triage Note - OB v4 06-Sep-2021 13:48 Normal [facility] CBCon 09-06-2021 Erythrocyte distribution width (RBC) [Ratio] 15.1 % High 11.5 - 14.5 [facility] Comment on above: Performed By: #### G LUS1 #### [address] [address] Hematocrit (Bld) [Volume fraction] 36.7 % Normal 36.0 - 46.0 [facility] Comment on above: Performed By: #### G LUS1 #### [address] [address] Hemoglobin (Bld) [Mass/Vol] 12.7 g/dL Normal 12.0 - 16.0 [facility] Comment on above: Performed By: #### G LUS1 #### [address] [address] MCHC (RBC) [Mass/Vol] 34.6 g/dL Normal 32.0 - 36.0 [facility] Comment on above: Performed By: #### G LUS1 #### [address] [address] MCV (RBC) [Entitic vol] 82 fL Normal 80 - 100 [facility] Comment on above: Performed By: #### G LUS1 #### [address] [address] Platelets (Bld) [#/Vol] 210 10*3/uL Normal 150 - 450 [facility] Comment on above: Performed By: #### G LUS1 #### [address] [address] RBC 4.47 x10E12/L Normal 4.00 - 5.20 [facility] Comment on above: Performed By: #### G LUS1 #### [address] [address] WBC (Bld) [#/Vol] 8.7 10*3/uL Normal 4.4 - 11.3 [facility] Comment on above: Performed By: #### Moisés ANNS1 #### [address] [address] COMPREHENSIVE PANELon 2021 Albumin [Mass/Vol] 3.2 g/dL Low 3.4 - 5.0 [facility] Comment on above: Performed By: #### G LUS1 #### [address] [address] ALP [Catalytic activity/Vol] 147 U/L High 33 - 110 [facility] Comment on above: Performed By: #### G LUS1 #### [address] [address] ALT [Catalytic activity/Vol] 10 U/L Normal 7 - 45 [facility] Comment on above: Result Comment: Hali ents treated with Sulfasalazine may generate falsely decreased results for ALT. Performed By: #### G LUS1 #### [address] [address] Anion gap [Moles/Vol] 13 mmol/L Normal 10 - 20 [facility] Comment on above: Performed By: #### G LUS1 #### [address] [address] AST [Catalytic activity/Vol] 15 U/L Normal 9 - 39 [facility] Comment on above: Performed By: #### Moisés LUS1 #### [address] [address] Bilirubin [Mass/Vol] 0.3 mg/dL Normal 0.0 - 1.2 [facility] Comment on above: Performed By: #### G LUS1 #### [address] [address] Calcium [Mass/Vol] 8.9 mg/dL Normal 8.6 - 10.3 [facility] Comment on above: Performed By: #### G LUS1 #### [address] [address] Chloride [Moles/Vol] 104 mmol/L Normal 98 - 107 [facility] Comment on above: Performed By: #### G LUS1 #### [address] [address] Creatinine [Mass/Vol] 0.36 mg/dL Low 0.50 - 1.05 [facility] Comment on above: Performed By: #### G LUS1 #### [address] [address] eGFR FEMALE >90 Normal >90 [facility] Comment on above: Result Comment: CALC ULATIONS OF ESTIMATED GFR ARE PERFORMED USING THE 2020 CKD-EPI STUDY REFIT EQUATION WITHOUT THE RACE VARIABLE FOR THE IDMS-TRACEABLE CREATININE METHODS. https://jasn.asnjournals.org/content//ASN.678936928 8 Performed By: #### G LUS1 #### [address] [address] Glucose [Mass/Vol] 89 mg/dL Normal 74 - 99 [facility] Comment on above: Performed By: #### G LUS1 #### [address] [address] HCO3 (Bld) [Moles/Vol] 23 mmol/L Normal 21 - 32 [facility] Comment on above: Performed By: #### G LUS1 #### [address] [address] Potassium [Moles/Vol] 3.7 mmol/L Normal 3.5 - 5.3 [facility] Comment on above: Performed By: #### G LUS1 #### [address] [address] Protein [Mass/Vol] 6.2 g/dL Low 6.4 - 8.2 [facility] Comment on above: Performed By: #### G LUS1 #### [address] [address] Sodium [Moles/Vol] 136 mmol/L Normal 136 - 145 [facility] Comment on above: Performed By: #### G LUS1 #### [address] [address] Urea nitrogen [Mass/Vol] 5 mg/dL Low 6 - 23 [facility] Comment on above: Performed By: #### G LUS1 #### [address] [address] Daily Progress Note - OB-Ant enatal Testingon 09-06-2021 Daily Progress Note - OB- Testing Current Stage: Stage: Testing OB Dating: EDC/EGA: Final [id number] EGA32.6 Testing: NST Interpretation - Baby A: InterpretationReactive (2 15x15 accels) Assessment and Plan: Additional Dx: 32 weeks gestation of : Entered Date: 06-Sep-2021 13:31 Insulin controlled gestational diabetes mellitus (GDM) in third trimester: Entered Date: 06-Sep-2021 13:31 Assessment: 1. Intrauterine at 32 weeks 6 days 2. Gestational diabetes on insulin 3. Reactive NST Electronic Signatures: Noe Adame) (Signed 06-Sep-2021 13:32) Authored: Current Stage, OB Dating, Objective Data, Testing, Assessment and Plan, Note Completion Last Updated: 06-Sep-2021 13:32 by Noe Adame) Normal [facility] HEMOGLOBIN A1Con 09-06-2021 Glucose [Mass/Vol] 108 mg/dL Normal [facility] Comment on above: Performed By: #### H BA1E #### [address] [address] HbA1c (Bld) [Mass fraction] 5.4 % Normal [facility] Comment on above: Result Comment: Diag nosis of Diabetes-Adults Non-Diabetic: < or = 5.6% Increased risk for developing diabetes: 5.7-6.4% Diagnostic of diabetes: > or = 6.5% . Monitoring of Diabetes Age (y) Therapeutic Goal (%) Adults: >18 <7.0 Pediatrics: 13-18 <7.5 7-12 <8.0 0- 6 7.5-8.5 [employer]. Diabetes Care 33(S1), Apr 2009. Performed By: #### H BA1E #### [facility] [address] [place] [address] Hemoglobin A1Con 09-06-2021 Glucose [Mass/Vol] 108 mg/dL MG-OBG YN-Ris man 320 Work Phone: HbA1c (Bld) [Mass fraction] 5.4 % SQ-ZYQCH-Jfn man 320 Work Phone: Comment on above: Diagnosis of Diabete s-Adults Non-Diabetic: < or = 5.6% Increased risk for developing diabetes: 5.7-6.4% Diagnostic of diabetes: > or = 6.5%. Monitoring of Diabetes Age (y) Therapeutic Goal (%) Adults: >18 <7.0 Pediatrics: 13-18 <7.5 7-12 <8.0 0- 6 7.5-8.5 [employer]. Diabetes Care 33(S1), Apr 2009. Laboratory - Chemistry and C hemistry - challengeon 09-06-2021 Albumin BCP dye [Mass/Vol] 3.2 g/dL below low threshold 3.4 - 5.0 CN-CCBAD-Rjt man 320 Work Phone: ALP [Catalytic activity/Vol] 147 U/L above high threshold 33 - 110 JE-BSYZA-Xyf man 320 Work Phone: ALT With P-5'-P [Catalytic activity/Vol] 10 U/L 7 - 45 OF-OCLIK-Mwl man 320 Work Phone: Comment on above: Patients treated wit h Sulfasalazine may generate falsely decreased results for ALT. Anion gap [Moles/Vol] 13 mmol/L 10 - 20 QX-BTVVX-Cjc man 320 Work Phone: AST With P-5'-P [Catalytic activity/Vol] 15 U/L 9 - 39 GD-OLNBU-Ekc man 320 Work Phone: [phone] Bilirubin [Mass/Vol] 0.3 mg/dL 0.0 - 1.2 NH-ZPQIZ-Cfo man 320 Work Phone: [phone] Calcium [Mass/Vol] 8.9 mg/dL 8.6 - 10.3 MG-OBG YN-Ris man 320 Work Phone: [phone] Chloride [Moles/Vol] 104 mmol/L 98 - 107 KJ-SHNXH-Sub man 320 Work Phone: [phone] CO2 [Moles/Vol] 23 mmol/L 21 - 32 MG-OBGYN- Ris man 320 Work Phone: [phone] Creatinine [Mass/Vol] 0.36 mg/dL below low threshold See Below MG-BRPNG-Ocw man 320 Work Phone: [phone] Comment on above: Reference Range: 0.5 0 - 1.05 Glucose [Mass/Vol] 89 mg/dL 74 - 99 MG-OBG YN-Ris man 320 Work Phone: [phone] Potassium [Moles/Vol] 3.7 mmol/L 3.5 - 5.3 RF-VINZA-Ehw man 320 Work Phone: [phone] Protein [Mass/Vol] 6.2 g/dL below low threshold 6.4 - 8.2 RW-SGHGU-Iwd man 320 Work Phone: [phone] Sodium [Moles/Vol] 136 mmol/L 136 - 145 MG-OBG YN-Ris man 320 Work Phone: [phone] Urea nitrogen [Mass/Vol] 5 mg/dL below low threshold 6 - 23 GB-GEMOY-Gix man 320 Work Phone: [phone] Laboratory - Hematology and Cell countson 09-06-2021 Erythrocyte distribution width (RBC) [Ratio] 15.1 % above high threshold See Below EU-VFKGM-Lxe man 320 Work Phone: [phone] Comment on above: Reference Range: 11. 5 - 14.5 Hematocrit (Bld) [Volume fraction] 36.7 % See Below VJ-UKPNQ-Iny man 320 Work Phone: [phone] Comment on above: Reference Range: 36. 0 - 46.0 Hemoglobin (Bld) [Mass/Vol] 12.7 g/dL See Below BI-PJBXR-Txw man 320 Work Phone: Comment on above: Reference Range: 12. 0 - 16.0 MCHC (RBC) [Mass/Vol] 34.6 g/dL See Below EF-SRJZW-Gso man 320 Work Phone: [phone] Comment on above: Reference Range: 32. 0 - 36.0 MCV (RBC) [Entitic vol] 82 fL 80 - 100 LR-EECNF-Lvd man 320 Work Phone: [phone] Platelets (Bld) [#/Vol] 210 10*3/uL 150 - 450 WT-VYXAE-Fth man 320 Work Phone: [phone] RBC (Bld) [#/Vol] 4.47 {x10E12/L} See Below MG -OBGYN-Ris man 320 Work Phone: [phone] Comment on above: Reference Range: 4.0 0 - 5.20 WBC (Bld) [#/Vol] 8.7 10*3/uL 4.4 - 11.3 MG-OBG YN-Ris man 320 Work Phone: No Panel Informationon 09-06 >90 >90 DO-DLKZA-Dsy man 320 Work Phone: Comment on above: CALCULATIONS OF MEL MATED GFR ARE PERFORMED USING THE 2020 CKD-EPI STUDY REFIT EQUATION WITHOUT THE RACE VARIABLE FOR THE IDMS-TRACEABLE CREATININE METHODS.https://jasn.asnjournals.org/content//ASN.2 775912175 Triage Note - OB v4on 2021 Triage Note - OB v4 Triage: General Info: Time of Arrival on [id number] 12:55 [facility] Acuity Level5 Time Acuity Level Mjwtnjbt28-Qkw-5589 13:05 Chief ComplaintNST GDM Spoken Language PreferredEnglish (1) Weight in kg104.1 kilogram(s) Weight in upa181.5 pound(s) Weight Methodactual (measured) Scale Typestanding Home Meds have been Reviewed and Verified with Patient/Familyyes Info: Gravida2 Term Deliveries0 Deliveries0 Abortions1 Living Children0 Patient stated [id number] Calculation of EGA based on patient stated EDD32.6 Records availablerequesting Current Risksgestational diabetes Testsnonstress test Previous live (any gestational age)no Substance: Smoking Statusnever smoker Alcohol Usedenies Drug Usedenies Drug 2 Usedenies Disposition/Disch: Dispositiondischarged from facility, home with own care Patient Meets Criteria for Home Blood Pressure Monitoryes Home Blood Pressure Monitor Providedyes, patient provided with blood pressure monitor and log; educated on proper use and indications to call provider Admission/Observation/Disc harge/Transfer Date/Rlzh34-Vha-4773 13:35 Discharged Accompanied Bysignificant other/partner Discharge Modeambulatory Transportation Methodprivate car Travel History: Travel or ExposureNO travel to International locations in the past 30 days Additional Information: Information Review: Allergies have been Reviewed and Verified with Patient/Familyyes Allergy, Intolerance, Adverse Event: Allergies: No Known Allergies: Active Electronic Signatures: Anca Huizar (MARK) (Signed 06-Sep-2021 13:52) Authored: General Info, Info, Substance, Disposition/Disch, Travel History, Additional Information Last Updated: 06-Sep-2021 13:52 by Anca Huizar (MARK) References: 1. Data Referenced From Triage - ED 08-Jul-2021 10:27 Normal [facility] URIC ACIDon 09-06-2021 Urate [Mass/Vol] 4.5 mg/dL Normal 2.3 - 6.7 [facility] Comment on above: Result Comment: Marlene puncture immediately after or during the administration of Metamizole may lead to falsely low results. Testing should be performed immediately prior to Metamizole dosing. Performed By: #### G LUS1 #### [address] [place] [address] Uric Acid, Serumon Urate [Mass/Vol] 4.5 mg/dL 2.3 - 6.7 MG-OBGYN -Ris man 320 Work Phone: Comment on above: Venipuncture immedia tely after or during the administration of Metamizole may lead to falsely low results. Testing should be performed immediately prior to Metamizole dosing. Falls Risk Screeningon 09-05 Fall risk assessment a) No falls within the last year PD-SFZMZ-Xzc man 320 Work Phone: GLUCOSE-POCTon 09-05-2021 Glucose [Mass/Vol] 103 mg/dL High 74 - 99 [facility] Comment on above: Performed By: #### G LUS1 #### [facility] [address] [place] [address] Laboratory - Chemistry and C hemistry - challengeon 09-05-2021 Glucose [Mass/Vol] 103 mg/dL above high threshold 74 - 99 WR-IXNDA-Xug man 320 Work Phone: No Panel Informationon 09-05 Normal RB-YXHHY-Rcs man 320 Work Phone: OB Biophysical profile (w/o NST)on 09-05-2021 OB Biophysical profile (w/o NST) Indication ======== Third Trimester Scan for Diabetes Mellitus, Gestational- Diet Controlled,?Asthma, Class I Obesity (BMI 30-34.9) History ====== General History Height 170 cm Height (ft) 5 ft Height (in) 7 in Previous Outcomes 2 Para 0 Abortions (A) 1 Miscarriages 1 Maternal Assessment Height 170 cm Height (ft) 5 ft Height (in) 7 in Weight 89 kg Weight (lb) 197 lb BMI 30.85 kg/m? ========= Merrill . Number of fetuses: 1 Dating ====== LMP on: 01/19/2021 Cycle: Very certain LMP GA by LMP 32 w + 5 d LUDWIG by LMP: 10/26/2021 Ultrasound examination on: 09/05/2021 GA by U/S based upon: AC, BPD, Femur, HC GA by U/S 32 w + 3 d LUDWIG by U/S: 10/28/2021 Assigned: based on the LMP, selected on 09/05/2021 Assigned GA 32 w + 5 d Assigned LUDWIG: 10/26/2021 Growth Overview Exam date GA BPD (mm) HC (mm) AC (mm) FL (mm) HL (mm) EFW (g) 09/05/2021 32w 5d 81.7 46% 299.1 23% 272.5 14% 62.2 25% 53.1 14% 1863 20% Impression ========= Patient here for third trimester anatomy for transfer of care in the setting of gestational diabetes, asthma, and class I obesity - biometry is consistent with the assigned gestational age - No malformations on this survey limited by gestational age - BPP 8/8, normal amniotic fluid Patient has an appointment with MFM to follow. Follow-up recommendations per them. General Evaluation Cardiac activity present. FHR 158 bpm. movements: visualized. Presentation: cephalic Placenta: Placental site: posterior, left Umbilical cord: Cord vessels: 3 vessel cord. Insertion site: Suboptimal Amniotic fluid: Amount of AF: normal amount. MVP 3.1 cm. ISAI 7.8 cm. Q1 0.8 cm, Q2 1.5 cm, Q3 2.6 cm, Q4 2.9 cm Biometry Standard BPD 81.7 mm 32w 6d 46% Hadlock OFD 105.3 mm 51% INTERGROWTH-21st HC 299.1 mm 33w 1d 23% Hadlock Cerebellum tr 44.5 mm 34w 3d 80% Hill AC 272.5 mm 31w 2d 14% Hadlock Femur 62.2 mm 32w 2d 25% Hadlock Humerus 53.1 mm 14% Chitty HC / AC 1.10 EFW 1,863 g 31w 4d 20% Hadlock EFW (lb) 4 lb EFW (oz) 2 oz EFW by: Hadlock (ERR-[id number]-FL) Extended Nail Puller 4.2 mm Head / Face / Neck Cephalic index 0.78 25% Nicolaides Extremities / Bony Struc FL / BPD 0.76 FL / HC 0.21 FL / AC 0.23 Other Structures FHR 158 bpm Anatomy Cranium: Normal Lateral ventricles: Normal Midline falx: Normal Cavum septi pellucidi: Normal Cerebellum: Normal Head / Neck Thalami: Normal Lips: Normal Profile: Normal Nose: Normal 4-chamber view: Normal RVOT view: Normal LVOT view: Normal 3-vessel view: Normal Heart / Thorax Cardiac axis: Normal Cardiac size: normal (approx. 1/3 of thoracic area) Cardiac proportions: proportioned (normal) Diaphragm: Normal Cord insertion: suboptimal Stomach: Visible, with correct situs Kidneys: Normal Bladder: Visible Genitals: Normal Abdomen Abdom. wall: suboptimal Rt kidney: Normal Lt kidney: Normal Large bowel: Normal Cervical spine: suboptimal Thoracic spine: suboptimal Lumbar spine: suboptimal Sacral spine: suboptimal Arms: Both Upper Extremities Seen Legs: Both Lower Extremities Seen sex: female Wants to know sex: yes Biophysical Profile 2: breathing movements 2: Gross body movements 2: tone 2: Amniotic fluid volume 8/8 Biophysical profile score Maternal Structures Uterus / Cervix Uterus: Normal Cervix: Not visualized Ovaries / Tubes / Adnexa Rt ovary: Visualized Rt ovary details: Normal Rt ovary D1 27.0 mm Rt ovary D2 18.8 mm Rt ovary D3 21.7 mm Rt ovary Vol 5.8 cm? Lt ovary: Visualized Lt ovary details: Normal Lt ovary D1 27.9 mm Lt ovary D2 31.0 mm Lt ovary D3 10.9 mm Lt ovary Vol 4.9 cm? Method ====== Transabdominal ultrasound examination. View: Suboptimal view: limited by late gestational age. Suboptimal view: limited by maternal body habitus Electronically signed by: CHRISTA MONSALVE MD Normal [facility] OB Completed scan + Detailed Anatomyon 09-05-2021 OB Completed scan + Detailed Anatomy Indication ======== Third Trimester Scan for Diabetes Mellitus, Gestational- Diet Controlled,?Asthma, Class I Obesity (BMI 30-34.9) History ====== General History Height 170 cm Height (ft) 5 ft Height (in) 7 in Previous Outcomes 2 Para 0 Abortions (A) 1 Miscarriages 1 Maternal Assessment Height 170 cm Height (ft) 5 ft Height (in) 7 in Weight 89 kg Weight (lb) 197 lb BMI 30.85 kg/m? ========= Merrill . Number of fetuses: 1 Dating ====== LMP on: 01/19/2021 Cycle: Very certain LMP GA by LMP 32 w + 5 d LUDWIG by LMP: 10/26/2021 Ultrasound examination on: 09/05/2021 GA by U/S based upon: AC, BPD, Femur, HC GA by U/S 32 w + 3 d LUDWIG by U/S: 10/28/2021 Assigned: based on the LMP, selected on 09/05/2021 Assigned GA 32 w + 5 d Assigned LUDWIG: 10/26/2021 Growth Overview Exam date GA BPD (mm) HC (mm) AC (mm) FL (mm) HL (mm) EFW (g) 09/05/2021 32w 5d 81.7 46% 299.1 23% 272.5 14% 62.2 25% 53.1 14% 1863 20% Impression ========= Patient here for third trimester anatomy for transfer of care in the setting of gestational diabetes, asthma, and class I obesity - biometry is consistent with the assigned gestational age - No malformations on this survey limited by gestational age - BPP 8/8, normal amniotic fluid Patient has an appointment with MFM to follow. Follow-up recommendations per them. General Evaluation Cardiac activity present. FHR 158 bpm. movements: visualized. Presentation: cephalic Placenta: Placental site: posterior, left Umbilical cord: Cord vessels: 3 vessel cord. Insertion site: Suboptimal Amniotic fluid: Amount of AF: normal amount. MVP 3.1 cm. ISAI 7.8 cm. Q1 0.8 cm, Q2 1.5 cm, Q3 2.6 cm, Q4 2.9 cm Biometry Standard BPD 81.7 mm 32w 6d 46% Hadlock OFD 105.3 mm 51% INTERGROWTH-21st HC 299.1 mm 33w 1d 23% Hadlock Cerebellum tr 44.5 mm 34w 3d 80% Hill AC 272.5 mm 31w 2d 14% Hadlock Femur 62.2 mm 32w 2d 25% Hadlock Humerus 53.1 mm 14% Chitty HC / AC 1.10 EFW 1,863 g 31w 4d 20% Hadlock EFW (lb) 4 lb EFW (oz) 2 oz EFW by: Hadlock ([id number]) Extended Nail Puller 4.2 mm Head / Face / Neck Cephalic index 0.78 25% Nicolaides Extremities / Bony Struc FL / BPD 0.76 FL / HC 0.21 FL / AC 0.23 Other Structures FHR 158 bpm Anatomy Cranium: Normal Lateral ventricles: Normal Midline falx: Normal Cavum septi pellucidi: Normal Cerebellum: Normal Head / Neck Thalami: Normal Lips: Normal Profile: Normal Nose: Normal 4-chamber view: Normal RVOT view: Normal LVOT view: Normal 3-vessel view: Normal Heart / Thorax Cardiac axis: Normal Cardiac size: normal (approx. 1/3 of thoracic area) Cardiac proportions: proportioned (normal) Diaphragm: Normal Cord insertion: suboptimal Stomach: Visible, with correct situs Kidneys: Normal Bladder: Visible Genitals: Normal Abdomen Abdom. wall: suboptimal Rt kidney: Normal Lt kidney: Normal Large bowel: Normal Cervical spine: suboptimal Thoracic spine: suboptimal Lumbar spine: suboptimal Sacral spine: suboptimal Arms: Both Upper Extremities Seen Legs: Both Lower Extremities Seen sex: female Wants to know sex: yes Biophysical Profile 2: breathing movements 2: Gross body movements 2: tone 2: Amniotic fluid volume 8/8 Biophysical profile score Maternal Structures Uterus / Cervix Uterus: Normal Cervix: Not visualized Ovaries / Tubes / Adnexa Rt ovary: Visualized Rt ovary details: Normal Rt ovary D1 27.0 mm Rt ovary D2 18.8 mm Rt ovary D3 21.7 mm Rt ovary Vol 5.8 cm? Lt ovary: Visualized Lt ovary details: Normal Lt ovary D1 27.9 mm Lt ovary D2 31.0 mm Lt ovary D3 10.9 mm Lt ovary Vol 4.9 cm? Method ====== Transabdominal ultrasound examination. View: Suboptimal view: limited by late gestational age. Suboptimal view: limited by maternal body habitus Electronically signed by: CHRISTA MONSALVE MD Normal [facility] ANTICHECKING IRON WORKER - Office Visiton ANTICHECKING IRON WORKER - Office Visit Diagnoses/Problems Assessed Gestational diabetes (648.80) (O24.419) Insulin dependent diabetes mellitus (250.00,V58.67) Orders MAC Imaging Order; Status:Active; Requested for:05Sep2021; Radiologist to Determine Optimal Study : Y What are the patient's signs and symptoms? : gdm Start: Blood Pressure KIT; Patient is instructed to take blood pressure twice a day. Report blood pressure readings systolic > or= 160 and diastolic > or = 110 Start: Alcohol Swabs 70 % Pad; use one prior to each injection Start: BD Pen Needle Mini U/F 31G X 5 MM; USE DIRECTED. Use one for each injection Start: Levemir FlexTouch 100 UNIT/ML Subcutaneous Solution Pen-injector; Inject 10 units at night. May take up to 30 units if directed by physician Provider Impressions 26yo at 32.6wks by 20wk US presenting for consultation for GDMA. A1DM Patient was recently diagnosed with gestational diabetes (GDM). We discussed the implications of the diagnosis including increased risk of pre-eclampsia, LGA/macrosomia, shoulder dystocia, stillbirth as well as hypoglycemia, hyperbilirubinemia and respiratory distress. We reviewed the importance of glycemic control and its impact on lowering these risks. Discussed management ranging from dietary changes to pharmacotherapy and that insulin is considered first line therapy rather than oral agents if medication is ultimately needed. Discussed our recommendation for serial growth ultrasounds and starting testing at 32 weeks if treatment is required. We also stressed the potential persistence of impaired glucose tolerance post in up to 30% of patients and increased lifetime risk of 50% and recommendations for screening at 6 weeks post- and, if normal, routine screening at least every 3 years. We did discuss that a healthy diet and maintenance of a normal body weight may reduce those risks - EFW 20%ile with normal amniotic fluid today - Attended virtual Boot Camp - BG reviewed and has persistently elevated fasting values, already having bedtime snack and so will start on 10 units of Levemir qHS. - Met with DNE today for insulin teaching. Mild intermittent asthma - Discussed with her that during , a woman's asthma symptoms can get better, worse, or stay the same. 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 -Currently on albuterol, using it once a month usually. Migraines -symptoms often improve during due to increased estrogen, on no medication. - Reviewed can try Tylenol and caffeine for symptoms relief but NSAIDs should be avoided. In summary the following is recommended: 1. We will continue to co-manage diabetes via the Bloodsugar line with weekly assessment of glycemic control. Current regimen is 10 units levemir before bedtime 2. We will plan for a follow up MD visit at 36 weeks to assess overall control and provide delivery timing recommendations. Patient reports difficulty in transportation so will arrange this virtually 3. Recommend serial growth ultrasounds every 4 weeks (can be performed locally due to above noted transportation issues) 4. Weekly testing is recommended until 36 weeks at which twice weekly testing is recommended. 5. Delivery is recommended at 39 weeks, though if glycemic control is suboptimal then delivery at 37-39 weeks may be considered. 6. If the EFW is >4500g at the time of delivery should be considered 7. A 2hr GTT is recommended 6 weeks PP (can be performed as soon as PPD2), if normal then screening for T2DM is recommended every 1-3 years. Abby Henderson, MS4 [facility] Seen and discussed with Dr. Cartagena. Chief Complaint Pt here for MFM consult Referred By: Dr. Racquel Lechuga Chain Person: Declined Adult Risk ScreeningThere are no spiritual/cultural practices/values/needs that are important to know Initial Fall Risk Screening: SATURDAY has not fallen in the last 6 months. Pain Scale: On a scale of 0 to 10, the patient rates the pain at 0. Living Will. Living Will: No living will on file. Tobacco Screening: SATURDAY does not use tobacco. Domestic Violence Screen: Does not feel threatened or abused physically, emotionally or sexually. Do you feel UNSAFE? The patient feels safe in the home. Depression/Suicide Screening: During the past 2 weeks, the patient has not felt down, depressed or hopeless. During the past 2 weeks, the patient has not felt little interest or pleasure in doing things. Single alcohol screening question: In the past year the patient has had 5 or more drinks (men) or 4 or more drinks (women)? 0 time(s). Single substance abuse screening question: In the past year the patient has used a recreational drug or used a prescription drug for non-medical reasons? 0 time(s). Procedure or Sedation Areas: patient has not had alcohol, recreatio (more content not included)... [facility] 08-25-2021 Nutrition-Adult Medical Diagnosis Assessed Gestational diabetes (648.80) (O24.419) Nutrition Intervention Nutrition Interventions: Food/Nutrient Delivery: 1. Introduced patient to a carbohydrate controlled diet. Explained the following: - foods that contribute carbohydrate (fruit, grains, legumes, milk/yogurt, sugar, starchy vegetables) - foods that contribute no/minimal carbohydrate (protein, fats, non-starchy vegetables) - advised her to eat about 1-1.5 cups of carbohydrate-containing foods at each meal. No more than 2 cups per meal. 2. Utilize the Plate Method at meals in order to balance meals. - half of the plate full of non-starchy vegetables. - one quarter of plate including protein foods. - one quarter of the plate including grain foods. Aim to eat at least half of the daily grains as whole grains. - include a serving of fruit if desired if it fits within her 1.5 cups of carbohydrate food at the meal. - include a dairy food if desired. Include this if it fits within her 1.5 cups of carbohydrate foods at a meal. One of her suggested snacks is to drink a cup of milk with 1-2 hard-boiled eggs. 3. Stressed to her that spreading her food out into small/frequent meals about 6 times per day can help distribute the carbohydrate intake across the day. Wrote a sample meal plan with her to illustrate 5-6 meals she is interested in eating. 4. Discussed food insecurity. Encouraged her to work with the resources that she has, i.e. if she only has rice and pasta, these are ok to eat, she just needs to limit the portion of them. Told her about [employer] and that I will inquire about if she can be set up with this. Referral to RDN with [employer]: emailed Valerie from the [employer] to see if patient could qualify for using the food pantry when she has appointments at [facility] (or [facility]). Nutrition Diagnosis Diagnosis 1: new Food- and nutrition-related knowledge deficit related to lack of prior exposure to nutrition-related information as evidenced by patient has questions about how to manage diet for gestational diabetes. Diagnosis 2: new Altered nutrition-related laboratory values related to endocrine dysfunction due to as evidenced by elevated 1, 2 and 3-hour glucose tolerance tests (193, 201, 154 respectively). Reason For Visit Reason For Visit: Patient is here for initial nutrition assessment, date: 08/25/21. Referring provider is Dr. Racquel Lechuga, effective date is 08/14/21 and expiration date is 08/14/22. An interactive audio and video telecommunication system which permits real time communications between the patient (at the originating site) and provider (at the distant site) was utilized to provide this telehealth service. Verbal consent was requested and obtained from SATURDAY THEO on this date, 08/25/2021 10:00 AM , for a telehealth visit. History of Present Illness Height/Weight: UBW 223# (08/22/21), 207# (05/10/21), 197# (03/22/21) Food/Nutrition related history: The visit is for gestational diabetes. Patient lives with her boyfriend. She has food insecurity. She receives SNAP, but said that it doesn't last all month. She has visited food pantries in her area, but the selection is not adequate (no meat) and some of the pantries in her area tell her that they cannot serve her because she doesn't reside inside their service area. Since gas is expensive she also said that traveling to the food pantries is prohibitive. She is on WIC. She has been limiting intake of sweets since her diagnosis, such as eating 1 square of chocolate. She is due October 27, LMP 01/26/21. Typical day: Wakes at 11 B: 12-1 - higgins, eggs, toast L: 3-4 - primarily chicken (breast or nuggets) - pizza S: - potatoes, fries D: 8 pm - similar to lunch, i.e. chicken/pizza, sometimes red meat Bed around 12-1 She likes tuna, eggs, frozen or fresh veggies, she eats canned veggies also. She does not like legumes. Food Allergy/Intolerance: Patient has no food allergies. Patient has no food intolerance. Appetite: Good - larger appetite than pre-. Fluid Intake: milk, water and Crystal Light mix sometimes, sometimes juice (apple/orange). GI Symptoms: reflux. Oral Problems: denies Dietary Supplements: iron Food Preparation Cooking: patient and spouse/significant other. Food Preparation Grocery Shopping: patient and spouse/significant other. Active Problems Problems Asthma exacerbation (493.92) (J45.901) Constipation (564.00) (K59.00) Gestational diabetes (648.80) (O24.419) Positive urine test (V72.42) (Z32.01) with 11 completed weeks gestation (V22.2) (Z3A.11) with 15 completed weeks gestation (V22.2) (Z3A.15) with 19 completed weeks gestation (V22.2) (Z3A.19) with 27 completed weeks gestation (V22.2) (Z3A.27) Screening for STD (sexually transmitted disease) (V74.5) (Z11.3) Past Medical History Problems History of asthma (V12.69) (Z8 (more content not included)... Normal [employer] Nutrition-[place] 08-21-2021 Nutrition-Adult No report was sent Normal [facility] [employer] [facility] GLUCOSE AMAN,3HR PREGNANCYon 08-11-2021 Glucose [Mass/Vol] 154 mg/dL Abnormal <140 [facility] Comment on above: Performed By: #### G TTP3 #### [address] [address] Glucose [Mass/Vol] 201 mg/dL Abnormal <155 [facility] Comment on above: Performed By: #### G TTP3 #### [address] [address] Glucose [Mass/Vol] 193 mg/dL Abnormal <180 [facility] Comment on above: Performed By: #### G TTP3 #### [address] [address] Glucose [Mass/Vol] 89 mg/dL Normal <95 [facility] Comment on above: Performed By: #### G TTP3 #### [place] [address] INTERPRETATION SEE BELOW Normal [facility] Comment on above: Result Comment: Diag nostics with glucose loading dose of 100 g. Reference values from [employer]. Diabetes Care 2015;38(Suppl.1):S8-S16. Performed By: #### G TTP3 #### [place] [address] No Panel Informationon 08-11 SEE BELOW [facility] [address] Work Phone: [phone] Comment on above: Diagnostics with glu cose loading dose of 100 g. Reference values from [employer]. Diabetes Care 2015;38(Suppl.1):S8-S16. 154 mg/dL Abnormal <140 [facility] [address] [employer] Work Phone: [phone] 201 mg/dL Abnormal <155 [facility] [address] Work Phone: [phone] 193 mg/dL Abnormal <180 [facility] [address] Work Phone: 89 mg/dL <95 [facility] [address] [employer] Work Phone: [phone] RUBELLA IGG ABon 08-02-2021 RUBELLA IGG AB Equivocal Normal [facility] Comment on above: Result Comment: INTE RPRETATIVE COMMENT NEGATIVE: No IgG antibodies specific to Rubella detected. It is likely that the patient has not had a previous exposure to Rubella through infection or vaccination. Alternatively, the patient may have been exposed to Rubella but a failure to respond may indicate immunodeficiency. EQUIVOCAL:Equivocal results; obtain additional sample for retesting. POSITIVE: IgG antibody to Rubella detected. This may indicate that the patient was exposed to Rubella through infection or vaccination. The interpretation of serological tests should take into account the immunological status of the patient. Test results for patients, including immunocompromised patients, neonates, and pediatric patients, reflect their capacity to respond immunologically to the virus as well as their exposure to the pathogen. Patients treated with IVIG may demonstrate altered results in serological assays. Performed By: #### T +S #### [facility] [address] [place] [address] CBC AND DIFFERENTIALon 08-01 Basophils (Bld) [#/Vol] 0.00 10*3/uL Normal 0.00 - 0.10 [facility] Comment on above: Performed By: #### G LUS1 #### [address] [address] Basophils/100 WBC (Bld) 0.4 % Normal 0.0 - 2.0 [facility] Comment on above: Performed By: #### G LUS1 #### [address] [address] Eosinophils (Bld) [#/Vol] 0.20 10*3/uL Normal 0.00 - 0.70 [facility] Comment on above: Performed By: #### G LUS1 #### [address] [address] Eosinophils/100 WBC (Bld) 2.0 % Normal 0.0 - 6.0 [facility] Comment on above: Performed By: #### G LUS1 #### [address] [address] Erythrocyte distribution width (RBC) [Ratio] 14.8 % High 11.5 - 14.5 [facility] Comment on above: Performed By: #### G LUS1 #### [address] [address] Hematocrit (Bld) [Volume fraction] 34.1 % Low 36.0 - 46.0 [facility] Comment on above: Performed By: #### G LUS1 #### [address] [address] Hemoglobin (Bld) [Mass/Vol] 11.8 g/dL Low 12.0 - 16.0 [facility] Comment on above: Performed By: #### G LUS1 #### [address] [address] Lymphocytes (Bld) [#/Vol] 1.50 10*3/uL Normal 1.20 - 4.80 [facility] Comment on above: Performed By: #### G LUS1 #### [address] [address] Lymphocytes/100 WBC (Bld) 17.6 % Normal 13.0 - 44.0 [facility] Comment on above: Performed By: #### G LUS1 #### [address] [address] MCHC (RBC) [Mass/Vol] 34.6 g/dL Normal 32.0 - 36.0 [facility] Comment on above: Performed By: #### G LUS1 #### [address] [address] MCV (RBC) [Entitic vol] 84 fL Normal 80 - 100 [facility] Comment on above: Performed By: #### Moisés LUS1 #### [address] [address] Monocytes (Bld) [#/Vol] 0.60 10*3/uL Normal 0.10 - 1.00 [facility] Comment on above: Performed By: #### G LUS1 #### [address] [address] Monocytes/100 WBC (Bld) 7.3 % Normal 2.0 - 10.0 [facility] Comment on above: Performed By: #### G LUS1 #### [address] [address] Neutrophils (Bld) [#/Vol] 6.10 10*3/uL Normal 1.20 - 7.70 [facility] Comment on above: Result Comment: Perc ent differential counts (%) should be interpreted in the context of the absolute cell counts (cells/L). Performed By: #### G LUS1 #### [address] [address] Neutrophils/100 WBC (Bld) 72.7 % Normal 40.0 - 80.0 [facility] Comment on above: Performed By: #### G LUS1 #### [address] [address] Platelets (Bld) [#/Vol] 208 10*3/uL Normal 150 - 450 [facility] Comment on above: Performed By: #### G LUS1 #### [address] [address] RBC 4.07 x10E12/L Normal 4.00 - 5.20 [facility] Comment on above: Performed By: #### G LUS1 #### [address] [address] WBC (Bld) [#/Vol] 8.4 10*3/uL Normal 4.4 - 11.3 [facility] Comment on above: Performed By: #### G LUS1 #### [address] [address] Complete Blood Count + Diffe adyon 08-01-2021 Basophils/100 WBC (Bld) 0.4 % 0.0 - 2.0 [facility] [address] [employer] Work Phone: [phone] Erythrocyte distribution width (RBC) [Ratio] 14.8 % above high threshold See Below [facility] [address] [employer] Work Phone: [phone] Comment on above: Reference Range: 11. 5 - 14.5 Hematocrit (Bld) [Volume fraction] 34.1 % below low threshold See Below [facility] [address] [employer] Work Phone: [phone] Comment on above: Reference Range: 36. 0 - 46.0 Hemoglobin (Bld) [Mass/Vol] 11.8 g/dL below low threshold See Below [facility] [address] [employer] Work Phone: [phone] Comment on above: Reference Range: 12. 0 - 16.0 Lymphocytes/100 WBC (Bld) 17.6 % See Below [facility] [address] [employer] Work Phone: [phone] Comment on above: Reference Range: 13. 0 - 44.0 MCHC (RBC) [Mass/Vol] 34.6 g/dL See Below [facility] [address] Work Phone: [phone] Comment on above: Reference Range: 32. 0 - 36.0 MCV (RBC) [Entitic vol] 84 fL 80 - 100 [facility] [address] Work Phone: [phone] Monocytes/100 WBC (Bld) 7.3 % 2.0 - 10.0 [facility] [address] Work Phone: [phone] Neutrophils/100 WBC (Bld) 72.7 % See Below [facility] [address] Work Phone: [phone] Comment on above: Reference Range: 40. 0 - 80.0 Platelets (Bld) [#/Vol] 208 10*3/uL 150 - 450 [facility] [address] Work Phone: [phone] RBC (Bld) [#/Vol] 4.07 {x10E12/L} See Below [facility] [address] Work Phone: [phone] Comment on above: Reference Range: 4.0 0 - 5.20 WBC (Bld) [#/Vol] 8.4 10*3/uL 4.4 - 11.3 [facility] [address] Work Phone: [phone] Complete Blood Count + Differential 0.00 {x10E9/L} See Below [facility] [address] Work Phone: [phone] Comment on above: Reference Range: 0.0 0 - 0.10 Complete Blood Count + Differential 0.20 {x10E9/L} See Below [facility] [address] Work Phone: [phone] Comment on above: Reference Range: 0.0 0 - 0.70 Complete Blood Count + Differential 0.60 {x10E9/L} See Below [facility] [address] Work Phone: [phone] Comment on above: Reference Range: 0.1 0 - 1.00 Complete Blood Count + Differential 1.50 {x10E9/L} See Below [facility] [address] Work Phone: [phone] Comment on above: Reference Range: 1.2 0 - 4.80 Complete Blood Count + Differential 6.10 {x10E9/L} See Below [facility] [address] Work Phone: [phone] Comment on above: Reference Range: 1.2 0 - 7.70 Percent differential counts (%) should be interpreted in the context of the absolute cell counts (cells/L). Complete Blood Count + Differential 2.0 % 0.0 - 6.0 [facility] [address] [employer] Work Phone: GLUCOSE,1 HR SCREEN, PREGon 08-01-2021 Glucose [Mass/Vol] 197 mg/dL Abnormal <135 [facility] Comment on above: Result Comment: Diag nostic value with glucose loading dose of 50 g. Reference values from [employer]. Diabetes Care 2015;38(Suppl.1):S8-S16 Performed By: #### G LUS1 #### [address] [place] [address] Glucose, 1 Hour Screen, Preg nancyon 08-01-2021 Glucose 1 Hr post 50 g glucose PO [Mass/Vol] 197 mg/dL Abnormal <135 [facility] [address] [employer] Work Phone: Comment on above: Diagnostic value wit h glucose loading dose of 50 g. Reference values from [employer]. Diabetes Care 2015;38(Suppl.1):S8-S16 Rubella IgG Antibodyon 08-01 Rubella virus IgG IA Ql Equivocal [facility] [address] [employer] Work Phone: Comment on above: INTERPRETATIVE COMME NT NEGATIVE: No IgG antibodies specific to Rubella detected. It is likely that the patient has not had a previous exposure to Rubella through infection or vaccination. Alternatively, the patient may have been exposed to Rubella but a failure to respond may indicate immunodeficiency. EQUIVOCAL:Equivocal results; obtain additional sample for retesting. POSITIVE: IgG antibody to Rubella detected. This may indicate that the patient was exposed to Rubella through infection or vaccination.The interpretation of serological tests should take into accountthe immunological status of the patient. Test results forpatients, including immunocompromised patients, neonates, andpediatric patients, reflect their capacity to respondimmunologically to the virus as well as their exposure to thepathogen. Patients treated with IVIG may demonstrate alteredresults in serological assays. Provider Note - ED v3on 04-0 Provider Note - ED v3 Provider Note: Chart Review: ED NOTES ED NOTES: ====HPI==== Patient is a 26-year-old female who presents to the emergency department with a chief complaint of a left upper dental pain. She states that she has had pain for approximately 4 days. She states that she is approximately 24 weeks . She states that 4 days ago her 2 began cracking. She states that she has had remnants of her tooth in which she has found in her mouth. She denies any fever. No swelling or drainage. She has not been to a dentist in quite some time. She denies any allergies. No difficulty swallowing or shortness of breath PMHX: Asthma Social HX: Denies TOBACCO Denies ETOH Denies DRUGS ====Review of Systems==== 10 point system review is negative except for those specifically mentioned in history of present illness ====Physical Exam==== Constitutional/General: Alert and oriented x3, well appearing, nontoxic, and in NAD. Head: Normocephalic and atraumatic. Eyes: EOMI, conjunctive normal, sclera nonicteric, subconjunctival layer is pink. Mouth: Tooth number 12 is fractured. No drainable abscess. No swelling to the gums. Oropharynx clear, handling secretions, no trismus, no asymmetry of the posterior oropharynx or uvular edema Neck: Supple, full ROM, non tender to palpation in the midline, no stridor, no crepitus, no meningeal signs. Trachea at midline. Respiratory: Lungs clear to auscultation bilaterally, no wheezes, rales, or rhonchi, not in respiratory distress. Cardiovascular: Regular rate, regular rhythm, no murmurs, gallops, or rubs, 2+ distal pulses. Musculoskeletal: Moves all extremities x4 Integument: Skin warm and dry, no rashes. Neurologic: No focal deficits Psychiatric: Normal affect. ====ED Course and Medical Decision Making==== See MDM section for review of findings & plan of care. Portions of this note were dictated by speech recognition. An attempt at proof reading was made to minimize errors. Minor errors in instructor product inspection may be present. Please call if questions.. HISTORY OF PRESENTING ILLNESS SATURDAY is a 26 year old Female and was seen by me at 08-Jul-2021 10:23 for a chief complaint of toothache (left upper tooth pain x 4 days my tooth is breaking and I have a hole in it )(1). Triage Information: Most recent Vital Sign Value Date Temp (F): 98.1 07-08-2021 10:27 Temp (C): 36.7 07-08-2021 10:27 Heart Rate (beats/min): 106 07-08-2021 10:27 Respirations (breaths/min): 18 07-08-2021 10:27 SpO2 (%): 99 07-08-2021 10:27 BP Systolic (mm Hg): 145 07-08-2021 10:27 BP Diastolic (mm Hg): 86 07-08-2021 10:27 PAST MEDICAL HISTORY ALLERGIES/INTOLERANCES: No Known Allergies HEALTH HISTORY: No documented data. OUTPATIENT MEDICATIONS: Home Medications Review Status for Reconciliation: Not Done Med Status: Patient Currently Takes Medications Drug Name: amoxicillin 875 mg oral tablet Instructions: 1 tab(s) orally every 12 hours SIGNIFICANT EVENTS: Past Medical History Description:heart murmur Description:Asthma DISPOSITION Diagnosis/Annotation: ED Dx Name:Pain, dental Code:K08.89 Disposition: discharged CONSULT CRITICAL CARE TIME Is this a critically ill patient: no Electronic Signatures: Renuka Bryan (PAC) (Signed 08-Jul-2021 10:39) Authored: ED Notes, HPI, PMH, Clinical Impression, Attestation, Chart Review, Scores Last Updated: 08-Jul-2021 10:39 by Renuka Bryan (PAC) References: 1. Data Referenced From Triage - ED 08-Jul-2021 10:[address] [facility] Risk Screen - Adult Emergenc yon 07-08-2021 Risk Screen - Adult Emergency Preferred Language: Preferred Language: Preferred Language for Discussing Health Care (patient/designee)Tuvaluan Advanced Directives: Advance Directive/DNRnot applicable Family Violence Adult: Abuse Screen: Are you or have you been threatened or abused physically, emotionally, or sexually by anyoneno Learning Assessment (Patient): Learning Assessment (Patient): Patient is Able to be Assessed for Learningyes Factors Influencing Readiness to Learnacuteness of illness Factors that Impact Ability to Learnnone Devices/Methods Used to Communicatenone Learning Preferencesaudio Cultural Considerationsnone Developmental Considerationsnone Religion Considerationsnone Learning Assessment (Other Learner): Learning Assessment (Other Learner): Other learner availableno Pressure Injury/TB/Substance: Pressure Injury: Do you have a coughno Smoking Statusformer smoker Alcohol Usedenies Drug Usedenies Admission Risk Screen: Significant IndicatorsComplete CAGE: CAGE: Is this an injured patient at a Trauma Center ([facility]/[place]): no Electronic Signatures: Annie Carnes (RN) (Signed 08-Jul-2021 10:32) Authored: Preferred Language, Advanced Directives, Family Violence Adult, Learning Assessment (Patient), Learning Assessment (Other Learner), Pressure Injury/TB/Substance, Pressure Injury, CAGE Last Updated: 08-Jul-2021 10:32 by Annie Carnes (RN) [facility] Triage - EDon 07-08-2021 Triage - ED Quick Triage: Are You yes Have You Given In The Last 6 Weeksno Are You Currently Breastfeedingno Chart Review: ARRIVAL INFORMATION Means of Arrival: Ambulatory Mode of Arrival: private vehicle Arrival From: home Language: Spoken Language Preferred: Tuvaluan CHIEF COMPLAINT SATURDAY Amber VENEGAS is a Female patient with a chief complaint of toothache (left upper tooth pain x 4 days my tooth is breaking and I have a hole in it ). Triage Date/Time: 08-Jul-2021 10:27 MARIELENA: 5 Pain Rating (0-10): 8 = Severe Vital Signs: Temperature: 98.1F ( 36.7C) taken forehead Blood Pressure: 145/86 Mean: Heart Rate: 106 Respiratory Rate: 18 Pulse Oximetry: 99% Height: 5 feet 6.00 inches. 167.6 CM Weight: 216.0 pounds. Calculated 98.0 kg. (stated) Calculated BMI (kg/m2): 34.888 Calculated BSA (m2) 2.14 [employer] History: Patient has homicidal thoughts: no Risk Screens Suicide Risk Screen In the Past Month: Have you wished you were or wished you could go to sleep and not wake up no In the Past Month: Have you had any actual thoughts of killing yourself no In Your Lifetime: Have you ever done anything, started to do anything, or prepared to do anything to end your life no Interventions: Reyes Fall Interventions: LOW INTERVENTIONS: *patient oriented to surroundings and call system, * patient/family falls education completed and documented, *patients fall status communicated during bedside handoff, *whiteboard updated, *mode of toileting discussed with patient, *bed in low position with brakes locked, *call light in reach, * non-skid footwear TRAVEL HISTORY Travel History Coronavirus Screening: no exposure or symptoms Travel Exposure History: NO travel to International locations in the past 30 days PAIN Pain Scale Used: LULY Pain Rating (0-10): 8 = Severe Past Medical History: Past Medical History Reviewedyes Asthma: Past Medical History, Active heart murmur: Past Medical History, Active Electronic Signatures: Annie Carnes (MARK) (Signed 08-Jul-2021 10:31) Entered: Risk Screens, Pain, Arrival, Travel History, Chart Review, Scores, Past Medical History Authored: Quick Triage, Risk Screens, Pain, Arrival, Travel History, Chart Review, Scores, Past Medical History Last Updated: 08-Jul-2021 10:31 by Annie Carnes (MARK) [facility] Panel Informationon 06-14 [facility] [address] [employer] Work Phone: OB COMPLETEon 06-14-2021 OB COMPLETE Patient Name: THEO SATURDAY STUDY: US OB COMPLETE 06/14/2021 10:06 am INDICATION: anatomy Z3A.15: with 15 completed weeks gestation. COMPARISON: None. ACCESSION NUMBER(S): [id number] ORDERING CLINICIAN: RACQUEL LECHUGA TECHNIQUE: Routine ultrasound of the pelvis was performed. Evaluation of the female pelvis was performed by transabdominal. FINDINGS: There is a single live intrauterine gestation in variable position. BPD 50mm, 21 weeks, 0 days HC 186mm, 21 weeks, 0 days AC 149mm, 20 weeks, 1 days FL 34mm, 20 weeks, 4 days This results in a composite gestational age of 20 weeks, 5 days, + / -10 days. The estimated date of delivery by ultrasound is 10/27/2021. By dates the fetus should be 20 weeks, 6 days, which is concordant with the ultrasound dating. There is an estimated weight of 351 g + / -53 g (23rd percentile). heart rate measures 150 beats per minute. Anatomy: HEART (FOUR-CHAMBER): Seen THREE-VESSEL CORD: Seen UMBILICAL CORD INSERTION: Seen BLADDER: Seen STOMACH: Seen SPINE: Seen KIDNEYS: Seen DIAPHRAGM: Seen LATERAL VENTRICLE: Seen The placenta is in posterior position. No evidence of placenta previa is seen. The amniotic fluid volume is within normal limits. Maternal anatomy: The cervix is closed, measuring up to 5.4 cm in length. IMPRESSION: Single live intrauterine gestation corresponding to 20 weeks, 5 days, + / -10 days. No gross anatomic abnormalities identified. Recommend continued routine follow-up imaging evaluation. Electronically signed by: ZHANG VENTURA MD Normal [facility] Laboratory - Chemistry and C hemistry - challengeon 05-10-2021 Second trimester quad maternal screen panel SEE BELOW [facility] [address] Work Phone: Comment on above: Genetics test res ults are available electronically in the [facility] under Diagnostic Testing-> Genetics.Results will be sent on a separate report. QUADCHECK-TRIPLE CHECK WITH INHIBINon 05-10-2021 QUADCHECK INTERPRETATION, SEE BELOW Normal [facility] Comment on above: Result Comment: G enetics test results are available electronically in the [facility] under Diagnostic Testing-> Genetics. Results will be sent on a separate report. Performed By: #### G LUS1 #### [address] [address] HEPATITIS B SURFACE AGon HEP.B SURFACE AG Non-Reactive Normal NONREACTIVE [facility] Comment on above: Result Comment: Biot in interference may cause falsely decreased results. Patients taking a Biotin dose of up to 5 mg/day should refrain from taking Biotin for 24 hours before sample collection. Providers may contact their local laboratory for further information. Performed By: #### G LUS1 #### [address] [address] HIV 1/2 ANTIGEN/ANTIBODY SCR EEN WITH REFLEX TO CONFIRMATIONon 04-27-2021 HIV 1/2 AG/AB SCREEN Non-Reactive Normal NONREACTIVE [facility] Comment on above: Result Comment: HIV Ag/Ab screen is performed using the [employer] HIV Ag/Ab Combo assay which detects the presence of HIV p24 antigen as well as antibodies to HIV-1 (Group M and O) and HIV-2. . No laboratory evidence of HIV infection. If acute HIV infection is suspected, consider testing for HIV RNA by PCR (viral load). Performed By: #### G LUS1 #### [address] [address] RUBELLA IGG ABon 04-27-2021 RUBELLA IGG AB Equivocal Normal [facility] Comment on above: Result Comment: INTE RPRETATIVE COMMENT NEGATIVE: No IgG antibodies specific to Rubella detected. It is likely that the patient has not had a previous exposure to Rubella through infection or vaccination. Alternatively, the patient may have been exposed to Rubella but a failure to respond may indicate immunodeficiency. EQUIVOCAL:Equivocal results; obtain additional sample for retesting. POSITIVE: IgG antibody to Rubella detected. This may indicate that the patient was exposed to Rubella through infection or vaccination. The interpretation of serological tests should take into account the immunological status of the patient. Test results for patients, including immunocompromised patients, neonates, and pediatric patients, reflect their capacity to respond immunologically to the virus as well as their exposure to the pathogen. Patients treated with IVIG may demonstrate altered results in serological assays. Performed By: #### V ERAB #### [facility] [address] [place] [address] SYPHILIS SCREENING WITH REFL EXon 04-27-2021 SYPHILIS TOTAL AB Non-Reactive Normal NONREACTIVE [facility] Comment on above: Result Comment: No s ignificant level of Treponema pallidum antibody detected. Repeat testing in 2 to 4 weeks may be considered if early infection or incubating syphilis infection is suspected. Performed By: #### G LUS1 #### [address] [address] CBC AND DIFFERENTIALon 04-26 Basophils (Bld) [#/Vol] 0.10 10*3/uL Normal 0.00 - 0.10 [facility] Comment on above: Performed By: #### H BA1E #### [address] [address] Basophils/100 WBC (Bld) 1.3 % Normal 0.0 - 2.0 [facility] Comment on above: Performed By: #### H BA1E #### [address] [address] Eosinophils (Bld) [#/Vol] 0.30 10*3/uL Normal 0.00 - 0.70 [facility] Comment on above: Performed By: #### H BA1E #### [address] [address] Eosinophils/100 WBC (Bld) 4.3 % Normal 0.0 - 6.0 [facility] Comment on above: Performed By: #### H BA1E #### [address] [address] Erythrocyte distribution width (RBC) [Ratio] 15.8 % High 11.5 - 14.5 [facility] Comment on above: Performed By: #### H BA1E #### [address] [address] Hematocrit (Bld) [Volume fraction] 38.1 % Normal 36.0 - 46.0 [facility] Comment on above: Performed By: #### H BA1E #### [address] [address] Hemoglobin (Bld) [Mass/Vol] 12.8 g/dL Normal 12.0 - 16.0 [facility] Comment on above: Performed By: #### H BA1E #### [address] [address] Lymphocytes (Bld) [#/Vol] 1.60 10*3/uL Normal 1.20 - 4.80 [facility] Comment on above: Performed By: #### H BA1E #### [address] [address] Lymphocytes/100 WBC (Bld) 22.3 % Normal 13.0 - 44.0 [facility] Comment on above: Performed By: #### H BA #### [address] [address] MCHC (RBC) [Mass/Vol] 33.5 g/dL Normal 32.0 - 36.0 [facility] Comment on above: Performed By: #### H ADELIA1E #### [address] [address] MCV (RBC) [Entitic vol] 82 fL Normal 80 - 100 [facility] Comment on above: Performed By: #### H ADELIA #### [address] [address] Monocytes (Bld) [#/Vol] 0.50 10*3/uL Normal 0.10 - 1.00 [facility] Comment on above: Performed By: #### H ADLEIA #### [address] [address] Monocytes/100 WBC (Bld) 6.2 % Normal 2.0 - 10.0 [facility] Comment on above: Performed By: #### H ADELIA #### [address] [address] Neutrophils (Bld) [#/Vol] 4.80 10*3/uL Normal 1.20 - 7.70 [facility] Comment on above: Result Comment: Perc ent differential counts (%) should be interpreted in the context of the absolute cell counts (cells/L). Performed By: #### H ADELIA #### [address] [address] Neutrophils/100 WBC (Bld) 65.9 % Normal 40.0 - 80.0 [facility] Comment on above: Performed By: #### H ADELIA #### [address] [address] Platelets (Bld) [#/Vol] 216 10*3/uL Normal 150 - 450 [facility] Comment on above: Performed By: #### H ADELIA #### [address] [address] RBC 4.67 x10E12/L Normal 4.00 - 5.20 [facility] Comment on above: Performed By: #### H BA #### [address] [address] WBC (Bld) [#/Vol] 7.3 10*3/uL Normal 4.4 - 11.3 [facility] Comment on above: Performed By: #### H BA1E #### [facility] [address] [id number] Complete Blood Count + Diffe christen 04-26-2021 Basophils/100 WBC (Bld) 1.3 % 0.0 - 2.0 [facility] [address] Work Phone: [phone] Erythrocyte distribution width (RBC) [Ratio] 15.8 % above high threshold See Below [facility] [address] Work Phone: [phone] Comment on above: Reference Range: 11. 5 - 14.5 Hematocrit (Bld) [Volume fraction] 38.1 % See Below [facility] [address] Work Phone: [phone] Comment on above: Reference Range: 36. 0 - 46.0 Hemoglobin (Bld) [Mass/Vol] 12.8 g/dL See Below [facility] [address] Work Phone: [phone] Comment on above: Reference Range: 12. 0 - 16.0 Lymphocytes/100 WBC (Bld) 22.3 % See Below [facility] [address] Work Phone: [phone] Comment on above: Reference Range: 13. 0 - 44.0 MCHC (RBC) [Mass/Vol] 33.5 g/dL See Below [facility] [address] Work Phone: [phone] Comment on above: Reference Range: 32. 0 - 36.0 MCV (RBC) [Entitic vol] 82 fL 80 - 100 [facility] [address] Work Phone: [phone] Monocytes/100 WBC (Bld) 6.2 % 2.0 - 10.0 [facility] [address] Work Phone: [phone] Neutrophils/100 WBC (Bld) 65.9 % See Below [facility] [address] Work Phone: [phone] Comment on above: Reference Range: 40. 0 - 80.0 Platelets (Bld) [#/Vol] 216 10*3/uL 150 - 450 [facility] [address] Work Phone: [phone] RBC (Bld) [#/Vol] 4.67 {x10E12/L} See Below [facility] [address] Work Phone: [phone] Comment on above: Reference Range: 4.0 0 - 5.20 WBC (Bld) [#/Vol] 7.3 10*3/uL 4.4 - 11.3 [facility] [address] Work Phone: [phone] Complete Blood Count + Differential 0.10 {x10E9/L} See Below [facility] [address] Work Phone: [phone] Comment on above: Reference Range: 0.0 0 - 0.10 Complete Blood Count + Differential 0.30 {x10E9/L} See Below [facility] [address] Work Phone: [phone] Comment on above: Reference Range: 0.0 0 - 0.70 Complete Blood Count + Differential 0.50 {x10E9/L} See Below [facility] [address] [employer] Work Phone: [phone] Comment on above: Reference Range: 0.1 0 - 1.00 Complete Blood Count + Differential 1.60 {x10E9/L} See Below [facility] [address] Work Phone: [phone] Comment on above: Reference Range: 1.2 0 - 4.80 Complete Blood Count + Differential 4.80 {x10E9/L} See Below [facility] [address] Work Phone: [phone] Comment on above: Reference Range: 1.2 0 - 7.70 Percent differential counts (%) should be interpreted in the context of the absolute cell counts (cells/L). Complete Blood Count + Differential 4.3 % 0.0 - 6.0 [facility] [address] Work Phone: [phone] HIV 1/2 ANTIGEN/ANTIBODY SCR EEN WITH REFLEX TO CONFIRMATIONon 04-26-2021 Lab Specimen Source Normal [facility] Comment on above: Performed By: #### G LUS1 #### [facility] [address] [place] [address] HIV 1+2 Ab Qn (S) Non-Reactive See Below [facility] [address] Work Phone: [phone] Comment on above: SOURCE: Reference Ra nge: NONREACTIVE HIV Ag/Ab screen is performed using the [employer] HIV Ag/Ab Combo assay which detects the presence of HIV p24 antigen as well as antibodies to HIV-1 (Group M and O) and HIV-2..No laboratory evidence of HIV infection. If acute HIV infection is suspected, consider testing for HIV RNA by PCR (viral load). Hepatitis B Surface Antigeno n 04-26-2021 Hepatitis B Surface Antigen Non-Reactive See Below [facility] [address] Work Phone: [phone] Comment on above: SOURCE: Reference Ra nge: NONREACTIVE Biotin interference may cause falsely decreased results. Patients taking a Biotin dose of up to 5 mg/day should refrain from taking Biotin for 24 hours before sample collection. Providers may contact their local laboratory for further information. Laboratory - Blood bankon ABO group Nom (Bld) O [facility] [address] Work Phone: [phone] Blood group antibody screen Ql Negative [facility] [address] Work Phone: [phone] Rh immune globulin screen (Bld) [Interp] Positive [facility] [address] Work Phone: [phone] ABO group Nom (Bld) Canceled [facility] [address] Work Phone: [phone] Blood group antibody screen Ql Canceled [facility] [address] Work Phone: [phone] Rh immune globulin screen (Bld) [Interp] Canceled [facility] [address] Work Phone: [phone] Rubella IgG Antibodyon 04-26 Rubella virus IgG IA Ql Equivocal [facility] [address] Work Phone: [phone] Comment on above: INTERPRETATIVE COMME NT NEGATIVE: No IgG antibodies specific to Rubella detected. It is likely that the patient has not had a previous exposure to Rubella through infection or vaccination. Alternatively, the patient may have been exposed to Rubella but a failure to respond may indicate immunodeficiency. EQUIVOCAL:Equivocal results; obtain additional sample for retesting. POSITIVE: IgG antibody to Rubella detected. This may indicate that the patient was exposed to Rubella through infection or vaccination.The interpretation of serological tests should take into accountthe immunological status of the patient. Test results forpatients, including immunocompromised patients, neonates, andpediatric patients, reflect their capacity to respondimmunologically to the virus as well as their exposure to thepathogen. Patients treated with IVIG may demonstrate alteredresults in serological assays. SYPHILIS SCREENING WITH REFL EXon 04-26-2021 T. pallidum IgG+IgM IA Ql (S) Non-Reactive See Below [facility] [address] [employer] Work Phone: Comment on above: Reference Range: NON REACTIVENo significant level of Treponema pallidum antibody detected. Repeat testing in 2 to 4 weeks may be considered if early infection or incubating syphilis infection is suspected. TYPE + SCREENon 04-26-2021 ABO TYPE O Normal [facility] Comment on above: Performed By: #### T +S ####[place] [address] RH TYPE Positive Normal [facility] Comment on above: Performed By: #### T +S ####[address] [id number] ABO TYPE Canceled Normal [facility] Comment on above: Order Comment: TEST TYPE + SCREEN WAS CANCELLED, 04/26/2021 13:20 T+S DONE SEPERATELY. Performed By: #### T +S #### [facility] [address] [place] [address] RH TYPE Canceled Normal [facility] Comment on above: Order Comment: TEST TYPE + SCREEN WAS CANCELLED, 04/26/2021 13:20 T+S DONE SEPERATELY. Performed By: #### T +S #### [facility] [address] [place] [address] GC + CHLAMYDIA BY AMPLIFIED DETECTIONon 04-13-2021 CHLAMYDIA TRACH.,AMPLIFIED Negative Normal Negative [facility] Comment on above: Result Comment: The APTIMA Combo 2 assay is FDA-approved for Chlamydia trachomatis and Neisseria gonorrhoeae testing on female endocervical and vaginal swabs, ThinPrep liquid pap samples, male urine samples and urethral swabs. Performance characteristics for Chlamydia trachomatis and Neisseria gonorrhoeae testing on specific tsv-EMJ-srcnowyx sample types (female urine samples) have been validated by [facility]. This laboratory is certified by CLIA to perform high complexity testing. Samples from all other sites are not validated for this method. Performed By: #### G TTP3 #### [address] [address] N.GONORRHEA,AMPLIF IED Negative Normal Negative [facility] Comment on above: Result Comment: The APTIMA Combo 2 assay is FDA-approved for Chlamydia trachomatis and Neisseria gonorrhoeae testing on female endocervical and vaginal swabs, ThinPrep liquid pap samples, male urine samples and urethral swabs. Performance characteristics for Chlamydia trachomatis and Neisseria gonorrhoeae testing on specific dgd-GQA-khrmenhb sample types (female urine samples) have been validated by [facility]. This laboratory is certified by CLIA to perform high complexity testing. Samples from all other sites are not validated for this method. Performed By: #### G TTP3 #### [address] [address] Cult, Urineon 04-12-2021 Bacteria identified Cx Nom (U) [facility] [address] Work Phone: GC + CHLAMYDIA BY AMPLIFIED DETECTIONon 04-12-2021 Lab Specimen Source Urine Normal [facility] Comment on above: Performed By: #### G TTP3 #### [address] [address] GC + Chlamydia By Amplified Detectionon 04-12-2021 C. trachomatis rRNA DILCIA+probe Ql (Unsp spec) Negative Negative [facility] [address] Work Phone: Comment on above: The APTIMA Combo 2 a ssay is FDA-approved for Chlamydia trachomatis and Neisseria gonorrhoeae testing on female endocervical and vaginal swabs, ThinPrep liquid pap samples, male urine samples and urethral swabs. Performance characteristics for Chlamydia trachomatis and Neisseria gonorrhoeae testing on specific dwb-FJN-utztjltl sample types (female urine samples) have been validated by [facility]. This laboratory is certified by CLIA to perform high complexity testing. Samples from all other sites are not validated for this method. N. gonorrhoeae rRNA DILCIA+probe Ql (Unsp spec) Negative Negative [facility] [address] [employer] Work Phone: Comment on above: SOURCE: Urine The AP SARAN Combo 2 assay is FDA-approved for Chlamydia trachomatis and Neisseria gonorrhoeae testing on female endocervical and vaginal swabs, ThinPrep liquid pap samples, male urine samples and urethral swabs. Performance characteristics for Chlamydia trachomatis and Neisseria gonorrhoeae testing on specific srs-DNU-ztbopipa sample types (female urine samples) have been validated by [facility]. This laboratory is certified by CLIA to perform high complexity testing. Samples from all other sites are not validated for this method. LMPon 04-12-2021 Last menstrual period start date 19Jan2021 [facility] [address] [employer] Work Phone: Laboratory - Cytologyon 04-01 Cytology report Cyto stain.thin prep Doc (Cvx/Vag) [facility] [place] [address] [employer] Work Phone: URINE CULTURE,BACTERIALon URINE CULTURE,BACTERIAL PATIENT: THEO SATURDAY S LOCATION: [facility] [place] BILL#: [id number] : 89 AGE: SEX: F ORDERED BY: RACQUEL LECHUGA SOURCE: URINE COLLECTED: 04/12/21 11:00 ANTIBIOTICS AT [facility].: RECEIVED : 04/12/21 18:54 SITE: Clean Catch/Voided R E S U L T S URINE CULTURE,BACTERIAL FINAL 04/13/21 11:28 NO SIGNIFICANT GROWTH. Normal [facility] Comment on above: Performed By: #### G TTP3 #### [place] [address] BASIC METABOLIC PANELon 12-2 Anion gap [Moles/Vol] 15 mmol/L Normal 10 - 20 [facility] Comment on above: Performed By: #### B MP #### [address] [address] Calcium [Mass/Vol] 9.0 mg/dL Normal 8.6 - 10.3 [facility] Comment on above: Performed By: #### B MP #### [address] [address] Chloride [Moles/Vol] 102 mmol/L Normal 98 - 107 [facility] Comment on above: Performed By: #### B MP #### [address] [address] Creatinine [Mass/Vol] 0.49 mg/dL Low 0.50 - 1.05 [facility] Comment on above: Performed By: #### B MP #### [address] [address] GFR- AM. >60 Normal >60 [facility] Comment on above: Result Comment: CALC ULATIONS OF ESTIMATED GFR ARE PERFORMED USING THE MDRD STUDY EQUATION FOR THE IDMS-TRACEABLE CREATININE METHODS. CLIN CHEM 2007;53:766-72 Performed By: #### B MP #### [address] [address] GFR-NON AM. >60 Normal >60 [facility] Comment on above: Performed By: #### B MP #### [address] [address] Glucose [Mass/Vol] 97 mg/dL Normal 74 - 99 [facility] Comment on above: Performed By: #### B MP #### [address] [address] HCO3 (Bld) [Moles/Vol] 21 mmol/L Normal 21 - 32 [facility] Comment on above: Performed By: #### B MP #### [address] [address] Potassium [Moles/Vol] 3.7 mmol/L Normal 3.5 - 5.3 [facility] Comment on above: Performed By: #### B MP #### [address] [place] [address] Sodium [Moles/Vol] 134 mmol/L Low 136 - 145 [facility] Comment on above: Performed By: #### B MP #### [address] [place] [address] Urea nitrogen [Mass/Vol] 6 mg/dL Normal 6 - 23 [facility] Comment on above: Performed By: #### B MP #### [address] [address] Laboratory - Chemistry and C hemistry - challengeon 03-29-2021 Anion gap [Moles/Vol] 15 mmol/L 10 - 20 [facility] [address] Work Phone: [phone] Calcium [Mass/Vol] 9.0 mg/dL 8.6 - 10.3 [facility] [address] Work Phone: [phone] Chloride [Moles/Vol] 102 mmol/L 98 - 107 [facility] [address] Work Phone: [phone] CO2 [Moles/Vol] 21 mmol/L 21 - 32 [facility] [address] Work Phone: [phone] Creatinine [Mass/Vol] 0.49 mg/dL below low threshold See Below [facility] [address] Work Phone: [phone] Comment on above: Reference Range: 0.5 0 - 1.05 Glucose [Mass/Vol] 97 mg/dL 74 - 99 [facility] [address] Work Phone: [phone] Potassium [Moles/Vol] 3.7 mmol/L 3.5 - 5.3 [facility] [address] Work Phone: [phone] Sodium [Moles/Vol] 134 mmol/L below low threshold 136 - 145 [facility] [address] Work Phone: [phone] Urea nitrogen [Mass/Vol] 6 mg/dL 6 - 23 [facility] [address] Work Phone: [phone] No Panel Informationon 03-29 >60 >60 [facility] [address] Work Phone: Comment on above: CALCULATIONS OF MEL MATED GFR ARE PERFORMED USING THE MDRD STUDY EQUATION FOR THE IDMS-TRACEABLE CREATININE METHODS. CLIN CHEM 2007;53:766-72 Triage - EDon 03-29-2021 Triage - ED Quick Triage: Are You yes Have You Given In The Last 6 Weeksno Are You Currently Breastfeedingno The patient and/or guardian verbally acknowledges placement for services into the following (when Urgent Care Service hours are operating):emergency department Chart Review: ARRIVAL INFORMATION Mode of Arrival: private vehicle CHIEF COMPLAINT SATURDAY Amber VENEGAS is a Female patient with a chief complaint of vomiting. Triage Date/Time: 29-Mar-2021 00:59 MARIELENA: 3V Pain Rating (0-10): 0 = None Vital Signs: Temperature: 97.5F ( 36.4C) Blood Pressure: 131/80 Mean: Heart Rate: 111 Respiratory Rate: 18 Pulse Oximetry: 98% Height: 5 feet 7.00 inches. 170.1 CM Weight: 204.3 pounds. Calculated 92.7 kg. 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 Patient has homicidal thoughts: no Last Known Well: known Time Last Known Well Date/Time: 29-Mar-2021 01:03 Risk Screens Suicide Risk Screen In the Past Month: Have you wished you were or wished you could go to sleep and not wake up no In the Past Month: Have you had any actual thoughts of killing yourself no In Your Lifetime: Have you ever done anything, started to do anything, or prepared to do anything to end your life no Interventions: Reyes Fall Interventions: LOW INTERVENTIONS: *patient oriented to surroundings and call system, * patient/family falls education completed and documented, *patients fall status communicated during bedside handoff, *whiteboard updated, *mode of toileting discussed with patient, *bed in low position with brakes locked, *call light in reach, * non-skid footwear TRAVEL HISTORY Travel History Coronavirus Screening: no exposure or symptoms Travel Exposure History: NO travel to International locations in the past 30 days PAIN Pain Scale Used: LULY Pain Rating (0-10): 0 = None Past Medical History: Past Medical History Reviewedyes Electronic Signatures: Richardson Zepeda (MARK) (Signed 29-Mar-2021 01:03) Entered: Risk Screens, Pain, Travel History, Chart Review, Scores, Past Medical History Authored: Quick Triage, Risk Screens, Pain, Travel History, Chart Review, Scores, Past Medical History Last Updated: 29-Mar-2021 01:03 by Richardson Zepeda (MARK) [facility] URINALYSIS WITH CULTURE IF I NDICATEDon 03-29-2021 Appearance (U) Canceled [facility] Comment on above: Order Comment: TEST URINALYSIS WITH CULTURE IF INDICATED WAS CANCELLED, 03/29/2021 15:33 PATIENT DISCHARGED. Performed By: #### U ARFX #### [place] [address] ASCORBIC ACID Canceled [facility] Comment on above: Order Comment: TEST URINALYSIS WITH CULTURE IF INDICATED WAS CANCELLED, 03/29/2021 15:33 PATIENT DISCHARGED. Result Comment: Conc entrations > = 20 mg/dL of ascorbic acid can be expected to cause strong interference in the reactions testing for glucose, nitrite and blood. It is recommended to discontinue Vitamin C administration and retest in 10 hours. Performed By: #### U ARFX #### [id number] Bilirubin Ql (U) Canceled [facility] Comment on above: Order Comment: TEST URINALYSIS WITH CULTURE IF INDICATED WAS CANCELLED, 03/29/2021 15:33 PATIENT DISCHARGED. Performed By: #### U ARFX #### [address] [address] Color (U) Canceled [facility] Comment on above: Order Comment: TEST URINALYSIS WITH CULTURE IF INDICATED WAS CANCELLED, 03/29/2021 15:33 PATIENT DISCHARGED. Performed By: #### U ARFX #### [address] [address] Glucose Ql (U) Canceled [facility] Comment on above: Order Comment: TEST URINALYSIS WITH CULTURE IF INDICATED WAS CANCELLED, 03/29/2021 15:33 PATIENT DISCHARGED. Performed By: #### U ARFX #### [address] [address] Hemoglobin Ql (U) Canceled [facility] Comment on above: Order Comment: TEST URINALYSIS WITH CULTURE IF INDICATED WAS CANCELLED, 03/29/2021 15:33 PATIENT DISCHARGED. Performed By: #### U ARFX #### [address] [id number] Ketones Ql (U) Canceled [facility] Comment on above: Order Comment: TEST URINALYSIS WITH CULTURE IF INDICATED WAS CANCELLED, 03/29/2021 15:33 PATIENT DISCHARGED. Performed By: #### U ARFX #### [place] [address] Leukocyte esterase Test strip Ql (U) Canceled [facility] Comment on above: Order Comment: TEST URINALYSIS WITH CULTURE IF INDICATED WAS CANCELLED, 03/29/2021 15:33 PATIENT DISCHARGED. Performed By: #### U ARFX #### [place] [address] Nitrite Ql (U) Canceled [facility] Comment on above: Order Comment: TEST URINALYSIS WITH CULTURE IF INDICATED WAS CANCELLED, 03/29/2021 15:33 PATIENT DISCHARGED. Performed By: #### U ARFX #### [address] [id number] pH Canceled [facility] Comment on above: Order Comment: TEST URINALYSIS WITH CULTURE IF INDICATED WAS CANCELLED, 03/29/2021 15:33 PATIENT DISCHARGED. Performed By: #### U ARFX #### [address] [address] Protein Ql (U) Canceled [facility] Comment on above: Order Comment: TEST URINALYSIS WITH CULTURE IF INDICATED WAS CANCELLED, 03/29/2021 15:33 PATIENT DISCHARGED. Performed By: #### U ARFX #### [address] [address] Specific gravity (U) [Rel density] Canceled Normal [facility] Comment on above: Order Comment: TEST URINALYSIS WITH CULTURE IF INDICATED WAS CANCELLED, 03/29/2021 15:33 PATIENT DISCHARGED. Performed By: #### U ARFX #### [address] [address] UROBILINOGEN Canceled Normal [facility] Comment on above: Order Comment: TEST URINALYSIS WITH CULTURE IF INDICATED WAS CANCELLED, 03/29/2021 15:33 PATIENT DISCHARGED. Performed By: #### U ARFX #### [address] [address] IO HCG, Urine Test on 03-22-2021 HCG ( test) Ql (U) Positive [facility] [address] [employer] Work Phone: [phone] LMPon 03-22-2021 Last menstrual period start date 19Jan2021 [facility] [address] [employer] Work Phone: [phone] ANTIC[employer]ING [employer] WORK[employer] - Office Visiton 03-02 [employer] WORKER - Office Visit Diagnoses/Problems Assessed Positive urine test (V72.42) (Z32.01) Orders IO HCG, Urine Test; Status:Complete; Done: [id number] 09:49AM IO HCG, Urine Test; Status:Resulted - Requires Verification,Retrospective Authorization; Done: [id number] 09:55AM Provider Impressions Patient 26-year-old who comes in for confirmation of . Confirmed a viable at 8 weeks and 6 days. We will send a prescription for Zofran and vitamins to her pharmacy. We will begin care in 3 weeks Chief Complaint PATIENT HERE TODAY FOR AMENORRHEA. LMP: 01/18/2021 COMPLAINS OF NAUSEA AND VOMITING, SLIGHT CRAMPING AND BREAST TENDERNESS. History of Present IllnessPatient is a 26-year-old 2 para 1 with a last menstrual period of January 26. This was a planned . The patient reports that she has been having moderate nausea and vomiting. She tried Zofran that she got from a friend who was and did not tolerate it. Patient denies any vaginal bleeding. The patient reports she quit smoking 2 months ago. Patient has no additional concerns today. Patient declined transvaginal ultrasound Review of Systems Per HPI Active Problems Problems Positive urine test (V72.42) (Z32.01) Past Medical History Problems History of asthma (V12.69) (Z87.09) History of Menstruation AGE 14 History of Migraines (346.90) (G43.909) Family History Mother Family history of asthma (V17.5) (Z82.5) Family history of migraine headaches (V17.2) (Z82.0) Family history of Irregular heartbeat Father Family history of migraine headaches (V17.2) (Z82.0) Grandfather Family history of hypertension (V17.49) (Z82.49) Family history of myocardial infarction (V17.3) (Z82.49) Social History Problems Does not use illicit drugs (V49.89) (Z78.9) No alcohol use Allergies Medication No Known Drug Allergies Recorded By: Rosemary Regalado; 03/22/2021 9:32:48 AM Current Meds Medication NameInstruction Pre-Darrick Formula TABS Vitals Vital Signs Recorded: 22Mar2021 09:48AM [id number] F [id number] Dezjpgkuq99 Height5 ft 7 in Dtubla313 lb 2 oz BMI Rvuxtebbex21.87 kg/m2 BSA Calculated2.01 [id number] Physical Exam Constitutional: Healthy-appearing young female in no distress. Head and Face: No gross lesions. Abdomen: Soft nontender no masses. Refused Musculoskeletal: Good mobility of all extremities. Psychiatric: Appropriately oriented with normal mood and affect. Transabdominal ultrasound confirmed a viable at 9 weeks and 0 days heart tones were 176. Final EDC is October 26, 2021 consistent with her last menstrual period Results/Data IO HCG, Urine [id number] 09:55AMRacquel Lechuga medline lot:[id number] exp:05/29/2022 Test NameResultFlagReference IO Urine hCGPositive Signatures Electronically signed by : Racquel Lechuga DO; Mar 22 2021 10:05AM EST (Author) Normal [employer] HCG, ,Urineon 03-21 Beta HCG ( test) Ql (U) Positive Abnormal NEG [facility] Comment on above: Result Comment: If H CG results do not concur with clinical observations, additional testing to confirm result is recommended. This test is not labeled for use as a tumor marker. Performed By: #### U HCG, UA #### [facility] [address] [place] [address] Casket Coverer: Peter Jenkins MD Urinalysis, Routineon 2020 Bilirubin, SemiQt,Ur Negative Normal NEG [facility] Comment on above: Performed By: #### U HCG, UA #### [facility] [address] [place] [address] Casket Coverer: Peter Jenkins MD Blood, Urine Negative Normal NEG [facility] Comment on above: Performed By: #### U HCG, UA #### [facility] [address] [place] [address] Casket Coverer: Peter Jenkins MD Clarity (U) Clear Normal CLEAR [facility] Comment on above: Performed By: #### U HCG, UA #### [facility] [address] [place], [place] [id number] Casket Coverer: Peter Jenkins MD Color (U) Yellow Normal YEL [facility] Comment on above: Performed By: #### U HCG, UA #### [facility] [address] [place], [place] [id number] Casket Coverer: Peter Jenkins MD Comment Normal [facility] Comment on above: Performed By: #### U HCG, UA #### [facility] [address] [place], [place] [id number] Casket Coverer: Peter Jenkins MD Glucose Ql (U) Negative Normal NEG [facility] Comment on above: Performed By: #### U HCG, UA #### [facility] [address] [place], [place] [id number] Casket Coverer: Peter Jenkins MD Ketones Ql (U) Negative Normal NEG [facility] Comment on above: Performed By: #### U HCG, UA #### [facility] [address] [place] [address] Casket Coverer: Peter Jenkins MD Leukocyte esterase Test strip Ql (U) Negative Normal NEG [facility] Comment on above: Performed By: #### U HCG, UA #### [facility] [address] [place] [address] Casket Coverer: Peter Jenkins MD Nitrite,Ur Negative Normal NEG [facility] Comment on above: Performed By: #### U HCG, UA #### [facility] [address] [place] [address] Casket Coverer: Peter Jenkins MD PH,Ur 6.0 Normal 5.0-8.0 [facility] Comment on above: Performed By: #### U HCG, UA #### [facility] [address] [place] [address] Casket Coverer: Peter Jenkins MD Protein Ql (U) Negative Normal NEG [facility] Comment on above: Performed By: #### U HCG, UA #### [facility] [address] [place] [address] Casket Coverer: Peter Jenkins MD Spec. [place],Ur 1.025 Normal 1.005-1.030 [facility] Comment on above: Performed By: #### U HCG, UA #### [facility] [address] [place] [address] Casket Coverer: Peter Jenkins MD Urobilinogen,Ur Normal Normal NORM [facility] Comment on above: Performed By: #### U HCG, UA #### [facility] [address] [place] [id number] Casket Coverer: Peter Jenkins MD , Urineon 1 Beta HCG ( test) Ql (U) Positive Abnormal NEGATIVE [facility] Comment on above: If HCG results do no t concur with clinical observations, additional testing to confirm result is recommended. This test is not labeled for use as a tumor marker. Interpretation and review of laboratory results Abnormal [facility] Urinalysison 03-20-2021 Bilirubin Urine Negative NEGATIVE [facility] Color, UA Yellow Yellow [facility] Glucose, Ur Negative NEGATIVE [facility] Ketones Ql (U) Negative NEGATIVE [facility] Leukocyte esterase Test strip Ql (U) Negative NEGATIVE [facility] Nitrite, Urine Negative NEGATIVE [facility] pH, UA 6.0 [facility] Protein, UA Negative NEGATIVE [facility] Specific [place], UA 1.025 [facility] Turbidity UA Clear Clear [facility] Urinalysis Comments [facility] Urine Hgb Negative NEGATIVE [facility] Urobilinogen, Urine Normal Normal [facility] [id number] 12-27-2020 SARS-CoV-2 (COVID-19) RNA DILCIA+probe Ql (Unsp spec) Normal [facility] Comment on above: Performed By: #### C OVID #### [facility] [address] [place], [place] [id number] Casket Coverer: Jose Rosenberg MD [facility] [address] [place] [address] Casket Coverer: Peter Jenkins MD SARS-CoV-2 (COVID-19) RNA DILCIA+probe Ql (Unsp spec) Not detected Normal NOTDET [facility] Comment on above: Result Comment: The specimen is NEGATIVE for SARS-CoV-2, the novel coronavirus associated with COVID-19. A negative result does not rule out COVID-19. Zoë SARS-CoV-2 for use on the [employer] is a real-time RT-PCR test intended for the qualitative detection of nucleic acids from SARS-CoV-2 in clinician-collected nasal, nasopharyngeal, and oropharyngeal swab specimens from individuals who meet COVID-19 clinical and/or epidemiological criteria. [employer]ë SARS-CoV-2 is for use only under Emergency Use Authorization (EUA) in laboratories certified under Clinical Laboratory Improvement Amendments of 1988 (CLIA), 42 U.S.C. ?263a, that meet requirements to perform high or moderate complexity tests. An individual without symptoms of COVID-19 and who is not shedding SARS-CoV-2 virus would expect to have a negative (not detected) result in this assay. Fact sheet for Healthcare Providers: https://www.fda.gov/media/800381/download Fact sheet for Patients: https://www.fda.gov/media/554271/download METHODOLOGY: RT-PCR Performed By: #### C OVID #### [facility] [employer] [facility] [place], [place] [id number] Casket Coverer: Jose Rosenberg MD [facility] [address] [place] [address] Casket Coverer: Peter Jenkins MD [id number] 12-26-2020 SARS-CoV-2 (COVID-19) RNA DILCIA+probe Ql (Unsp spec) .THROAT Normal [facility] Comment on above: Performed By: #### C OVID #### [address] [place], [place] [id number] Casket Coverer: Jose Rosenberg MD [facility] [address] [facility] [place] [address] Casket Coverer: Peter Jenkins MD [id number] 05-27-2020 SARS-CoV-2 (COVID-19) RNA DILCIA+probe Ql (Unsp spec) Not detected Normal NOTDET [facility] Comment on above: Result Comment: The specimen is NEGATIVE for SARS-CoV-2, the novel coronavirus associated with COVID-19. A negative result does not rule out COVID-19. This test has been authorized by the FDA under an Emergency Use Authorization (EUA) for use by authorized laboratories. [employer] SARS-CoV-2 Reagents for [employer] are designed to detect the virus that causes COVID-19 in patients with signs and symptoms of infection who are suspected of COVID-19. An individual without symptoms of COVID-19 and who is not shedding SARS-CoV-2 virus would expect to have a negative (not detected) result in this assay. Fact sheet for Healthcare Providers: https://www.fda.gov/media/457923/download Fact sheet for Patients: https://www.fda.gov/media/635421/download METHODOLOGY: RT-PCR Performed By: #### C OVID #### [facility] [address] [place] [address] Casket Coverer: Jose Rosenberg MD [facility] [address] [place], [place] [id number] Casket Coverer: Peter Jenkins MD SARS-CoV-2 (COVID-19) RNA DILCIA+probe Ql (Unsp spec) [facility] Comment on above: Performed By: #### C OVID #### [address] [place] [address] Casket Coverer: Jose Rosenberg MD [facility] [address] [place] [address] Casket Coverer: Peter Jenkins MD [id number] 05-26-2020 SARS-CoV-2 (COVID-19) RNA DILCIA+probe Ql (Unsp spec) .THROAT Normal [facility] Comment on above: Performed By: #### C OVID #### [facility] [address] [place] [address] Casket Coverer: Jose Rosenberg MD [facility] [address] [place] [address] Casket Coverer: Peter Jenkins MD [id number] 05-07-2020 SARS-CoV-2 (COVID-19) RNA DILCIA+probe Ql (Unsp spec) [facility] Comment on above: Performed By: #### C OVID #### [facility] [address] [place] [address] Casket Coverer: Jose Rosenberg MD [facility] [address] [facility] [place], [place] [id number] Casket Coverer: Peter Jenkins MD SARS-CoV-2 (COVID-19) RNA DILCIA+probe Ql (Unsp spec) Not detected [facility] Comment on above: Result Comment: The specimen is NEGATIVE for SARS-CoV-2, the novel coronavirus associated with COVID-19. A negative result does not rule out COVID-19. Zoë SARS-CoV-2 for use on the [employer] is a real-time RT-PCR test intended for the qualitative detection of nucleic acids from SARS-CoV-2 in clinician-collected nasal, nasopharyngeal, and oropharyngeal swab specimens from individuals who meet COVID-19 clinical and/or epidemiological criteria. Zoë SARS-CoV-2 is for use only under Emergency Use Authorization (EUA) in laboratories certified under Clinical Laboratory Improvement Amendments of 1988 (CLIA), 42 U.S.C. ?263a, that meet requirements to perform high or moderate complexity tests. An individual without symptoms of COVID-19 and who is not shedding SARS-CoV-2 virus would expect to have a negative (not detected) result in this assay. Fact sheet for Healthcare Providers: https://www.fda.gov/media/817912/download Fact sheet for Patients: https://www.fda.gov/media/032159/download METHODOLOGY: RT-PCR Performed By: #### C OVID #### [address] [place], [place] [id number] Casket Coverer: Jose Rosenberg MD [facility] [address] [place] [address] Casket Coverer: Peter Jenkins MD [id number] 05-06-2020 SARS-CoV-2 (COVID-19) RNA DILCIA+probe Ql (Unsp spec) .THROAT Normal [facility] Comment on above: Performed By: #### C OVID #### [address] [place], [place] [id number] Casket Coverer: Jose Rosenberg MD [facility] [address] [place] [address] Casket Coverer: Peter Jenkins MD CBC Auto Differentialon 07-3 Basophils (Bld) [#/Vol] 0.10 10*3/uL [place] Basophils/100 WBC (Bld) 1 % 0 - 2 % [place] Differential Type YES [place] Eosinophils (Bld) [#/Vol] 0.30 10*3/uL [place] Eosinophils/100 WBC (Bld) 4 % 0 - 5 % [place] Erythrocyte distribution width (RBC) [Ratio] 14.9 % 12.1 - 15.2 % [place] Hematocrit (Bld) [Volume fraction] 36.5 % 36 - 46 % [place] Hemoglobin (Bld) [Mass/Vol] 12.5 g/dL 12 - 16 g/dL [place] Interpretation and review of laboratory results Abnormal [place] Lymphocytes (Bld) [#/Vol] 1.90 10*3/uL [place] Lymphocytes/100 WBC (Bld) 28 % 15 - 40 % [place] MCH (RBC) [Entitic mass] 26.7 pg 26 - 34 pg [place] MCHC (RBC) [Mass/Vol] 34.2 g/dL 31 - 37 g/dL [place] MCV (RBC) [Entitic vol] 78.1 fL Low 80 - 100 fL [place] Monocytes (Bld) [#/Vol] 0.60 10*3/uL [place] Monocytes/100 WBC (Bld) 8 % 4 - 8 % [place] Platelet mean volume (Bld) [Entitic vol] NOT REPORTED 6 - 12 fL [place] Platelets (Bld) [#/Vol] 271 10*3/uL [place] Platelets (Bld) [#/Vol] NOT REPORTED [place] RBC (Bld) [#/Vol] 4.67 10*6/uL 4 - 5.2 m/uL [place] RBC morphology finding Nom (Bld) NOT REPORTED [place] Segmented neutrophils/100 WBC (Bld) 59 % 47 - 75 % [place] Segs Absolute 4.10 [place] WBC (Bld) [#/Vol] NOT REPORTED per 100 WBC [place] WBC (Bld) [#/Vol] 7.0 10*3/uL [place] WBC Morphology NOT REPORTED [place] Comprehensive Metabolic Pane nahid 10-30-2019 Albumin [Mass/Vol] 4.1 g/dL 3.5 - 5.2 g/dL [place] Albumin/Globulin [Mass ratio] NOT REPORTED [place] ALP [Catalytic activity/Vol] 78 U/L 35 - 104 U/L [place] ALT [Catalytic activity/Vol] 12 U/L 5 - 33 U/L [place] Anion gap [Moles/Vol] 12 mmol/L 9 - 17 mmol/L [place] AST [Catalytic activity/Vol] 17 U/L <32 [place] Bilirubin Ql (U) 0.13 mg/dL Low 0.3 - 1.2 mg/dL [place] Bun/Cre Ratio 20 [place] Calcium [Mass/Vol] 10.2 mg/dL 8.6 - 10. 4 mg/dL [place] Chloride [Moles/Vol] 103 mmol/L 98 - 107 mmol/L [place] CO2 [Moles/Vol] 25 mmol/L 20 - 31 mmol/L [place] Creatinine [Mass/Vol] 0.56 mg/dL 0.5 - 0.9 mg/dL [place] GFR >60 >60 mL/min [place] GFR Non- >60 >60 mL/min [place] GFR/1.73 sq M predicted among non-blacks MDRD (S/P/Bld) [Vol rate/Area] NOT REPORTED [place] GFR/1.73 sq M predicted among non-blacks MDRD (S/P/Bld) [Vol rate/Area] [place] Comment on above: Average GFR for 20-2 9 years old: 116 mL/min/1.73sq m Chronic Kidney Disease: <60 mL/min/1.73sq m Kidney failure: <15 mL/min/1.73sq m eGFR calculated using average adult body mass. Additional eGFR calculator available at: http://[email or web address][employer]/multiple_crcl_2012.htm Glucose [Mass/Vol] 95 mg/dL 70 - 99 mg/dL [place] Interpretation and review of laboratory results Abnormal [place] Potassium [Moles/Vol] 4.0 mmol/L 3.7 - 5.3 mmol/L [place] Protein [Mass/Vol] 8.0 g/dL 6.4 - 8.3 g/dL [place] Sodium [Moles/Vol] 140 mmol/L 135 - 144 mmol/L [place] Urea nitrogen [Mass/Vol] 11 mg/dL 6 - 20 mg/dL [place] HCG Qualitative, Serumon hCG Qual Negative NEGATIVE [place] Comment on above: Specimens with hCG l evels near the threshold of the test (25 mIU/mL) may give a negative or indeterminate result. In such cases, another test should be performed with a new specimen in 48-72 hours. If early is suspected clinically in this setting, correlation with quantitative serum b-hCG level is suggested. [facility] has confirmed the use of plasma for this test. This has not been cleared or approved by the U.S. Food and Drug Administration. The FDA has determined that such clearance is not necessary. Microscopic Urinalysison Amorphous, UA NOT REPORTED None [place] Bacteria, UA RARE Abnormal None [place] Casts UA NOT REPORTED /LPF [place] Crystals, UA NOT REPORTED None /HPF [place] Epithelial Cells UA 2 TO 5 /HPF [place] Interpretation and review of laboratory results Abnormal [place] Mucus, UA NOT REPORTED None [place] Other Observations UA NOT REPORTED NOT REQ. [place] RBC (U) [#/Vol] LOADED [place] Renal Epithelial, UA NOT REPORTED 0 /HPF [place] Trichomonas, UA NOT REPORTED None [place] WBC, UA 0 TO 2 0 /HPF [facility], [place] Yeast, UA NOT REPORTED None [facility] [facility] [place] Otheron 10-30-2019 Immature granulocytes (Bld) [#/Vol] NOT REPORTED [facility] [place] Urinalysison 10-30-2019 Bilirubin Urine Negative NEGATIVE [facility], [place] Color, UA RED Abnormal YELLOW [facility], [place] Glucose, Ur Negative NEGATIVE [facility], [place] Interpretation and review of laboratory results Abnormal [facility] [place] Ketones Ql (U) Negative NEGATIVE [facility], [place] Leukocyte esterase Test strip Ql (U) 1+ Abnormal NEGATIVE [facility], [place] Nitrite, Urine Negative NEGATIVE [facility], [place] pH, UA 7.[address] [facility], [place] Protein (U) [Mass/Vol] 1+ Abnormal NEGATIVE [facility] [place] Specific [place], UA 1.[address] [facility], [place] Turbidity UA CLOUDY Abnormal CLEAR [place] Urinalysis Comments [place] Urine Hgb 3+ Abnormal NEGATIVE [facility], [place] Urobilinogen, Urine Normal Normal [place] Vital Signs Date Time Vital Sign Value Performing Clinician Facility 04-20-2023 14:33-0500 Blood Pressure Location Erwin Dupree [facility] 04-20-2023 14:33-0500 Body temperature 98.24 [degF] Erwin Dupree [facility] 04-20-2023 14:33-0500 Diastolic blood pressure 76 mm[Hg] Erwin Dupree [facility] 04-20-2023 14:33-0500 Heart rate 87 /min Erwin Dupree [facility] 04-20-2023 14:33-0500 SaO2% (BldA) [Mass fraction] 98 % Erwin Dupree [facility] 04-20-2023 14:33-0500 Systolic blood pressure 128 mm[Hg] Erwin Dupree [facility] 02-17-2023 15:12-0500 Body temperature 98.42 [degF] Dk De León [facility] 02-17-2023 15:12-0500 Diastolic blood pressure 74 mm[Hg] Dk Sarthak [facility] 02-17-2023 15:12-0500 Heart rate 93 /min Dk De León [facility] 02-17-2023 15:12-0500 Respiratory rate 18 /min Dk Sarthak [facility] 02-17-2023 15:12-0500 SaO2% (BldA) [Mass fraction] 98 % Dkgerardo De León [facility] 02-17-2023 15:12-0500 Systolic blood pressure 132 mm[Hg] Dk De León [facility] 02-04-2023 14:48-0500 Blood Pressure Location HINA PASCUALTIZ [facility] 02-04-2023 14:48-0500 Body temperature 98.06 [degF] HINA KO [facility] 02-04-2023 14:48-0500 Diastolic blood pressure 78 mm[Hg] HINA KO [facility] 02-04-2023 14:48-0500 Heart rate 77 /min HINA KO [facility] 02-04-2023 14:48-0500 SaO2% (BldA) [Mass fraction] 99 % HINA KO [facility] 02-04-2023 14:48-0500 Systolic blood pressure 122 mm[Hg] HINA KO [facility] 01-29-2023 15:17-0400 Blood Pressure Location Luigi King [facility] 01-29-2023 15:17-0400 Body temperature 98.06 [degF] Luigi King [facility] 01-29-2023 15:17-0400 Diastolic blood pressure 77 mm[Hg] Luigi King [facility] 01-29-2023 15:17-0400 Heart rate 78 /min Luigi King [facility] 01-29-2023 15:17-0400 SaO2% (BldA) [Mass fraction] 96 % Luigi King [facility] 01-29-2023 15:17-0400 Systolic blood pressure 115 mm[Hg] Luigi King [facility] 01-17-2023 12:50-0400 Blood Pressure Location HINA SALEEM [facility] 01-17-2023 12:50-0400 Body temperature 98.6 [degF] BRISCOE KO [facility] 01-17-2023 12:50-0400 Diastolic blood pressure 80 mm[Hg] HINA PASCUALTIZ [facility] 01-17-2023 12:50-0400 Heart rate 91 /min BRISCOE KO [facility] 01-17-2023 12:50-0400 SaO2% (BldA) [Mass fraction] 97 % BRISCOE KO [facility] 01-17-2023 12:50-0400 Systolic blood pressure 120 mm[Hg] HINA KO [facility] 09-25-2021 17:56-0400 Body temperature 98.24 [degF] No Pcp Required [facility] 09-25-2021 17:56-0400 Diastolic blood pressure 84 mm[Hg] No Pcp Required [facility] 09-25-2021 17:56-0400 Heart rate 87 /min No Pcp Required [facility] 09-25-2021 17:56-0400 Respiratory rate 18 /min No Pcp Required [facility] 09-25-2021 17:56-0400 SaO2% (BldA) [Mass fraction] 97 % No Pcp Required [facility] 09-25-2021 17:56-0400 Systolic blood pressure 131 mm[Hg] No Pcp Required [facility] 09-06-2021 11:34-0400 Body height 170.18 cm No PCP None WI-LXUKW-Lmcrdh 320 Work Phone: 09-06-2021 11:34-0400 Body mass index (BMI) [Ratio] 36.04 kg/m2 No PCP None PO-QOTED-Ejoeeb 320 Work Phone: 09-06-2021 11:34-0400 Body surface area Derived from formula 2.15 m2 No PCP None VI-HNFZX-Fbquov 320 Work Phone: 09-06-2021 11:34-0400 Body weight 104.39 kg No PCP None IJ-JCCVK-Fxlayb 320 Work Phone: 09-06-2021 11:34-0400 Diastolic blood pressure 84 mm[Hg] No PCP None IN-HZQPX-Fxgvmi 320 Work Phone: 09-06-2021 11:34-0400 Systolic blood pressure 142 mm[Hg] No PCP None MF-FNANX-Kulhaz 320 Work Phone: 09-05-2021 11:46-0400 Body height 170.18 cm No PCP None IJ-AMIEN-Caqgnu 320 Work Phone: 09-05-2021 11:46-0400 Body mass index (BMI) [Ratio] 36.11 kg/m2 No PCP None OK-RKIPW-Nddcku 320 Work Phone: 09-05-2021 11:46-0400 Body surface area Derived from formula 2.15 m2 No PCP None ZV-TCYHV-Vkdejv 320 Work Phone: 09-05-2021 11:46-0400 Body weight 104.58 kg No PCP None MY-XGKFH-Jbzbjn 320 Work Phone: 09-05-2021 11:46-0400 Diastolic blood pressure 84 mm[Hg] No PCP None GN-JPNQA-Bhubul 320 Work Phone: 09-05-2021 11:46-0400 Heart rate 96 /min No PCP None XP-UIGQD-Kkwekg 320 Work Phone: 09-05-2021 11:46-0400 Systolic blood pressure 135 mm[Hg] No PCP None QN-MNLRL-Vbcshx 320 Work Phone: 09-05-2021 11:46-0400 0 1 No PCP None KF-INJMM-Iequwk 320 Work Phone: Comment on above: [employer] 08-22-2021 11:36-0400 Body height 170.18 cm No PCP None [facility] [address] Work Phone: 08-22-2021 11:36-0400 Body mass index (BMI) [Ratio] 35.08 kg/m2 No PCP None [facility] [address] Work Phone: 08-22-2021 11:36-0400 Body surface area Derived from formula 2.12 m2 No PCP None [facility] [address] Work Phone: 08-22-2021 11:36-0400 Body weight 101.6 kg No PCP None [facility] [address] Work Phone: 08-22-2021 11:36-0400 Diastolic blood pressure 88 mm[Hg] No PCP None [facility] [address] Work Phone: 08-22-2021 11:36-0400 Systolic blood pressure 138 mm[Hg] No PCP None [facility] [address] Work Phone: 08-15-2021 11:31-0400 Body height 170.18 cm No PCP None [facility] [address] Work Phone: 08-15-2021 11:31-0400 Body mass index (BMI) [Ratio] 35.29 kg/m2 No PCP None [facility] [address] Work Phone: 08-15-2021 11:31-0400 Body surface area Derived from formula 2.13 m2 No PCP None [facility] [address] Work Phone: 08-15-2021 11:31-0400 Body weight 102.2 kg No PCP None [facility] [address] Work Phone: 08-15-2021 11:31-0400 Diastolic blood pressure 88 mm[Hg] No PCP None [facility] [address] Work Phone: 08-15-2021 11:31-0400 Systolic blood pressure 128 mm[Hg] No PCP None [facility] [address] Work Phone: 08-01-2021 11:14-0400 Body height 170.18 cm No PCP None [facility] [address] Work Phone: 08-01-2021 11:14-0400 Body mass index (BMI) [Ratio] 35.01 kg/m2 No PCP None [facility] [address] Work Phone: 08-01-2021 11:14-0400 Body surface area Derived from formula 2.12 m2 No PCP None [facility] [address] Work Phone: 08-01-2021 11:14-0400 Body weight 101.4 kg No PCP None [facility] [address] Work Phone: 08-01-2021 11:14-0400 Diastolic blood pressure 78 mm[Hg] No PCP None [facility] [employer] Work Phone: 08-01-2021 11:14-0400 Systolic blood pressure 122 mm[Hg] No PCP None [facility] [employer] Work Phone: 07-08-2021 12:27-0400 Body height 167.6 cm No Pcp Required [facility] 07-08-2021 12:27-0400 Body temperature 98.06 [degF] No Pcp Required [facility] 07-08-2021 12:27-0400 Body weight 98 kg No Pcp Required [facility] 07-08-2021 12:27-0400 Diastolic blood pressure 86 mm[Hg] No Pcp Required [facility] 07-08-2021 12:27-0400 Heart rate 106 /min No Pcp Required [facility] 07-08-2021 12:27-0400 Respiratory rate 18 /min No Pcp Required [facility] 07-08-2021 12:27-0400 SaO2% (BldA) [Mass fraction] 99 % No Pcp Required [facility] 07-08-2021 12:27-0400 Systolic blood pressure 145 mm[Hg] No Pcp Required [facility] 07-04-2021 11:10-0400 Body height 170.18 cm No PCP None [facility] [address] Work Phone: 07-04-2021 11:10-0400 Body mass index (BMI) [Ratio] 33.7 kg/m2 No PCP None [facility] [employer] Work Phone: 07-04-2021 11:10-0400 Body surface area Derived from formula 2.09 m2 No PCP None [facility] [employer] Work Phone: 07-04-2021 11:10-0400 Body weight 97.6 kg No PCP None [facility] [address] Work Phone: 07-04-2021 11:10-0400 Diastolic blood pressure 72 mm[Hg] No PCP None [facility] [address] Work Phone: 07-04-2021 11:10-0400 Systolic blood pressure 132 mm[Hg] No PCP None [facility] [address] Work Phone: 06-06-2021 10:19-0500 Body height 170.18 cm No PCP None [facility] [address] Work Phone: 06-06-2021 10:19-0500 Body mass index (BMI) [Ratio] 33.01 kg/m2 No PCP None [facility] [address] Work Phone: 06-06-2021 10:19-0500 Body surface area Derived from formula 2.07 m2 No PCP None [facility] [address] Work Phone: 06-06-2021 10:19-0500 Body weight 95.6 kg No PCP None [facility] [address] Work Phone: 05-10-2021 10:39-0500 Body height 170.18 cm No PCP None [facility] [address] Work Phone: 05-10-2021 10:39-0500 Body mass index (BMI) [Ratio] 32.42 kg/m2 No PCP None [facility] [address] Work Phone: 05-10-2021 10:39-0500 Body surface area Derived from formula 2.05 m2 No PCP None [facility] Work Phone: 05-10-2021 10:39-0500 Body temperature 97.3 [degF] No PCP None [facility] [address] Work Phone: 05-10-2021 10:39-0500 Body weight 93.9 kg No PCP None [facility] [address] Work Phone: 05-10-2021 10:39-0500 Diastolic blood pressure 78 mm[Hg] No PCP None [facility] [employer] Work Phone: 05-10-2021 10:39-0500 Systolic blood pressure 118 mm[Hg] No PCP None [facility]i [employer] Work Phone: 04-12-2021 10:57-0500 Body height 170.18 cm No PCP None [facility] [address] Work Phone: 04-12-2021 10:57-0500 Body mass index (BMI) [Ratio] 31.4 kg/m2 No PCP None [facility] Work Phone: 04-12-2021 10:57-0500 Body surface area Derived from formula 2.02 m2 No PCP None [facility] Work Phone: 04-12-2021 10:57-0500 Body temperature 97.3 [degF] No PCP None Maria De Jesus [address] Work Phone: 04-12-2021 10:57-0500 Body weight 90.95 kg No PCP None [facility] [address] Work Phone: 04-12-2021 10:57-0500 Diastolic blood pressure 82 mm[Hg] No PCP None [facility] Work Phone: 04-12-2021 10:57-0500 Systolic blood pressure 122 mm[Hg] No PCP None [facility] Work Phone: 03-29-2021 02:59-0500 Body height 170.1 cm No Pcp Required [facility] 03-29-2021 02:59-0500 Body temperature 97.52 [degF] No Pcp Required [facility] 03-29-2021 02:59-0500 Body weight 92.7 kg No Pcp Required [facility] 03-29-2021 02:59-0500 Diastolic blood pressure 80 mm[Hg] No Pcp Required [facility] 03-29-2021 02:59-0500 Heart rate 111 /min No Pcp Required [facility] 03-29-2021 02:59-0500 Respiratory rate 18 /min No Pcp Required [facility] 03-29-2021 02:59-0500 SaO2% (BldA) [Mass fraction] 98 % No Pcp Required [facility] 03-29-2021 02:59-0500 Systolic blood pressure 131 mm[Hg] No Pcp Required [facility] 03-22-2021 09:48-0500 Body height 170.18 cm No PCP None [facility] [address] Work Phone: 03-22-2021 09:48-0500 Body mass index (BMI) [Ratio] 30.87 kg/m2 No PCP None [facility] [address] Work Phone: 03-22-2021 09:48-0500 Body surface area Derived from formula 2.01 m2 No PCP None [facility] [address] Work Phone: 03-22-2021 09:48-0500 Body temperature 98 [degF] No PCP None [facility] [address] Work Phone: 03-22-2021 09:48-0500 Body weight 89.42 kg No PCP None [facility] [address] Work Phone: 03-22-2021 09:48-0500 Diastolic blood pressure 82 mm[Hg] No PCP None [facility] [address] Work Phone: 03-22-2021 09:48-0500 Systolic blood pressure 118 mm[Hg] No PCP None [facility] [address] Work Phone: 03-20-2021 22:03-0500 Body mass index (BMI) [Ratio] 31.68 kg/m2 Marcia Haider MD Work Phone: [employer] 03-20-2021 22:03-0500 Body temperature 97.11 [degF] Marcia Haider MD Work Phone: [employer] 03-20-2021 22:03-0500 Body weight 91.76 kg Marcia Haider MD Work Phone: [employer] 03-20-2021 22:03-0500 Diastolic blood pressure 69 mm[Hg] Marcia Haider MD Work Phone: [employer] 03-20-2021 22:03-0500 Heart rate 92 /min Marcia Haider MD Work Phone: [employer] 03-20-2021 22:03-0500 Respiratory rate 20 /min Marcia Haider MD Work Phone: [employer] 03-20-2021 22:03-0500 SaO2% (BldA) [Mass fraction] 98 % Marcia Haider MD Work Phone: [employer] 03-20-2021 22:03-0500 Systolic blood pressure 132 mm[Hg] Marcia Haider MD Work Phone: [employer] 02-07-2021 17:53-0500 Body height 170.2 cm Tania Neumann MD Work Phone: [employer] 02-07-2021 17:53-0500 Body mass index (BMI) [Ratio] 31.78 kg/m2 Tania Neumann MD Work Phone: [employer] 02-07-2021 17:53-0500 Body temperature 98.4 [degF] Tania Neumann MD Work Phone: [employer] 02-07-2021 17:53-0500 Body weight 92.03 kg Tania Neumann MD Work Phone: [employer] 02-07-2021 17:53-0500 Diastolic blood pressure 96 mm[Hg] Tania Neumann MD Work Phone: [employer] 02-07-2021 17:53-0500 Heart rate 100 /min Tania Neumann MD Work Phone: [employer] 02-07-2021 17:53-0500 Respiratory rate 18 /min Tania Neumann MD Work Phone: [employer] 02-07-2021 17:53-0500 SaO2% (BldA) [Mass fraction] 97 % Tania Neumann MD Work Phone: [employer] 02-07-2021 17:53-0500 Systolic blood pressure 136 mm[Hg] Tania Neumann MD Work Phone: [employer] 10-30-2019 05:21-0400 Body Temperature 98.2 [degF] [place] 10[place]-2019 05:21-0400 Body weight 85.73 kg [employer] [place] 10-30-2019 05:18-0400 BP Diastolic 78 mm[Hg] [employer] [place] 10-30-2019 05:18-0400 BP Systolic 138 mm[Hg] [employer] [place] 10-30-2019 05:18-0400 Pulse (Heart Rate) 86 /min [employer] [place] 10-30-2019 05:18-0400 Pulse Oximetry 97 % [employer] [place] 10-30-2019 05:18-0400 Respiratory Rate 17 /min [employer] [facility] [place] Encounters Encounter Date Encounter Type Care Provider Facility Start: 04-20-2023 End: 04-20-2023 Patient encounter procedure Erwin Dupree [facility] Start: 02-17-2023 End: 02-17-2023 Emergency department patient visit Dk De León Facility:[facility] Start: 02-17-2023 End: 02-17-2023 Emergency department patient visit Dk De León [facility] Start: 02-04-2023 [facility] ASLEEM Francis y:SAMI Motley Start: 02-04-2023 End: 02-05-2023 ambulatory HINA SALEEM [facility] Start: 02-04-2023 End: 02-04-2023 Patient encounter procedure BRISCOE KO [facility] Start: 01-29-2023 End: 01-30-2023 ambulatory Luigi King Facility: [facility] Start: 01-29-2023 End: 01-29-2023 Patient encounter procedure Luigi King [facility] Start: 01-17-2023 End: 01-18-2023 ambulatory [facility] Start: 01-17-2023 End: 01-17-2023 [facility] encounter [facility] Start: 01-08-2022 End: 01-09-[address] JADYN MADDOX Facility: Start: 09-28-2021 Chart Update No PCP None [facility]: Start: 09-27-2021 Patient encounter procedure Racquel Lechuga [facility] Start: 09-21-2021 End: 09-25-2021 Evaluation and management of inpatient Deborah Dias [place] [id number] Rm [id number] Start: 09-05-2021 Current tobacco non-user cad cap copd pv dm No PCP None VU-KDUWN-Miobxk 320 Work Phone: Start: 08-22-2021 EPVOB, Provider: Racquel Lechuga, Status: Pen, Time: 11:15 AM No PCP None [facility] [place] [address] DO Work Phone: Start: 08-22-2021 Office outpatient vi sit 15 minutes No PCP None [facility] [address] Work Phone: Start: 08-21-2021 Patient encounter procedure No PCP None [facility] [place] [address] DO Work Phone: Start: 08-15-2021 EPVOB, Provider: Racquel Lechuga, Status: Christopher, Time: 11:15 AM No PCP None [facility] [address] Work Phone: Start: 08-15-2021 Office outpatient vi sit 15 minutes No PCP None [facility] [address] Work Phone: Start: 08-14-2021 Chart Update No PCP None [facility] [address] Work Phone: Start: 08-02-2021 Chart Update No PCP None [facility] [address] Work Phone: Start: 08-01-2021 Office outpatient vi sit 15 minutes No PCP None [facility] [address] Work Phone: Start: 07-08-2021 End: 07-08-2021 Emergency department patient visit Renuka Bryan [facility] Emergency 15 Start: 07-04-2021 Office outpatient vi sit 15 minutes No PCP None [facility] [address] Work Phone: Start: 06-15-2021 Chart Update No PCP None [facility] [address] Work Phone: Start: 05-10-2021 Office outpatient vi sit 10 minutes No PCP None [facility] [address] Work Phone: Start: 04-28-2021 Chart Update No PCP None [facility] [address] Work Phone: Start: 04-27-2021 Chart Update No PCP None [facility] [address] Work Phone: Start: 04-26-2021 Chart Update No PCP None [facility] [address] Work Phone: Start: 04-21-2021 Chart Update No PCP None [facility] [address] Work Phone: Start: 04-12-2021 Office outpatient ne w 45 minutes No PCP None [facility] [address] Work Phone: Start: 03-29-2021 End: 03-29-2021 Emergency department patient visit Harinder Horton [facility] Emergency Start: 03-22-2021 Office outpatient ne w 30 minutes No PCP None [address] Work Phone: Start: 03-20-2021 End: 03-21-2021 Emergency department patient visit [facility] Start: 03-20-2021 End: 03-20-2021 Emergency department patient visit Marcia Haider MD Work Phone: [facility] Comment on above: Low back pain during in first trimester (Primary Dx) Start: 03-14-2021 End: 03-14-2021 Emergency department patient visit [facility] Start: 02-07-2021 Emergency department patient visit [place] [facility] Start: 02-07-2021 End: 02-07-2021 Emergency department patient visit Tania Neumann MD Work Phone: [facility] Comment on above: Pain, dental (Primar y Dx) Start: 12-26-2020 End: 12-27-2020 ambulatory JESUS JESSICA [facility] Start: 12-26-2020 End: 12-26-2020 Subsequent hospital visit by physician Jesus Jessica DO Work Phone: [facility] Comment on above: Viral infection Start: 05-26-2020 End: 05-27-2020 ambulatory JESUS JESSICA [facility] Start: 05-26-2020 End: 05-26-2020 Subsequent hospital visit by physician Kimberli Covid19 Pat Screening Schedule [facility] PRE [facility] Comment on above: Arrived Start: 05-06-2020 End: 05-07-2020 ambulatory SOL ROBLEDO [facility] Start: 05-06-2020 End: 05-06-2020 Subsequent hospital visit by physician [facility] Comment on above: Suspected COVID-19 v irus infection Start: 10-30-2019 End: 10-30-2019 Emergency department patient visit Noe Mancia Work Phone: [facility] Comment on above: Lower abdominal pain (Primary Dx); Menorrhagia with regular cycle Start: 06-24-2018 Patient encounter procedure TOM SONG Facility:[id number] Procedures Date Procedure Procedure Detail Performing Clinician Start: 09-21-2021 Antibody screen Comment on above: Order Comment: TEST TYPE + SCREEN WAS CANCELLED, 09/21/2021 20:28 ordered in error. Performed By: #### T +S #### [facility] [address] [place] [address] Start: 09-21-2021 Echocardiography No PCP None Start: 09-21-2021 Antibody screen Comment on above: Performed By: #### V ERAB #### [facility] [address] [place] [address] Start: 08-25-2021 Medical nutrition assmt&ivntj indiv each 15 mi No PCP None Start: 04-26-2021 Antibody screen Comment on above: Performed By: #### T +S ####[facility] [place] [address] Start: 04-26-2021 Antibody screen Comment on above: Order Comment: TEST TYPE + SCREEN WAS CANCELLED, 04/26/2021 13:20 T+S DONE SEPERATELY. Performed By: #### T +S #### [facility] [address] [place] [address] Start: 03-20-2021 Urnls dip stick/tabl et rgnt auto w/o microscopy Marcia Haider MD Work Phone: Start: 10-30-2019 Urinalysis microscopic only Noe Mancia Work Phone: Start: 10-30-2019 Urnls dip stick/tabl et rgnt auto w/o microscopy Noe Mancia Work Phone: Start: 10-30-2019 Blood count complete auto&auto difrntl wbc Noe Mancia Work Phone: Start: 10-30-2019 Comprehensive metabo lic panel Noe Mancia Work Phone: Start: 10-30-2019 Gonadotropin chorion ic qualitative Noe Mancia Work Phone: Plan of Treatment Date Care Activity Detail Author Start: 10-10-2021 CORY, Provider : Pao Conklin, Status: Pen, Time: 9:00 AM CORY, Provider: Pao Conklin, Status: Pen, Time: 9:00 AM [facility] Work Phone: Start: 09-27-2021 Patient encounter procedure Outpatient [facility] Diagnostic [address] [address] Start: 27-Sep-2021 13:45 Racquel Lechuga Intent [facility] Start: 09-24-2021 End: 09-25-2022 hydrOXYzine Pamoate (VISTARIL) 50 mg Oral Capsule Every 6 Hours PRN ; CapsuleDOSE = 50 mg Oral At Bedtime, PRN insomnia Start: 24-Sep-2021 End: 24-Sep-2022 Ordered: 24-Sep-2021 Ladan Cowan Intent [facility] Start: 09-22-2021 End: 09-22-2021 Placental Record [Baby A] Placental Record [Baby A] Date: 22-Sep-2021 [facility] Start: 09-22-2021 End: 09-23-2022 [facility] Comment on above: Consult provider giacomo or to administration. Push over more than 2 minutes. Systolic greater than or equal to 160 OR Diastolic greater than or equal to 110. Contraindications: active asthma, heart disease, heart failure, maternal bradycardia < 60. Consult provider giacomo or to administration. Push over more than 2 minutes. Systolic greater than or equal to 160 OR Diastolic greater than or equal to 110. Contraindication: coronary artery disease (CAD); Caution in suspected CAD. Consult provider giacomo or to administration. Systolic greater than or equal to 160 OR Diastolic greater than or equal to 110. Capsules administered orally and swallowed whole; Do not puncture or crush; Do not administer sublingually. After and PRN Consult provider giacomo or to administration. Conditional order. C onsult Provider prior to administration. Max dose of 16mg / 2 4 hours Conditional order. 6 00 milliunits/min x 30 mins., then 60 milliunits/min for the remainder of the bag. Consult Provider prior to administration. Start: 09-21-2021 End: 09-22-2022 Calcium Gluconate Injectable 1 gram IntraVenous Push Once ; DOSE = 1 gram(s) IntraVenous Push Once, PRN Magnesium toxicityClinician Notes: IV push over 5 minutes Start: 21-Sep-2021 End: 21-Sep-2022 Ordered: 21-Sep-2021 Shira Morrissey Intent Comments: IV push over 5 minutes [facility] Comment on above: IV push over 5 minut es Start: 09-20-2021 EPVOB, Provider: Racquel Lechuga, Status: Pen, Time: 1:30 PM EPVOB, Provider: Racquel Lechuga, Status: Pen, Time: 1:30 PM [id number] Work Phone: Start: 09-06-2021 EPVOB, Provider: Racquel Lechuga, Status: Pen, Time: 11:00 AM EPVOB, Provider: Racquel Lechuga, Status: Pen, Time: 11:00 AM [facility] Work Phone: Start: 09-05-2021 Patient encounter procedure CONSULT, Provider: Chao Cartagena, Status: Pen, Time: 11:30 AM [facility] Work Phone: Start: 09-05-2021 EPVOB, Provider: Racquel Lechuga, Status: Pen, Time: 11:15 AM EPVOB, Provider: Racquel Lechuga, Status: Pen, Time: 11:15 AM [facility] [address] Work Phone: Start: 09-05-2021 ULTRASDANT, Provider : [facility],MGOBGYN, Status: Pen, Time: 10:30 AM ULTRASDANT, Provider: [facility],MGOBGYN, Status: Pen, Time: 10:30 AM [facility] Work Phone: Start: 08-25-2021 VIRNPVHOME, Provider : Yenny Covington, Status: Pen, Time: 10:00 AM VIRNPVHOME, Provider: Yenny Covington, Status: Pen, Time: 10:00 AM [facility] [address] Work Phone: Start: 08-22-2021 EPVOB, Provider: Racquel Lechuga, Status: Pen, Time: 11:15 AM EPVOB, Provider: Racquel Lechuga, Status: Pen, Time: 11:15 AM [place] [address] [employer] Work Phone: Start: 08-21-2021 VIRNPVHOME, Provider : Yenny Covington, Status: Pen, Time: 10:00 AM VIRNPVHOME, Provider: Yenny Covington, Status: Pen, Time: 10:00 AM [address] [place] [address] [employer] Work Phone: Start: 08-15-2021 EPVOB, Provider: Racquel Lechuga, Status: Pen, Time: 11:15 AM EPVOB, Provider: Racquel Lechuga, Status: Pen, Time: 11:15 AM [address] [place] [address] [employer] Work Phone: Start: 08-01-2021 EPVOB, Provider: Racquel Lechuga, Status: Pen, Time: 11:00 AM EPVOB, Provider: Racquel Lechuga, Status: Pen, Time: 11:00 AM [address] [address] [employer] Work Phone: Start: 08-01-2021 Patient encounter procedure [facility] Start: 07-04-2021 EPVOB, Provider: Racquel Lechuga, Status: Pen, Time: 11:00 AM EPVOB, Provider: Racquel Lechuga, Status: Pen, Time: 11:00 AM [address] [address] [address] [place] Work Phone: Start: 06-06-2021 EPVOB, Provider: Racquel Lechuga, Status: Pen, Time: 10:30 AM EPVOB, Provider: Racquel Lechuga, Status: Pen, Time: 10:30 AM [employer] Phone: Start: 05-25-2021 Influenza vaccination Flu vaccine (# 1) [facility] Work Phone: Comment on above: Postponed from 11/30 (Patient Refused) Start: 05-10-2021 EPVOB, Provider: Racquel Lechuga, Status: Pen, Time: 10:30 AM EPVOB, Provider: Racquel Lechuga, Status: Pen, Time: 10:30 AM [employer] Phone: Start: 04-12-2021 EPVOB, Provider: Racquel Lechuga, Status: Pen, Time: 10:30 AM EPVOB, Provider: Racquel Lechuga, Status: Pen, Time: 10:30 AM [employer] Phone: Start: 04-12-2021 Patient encounter procedure [facility] Start: 11-30-2020 Influenza vaccination Flu vaccine (# 1) [facility] Start: 07-06-2020 End: 07-06-2020 Office Visit 07/06/2020 Office Visit Family Medicine Jesus Jessica, [place] [address] [phone] [facility] [place] Start: 12-01-2019 Influenza vaccination Flu vaccine (# 1) [facility], [place] Start: 2018 Screening for malign ant neoplasm of cervix [facility] Start: 2016 DTaP/Tdap/Td vaccine (1 - Tdap) DTaP/Tdap/Td vaccine (1 - Tdap) [facility] Start: 2013 Screening for Chlamy wayne trachomatis Chlamydia screen [facility] Start: 2012 HIV screening HIV screen [facility] Start: 2009 COVID-19 Vaccine (1) COVID-19 Vaccin e (1) [facility] Start: 2008 HPV vaccine (1 - 2-d ose series) HPV vaccine (1 - 2-dose series) [facility] Start: 2003 Pneumococcal 0-64 ye ars Vaccine (1 of 1 - PPSV23) Pneumococcal 0-64 years Vaccine (1 of 1 - PPSV23) [place], [place] Start: 2003 Pneumococcal 0-64 ye ars Vaccine (1 of 2 - PPSV23) Pneumococcal 0-64 years Vaccine (1 of 2 - PPSV23) [facility] Start: 2002 COVID-19 Vaccine (1) COVID-19 Vaccin e (1) [facility] Start: 1998 Varicella vaccine (1 of 2 - 2-dose childhood series) Varicella vaccine (1 of 2 - 2-dose childhood series) [facility] Start: 1997 Hepatitis C screening Hepatitis C sc reen [facility] End: 05-06-2020 COVID-19 COVID-19 Lab Routine Suspected Covid-19 Virus Infection 1 Occurrences starting 05/06/2020 until 05/06/2020 [place], [place] Comment on above: 1 Occurrences starti ng 05/06/2020 until 05/06/2020 COVID-19 [place], [place] End: 05-26-2020 COVID-19 COVID-19 Lab Routine Once for 1 Occurrences starting 05/26/2020 until 05/26/2020 [facility] [employer] Phone: Comment on above: Once for 1 Occurrenc es starting 05/26/2020 until 05/26/2020 End: 12-26-2020 COVID-19 COVID-19 Lab Routine Viral infection 1 Occurrences starting 12/26/2020 until 12/26/2020 [facility] [employer] Phone: Comment on above: 1 Occurrences starti ng 12/26/2020 until 12/26/2020 End: 10-30-2019 Culture, Urine Culture, Urine Microbiology Routine Once for 1 Occurrences starting 10/30/2019 until 10/30/2019 [place] Comment on above: Once for 1 Occurrenc es starting 10/30/2019 until 10/30/2019 Culture, Urine Culture, Urine Microbiology Routine 10/30/2019 6:05 AM EDT [place] Immunizations Immunization Date Immunization Notes Care Provider Ulysses ambrocio 09-24-2021 measles, mumps and rubella virus vaccine No Pcp Required [facility] 08-01-2021 tetanus toxoid, redu pete diphtheria toxoid, and acellular pertussis vaccine, adsorbed No PCP None [facility] 07-03-2017 tetanus toxoid, redu pete diphtheria toxoid, and acellular pertussis vaccine, adsorbed No PCP None [facility] 08-17-2014 HPV, unspecified formulation HINA KO [facility] 08-17-2014 human papilloma viru s vaccine, quadrivalent No PCP None [id number] 320 Work Phone: 08-17-2014 meningococcal ACWY vaccine, unspecified formulation HINA KO [facility] 08-17-2014 meningococcal polysaccharide (groups A, C, Y and W-135) diphtheria toxoid conjugate vaccine (MCV4P) No PCP None GQ-FIEEB-Hyceom 320 Work Phone: 06-11-2012 hepatitis A vaccine, pediatric/adolescent dosage, 2 dose schedule No PCP None [id number]-Saztrb 320 Work Phone: 06-11-2012 hepatitis A vaccine, unspecified formulation HINA KO [facility] 06-11-2012 HPV, unspecified formulation HINA KO [facility] 06-11-2012 human papilloma viru s vaccine, quadrivalent No PCP None IM-FBVGR-Xpgder 320 Work Phone: 06-11-2012 measles, mumps and rubella virus vaccine No PCP None [facility] 11-23-2010 hepatitis A vaccine, pediatric/adolescent dosage, 2 dose schedule No PCP None QK-GICCI-Tbnuff 320 Work Phone: 11-23-2010 hepatitis A vaccine, unspecified formulation HINA KO [facility] 11-23-2010 HPV, unspecified formulation [employer] [facility] 11-23-2010 human papilloma viru s vaccine, quadrivalent No PCP None [id number]-Ffqcqc 320 Work Phone: 11-23-2010 meningococcal ACWY vaccine, unspecified formulation [employer] [facility] 11-23-2010 meningococcal oligosaccharide (groups A, C, Y and W-135) diphtheria toxoid conjugate vaccine (MCV4O) No PCP None OM-PIPDW-Vmztxu 320 Work Phone: 11-23-2010 tetanus toxoid, redu pete diphtheria toxoid, and acellular pertussis vaccine, adsorbed No PCP None [facility] 06-22-2002 diphtheria, tetanus toxoids and acellular pertussis vaccine, unspecified formulation No PCP None HL-ADCJM-Gxinus 320 Work Phone: 06-22-2002 DTaP, unspecified formulation [employer] [facility] 06-22-2002 poliovirus vaccine, inactivated No PCP None HA-NBTOD-Kcydtr 320 Work Phone: 06-22-2002 poliovirus vaccine, unspecified formulation [employer] [facility] 12-01-1999 diphtheria, tetanus toxoids and acellular pertussis vaccine, unspecified formulation No PCP None KX-COKHJ-Cygyxe 320 Work Phone: 12-01-1999 DTaP, unspecified formulation [employer] [facility] 12-01-1999 haemophilus influenz ae type b vaccine, conjugate unspecified formulation No PCP None UE-ACIYE-Gonszk 320 Work Phone: 12-01-1999 hepatitis B vaccine, pediatric or pediatric/adolescent dosage No PCP None [facility] 12-01-1999 Hib, unspecified formulation [employer] [facility] 12-01-1999 measles, mumps and rubella virus vaccine No PCP None [facility] 12-01-1999 poliovirus vaccine, inactivated No PCP None DT-AKYXA-Tumaeb 320 Work Phone: 12-01-1999 poliovirus vaccine, unspecified formulation [employer] [facility] 1997 diphtheria, tetanus toxoids and acellular pertussis vaccine, unspecified formulation No PCP None IS-LSOMX-Zdgweu 320 Work Phone: 1997 DTaP, unspecified formulation BRISCOE KO [facility] 1997 haemophilus influenz ae type b vaccine, conjugate unspecified formulation No PCP None IC-PQFPY-Lwwvaa 320 Work Phone: 1997 hepatitis B vaccine, pediatric or pediatric/adolescent dosage No PCP None [facility] 1997 Hib, unspecified formulation BRISCOE KO [facility] 1997 poliovirus vaccine, inactivated No PCP None NG-XZJDJ-Ttltng 320 Work Phone: 1997 poliovirus vaccine, unspecified formulation BRISCOE KO [facility] 1997 hepatitis B vaccine, pediatric or pediatric/adolescent dosage No PCP None [facility] NEGATED: Highlighted row has not occurred!04-20-2023 SARS-CoV-2 mRNA (tozinameran 5y-11y) vaccine Erwin Dupree [facility] NEGATED: Highlighted row has not occurred!02-04-2023 SARS-CoV-2 mRNA (tozinameran 5y-11y) vaccine [facility] NEGATED: Highlighted row has not occurred!01-29-2023 influenza virus vaccine, unspecified formulation Luigi King [facility] Payers Date Payer Category Payer Private Health Insurance [id number] 2014 Private Health [place] [facility] [id number] 2014-Present [phone] [address] [place] [address] [id number] 1997 Unknown [id number] 355 1997 Unknown [id number]. 903 1997 Unknown [id number]. 174 1997 Unknown [id number]. 174 1997 Unknown [id number] [id number]. 174 1997 Unknown [id number]. 174 1997 Unknown [id number] [id number]. 174 1997 Unknown [id number]. 593 1997 Unknown [id number]. 727 1997 Unknown [id number] [id number]. 727 1997 Unknown [id number]. 727 1997 Unknown [id number] 727 1959 Private Health Insurance [id number] Unknown Social History Date Type Detail Facility Start: 10-30-2019 End: 12-26-2020 Tobacco smoking status NHIS [facility] of tobacco use [place] Start: 10-30-2019 End: 12-26-2020 Cigarettes smoked current (pack per day) - Reported [facility] [place] Start: 10-30-2019 End: 12-26-2020 Tobacco use and exposure [facility] [place] Start: 10-30-2019 End: 03-20-2021 Alcohol intake Current non-drinker of alcohol (finding) [place], [place] Sex Assigned At Not on file [place] Exposure to SARS-CoV -2 (event) Not sure [place] Start: 05-25-2020 History SDOH Financial 5 [employer] Phone: Start: 05-25-2020 History SDOH Food Worry 1 [employer] Phone: Start: 05-25-2020 History SDOH Transpo rt Med 2 [employer] Phone: Start: 1997 Sex Assigned At Female M [facility] [employer] Phone: Tobacco smoking consumption unknown [facility] Start: 01-17-2023 End: 04-20-2023 Tobacco smoking status Ex-smoker (finding) [facility] Comment on above: 3 cigarettes a day Pt quit smoking abou t 1 yr ago 1/2 ppd per pt Sex Assigned At Female [facility] Tobacco smoking status Never [facility] Comment on above: 3 cigarettes a day Functional Status Date Assessment Result Facility 04-20-2023 Functional Status N/A [facility] 02-17-2023 Functional Status N/A [facility] 02-04-2023 Functional Status N/A [facility] 01-29-2023 Functional Status N/A [facility] 01-17-2023 Functional Status N/A [facility] Functional observable [facility] Mental Status Date Assessment Result Facility 09-23-2021 Cognitive functions 0225:[id number] [facility] Clinical Notes 04-12-2021 to 02-04-2023 Note Date & Type Note Facility 02-04-2023 Hospital Discharge instructions Patient Education 02/04/2023 15:22:44 BMI for Adults BMI for Adults What is BMI? Body mass index (BMI) is a number that is calculated from a person's weight and height. BMI can help estimate how much of a person's weight is composed of fat. BMI does not measure body fat directly. Rather, it is an alternative to procedures that directly measure body fat, which can be difficult and expensive. BMI can help identify people who may be at higher risk for certain medical problems. What are BMI measurements used for? BMI is used as a screening tool to identify possible weight problems. It helps determine whether a person is obese, overweight, a healthy weight, or underweight. BMI is useful for: Identifying a weight problem that may be related to a medical condition or may increase the risk for medical problems. Promoting changes, such as changes in diet and exercise, to help reach a healthy weight. BMI screening can be repeated to see if these changes are working. How is BMI calculated? BMI involves measuring your weight in relation to your height. Both height and weight are measured, and the BMI is calculated from those numbers. This can be done either in [place] or metric measurements. Note that charts and online BMI calculators are available to help you find your BMI quickly and easily without having to do these calculations yourself. To calculate your BMI in [place] measurements: 1.Measure your weight in pounds (lb). 2.Multiply the number of pounds by 703. For example, for a person who weighs 180 lb, multiply that number by 703, which equals 126,540. 3.Measure your height in inches. Then multiply that number by itself to get a measurement called inches squared. For example, for a person who is 70 inches tall, the inches squared measurement is 70 inches x 70 inches, which equals 4,900 inches squared. 4.Divide the total from step 2 (number of lb x 703) by the total from step 3 (inches squared): 126,540 4,900 = 25.8. This is your BMI. To calculate your BMI in metric measurements: 1.Measure your weight in kilograms (kg). 2.Measure your height in meters (m). Then multiply that number by itself to get a measurement called meters squared. For example, for a person who is 1.75 m tall, the meters squared measurement is 1.75 m x 1.75 m, which is equal to 3.1 meters squared. 3.Divide the number of kilograms (your weight) by the meters squared number. In this example: 70 3.1 = 22.6. This is your BMI. What do the results mean? BMI charts are used to identify whether you are underweight, normal weight, overweight, or obese. The following guidelines will be used: Underweight: BMI less than 18.5. Normal weight: BMI between 18.5 and 24.9. Overweight: BMI between 25 and 29.9. Obese: BMI of 30 or above. Keep these notes in mind: Weight includes both fat and muscle, so someone with a muscular build, such as an athlete, may have a BMI that is higher than 24.9. In cases like these, BMI is not an accurate measure of body fat. To determine if excess body fat is the cause of a BMI of 25 or higher, further assessments may need to be done by a health care provider. BMI is usually interpreted in the same way for men and women. Where to find more information For more information about BMI, including tools to quickly calculate your BMI, go to these websites: Centers for Disease Control and Prevention: www.cdc.gov [employer] [employer]: www.heart.org National Heart, Lung, and Blood Mathews: www.nhlbi.nih.gov Summary Body mass index (BMI) is a number that is calculated from a person's weight and height. BMI may help estimate how much of a person's weight is composed of fat. BMI can help identify those who may be at higher risk for certain medical problems. BMI can be measured using [place] measurements or metric measurements. BMI charts are used to identify whether you are underweight, normal weight, overweight, or obese. This information is not intended to replace advice given to you by your health care provider. Make sure you discuss any questions you have with your health care provider. Document Revised: 12/09/2019 Document Reviewed: 10/16/2019 [facility] Patient Education 2022 [place] [employer]. 02/04/2023 15:22:42 Diarrhea, Adult Diarrhea, Adult Diarrhea is frequent loose and watery bowel movements. Diarrhea can make you feel weak and cause you to become dehydrated. Dehydration can make you tired and thirsty, cause you to have a dry mouth, and decrease how often you urinate. Diarrhea typically lasts 2 3 days. However, it can last longer if it is a sign of something more serious. It is important to treat your diarrhea as told by your health care provider. Follow these instructions at home: Eating and drinking Follow these recommendations as told by your health care provider: Take an oral rehydration solution (ORS). This is an lead-frw-jigfmkn medicine that helps return your body to its normal balance of nutrients and water. It is found at pharmacies and retail stores. Drink plenty of fluids, such as water, ice chips, diluted fruit juice, and low-calorie sports drinks. You can drink milk also, if desired. Avoid drinking fluids that contain a lot of sugar or caffeine, such as energy drinks, sports drinks, and soda. Eat bland, lzms-ku-veiefm foods in small amounts as you are able. These foods include bananas, applesauce, rice, lean meats, toast, and crackers. Avoid alcohol. Avoid spicy or fatty foods. Medicines Take rkuv-vqk-hxbbwbz and prescription medicines only as told by your health care provider. If you were prescribed an antibiotic medicine, take it as told by your health care provider. Do not stop using the antibiotic even if you start to feel better. General instructions Wash your hands often using soap and water. If soap and water are not available, use a hand nursery laborer. Others in the household should wash their hands as well. Hands should be washed: ?After using the toilet or changing a diaper. ?Before preparing, cooking, or serving food. ?While caring for a sick person or while visiting someone in a hospital. Drink enough fluid to keep your urine pale yellow. Rest at home while you recover. Watch your condition for any changes. Take a warm bath to relieve any burning or pain from frequent diarrhea episodes. Keep all follow-up visits as told by your health care provider. This is important. Contact a health care provider if: You have a fever. Your diarrhea gets worse. You have new symptoms. You cannot keep fluids down. You feel light-headed or dizzy. You have a headache. You have muscle cramps. Get help right away if: You have chest pain. You feel extremely weak or you faint. You have bloody or black stools or stools that look like tar. You have severe pain, cramping, or bloating in your abdomen. You have trouble breathing or you are breathing very quickly. Your heart is beating very quickly. Your skin feels cold and clammy. You feel confused. You have signs of dehydration, such as: ?Dark urine, very little urine, or no urine. ?Cracked lips. ?Dry mouth. ?Sunken eyes. ?Sleepiness. ?Weakness. Summary Diarrhea is frequent loose and sometimes watery bowel movements. Diarrhea can make you feel weak and cause you to become dehydrated. Drink enough fluids to keep your urine pale yellow. Make sure that you wash your hands after using the toilet. If soap and water are not available, use hand nursery laborer. Contact a health care provider if your diarrhea gets worse or you have new symptoms. Get help right away if you have signs of dehydration. This information is not intended to replace advice given to you by your health care provider. Make sure you discuss any questions you have with your health care provider. Document Revised: 09/27/2021 Document Reviewed: 09/27/2021 [facility] Patient Education 2022 [place] [employer]. 02/04/2023 15:22:37 Upper Respiratory Infection, Adult Upper Respiratory Infection, Adult An upper respiratory infection (URI) is a common viral infection of the nose, throat, and upper air passages that lead to the lungs. The most common type of URI is the common cold. URIs usually get better on their own, without medical treatment. What are the causes? A URI is caused by a virus. You may catch a virus by: Breathing in droplets from an infected person's cough or sneeze. Touching something that has been exposed to the virus (is contaminated) and then touching your mouth, nose, or eyes. What increases the risk? You are more likely to get a URI if: You are very young or very old. You have close contact with others, such as at work, school, or a health care facility. You smoke. You have long-term (chronic) heart or lung disease. You have a weakened disease-fighting system (immune system). You have nasal allergies or asthma. You are experiencing a lot of stress. You have poor nutrition. What are the signs or symptoms? A URI usually involves some of the following symptoms: Runny or stuffy (congested) nose. Cough. Sneezing. Sore throat. Headache. Fatigue. Fever. Loss of appetite. Pain in your forehead, behind your eyes, and over your cheekbones (sinus pain). Muscle aches. Redness or irritation of the eyes. Pressure in the ears or face. How is this diagnosed? This condition may be diagnosed based on your medical history and symptoms, and a physical exam. Your health care provider may use a swab to take a mucus sample from your nose (nasal swab). This sample can be tested to determine what virus is causing the illness. How is this treated? URIs usually get better on their own within 7 10 days. Medicines cannot cure URIs, but your health care provider may recommend certain medicines to help relieve symptoms, such as: Bsjg-nch-znlbdbt cold medicines. Cough suppressants. Coughing is a type of defense against infection that helps to clear the respiratory system, so take these medicines only as recommended by your health care provider. Fever-reducing medicines. Follow these instructions at home: Activity Rest as needed. If you have a fever, stay home from work or school until your fever is gone or until your health care provider says your URI cannot spread to other people (is no longer contagious). Your health care provider may have you wear a face mask to prevent your infection from spreading. Relieving symptoms Gargle with a mixture of salt and water 3 4 times a day or as needed. To make salt water, completely dissolve 1 tsp (3 6 g) of salt in 1 cup (237 mL) of warm water. Use a cool-mist humidifier to add moisture to the air. This can help you breathe more easily. Eating and drinking Drink enough fluid to keep your urine pale yellow. Eat soups and other clear broths. General instructions Take zjwn-uzg-otrbvey and prescription medicines only as told by your health care provider. These include cold medicines, fever reducers, and cough suppressants. Do not use any products that contain nicotine or tobacco. These products include cigarettes, chewing tobacco, and vaping devices, such as e-cigarettes. If you need help quitting, ask your health care provider. Stay away from secondhand smoke. Stay up to date on all immunizations, including the yearly (annual) flu vaccine. Keep all follow-up visits. This is important. How to prevent the spread of infection to others URIs can be contagious. To prevent the infection from spreading: Wash your hands with soap and water for at least 20 seconds. If soap and water are not available, use hand nursery laborer. Avoid touching your mouth, face, eyes, or nose. Cough or sneeze into a tissue or your sleeve or elbow instead of into your hand or into the air. Contact a health care provider if: You are getting worse instead of better. You have a fever or chills. Your mucus is brown or red. You have yellow or brown discharge coming from your nose. You have pain in your face, especially when you bend forward. You have swollen neck glands. You have pain while swallowing. You have white areas in the back of your throat. Get help right away if: You have shortness of breath that gets worse. You have severe or persistent: ?Headache. ?Ear pain. ?Sinus pain. ?Chest pain. You have chronic lung disease along with any of the following: ?Making high-pitched whistling sounds when you breathe, most often when you breathe out (wheezing). ?Prolonged cough (more than 14 days). ?Coughing up blood. ?A change in your usual mucus. You have a stiff neck. You have changes in your: ?Vision. ?Hearing. ?Thinking. ?Mood. These symptoms may be an emergency. Get help right away. Call 911. Do not wait to see if the symptoms will go away. Do not drive yourself to the hospital. Summary An upper respiratory infection (URI) is a common infection of the nose, throat, and upper air passages that lead to the lungs. A URI is caused by a virus. URIs usually get better on their own within 7 10 days. Medicines cannot cure URIs, but your health care provider may recommend certain medicines to help relieve symptoms. This information is not intended to replace advice given to you by your health care provider. Make sure you discuss any questions you have with your health care provider. Document Revised: 10/18/2021 Document Reviewed: 10/18/2021 [employer] Patient Education 2022 [place] [employer]. Follow Up Care 02/04/2023 14:00:44 With:Magali Zhong DO Address:Unknown When: Unknown [facility] 01-29-2023 Hospital Discharge instructions Patient Education 01/29/2023 16:00:38 BMI for Adults BMI for Adults What is BMI? Body mass index (BMI) is a number that is calculated from a person's weight and height. BMI can help estimate how much of a person's weight is composed of fat. BMI does not measure body fat directly. Rather, it is an alternative to procedures that directly measure body fat, which can be difficult and expensive. BMI can help identify people who may be at higher risk for certain medical problems. What are BMI measurements used for? BMI is used as a screening tool to identify possible weight problems. It helps determine whether a person is obese, overweight, a healthy weight, or underweight. BMI is useful for: Identifying a weight problem that may be related to a medical condition or may increase the risk for medical problems. Promoting changes, such as changes in diet and exercise, to help reach a healthy weight. BMI screening can be repeated to see if these changes are working. How is BMI calculated? BMI involves measuring your weight in relation to your height. Both height and weight are measured, and the BMI is calculated from those numbers. This can be done either in [place] or metric measurements. Note that charts and online BMI calculators are available to help you find your BMI quickly and easily without having to do these calculations yourself. To calculate your BMI in [place] measurements: 1.Measure your weight in pounds (lb). 2.Multiply the number of pounds by 703. For example, for a person who weighs 180 lb, multiply that number by 703, which equals 126,540. 3.Measure your height in inches. Then multiply that number by itself to get a measurement called inches squared. For example, for a person who is 70 inches tall, the inches squared measurement is 70 inches x 70 inches, which equals 4,900 inches squared. 4.Divide the total from step 2 (number of lb x 703) by the total from step 3 (inches squared): 126,540 4,900 = 25.8. This is your BMI. To calculate your BMI in metric measurements: 1.Measure your weight in kilograms (kg). 2.Measure your height in meters (m). Then multiply that number by itself to get a measurement called meters squared. For example, for a person who is 1.75 m tall, the meters squared measurement is 1.75 m x 1.75 m, which is equal to 3.1 meters squared. 3.Divide the number of kilograms (your weight) by the meters squared number. In this example: 70 3.1 = 22.6. This is your BMI. What do the results mean? BMI charts are used to identify whether you are underweight, normal weight, overweight, or obese. The following guidelines will be used: Underweight: BMI less than 18.5. Normal weight: BMI between 18.5 and 24.9. Overweight: BMI between 25 and 29.9. Obese: BMI of 30 or above. Keep these notes in mind: Weight includes both fat and muscle, so someone with a muscular build, such as an athlete, may have a BMI that is higher than 24.9. In cases like these, BMI is not an accurate measure of body fat. To determine if excess body fat is the cause of a BMI of 25 or higher, further assessments may need to be done by a health care provider. BMI is usually interpreted in the same way for men and women. Where to find more information For more information about BMI, including tools to quickly calculate your BMI, go to these websites: Centers for Disease Control and Prevention: www.cdc.gov [place] [employer]: www.heart.org National Heart, Lung, and Blood [employer]: www.nhlbi.nih.gov Summary Body mass index (BMI) is a number that is calculated from a person's weight and height. BMI may help estimate how much of a person's weight is composed of fat. BMI can help identify those who may be at higher risk for certain medical problems. BMI can be measured using [place] measurements or metric measurements. BMI charts are used to identify whether you are underweight, normal weight, overweight, or obese. This information is not intended to replace advice given to you by your health care provider. Make sure you discuss any questions you have with your health care provider. Document Revised: 12/09/2019 Document Reviewed: 10/16/2019 [facility] Patient Education 2022 [place] [employer]. 01/29/2023 16:00:35 Acute Back Pain, Adult Acute Back Pain, Adult Acute back pain is sudden and usually short-lived. It is often caused by an injury to the muscles and tissues in the back. The injury may result from: A muscle, tendon, or ligament getting overstretched or torn. Ligaments are tissues that connect bones to each other. Lifting something improperly can cause a back strain. Wear and tear (degeneration) of the spinal disks. Spinal disks are circular tissue that provide cushioning between the bones of the spine (vertebrae). Twisting motions, such as while playing sports or doing yard work. A hit to the back. Arthritis. You may have a physical exam, lab tests, and imaging tests to find the cause of your pain. Acute back pain usually goes away with rest and home care. Follow these instructions at home: Managing pain, stiffness, and swelling Take ypjc-snf-tzociso and prescription medicines only as told by your health care provider. Treatment may include medicines for pain and inflammation that are taken by mouth or applied to the skin, or muscle relaxants. Your health care provider may recommend applying ice during the first 24 48 hours after your pain starts. To do this: ?Put ice in a plastic bag. ?Place a towel between your skin and the bag. ?Leave the ice on for 20 minutes, 2 3 times a day. ?Remove the ice if your skin turns bright red. This is very important. If you cannot feel pain, heat, or cold, you have a greater risk of damage to the area. If directed, apply heat to the affected area as often as told by your health care provider. Use the heat source that your health care provider recommends, such as a moist heat pack or a heating pad. ?Place a towel between your skin and the heat source. ?Leave the heat on for 20 30 minutes. ?Remove the heat if your skin turns bright red. This is especially important if you are unable to feel pain, heat, or cold. You have a greater risk of getting burned. Activity Do not stay in bed. Staying in bed for more than 1 2 days can delay your recovery. Sit up and stand up straight. Avoid leaning forward when you sit or hunching over when you stand. ?If you work at a desk, sit close to it so you do not need to lean over. Keep your chin tucked in. Keep your neck drawn back, and keep your elbows bent at a 90-degree angle (right angle). ?Sit high and close to the steering wheel when you drive. Add lower back (lumbar) support to your car seat, if needed. Take short walks on even surfaces as soon as you are able. Try to increase the length of time you walk each day. Do not sit, drive, or alpine patroller one place for more than 30 minutes at a time. Sitting or standing for long periods of time can put stress on your back. Do not drive or use heavy machinery while taking prescription pain medicine. Use proper lifting techniques. When you bend and lift, use positions that put less stress on your back: ?Bend your knees. ?Keep the load close to your body. ?Avoid twisting. Exercise regularly as told by your health care provider. Exercising helps your back heal faster and helps prevent back injuries by keeping muscles strong and flexible. Work with a physical therapist to make a safe exercise program, as recommended by your health care provider. Do any exercises as told by your physical therapist. Lifestyle Maintain a healthy weight. Extra weight puts stress on your back and makes it difficult to have good posture. Avoid activities or situations that make you feel anxious or stressed. Stress and anxiety increase muscle tension and can make back pain worse. Learn ways to manage anxiety and stress, such as through exercise. General instructions Sleep on a firm mattress in a comfortable position. Try lying on your side with your knees slightly bent. If you lie on your back, put a pillow under your knees. Keep your head and neck in a straight line with your spine (neutral position) when using electronic equipment like smartphones or pads. To do this: ?Raise your smartphone or pad to look at it instead of bending your head or neck to look down. ?Put the smartphone or pad at the level of your face while looking at the screen. Follow your treatment plan as told by your health care provider. This may include: ?Cognitive or behavioral therapy. ?Acupuncture or massage therapy. ?Meditation or yoga. Contact a health care provider if: You have pain that is not relieved with rest or medicine. You have increasing pain going down into your legs or buttocks. Your pain does not improve after 2 weeks. You have pain at night. You lose weight without trying. You have a fever or chills. You develop nausea or vomiting. You develop abdominal pain. Get help right away if: You develop new bowel or bladder control problems. You have unusual weakness or numbness in your arms or legs. You feel faint. These symptoms may represent a serious problem that is an emergency. Do not wait to see if the symptoms will go away. Get medical help right away. Call your local emergency services (911 in the [place] Do not drive yourself to the hospital. Summary Acute back pain is sudden and usually short-lived. Use proper lifting techniques. When you bend and lift, use positions that put less stress on your back. Take kixl-izp-fafrkvz and prescription medicines only as told by your health care provider, and apply heat or ice as told. This information is not intended to replace advice given to you by your health care provider. Make sure you discuss any questions you have with your health care provider. Document Revised: 06/09/2021 Document Reviewed: 06/09/2021 [facility] Patient Education 2022 [place] [employer]. Follow Up Care 01/29/2023 14:23:51 With:Magali Zhong DO Address:Unknown When: Unknown [facility] 01-17-2023 Hospital Discharge instructions Patient Education 01/17/2023 18:40:20 Viral Respiratory Infection, Okmy-Sg-Jdro Viral Respiratory Infection A viral respiratory infection is an illness that affects parts of the body that are used for breathing. These include the lungs, nose, and throat. It is caused by a germ called a virus. Some examples of this kind of infection are: A cold. The flu (influenza). A respiratory syncytial virus (RSV) infection. What are the causes? This condition is caused by a virus. It spreads from person to person. You can get the virus if: You breathe in droplets from someone who is sick. You come in contact with people who are sick. You touch mucus or other fluid from a person who is sick. What are the signs or symptoms? Symptoms of this condition include: A stuffy or runny nose. A sore throat. A cough. Shortness of breath. Trouble breathing. Yellow or green fluid in the nose. Other symptoms may include: A fever. Sweating or chills. Tiredness (fatigue). Achy muscles. A headache. How is this treated? This condition may be treated with: Medicines that treat viruses. Medicines that make it easy to breathe. Medicines that are sprayed into the nose. Acetaminophen or NSAIDs, such as ibuprofen, to treat fever. Follow these instructions at home: Managing pain and congestion Take zoiu-nsi-jjwuael and prescription medicines only as told by your doctor. If you have a sore throat, gargle with salt water. Do this 3 4 times a day or as needed. ?To make salt water, dissolve 1 tsp (3 6 g) of salt in 1 cup (237 mL) of warm water. Make sure that all the salt dissolves. Use nose drops made from salt water. This helps with stuffiness (congestion). It also helps soften the skin around your nose. Take 2 tsp (10 mL) of honey at bedtime to lessen coughing at night. ?Do not give honey to children who are younger than 1 year old. Drink enough fluid to keep your pee (urine) pale yellow. General instructions Rest as much as possible. Do not drink alcohol. Do not smoke or use any products that contain nicotine or tobacco. If you need help quitting, ask your doctor. Keep all follow-up visits. How is this prevented? Get a flu shot every year. Ask your doctor when you should get your flu shot. Do not let other people get your germs. If you are sick: ?Wash your hands with soap and water often. Wash your hands after you cough or sneeze. Wash hands for at least 20 seconds. If you cannot use soap and water, use hand nursery laborer. ?Cover your mouth when you cough. Cover your nose and mouth when you sneeze. ?Do not share cups or eating utensils. ?Clean commonly used objects often. Clean commonly touched surfaces. ?Stay home from work or school. Avoid contact with people who are sick during cold and flu season. This is in fall and winter. Get help if: Your symptoms last for 10 days or longer. Your symptoms get worse over time. You have very bad pain in your face or forehead. Parts of your jaw or neck get very swollen. You have shortness of breath. Get help right away if: You feel pain or pressure in your chest. You have trouble breathing. You faint or feel like you will faint. You keep vomiting and it gets worse. You feel confused. These symptoms may be an emergency. Get help right away. Call your local emergency services (911 in the [place] Do not wait to see if the symptoms will go away. Do not drive yourself to the hospital. Summary A viral respiratory infection is an illness that affects parts of the body that are used for breathing. Examples of this illness include a cold, the flu, and a respiratory syncytial virus (RSV) infection. The infection can cause a runny nose, cough, sore throat, and fever. Follow what your doctor tells you about taking medicines, drinking lots of fluid, washing your hands, resting at home, and avoiding people who are sick. This information is not intended to replace advice given to you by your health care provider. Make sure you discuss any questions you have with your health care provider. Document Revised: 06/22/2021 Document Reviewed: 06/22/2021 [facility] Patient Education 2022 [place] Follow Up Care 01/17/2023 12:36:31 With:Magali Zhong DO Address:Unknown When: Unknown [facility] 09-22-2021 Note Provider Information : Maternal Delivery Information: Delivery Type: vaginal delivery Did this pt receive corticosteroids at any time during this : Yes corticosteroids given: BMZ 09/21 (2nd dose deferred due to GDMA2) Were rescue steroids given: No Was intraamniotic infection diagnosed during this labor: no What antibiotic(s) were administered during labor and/or pre-incision: Penicillin Did this patient receive progesterone in any form to prevent premature delivery: no Rupture of Membranes: artificial Spontaneous Labor: no Induction or Scheduled : induction Is patient at delivery >/= to 37 to < 39 completed weeks of gestation: no Vaginal Delivery Type: spontaneous Vaginal Delivery Complications: none Delivery Anesthesia: epidural Presentation/Lie: vertex Vertex Presentation: Right: occiput anterior Episiotomy & Repair: none Perineal Laceration: first degree Other Laceration: none Laceration Repair: yes 1st deg lac repaired Abrasion: periurethral, L periurethral QBL (mL): 200 mL Blood Products Transfused during Delivery (indicate number of units given): none Placenta: spontaneous Choose Baby: A Cord Characteristics: nuchal cord; x1 Delayed Cord Clamping (equal to or greater than 30 seconds): yes Time until cord clamp: 30sec Day of Delivery (Baby A): 22-Sep-2021 Gestational Age at Delivery (wk.days): 35.1 Term: < 37. 0 weeks Live : yes Vaginal Delivery Provider: Violette Alvarez Hunter Trapper: Belinda Hogan Hemorrhage Risk Screen: Hemorrhage Medium Risk Factors (T&S) (2 or more medium risks Go to High Risk section & obtain T&C)BMI > 35, IOL with oxytocin or cervical ripening, magnesium sulfate(1) Hemorrhage Risk Assessmenthemorrhage risks reviewed and additional factors added if applicable Hemorrhage Risk Score HighPatient is at High Risk for an OB hemorrhage. Order Type & Cross. Score Calculation - IT Use Only3 Attestation: Note Completion: I am a:Resident/Fellow Attending AttestationI was present for the entire procedure Electronic Signatures: Violette Alvarez) (Signed 04-Oct-2021 08:32) Authored: Note Completion Co-Signer: Provider Information, Hemorrhage Risk, Note Completion Belinda Hogan (Resident)) (Signed 22-Sep-2021 06:08) Authored: Provider Information, Hemorrhage Risk, Note Completion Last Updated: 04-Oct-2021 08:32 by Violette Alvarez) References: 1. Data Referenced From History and Physical - OB 21-Sep-2021 01:54 [facility] 09-21-2021 Note HPI/OB History: Care Provider: Racquel Lechuga HPI Descriptive Info: HPI 26 yo at 35.0 wga (09/21) by last menstrual period c/w 8 wk ultrasound presenting as a transfer from [facility] for severe pre-eclampsia diagnosed based on severe range BP requiring IV antihypertensive and P:C 0.7. notable for: - severe pre-eclampsia: dx as above, note is made on chart review of mild range BP on 09/06 at which time urine dip negative for protein - GDMA2: 1 hr 197, 3 hr with 3/4 values abnormal. MFM consultation on 09/05 at which time treatment with Levemir 10 u at bedtime was initiated, EFW on 09/05 was 1863 g/20th%ile on 09/05, AC 14th%ile - asthma, mild intermittent, albuterol use monthly - migraines - BMI 30 at first visit ObHx: SAB requiring D&C PMH: as above PSH: heart surgery in childhood - mother reports patient had a heart valve problem, patient is not limited in daily life by cardiac health, had a stress test several years ago which was unremarkable Meds: pnv, levemir, iron All: nkda Soc: quit smoking at the start of , denies etoh or illicit drug use Fam Hx: mother with severe pre-eclampsia Labs: Labs: Labs: Blood Typed Date: 26-Apr-2021 Blood Type: O positive Antibody Screen Results: negative Chlamydia Date: 12-Apr-2021 Chlamydia Results: negative Gonorrhea Date: 12-Apr-2021 Gonorrhea Results: negative Strep Results: not ordered GCT (-m-yy): 01-Aug-2021 GCT result: 197 GTT - Extended (-y): 11-Aug-2021 GTT - Extended - Fastin GTT - Extended - 1 hour: 193 GTT - Extended - 2 hour: 201 GTT - Extended - 3 hour: 154 HBsAG Date: 26-Apr-2021 HBsAG Results: negative Hemoglobin A1C (-): 06-Sep-2021 Hemoglobin A1C: 5.4 % Estimated Average Glucose: 108 HIV Date: 26-Apr-2021 HIV Results: negative Rubella Date: 01-Aug-2021 Rubella Results: pending result Rubella Comments: Result Value null Syphilis (mmm-dd-yyyy): 26-Apr-2021 Syphilis Results: negative Urine Spot (-y): 20-Sep-2021 Total Protein/Creatinine Ratio: 0.7 Antepartum/: Antepartum/PP: Last Menstrual [id number] LUDWIG by Last Menstrual [id number] Date Earliest [id number] EGA at that study (weeks)9 LUDWIG by [id number] Final [id number] Current EGA:35 Patient is > or = 35.0 wks EGAyes Determined byultrasound Date of [id number] EFW (kg)2.4 kilogram(s) EFW (lb)5 pound(s) EFW (oz)5 ounce(s) EFW Comments EFW on 09/05 was 1863 g/20th%ile on 09/05, AC 14th%ile, above EFW extrapolated from that study assuming 300g growth per week Presentationcephalic presentation verified bybedside ultrasound Vaginal BleedingNo Contractions/Abdominal PainNo Discharge/Loss of FluidNo MovementGood Hemorrhage Medium Risk Factors (T&S) (2 or more medium risks Go to High Risk section & obtain T&C)BMI > 35, IOL with oxytocin or cervical ripening, magnesium sulfate Hemorrhage Risk Assessmenthemorrhage risk completed on admission Hemorrhage Risk ScorePatient is at High Risk for an OB hemorrhage. Order Type & Cross. Score Calculation - IT Use Only3 TOLACno Did this patient receive progesterone in any form to prevent premature deliveryno Does patient desire postplacental IUDno Family History: Family History: per hpi Social History: Social History: Smoking Statusformer smoker (1) Alcohol Usedenies(1) Drug Usedenies (1) Drug 2 Usedenies (1) Allergies: No Known Allergies: Medications Prior to Admission: Levemir FlexTouch 100 units/mL subcutaneous solution: 10 microcurie subcutaneous once a day (at bedtime) 1 oral capsule: 1 tab(s) orally once a day. Review of Systems: All Other Systems: All other systems reviewed and are negative Objective: Objective Information: T PRBPMAPSpO2 [id number]% Date/Time09/21 0: 1: 1: 1: 1: 1:51 Range(36.8C - 36.8C ) (104 - 117 ) (18 - 18 ) (136 - 157 )/ (74 - 78 ) (99 - 108 ) (98% - 99% ) Pain reported at 09/21 1:11: 0 = None Physical Exam by System: Constitutional: alert, oriented, well appearing Obstetric: fhr 120, moderate variability, accelerations present, decelerations absent toco - irregular ctx bsus - cephalic Eyes: sclera anicteric ENMT: mucus membranes pink and moist Head/Neck: neck supple, no apparent injury Respiratory/Thorax: normal respiratory effort Neurological: no evidence of altered mental status or cognitive impairment Psychological: affect appropriate to situation, bright and reactive, good insight and judgement Skin: no rashes or lesions Recent Lab Results: Results: CBC: 09/20/2021 13:45 \ Hgb / \ 12.7 / WBC Plt 8.3 177 / Hct \ / 36.6 \ RBC: 4.43 MCV: 83 Neutrophil %: 72.7 BMP: 03/29/2021 (more content not included)... [facility] 09-20-2021 Note HPI/OB History: Care Provider: Racquel Lechuga Descriptive Info: HPI Patient is a 26-year-old 1 para 0 at 34-6/7 weeks with an EDC of 10/26/2021. The patient has been complicated By poorly controlled gestational diabetes requiring Levemir in the evenings. -induced hypertension. Regular headaches and secondhand smoke. Patient presented to labor and delivery for a routine NST. However upon presentation she was found to have severe range blood pressures. Preeclamptic labs were ordered and repeated blood pressures were in the high normal or in the severe range. Patient reports good movement no contractions no leaking of fluid no vaginal bleeding. Patient denies headaches visual changes or right upper quadrant pain. Denies any GI upset. Labs: Labs: Labs: Blood Typed Date: 26-Apr-2021 Blood Type: O positive Antibody Screen Results: negative Chlamydia Date: 12-Apr-2021 Chlamydia Results: negative Gonorrhea Date: 12-Apr-2021 Gonorrhea Results: negative Group B Strep Date: 20-Sep-2021 Strep Results: pending result Group B Strep Comments: Currently Collected as of Sep 20 2021 4:15PM GCT (dd-mmm-yy): 01-Aug-2021 GCT result: 197 GTT - Extended (--yy): 11-Aug-2021 GTT - Extended - Fastin GTT - Extended - 1 hour: 193 GTT - Extended - 2 hour: 201 GTT - Extended - 3 hour: 154 HBsAG Date: 26-Apr-2021 HBsAG Results: negative Hemoglobin A1C (dd-mmm-yy): 06-Sep-2021 Hemoglobin A1C: 5.4 % Estimated Average Glucose: 108 HIV Date: 26-Apr-2021 HIV Results: negative Rubella Date: 01-Aug-2021 Rubella Results: pending result Rubella Comments: Result Value null Syphilis (mmm-dd-yyyy): 26-Apr-2021 Syphilis Results: negative Urine Spot (dd-mmm-yy): 20-Sep-2021 Total Protein/Creatinine Ratio: 0.7 Antepartum/: Antepartum/PP: Final [id number] Current EGA:34.6 Patient is > or = 35.0 wks EGAno, EFW is n/a Presentationnot applicable presentation verified bynot applicable Vaginal BleedingNo Contractions/Abdominal PainNo Discharge/Loss of FluidNo MovementGood Hemorrhage Medium Risk Factors (T&S) (2 or more medium risks Go to High Risk section & obtain T&C)magnesium sulfate Hemorrhage Risk Assessmenthemorrhage risk completed on admission Hemorrhage Risk ScorePatient is at Medium Risk for an OB hemorrhage. Order Type & Screen. 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 Asthma, chronic headaches, anxiety disorder Surgical history negative Social History: Social History: Smoking Statusformer smoker (1) Alcohol Usedenies(1) Drug Usedenies (1) Drug 2 Usedenies (1) Allergies: No Known Allergies: Medications Prior to Admission: Admission Medication Reconciliation has not been completed for this patient. Objective: Objective Information: ---- Intake and Output ----- Mn/Dy/Year TimeIntakeOutputNet Sep 20, 2021 2:00 pm000 Physical Exam by System: Constitutional: Awake alert in no physical distress but appears slightly anxious Obstetric: Gravid uterus nontender Head/Neck: Full range of motion Respiratory/Thorax: Clear to auscultation, no wheezing Cardiovascular: Regular rate and rhythm Genitourinary: Deferred Psychological: Appropriately oriented with normal mood and affect Skin: +2 edema NST Interpretation - Baby A: Baseline [id number] Variabilitymoderate (amplitude range 6 to 25 bpm) AccelerationsPresent DecelerationsAbsent Recent Lab Results: Results: CBC: 09/20/2021 13:45 \ Hgb / \ 12.7 / WBC Plt 8.3 177 / Hct \ / 36.6 \ RBC: 4.43 MCV: 83 Neutrophil %: 72.7 BMP: 03/29/2021 01:19 NA+ Cl- BUN / 134 L 102 6 / Glucose 97 K+ HCO3- Creat \ 3.7 21 0.49 L \ Calcium : 9.0 Anion Gap : 15 CMP: 09/20/2021 13:45 NA+ Cl- BUN / 138 105 6 / Glucose 80 K+ HCO3- Creat \ 3.7 26 0.39 L \ \ T Bili / \ 0.3 / AST x ---- x ALT 17 x ---- x 12 / Alk P \ / 164 H \ Calcium : 8.7 Anion Gap : 11 Albumin : 3.0 L T Protein : 6.1 L Assessment and Plan: Assessment: Patient is a 26-year-old 1 para 0 at 34-6/7 weeks with an EDC of 10/26/2021. Patient presented to labor and delivery for an NST secondary to gestational diabetes requiring insulin. She was found to have severe range blood pressures. Recommendations were to transfer her to main [place] for further management after starting magnesium and speaking with Dr. Golden about the potential for transfer as well as steroids. I (more content not included)... [facility] 09-05-2021 History of Present illness Narrative Theo, Saturday is a 26yo At 32.5 consulting [facility] for diabetes management.1hr GCT 197, 3hr GTT with 3 values above goal.Attended Boot camp last week and has been checking BG regularly. Ran out of strips a couple days ago. Will be able to get more from the pharmacy in the next day or two.Eats 3 meals regularly. At night, She usually drinks sugar-free juice and sometimes will have a nighttime snack like fruit with peanut butter.BS Log:Fasting (6/7 above goal)After breakfast: (0/7 above goal)After lunch: (1/7 above goal)After dinner: (1/7 above goal)States she was able to get education about nutrition via [employer]. She has a BP cuff at home that isn t working and hasn't able to log her BP.Reports increased feet swelling and increased lower back pain. Otherwise, no complaints. Good FM, denies VB, LOF, and CTX. History of migraines, but no headaches recently. No SOB.Reports difficulty with transportation and funds for gas. Would be able to make phone/zoom visits. hx notable for:-Asthma,-MigrainesObhx:G1 SABG2 currentGYNx: NILM, HPV neg 04/21/2021, Hx of D&Cx1 for SAB.PMH: asthma, hx of migrainesPSH: as above.SHx: quit smoking during .Fam Hx: PEC in motherAll: MANNIE Azul 320 Work Phone: 08-22-2021 History of Present illness Narrative Height/Weight: UBW 223# (08/22/21), 207# (05/10/21), 197# (03/22/21)Food/Nutrition related history: The visit is for gestational diabetes. Patient lives with her boyfriend.She has food insecurity. She receives SNAP, but said that it doesn't last all month. She has visited food pantries in her area, but the selection is not adequate (no meat) and some of the pantries in her area tell her that they cannot serve her because she doesn't reside inside their service area. Since gas is expensive she also said that traveling to the food pantries is prohibitive. She is on WIC.She has been limiting intake of sweets since her diagnosis, such as eating 1 square of chocolate.She is due October 27, LMP 01/26/21.Typical day:Wakes at 11B: 12-1- higgins, eggs, toastL: 3-4- primarily chicken (breast or nuggets)- pizzaS:- potatoes, friesD: 8 pm- similar to lunch, i.e. chicken/pizza, sometimes red meatBed around 12-1She likes tuna, eggs, frozen or fresh veggies, she eats canned veggies also. She does not like legumes.Food Allergy/Intolerance: Patient has no food allergies. Patient has no food intolerance.Appetite: Good - larger appetite than pre-.Fluid Intake: milk, water and Crystal Light mix sometimes, sometimes juice (apple/orange).GI Symptoms: reflux.Oral Problems: deniesDietary Supplements: ironFood Preparation Cooking: patient and spouse/significant other.Food Preparation Grocery Shopping: patient and spouse/significant other. Nutrition-[facility] Work Phone: 04-12-2021 Note 1 Date of Procedure: 04/12/2021 Pathologist: [facility], Cytology Date Reported: 04/20/2021 Date Received: 04/12/2021 Submitting Physician: RACQUEL LECHUGA M.D. FINAL CYTOLOGICAL INTERPRETATION A. THINPREP PAP CERVICAL: Specimen Adequacy: SATISFACTORY FOR EVALUATION. Quality Indicator: Absence of endocervical/transformation zone component. General Categorization: NEGATIVE FOR INTRAEPITHELIAL LESION OR MALIGNANCY. HIGH RISK HPV TEST RESULT: HPV GENOTYPE 16 NEGATIVE HPV GENOTYPE 18 NEGATIVE HPV GENOTYPE OTHER NEGATIVE Reference Range: Negative Slide(s) initially screened by a Shipyard Painter at [facility], [address] [place] [address] QC review performed at [facility], [address] [place] [address] Testing for high-risk (HR) type of human papilloma virus (HPV) is performed by the Jose Edu[employer] zoë HPV Test. The zoë HPV Test is a qualitative polymerase chain reaction that amplifies DNA of HPV16, HPV18 and 12 other high-risk HPV types (31, 33, 35, 39, 45, 51, 52, 56, 58, 59, 66, and 68) associated with cervical cancer and its precursor lesions. A positive result indicates the presence of HPV DNA due to one or more of the 14 genotypes: 16, 18, 31, 33, 35, 39, 45, 51, 52, 56, 58, 59, 66, and 68. Negative results indicate HPV DNA concentrations are undetectable or below the pre-set threshold for detection. False negative results may be associated with unoptimized sampling. A negative HR HPV result does not exclude the possibility of future cytologic HSIL or underlying CIN2-3 or cancer. This test is approved for cervical specimens by the US Food and Drug Administration. Results of this test should be interpreted in conjunction with the patient?s Pap test results. Please refer to ASC current guidelines for the use of HPV DNA testing, result interpretation, and patient management. The performance of this test was verified by the Molecular Diagnostic Laboratory at [facility]. The lab is certified under the Clinical Laboratory Amendments of 1988 (CLIA 88) as qualified to perform high complexity clinical laboratory testing. This specimen has been analyzed by the [employer] Imaging System ([employer], [employer] an automated imaging and review system, which assists the laboratory in evaluating cells on ThinPrep Pap tests. Following automated imaging, selected warren from every slide were reviewed by a fill plant operator and/or pathologist. Electronically Signed Out By [facility], Cytology//JMD/SLD By the signature on this report, the individual or group listed as making the Final Interpretation/Diagnosis certifies that they have reviewed this case. Educational Note: Cervical cytology is a screening procedure primarily for squamous cancers and precursors and has associated false-negative and false-positive results as evidenced by published data. Your patient?s test should be interpreted in this context, together with patient?s history and clinical findings. Regular sampling and follow-up of unexplained clinical signs and symptoms are recommended to minimize false negative results. Clinical History Date of Last Menstrual Period: 01/19/2021 Other Clinical Conditions: COTEST HPV(Genotype) except for ASC-H, HSIL, Carcinoma - Include HPV Genotype testing Annual Clinical Diagnosis History: with 11 completed weeks gestation - (Z3A.11) Source of Specimen A: THINPREP PAP CERVICAL [facility] Department of Pathology [address] Comment on above: Performed By: #### C #### [facility] Cytology [address] [address] Evaluation + Plan note No data available for this section [facility] Evaluation note Diagnosis Viral infection Unspecified viral infection, in conditions classified elsewhere and of unspecified site documented in this encounter [employer] Phone: evaluation note* Diagnosis Pain, dental- Primary Unspecified disorder of the teeth and supporting structures documented in this encounter [employer] Phone: evaluation note* Diagnosis Low back pain during in first trimester- Primary documented in this encounter [employer] Phone: evaluation note* Psychological: appropriate affect, normal moodNeurological: 2+ reflexesExtremities: no calf tenderness, redness, or swellingGastrointestinal: soft, non-tenderCardiovascular: RRRRespiratory/Thorax: norespiratory distress, normal effort; CTABConstitutional: alert, oriented, NAD, tearfulSkin: no rashes or lesions visualized [facility] NarrativeHeight/Weight: UBWNutrition-N [place] [address] DO Work Phone: Hospital Discharge instructions* Attachments The following attachments cannot be sent through Care Everywhere. * Tooth and Gum Pain (Tuval[place]) documented in this encounterA[facility] HospitalCoty Work Phone: Hospital Discharge instructions* Activity:Return to normal activity as tolerated. * Patient Instructions:Pelvic Rest: DO NOT place anything in vagina until cleared by OB Provider. * Follow-Up - OB Provider:Physician/Dept/Service: OB ProviderCall to Schedule in: 1 weekLocation: [id number]: Flight Operations Engineer order placed for blood pressure check within 7 days of DC * Gold Form - Other Clinicians:Nursing Instructions: Any woman can have complications after the birthof a baby including a blood clot, a heart problem, hypertensive disorder/eclampsia, depression, hemorrhage, or infection. Notify all providers of your delivery date up to one year after .* Call 911 or go to nearest emergency room right away if you have: PAIN or pressure in chest; OBSTRUCTED breathing or shortness of breath; SEIZURES; THOUGHTS of hurting yourself or your baby; heart palpitations/racing; change in alertness/confusion.Call your provider if you have: BLEEDING, soaking through a pad/hour, or blood clots the size of an egg or bigger; INCISION (episiotomy stitches or site) that is not healing (increased redness, pain, drainage/pus, or separation); RED or swollen leg/calf that is painful or warm to touch, especially in one leg more than the other; TEMPERATURE of 100.4 F or higher or chills; HEADACHE that does not get better with medicine, rest or hydration, or bad headache with vision changes like spots or flashing lights; increased swelling of face, hands or legs; severe cramps or upper right belly pain; red or swollen breast that is painful or warm to touch; an unusual, foul odor from your vaginal discharge; pain, burning, or difficulty during urination; severe constipation (more than 5 days); feelings of depression (such as depressed mood, loss of interest in enjoyable things, unable to care for yourself, trouble sleeping, lack of appetite, or feeling worthless). If you can t reach your provider or symptoms worsen, call 911 or go to nearest emergency room. *Information obtained from [facility] s: Save Your Life: Get Care for These POST- Warning SignsOther Clinician Instructions: A few days after your discharge, one of our care coordinators, will be calling you to see how things have been going at home. This phone call also gives you the opportunity to clarify any information on your discharge instructions or ask any questions that may havecome up since leaving the hospital. [facility] No data available for this section [facility] No data available for this section [facility] Summary Purpose Family History Unknown Family Member Name Dates Details Family history of hypertensi on: Grandfather(V17.49, Z82.49) Status:Active Family history of asthma: Mo ther(V17.5, Z82.5) Status:Active Family history of migraine h eadaches: Mother, Father(V17.2, Z82.0) Status:Active Irregular heartbeat: Mother Status:Active Family history of myocardial infarction: Grandfather(V17.3, Z82.49) Status:Active Unknown Family Member Name Dates Details Family history of hypertensi on: Grandfather(V17.49, Z82.49) Status:Active Family history of asthma: Mo ther(V17.5, Z82.5) Status:Active Family history of migraine h eadaches: Mother, Father(V17.2, Z82.0) Status:Active Irregular heartbeat: Mother Status:Active Family history of myocardial infarction: Grandfather(V17.3, Z82.49) Status:Active Unknown Family Member Name Dates Details Family history of hypertensi on: Grandfather(V17.49, Z82.49) Status:Active Family history of asthma: Mo ther(V17.5, Z82.5) Status:Active Family history of migraine h eadaches: Mother, Father(V17.2, Z82.0) Status:Active Irregular heartbeat: Mother Status:Active Family history of myocardial infarction: Grandfather(V17.3, Z82.49) Status:Active Unknown Family Member Name Dates Details Family history of hypertensi on: Grandfather(V17.49, Z82.49) Status:Active Family history of asthma: Mo ther(V17.5, Z82.5) Status:Active Family history of migraine h eadaches: Mother, Father(V17.2, Z82.0) Status:Active Irregular heartbeat: Mother Status:Active Family history of myocardial infarction: Grandfather(V17.3, Z82.49) Status:Active Unknown Family Member Name Dates Details Family history of hypertensi on: Grandfather(V17.49, Z82.49) Status:Active Family history of asthma: Mo ther(V17.5, Z82.5) Status:Active Family history of migraine h eadaches: Mother, Father(V17.2, Z82.0) Status:Active Irregular heartbeat: Mother Status:Active Family history of myocardial infarction: Grandfather(V17.3, Z82.49) Status:Active Unknown Family Member Name Dates Details Family history of hypertensi on: Grandfather(V17.49, Z82.49) Status:Active Family history of asthma: Mo ther(V17.5, Z82.5) Status:Active Family history of migraine h eadaches: Mother, Father(V17.2, Z82.0) Status:Active Irregular heartbeat: Mother Status:Active Family history of myocardial infarction: Grandfather(V17.3, Z82.49) Status:Active Unknown Family Member Name Dates Details Family history of hypertensi on: Grandfather(V17.49, Z82.49) Status:Active Family history of asthma: Mo ther(V17.5, Z82.5) Status:Active Family history of migraine h eadaches: Mother, Father(V17.2, Z82.0) Status:Active Irregular heartbeat: Mother Status:Active Family history of myocardial infarction: Grandfather(V17.3, Z82.49) Status:Active Unknown Family Member Name Dates Details Family history of hypertensi on: Grandfather(V17.49, Z82.49) Status:Active Family history of asthma: Mo ther(V17.5, Z82.5) Status:Active Family history of migraine h eadaches: Mother, Father(V17.2, Z82.0) Status:Active Irregular heartbeat: Mother Status:Active Family history of myocardial infarction: Grandfather(V17.3, Z82.49) Status:Active Unknown Family Member Name Dates Details Family history of hypertensi on: Grandfather(V17.49, Z82.49) Status:Active Family history of asthma: Mo ther(V17.5, Z82.5) Status:Active Family history of migraine h eadaches: Mother, Father(V17.2, Z82.0) Status:Active Irregular heartbeat: Mother Status:Active Family history of myocardial infarction: Grandfather(V17.3, Z82.49) Status:Active Unknown Family Member Name Dates Details Family history of hypertensi on: Grandfather(V17.49, Z82.49) Status:Active Family history of asthma: Mo ther(V17.5, Z82.5) Status:Active Family history of migraine h eadaches: Mother, Father(V17.2, Z82.0) Status:Active Irregular heartbeat: Mother Status:Active Family history of myocardial infarction: Grandfather(V17.3, Z82.49) Status:Active Unknown Family Member Name Dates Details Family history of hypertensi on: Grandfather(V17.49, Z82.49) Status:Active Family history of asthma: Mo ther(V17.5, Z82.5) Status:Active Family history of migraine h eadaches: Mother, Father(V17.2, Z82.0) Status:Active Irregular heartbeat: Mother Status:Active Family history of myocardial infarction: Grandfather(V17.3, Z82.49) Status:Active Unknown Family Member Name Dates Details Family history of hypertensi on: Grandfather(V17.49, Z82.49) Status:Active Family history of asthma: Mo ther(V17.5, Z82.5) Status:Active Family history of migraine h eadaches: Mother, Father(V17.2, Z82.0) Status:Active Irregular heartbeat: Mother Status:Active Family history of myocardial infarction: Grandfather(V17.3, Z82.49) Status:Active Unknown Family Member Name Dates Details Family history of hypertensi on: Grandfather(V17.49, Z82.49) Status:Active Family history of asthma: Mo ther(V17.5, Z82.5) Status:Active Family history of migraine h eadaches: Mother, Father(V17.2, Z82.0) Status:Active Irregular heartbeat: Mother Status:Active Family history of myocardial infarction: Grandfather(V17.3, Z82.49) Status:Active Unknown Family Member Name Dates Details Family history of hypertensi on: Grandfather(V17.49, Z82.49) Status:Active Family history of asthma: Mo ther(V17.5, Z82.5) Status:Active Family history of migraine h eadaches: Mother, Father(V17.2, Z82.0) Status:Active Irregular heartbeat: Mother Status:Active Family history of myocardial infarction: Grandfather(V17.3, Z82.49) Status:Active Unknown Family Member Name Dates Details Family history of hypertensi on: Grandfather(V17.49, Z82.49) Status:Active Family history of asthma: Mo ther(V17.5, Z82.5) Status:Active Family history of migraine h eadaches: Mother, Father(V17.2, Z82.0) Status:Active Irregular heartbeat: Mother Status:Active Family history of myocardial infarction: Grandfather(V17.3, Z82.49) Status:Active Unknown Family Member Name Dates Details Family history of hypertensi on: Grandfather(V17.49, Z82.49) Status:Active Family history of asthma: Mo ther(V17.5, Z82.5) Status:Active Family history of migraine h eadaches: Mother, Father(V17.2, Z82.0) Status:Active Irregular heartbeat: Mother Status:Active Family history of myocardial infarction: Grandfather(V17.3, Z82.49) Status:Active Unknown Family Member Name Dates Details Family history of hypertensi on: Grandfather(V17.49, Z82.49) Status:Active Family history of asthma: Mo ther(V17.5, Z82.5) Status:Active Family history of migraine h eadaches: Mother, Father(V17.2, Z82.0) Status:Active Irregular heartbeat: Mother Status:Active Family history of myocardial infarction: Grandfather(V17.3, Z82.49) Status:Active Unknown Family Member Name Dates Details Family history of hypertensi on: Grandfather(V17.49, Z82.49) Status:Active Family history of asthma: Mo ther(V17.5, Z82.5) Status:Active Family history of migraine h eadaches: Mother, Father(V17.2, Z82.0) Status:Active Irregular heartbeat: Mother Status:Active Family history of myocardial infarction: Grandfather(V17.3, Z82.49) Status:Active Unknown Family Member Name Dates Details Family history of myocardial infarction: Grandfather(V17.3, Z82.49) Status:Active Irregular heartbeat: Mother Status:Active Family history of migraine h eadaches: Mother, Father(V17.2, Z82.0) Status:Active Family history of asthma: Mo ther(V17.5, Z82.5) Status:Active Family history of hypertensi on: Grandfather(V17.49, Z82.49) Status:Active Advance Directives Documents on File Type Date Recorded Patient Mineral Surveying Technician Expl anation Advance Directives and Living Will Power of Retail Sales Manager Documents on File Type Date Recorded Patient Mineral Surveying Technician Expl anation ACP-Advance Directive ACP-Power of Retail Sales Manager Discharge Instructions * Attachments The following attachments cannot be sent through Care Everywhere. * Abdominal Pain ([place]) * Vaginal Bleeding ([place]) documented in this encounter Assessments Diagnosis Lower abdominal pain Abdominal pain, other specified site Menorrhagia with regular cycle Excessive or frequent menstruation Diagnosis Suspected COVID-19 virus infection Chief Complaint * Pt here for MFM consult * Referred By: Dr. Racquel Lechuga * Chain Person: Declined Reason for Referral * sPEC No data available for this section No data available for this section No data available for this section No data available for this section No data available for this section Additional Source Comments INFORMATION SOURCE (unrecogn ized section and content) DATE CREATED AUTHOR 06/29/2018 [facility] DATE CREATED AUTHOR AUTHOR'S ORGANIZ ATION 03/19/2021 [facility] DATE CREATED AUTHOR AUTHOR'S ORGANIZ ATION 03/21/2021 [facility] DATE CREATED AUTHOR AUTHOR'S ORGANIZ ATION 09/07/2021 [facility] DATE CREATED AUTHOR AUTHOR'S ORGANIZ ATION 10/18/2021 [facility] DATE CREATED AUTHOR AUTHOR'S ORGANIZ ATION 11/25/2021 [facility] DATE CREATED AUTHOR AUTHOR'S ORGANIZ ATION 01/09/2022 [facility] DATE CREATED AUTHOR AUTHOR'S ORGANIZ ATION 02/21/2023 [facility] Reason for Visit (unrecogniz ed section and content) Reason Comments Abdominal Pain pt states she has lo w abd pain and low back pain with vaginal bleeding for 4 days. she states she is changing her pad every hour and also passing clots. Reason Comments Dental Pain tooth pain upper lef t side Reason Comments Routine Visit Pt states I hav e not been able to have my 8 week ultrasound and they rescheydoled me once already patient supposed to have ultrasound wedneday with doctor Pt states I am high risk and i need this done Pt says she is high risk but was not sure how to explain how she is high risk. Ordered Prescriptions (unrec ognized section and content) Prescription Sig Dispensed Refills Start Date End Da te penicillin v potassium (VEETID) 500 MG tablet Take 1 tablet by mouth 4 times daily for 10 days 40 tablet 0 02/07/2021 02/17/2021 ketorolac (TORADOL) 10 MG tablet Take 1 tablet by mouth every 8 hours as needed for Pain 15 tablet 0 02/07/2021 PRN Active and Recently Administ ered Medications (unrecognized section and content) Medication Order 02/05/2021 02/06/2021 02/07/2021 benzocaine (ORAJEL) 20 % mucosal gel Mouth/Throat, 3 TIMES DAILY PRN, Pain, Starting on Sat02/07/21 at 1801 1808 (Given - Provid er: Hermelinda Saab RN) lidocaine viscous hcl (XYLOCAINE) 2 % solution 15 mL 15 mL, Mouth/Throat, EVERY 3 HOURS PRN, Irritation, Starting on Sat02/07/21 at 1800 1808 (Given - Provid er: Hermelinda Saab RN) Care Teams (unrecognized sec tion and content) Personnel Name: Magali Zhong DO Address: Address: [address] [facility], [facility], [facility] [address] Name: Juliette ROGEL CNP Address: Address: [address] Name: Mayte Rodriguez Address: Address: [address] [employer] Relationship Specialty Start Date End Date Jesus Jessica DO [address] [place] [address] PCP - General Family Medicine 05/25/20 <item><item><item> Privacy Markings (unrecogniz ed section and content) Section Author: Annmarie Pineda PROHIBITION ON REDISCLOSURE OF CONFIDENTIAL INFORMATION This notice accompanies a disclosure of information concerning a client made to you with the consent of such client. Section Author: Annmarie Pineda PROHIBITION ON REDISCLOSURE OF CONFIDENTIAL INFORMATION This notice accompanies a disclosure of information concerning a client made to you with the consent of such client. Section Author: Annmarie Pineda PROHIBITION ON REDISCLOSURE OF CONFIDENTIAL INFORMATION This notice accompanies a disclosure of information concerning a client made to you with the consent of such client. FOR RECORDS PERTAINING TO PATIENTS WHO ARE OR HAVE BEEN ENROLLED IN A CHEMICAL DEPENDENCY/SUBSTANCEABUSE PROGRAM, SOME INFORMATION MAY BE OMITTED. This clinical summary was aggregated from multiple sources. Caution should be exercised in using it in the provision of clinical care. This summary normalizes information from multiple sources, and as a consequence, information in this document may materially change the coding, format and clinical context of patient data. In addition, data may be omitted in some cases. CLINICAL DECISIONS SHOULD BE BASED ON THE PRIMARY CLINICAL RECORDS. [facility]. provides no warranty or guarantee of the accuracy or completeness of information in this document.
[2023-09-12 08:52] LABS: HCG Qualitative Urine* NEGATIVE (NEGATIVE)
--- NOTE | 2023-09-12 08:58 | ED_ITS ---
HPI - Dental/Oral General Chief complaint: Dental/Oral Stated complaint: MOUTH PAIN, ABDOMINAL PAIN Time Seen by Provider: 09/12/23 07:56 Source: patient Mode of arrival: walk-in Limitations: no limitations History of Present Illness HPI Narrative: 28-year-old female to the emergency department with chief complaint of worsening dental pain. She reports a dental caries/tooth fracture that has been ongoing for the last year. She is getting particularly bad pain as well as some redness and warmth to her face. She has not seen a dentist for this. Unknown status. Related Data Home Medications ?Medication ?Instructions ?Recorded ?Confirmed prednisone 20 mg tablet 20 mg PO DAILY 01/31/23 01/31/23 Previous Rx's ?Medication ?Instructions ?Recorded dicyclomine 20 mg tablet 20 mg PO QID PRN abdominal pain 01/31/23 #12 tabs ondansetron 4 mg disintegrating 4 mg PO Q6H PRN nausea and 01/31/23 tablet vomiting #12 tabs hydrocodone 5 mg-acetaminophen 325 1 tab PO Q6H PRN pain 1 day #4 tabs 09/12/23 mg tablet naproxen 500 mg tablet 500 mg PO BID PRN pain #14 tabs 09/12/23 penicillin V potassium 500 mg 500 mg PO Q6H 7 days #28 tabs 09/12/23 tablet Allergies Allergy/AdvReac Type Severity Reaction Status Date / Time No Known Drug Allergies Allergy Verified 10/04/22 21:58 Review of Systems ROS Status of ROS 10 or more systems reviewed and unremark able except as noted in history and [facility] Smoking status: Never smoker Exam Narrative Exam Narrative: VITALS: I have reviewed the triage vital signs. GENERAL: Well developed, well appearing adult female in no acute distress. NEURO: Alert and oriented. Moves all extremities. Face is symmetric and expr essive. EYES: PERRL. No scleral icterus or conjunctival injection. No discharge. HENT: Normocephalic, atraumatic. Hearing is grossly intact. Nares grossly patent and without discharge. Mucous membranes moist. Generally poor dentition. There is a large carry about tooth 15 on the anterior surface. There is some surrounding gingival erythema. There is no abscess. There is no redness, warmth, swelling to the face or neck. NECK: No JVD. Patient moves neck without restriction. EXTREMITIES: Symmetric muscle bulk. No joint swelling. No clubbing, cyanosis, or deformity. SKIN: Warm and dry. Normal turgor. No rash or lesions appreciated. PSYCH: Mood, affect, and interaction is appropriate to the setting. Constitutional Vital Signs, click to edit/add: Last Vital Signs Temp 99.0 F 09/12/23 07:57 Pulse 87 09/12/23 07:57 Resp 18 09/12/23 07:57 BP 143/79 H 09/12/23 07:57 Pulse Ox 98 09/12/23 07:57 Course Vital Signs Vital signs: Vital Signs Temperature 99.0 F 09/12/23 07:57 Pulse Rate 87 09/12/23 07:57 Respiratory Rate 18 09/12/23 07:57 Blood Pressure 143/79 H 09/12/23 07:57 Pulse Oximetry 98 09/12/23 07:57 Temperature 99.0 F 09/12/23 07:57 Pulse Rate 87 09/12/23 07:57 Respiratory Rate 18 09/12/23 07:57 Blood Pressure 143/79 H 09/12/23 07:57 Pulse Oximetry 98 09/12/23 07:57 MDM - Dental/Oral MDM Narrative Medical decision making narrative: 28-year-old female to the emergency department with dental pain. Vital stable, the patient is afebrile. There is no evidence of deep space infection. She appears to have a severe tooth caries with exposed nerve. I recommended that the patient follow-up with dentist. She will be treated with naproxen, penicillin, Stuart for severe breakthrough pain. Her OARRS was reviewed. Return precautions were discussed. All questions were answered. The patient was discharged home. Differential Diagnosis Differential diagnosis: Likely gingival abscess, dental caries, toothache, dental abscess and fracture of tooth Medical Records Attestation: I reviewed the patient's medical records. Lab Data Attestation: I reviewed the patient's lab results. Labs: Lab Results 09/12/23 Range/Units 08:32 Urine HCG, Qual Negative (NEGATIVE) Discharge Plan Discharge Stand Alone Forms: Portal Instructions Chief Complaint: Dental/Oral Clinical Impression: Toothache, Dental caries Patient Disposition: Home, Self-Care Time of Disposition Decision: 08:54 Condition: Good Mode of Transportation: Private Vehicle Prescriptions / Home Meds: New penicillin V potassium 500 mg tablet 500 mg PO Q6H 7 Days Qty: 28 0RF naproxen 500 mg tablet 500 mg PO BID PRN (Reason: pain) Qty: 14 0RF hydrocodone-acetaminophen 5-325 mg tablet 1 tab PO Q6H PRN (Reason: pain) 1 Days Qty: 4 0RF No Action prednisone 20 mg tablet 20 mg PO DAILY dicyclomine 20 mg tablet 20 mg PO QID PRN (Reason: abdominal pain) Qty: 12 0RF ondansetron 4 mg tablet,disintegrating 4 mg PO Q6H PRN (Reason: nausea and vomiting) Qty: 12 0RF Print Language: Serbian Instructions: Toothache (ED) Additional Instructions: Seek immediate medical attention if you develop: increasing pain, swelling of your face, redness of your face, difficulty swallowing, difficulty breathing, drooling, or any new or worsening symptoms. You need to follow-up with a dentist within the next 3 days for evaluation. Referrals: Physician,Non-Staff, MD [Primary Care Provider] - 1 week
[2023-09-12] MEDS: IBUPROFEN 400 MG TABLET 800 MG PO (09:15)
[2023-09-12 09:20] VITALS: BP 133/79; PULSE 88; O2SAT 98
== END 2023-09-12 09:21 | disposition home or self-care (01) ==
PROVIDERS: Emergency Provider Student in an Organized Health Care Education/Training Program
DX: K08.89 Other specified disorders of teeth and supporting structures (principal); K02.9 Dental caries, unspecified
CPT/HCPCS: 84703; 99283

== ENCOUNTER 2023-11-22 09:06 | Emergency (ER) | payer OTHER, SELFPAY ==
[2023-11-22 09:26] VITALS: BP 126/84; PULSE 79; TEMP 36.8; O2SAT 97; BMI 29.9
--- OUTSIDE RECORDS SUMMARY | 2023-11-22 09:31 | XMS_ITS | CCD ---
Author Organization [facility] Care Team Providers Care Filer Finish Name Role Phone NOHEMI TOM Attending Unavailable [...] Admitting Unavailable VARSHA, DR SALAMANCA Attending Unavailable REQUEST, DR VU LISTED Primary Care Unavaila DR JADYN Yusuf Consulting Unavailable DR JAMEE MCGOWAN Consulting Unavailable Magali Zhong Primary Care Physician Juliette ROGEL Unavailable Mayte Hahn Unavailable HINA KO Attending Unavailable Luigi King Attending Unavailable HINA KO Attending Unavailable Dk De León Attending Unavailable Allergies Allergy Classification Reported Allergen(s) Allergy Type Date of Onset Reaction(s) Facility (6 sources) Acetaminophen; Translations: [acetaminophen] Drug Allergy Palpitations [facility] Medications Current Medications Medication Drug Class(es) Dates [...] oral solution (1 source) alpha-Adrenergic Agonist, Uncompetitive P-kgqkfb-X-aspartate Receptor Antagonist, Sigma-1 Agonist Start: 02-04-2023 End: 02-09-2023 take 5 mL by mouth every six hours brompheniramine/d extromethorphan/P SE 2 mg-10 mg-30 mg/5 mL oral syrup 5 mL, Oral, q6hr for cold symptoms for 5 day(s), 120 mL, Refill(s) 0, [facility] #[id number], 170, cm, 02/04/23 14:52:00 EST, Height/Length Dosing, [...] Nausea/Vomiting, # 12 tab(s), Refills(s) 0, Pharmacy: [facility] #[id number], 170, cm, 04/20/23 14:38:00 EST, Height/Length Dosing, [...] PRN Quantity: 120 Refills: 10 Ordered: 12-Apr-2021 Racquel Lechuga DO Start : 12-Apr-2021 Active Start: 11-18-2020 ondansetron [...] day(s), # 10 tab(s), Refills(s) 0, Pharmacy: [facility] #[id number], 170, cm, 01/29/23 15:20:00 EDT, Height/Length Dosing, 88.7, kg, 01/29/23 15:20:00 EDT, Weight Dosing Start Date: 01/29/23 Stop Date: 02/03/23 Status: Ordered Start: 01-17-2023 End: 01-22-2023 take 1 tablet by mouth once daily predniSONE 20 mg Tab 20 mg = 1 tab(s), Oral, Daily, X 5 day(s), # 5 tab(s), Refills(s) 0, Pharmacy: [facility] #[id number], 168, cm, 01/17/23 12:52:00 EDT, Height/Length Dosing, [...] TID eczema rash, 60 gm, Refill(s) 0, [facility] #[id number], 170, cm, 04/20/23 14:38:00 EST, Height/Length Dosing, [...] Wheezing 120 each 3 06/17/2020 Active Start: 02-24-2021 take 2 puff(s) by in halation four [...] physician. Quantity: 1 Refills: 5 Ordered: 05-Sep-2021 Alpesh GUALLPA, Lissluca Start : 05-Sep-2021 Active Please assist [facility] [place] assistance if needed. Levemir FlexTouc [...] DAILY. Quantity: 60 Refills: 10 Ordered: 12-Apr-2021 Lechuga DO Racquel Start : 12-Apr-2021 Active Vitamin 27-0.8 [...] Start : 10-May-2021 Active polyethylene glycol 3350 32170 mg powder for oral solution (13 sources) Osmotic Laxative Start: 05-10-2021 Polyethylene Glycol 3350 17 GM Oral Packet MIX 1 PACKET IN 8 OUNCES OF LIQUID AND DRINK ONCE DAILY. Quantity: 30 Refills: 10 Ordered: 10-May-2021 Racquel Lechuga DO Start : 10-May-2021 Active Pre- Formula TABS (19 sources) Pre-Darrick Formul a TABS Quantity: 0 Refills: 0 [...] Consent for Treatmenton 01-30 Consent for Treatment [id number] [facility] ED Clinical Summaryon 2022 ED Clinical Summary [address] [address] ED Clinical Summary Person Information Name: THEO Saturday Suzanne/[place] Age: 27 Years : 1995 Sex: Female Language: Citizen Of [place] PCP: Magali Zhong DO Marital Status: Single Phone: [phone] Visit Id: Visit Reason: Rash; RASH ON [...] 02/17/2023 16:16:17 02/17/2023 16:16:17 02/17/2023 16:16:17 ADDRESS: [address] [place] [phone] [facility] DOC NOTES: MEDICAL INFORMATION: Prescriptions Given: Medications to Continue with No Changes Other Medications dicyclomine (dicyclomine 20 mg Tab) ondansetron (ondansetron 4 mg Dis Tab) PATIENT EDUCATION INFORMATION: Instructions: Follow up: DIAGNOSIS: [facility] ED Patient Education Noteon 02-17-2023 ED Patient Education Note [facility] ED Patient Summaryon 023 ED Patient Summary (Inserted Image. Yeni ble to display) [place] [id number] Patient Discharge Instructions Person Information Name: THEO Saturday Age: 27 Years Arrival Date: 02/17/2023 15:00:40 Discharge Diagnosis: Primary Care Physician: Magali Zhong DO Provider Information Primary Provider: Advanced Senior Technical Editor:None The exam and treatment you received in the Emergency Department were for an urgent problem and are not intended as complete care. It is important that you follow up with a doctor, nurse practitioner, or physician?s enrichment assistant for ongoing care. If your symptoms [...] opioids can be used to help relieve lgehsgtg-pw-ozccin pain and are often prescribed following a [...] be struggling with addiction, tell your health day care home mother and ask for guidance or call [facility] National Helpline at 8-131-023-EHCB. t Source: US Department of Health and Human Services/Center for Disease Control & Prevention [facility] Medications Given: Medication Dose Route No medications found. Medication Information: (more content not included)... [facility] Family Medicine Office/Clini c Noteon 02-04-2023 [...] with voice recognition software. Occasional wrong-word or ?yubbo-r-spws? 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 He has no other concerns at this [...] did give patient information for providers within [facility] system in addition to pamphlet for PCP and family health services here in [place]. Discussed with her that they also have not been at the office that she does work at [employer] and did not ski. Patient is [...] are cons (more content not included)... [facility] Comment on above: Result Comment: Elec [...] oral rehydration solution (ORS). This is an mrao-mcf-zukvnpt medicine that helps return your body to [...] sports drinks, and soda. ? Eat bland, dzbe-mf-hvsjbg foods in small amounts as you are able. These foods include bananas, applesauce, rice, lean meats, toast, and crackers. ? Avoid alcohol. ? Avoid spicy or fatty foods. Medicines ? Take gtgj-rtg-dzwdjub and prescription medicines only as told by your health care provider. ? If you were prescribed an antibiotic medicine, take it as told by your health care provider. Do not stop using the antibiotic even if you start to feel better. General instructions ? Wash your hands often using soap and water. If soap and water are not available, use a hand teletype or varitype keyboard operator. Others in the household should wash their [...] and water are not available, use hand teletype or varitype keyboard operator. ? Contact a health care provider if your diarrhea gets worse or you have new symptoms. ? Get help right away if you have signs of dehydration. This information is not intended to replace advice given to you by your health care provider. Make sure you discuss any questions you have with your health care provider. Document Revised: 09/27/2021 Document Reviewed: 09/27/2021 KDS Patient Education ? 2022 [employer]. Upper Respiratory Infection, Adult An upper [...] nose. ? (more content not included)... [facility] Patient Letter FTMCon 2022 Patient Letter [facility] [address], [place] [phone] February 04, 2023Saturday THEO [address] [place] [address] : 1995 Please excuse , SATURDAY S from work . Date and/or Time of Absence: From: 02/04/23 To: 02/06/23 May return to work on: 02/06/23 Restrictions: None Comments: Please excuse due to an acute illness. Provider Signature: Luigi King PA-C Physician Dry Paste Supervisor [facility] [address] [place] [address] [facility] [place] 01-30-2023 Consent [id number] [facility] Family Medicine Office/Clini c Noteon 01-29-2023 Family Medicine Office/Clinic Note Chief Complaint lower back pain HPI Staff 27 yr old female here for lower back pain. hx of scoliosis. History of Present Illness I have reviewed and verified the staff HPI to be accurate for this encounter. Portions of this record have been created with voice recognition software. Occasional wrong-word or ?xwryz-d-lxsy? substitutions may have occurred due to the inherent limitations of voice recognition software. 27 yo female presents today with cc of severe back pain. Patient states she has had intermittent back pain x1 week duration. She denies any falls trauma or injuries. 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 in which she is on her [...] provided with a list of providers within [facility] in addition to family health services pamphlet. [...] day(s), # 10 tab(s), Refills(s) 0, Pharmacy: [facility] #[id number], 170, cm, 01/29/23 15:20:00 EDT, Height/Length Dosing, 88.7, kg, 01/29/23 15:20:00 EDT, Weight Dosing 2. Former smoker (more content not included)... [facility] Comment on above: Result Comment: Elec [...] numbers. This can be done either in [place] or metric measurements. Note that charts and online BMI calculators are available to help you find your BMI quickly and easily without having to do these calculations yourself. To calculate your BMI in [place] ([place] measurements: 1. Measure your weight in [...] for Disease Control and Prevention: www.cdc.gov ? [place] [employer]: www.heart.org ? National Heart, Lung, and Blood [place]: www.nhlbi.nih.gov Summary ? Body mass index (BMI) is a number that is calculated from a person's weight and height. ? BMI may help estimate how much of a person's weight is composed of fat. BMI can help identify those who may be at higher risk for certain medical problems. ? BMI can be measured using [place] measurements or metric measurements. ? BMI charts are used to identify whether you are underweight, normal weight, overweight, or obese. This information is not intended to replace advice given to you by your health care provider. Make sure you discuss any questions you have with your health care provider. Document Revised: 12/09/2019 Document Reviewed: 10/16/2019 ElseTheorem Patient Education ? 2022 [employer]. Orthopedics Acute Back Pain, Adult Acute [...] find t (more content not included)... [facility] Patient Letter FTMCon 2022 Patient Letter [facility] [address], [place] [id number] January 29, 2023Saturday THEO [address] [place] [address] : 1995 Please excuse THEO, SATURDAY S from work . Date and/or Time of Absence: From: 01/29/23 To: 01/31/23 May return to work on: 01/31/23 Restrictions: None Comments: Please excuse due to an acute illness. Provider Signature: Luigi King PA-C Physician Dry Paste Supervisor [facility] [address] [place] [address] [facility] Family Medicine Office/Clini c Noteon 01-17-2023 Family Medicine Office/Clinic Note Chief Complaint EST runny nose stomach pain HPI Staff 27 year old female presents with runny nose and stomach pain for 2 nights History of Present Illness Reviewed and agree with above documented HPI by medical reviewer. Portions of this record may have been created with voice recognition artificial intelligence software, specifically [employer], [employer] and or [employer]. Substitutions may have occurred due to the inherent limitations of voice recognition and artificial intelligence software. Patient is a 27-year-old female who presents to [facility] care, for clear nasal drainage, sinus congestion, [...] negative COVID-19 results. 27-year-old female presents to [facility] care, for viral illness started 2 days ago, had abdominal pain, which subsided, send no nausea or vomiting, patient did appear ill but not septic, no respiratory disorder or difficulty swallowing was noted. Patient was given a prescription for prednisone, instructed take jkwg-pwh-fqffdxt Tylenol as needed for body aches, fevers, or headaches. Drink plenty water stay hydrated. Given a work excuse note. Patient agree with the plan. 1. Viral illness (B34.9: Viral infection, unspecified) See above Ordered: predniSONE, 20 mg = 1 tab(s), Oral, Daily, X 5 day(s), # 5 tab(s), Refills(s) 0, Pharmacy: [facility] #[id number], 168, cm, 01/17/23 12:52:00 EDT, Height/Length Dosing, 88.7, kg, 01/17/23 12:52:00 EDT, Weight Dosing Rapid COVID POC [id number] Follow-up With When Contact Information Magali Zhong DO Additional Instructions: Patient Education Viral Respiratory Infection, Qteb-Ex-Jopa Problem List/Past Medical History Ongoing Smoker Viral [...] 08/07/2016 Famil (more content not included)... [facility] Comment on above: Result Comment: Elec [...] home: Managing pain and congestion ? Take zhyc-cfq-cviotyb and prescription medicines only as told by [...] cannot use soap and water, use hand teletype or varitype keyboard operator. ? Cover your mouth when you cough. [...] provider. Document Revised: 06/22/2021 Document Reviewed: 06/22/2021 ElseTheorem Patient Education ? 2022 [employer]. [facility] Patient Letter FTon 2022 Patient Letter [facility] [address] [place] [address] January 17, 2023Saturday THEO [address] [place] [address] : 1995 Please excuse THEO, SATURDAY S from work . Date and/or Time of Absence: From: 01/17/23 May return to work on: 01/18/23 Restrictions: None Comments: Please excuse due to an acute illness. Provider Signature: Hina Ko PA-C [facility] [address] [place] [address] [facility] XR CHEST 2 Von 01-08-2022 XR [...] MCGOWAN Date: 2022-01-08 16:32 Normal [facility] ABO/RH GROUP TESTon 09-26-19 22 RH TYPE Positive [facility] Comment on above: Performed By: #### V ERAB #### [facility] [address] [place] [address] Clinical Event Note-BP Cuffo n 09-25-2021 Clinical [...] 25-Sep-2021 10:54 by Cira Mercado (RN) [facility] Clinical Note - Pharmacy v2o n 09-25-2021 Clinical Note - Pharmacy v2 Clinical Note - Pharmacy v2: Discharge Meds: Prescription Pony Ride Attendant Medications Home Medications Review Status for Reconciliation: [...] -.Meds to Beds Medications Delivered Topatient Delivery Date/Waeu15-[id number]-6504 11:29 Education TopicADR counseling; dosage, frequency, storage; medication indication Learnerpatient Barriers to Learningnone Methodverbal Outcome Evaluation2=meets goals/outcomes Allergy: Allergies Summary No Known Allergies Electronic Signatures: Kwabena Duarte (PharmD) (Signed 25-Sep-2021 13:29) Authored: Discharge Meds, Allergy Last Updated: 25-Sep-2021 13:29 by Kwabena Duarte (PharmD) [facility] Order Reconciliationon 09-25 Order Reconciliation Page 1 Discharge Reconciliation Document Reconciliation Type: Discharge requested on behalf of Vanda Valle (Advanced Practice Nurse) done by Vanda Valle (BREAD STACKER-MAIL PROCESSOR) Discharge - Reconciliation: 25-Sep-2021 08:41 by: Vanda Valle (BREAD STACKER-MAIL PROCESSOR) Home Medications EnteredHOME MEDICATIONS AT DISCHARGE DateReconciliation [...] required Benzocaine 20% - Menthol 0.5% Topical [place] (DERMOPLAST)DOSE = 1 application(s) Topical 4 Times [...] receiving A (more content not included)... [facility] Daily Progress Note - OB-Pos t-partumon 09-24-2021 Daily Progress Note - AD-Yyfq-xzrkcr Current Stage: Stage: Post- Subjective Data: Post [...] care. Objective Information: Objective Information: T PRBPMAPSpO2 [id number]% Date/Time09/24 12: 12: 12: 12: 12: 12:29 [...] 21:39 by Ladan Cowan ( (Fellow)) [facility] Clinical Event Note-Mag Chec megan 09-23-2021 Clinical Event Note-Mag Check Clinical Event: Clinical Event Note: TopicMag Check Details air crew officer at bedside for Mag check. Pt denying VENEGAS, changes in vision, shortness of breath, or right upper quadrant pain. Vitals below. Physical Exam: General: well-appearing Cardiac: S1/S2, no murmurs Pulm: LCTA, bilateral chest expansion wnl GI: nontender to palpation MSK: ROM intact Neuro: 2+ reflexes bilaterally UOP adequate. sPEC -Diagnosed by severe range BPs requiring IV antihypertensives -s/p IV hydral 08/08, 5, 5 (1315 09/21) -PO Nifedipine 90mg (09/21 @1999) -HELLP labs neg x2 -P:C 0.7 -Asymptomatic -Mg @ 2g/hr Maciej Betts, PGY3 d/w Dr. Delgado Obstetrics & Gynecology Objective Information T PRBPMAPSpO2 [id number]/3169086% Date/ 23: 1: 23: 1: 1: 1:06 [...] 01:13 by Maciej Betts ( (Resident)) [facility] Daily Progress Note - OB-Pos t-partumon 09-23-2021 Daily Progress Note - AL-Abzz-cvcrkp Current Stage: Stage: Post- Subjective Data: Post : : Resting comfortably. Denied VENEGAS, changes in vision, shortness of breath, or RUQ pain. No acute concerns voiced. Pain is well controlled. Objective Information: Objective Information: T PRBPMAPSpO2 Value36.72316751/354583% Date/Time09/23 1: 5: 4: 4: 4: 5:01 [...] ----- Mn/Dy/Year TimeIntakeOutputNet Sep 21, 2021 10:00 [id number] Sep 21, 2021 2:00 [id number] Sep 21, 2021 6:00 [id number] The Intake and Output Totals for the last 24 hours are: IntakeOutputNet [id number] Physical Exam: Constitutional: alert, oriented, NAD Obstetric: [...] the note. I personally evaluated the patient [id number] Electronic Signatures: Maciej Betts ( (Resident)) (Signed 23-Sep-2021 06:10) Authored: Current Stage, Subjective Data, Objective Data, Assessment and Plan, Note Completion Chad Brian) (Signed 23-Sep-2021 06:43) Authored: Note Completion Co-Signer: Current Stage, Subjective Data, Objective Data, Assessment and Plan, Note Completion Last Updated: 26-Sep-2021 10:02 by Dallin Santillan) [facility] Discharge Planning [id number] 0 09-23-2021 Discharge Planning Note2 Discharge Planning: Anticipated Discharge [id number] Discharge Planning Date and Time: 09/23/2021 @ 0540 Nursing Note/Admission/Health Maintenance: D: Patient admitted to the STATISTICAL DEVELOPER unit from L&D Patient admitted for or [...] to assess home going/discharge needs. Coordinate with Stringing Machine Operator as needed. Signature: Chris Stern RN Assessment: Discharge Planning Assessment [id number] Lives Withsignificant other(1) [place] ([place]) Resource/Environmental Concernsnone(1) Anticipated Transition [place](1) Services Anticipated at Transitionnon(1) Discharge Documentation: [place] DNR Form Sent with Patient and/or Familyn/a Electronic Signatures: Zandra Stern) (Signed 23-Sep-2021 05:45) Authored: Discharge Planning, Assessment, Discharge Documentation Last Updated: 23-Sep-2021 05:45 by Zandra Stern (MARK) References: 1. Data Referenced From Patient Profile - OB v3 21-Sep-2021 00:19 [facility] Discharge Hyhrpbh9oh 022 Discharge Profile2 Discharge Orders: Anticipated Discharge Date: Anticipated Discharge [id number] DNAR: Code Status at Discharge: Full Code [...] 110 or higher, call your doctor or accounts receivable bookkeeper immediately. Blood Pressure Systolic (upper number) 150 - 159 OR Diastolic (bottom number) 100 - 109, repeat in one hour. If repeat Blood Pressure Systolic 150 - 159 OR Diastolic 100 - 109, call your doctor or accounts receivable bookkeeper to discuss blood pressure management.. Follow-Up - OB Provider: Physician/Dept/ServiceOB Provider Call to Schedule in1 week LocationMac 1200 CommentsConcierge order placed for blood pressure check within 7 days of DC Provider FINAL REVIEW of Orders: Final Review: Final Review of Medication Reconciliation and Orders Completedby CHARI Wright at 25-Sep-2021 16:18:58 Appointments: Follow-Up Appointment 01: Physician/Dept/ServiceRN Renae / STATISTICAL DEVELOPER CommentsOrder received after discharge. Reached out to patient lvm Follow-Up Appointment 02: Physician/Dept/ServiceDr. Lechuga STATISTICAL DEVELOPER CommentsOrder received after discharge. Reached out to [...] to nearest emergency room. *Information obtained from [facility]: Save Your Life: Get Care for [...] 14:51) Authored: Discharge Orders, Appointments Vanda Valle (BREAD STACKER-MAIL PROCESSOR) (Signed 25-Sep-2021 16:18) Authored: Discharge Orders, , Provider FINAL REVIEW of Orders Zandra Stern (RN) (Signed 23-Sep-2021 05:52) Authored: Discharge Orders, Other Clinician Instructions, Gold Form - Milking System Installer Summary Last Updated: 26-Sep-2021 14:51 by Sneha Knutson (PT ACC REP) [facility] GLUCOSE-POCTon 09-23-2021 Glucose [Mass/Vol] 86 mg/dL Normal 74 - 99 [facility] Comment on above: Performed By: #### G TTP3 #### [place] [address] Laboratory - Chemistry and C hemistry - challengeon 09-23-2021 Glucose [Mass/Vol] 86 mg/dL 74 - 99 [facility]EL[facility] [place] Work Phone: Software Test Technician Noteon 09-23-2021 Software Test Technician Note Infant Feeding Source/Method: Nutrition Sourceat NICU Feeding Methodat NICU Assessments: Feeding Assessment: Unable to assess feeding at this timeat NICU Pumping: Methodhospital grade electric pump, double breast pumping Frequency8-10 times per day Nzrnforb98-47 minutes per session Breast Shield Size and Type24 mm Volume of Milk Productiondrops Recommendations/Summary: Recommendations / Summary Mom pumping q2-3 hours for 35 week in NICU. Infant not yet going to breast. Denies question [...] Layne Roy (OSCAR) (Signed 23-Sep-2021 11:15) Authored: Infant Feeding Source/Method, Assessments, Pumping, Recommendations/Summary Last Updated: 23-Sep-2021 11:15 by Layne Roy (OSCAR) [facility] ABO/RH GROUP TESTon 09-23-19 22 ABO TYPE O [facility] Comment on above: Performed By: #### V ERAB #### [facility] [address] [place] [address] Clinical Event Note-Pit paus edon 09-22-2021 Clinical Event Note-Pit paused Clinical Event: Clinical Event Note: TopicPit paused Details Comfortable s/p epidural. Denies PEC sx. Ctx q2 min. Recurrent late decels with moderate variability and good recovery in between. BPs 80s/50s after epidural. Anesthesia at bedside treating. Pit paused. To continue to treat BPs and restart pit when clinically able. Serenity Phipps MD PGY-4, STATISTICAL DEVELOPER Electronic Signatures: Serenity Phipps ( (Resident)) (Signed 22-Sep-2021 01:37) Authored: Clinical Event Note Last Updated: 22-Sep-2021 01:37 by Serenity Phipps (Resident)) [facility] Daily Progress Note - OB-Pos t-partumon 09-22-2021 Daily Progress Note - CG-Mayq-lqfhid Current Stage: Stage: Post- Subjective Data: Post : : Feeling well this AM. Tolerating PO well. Pain is well controlled. Pt is pumping/. Mood is good. Objective Information: Objective Information: T PRBPMAPSpO2 [id number]/6964541% Date/Time09/22 17: 21: 18: 20: 20: 21:01 [...] ----- Mn/Dy/Year TimeIntakeOutputNet Sep 22, 2021 2:00 [id number] Sep 22, 2021 6:00 [id number] Sep 21, 2021 10:00 [id number] The Intake and Output Totals for the last 24 hours are: IntakeOutputNet [id number] Physical Exam: Constitutional: alert, oriented, NAD Obstetric: [...] the note. I personally evaluated the patient [id number] Electronic Signatures: Elsie Delgado) (Signed 22-Sep-2021 21:25) Authored: Note Completion Co-Signer: Current Stage, Subjective Data, Objective Data, Assessment and Plan, Note Completion Radha Hart (Resident)) (Signed 22-Sep-2021 21:08) Authored: Current Stage, Subjective Data, Objective Data, Assessment and Plan, Note Completion Last Updated: 22-Sep-2021:25 by Elsie Delgado) Normal [facility] Daily Progress Note - QC-Wope-bmdlbm Current Stage: Stage: Post- Subjective Data: Intrapartum: Intrapartum Progress Notes Uncomfortable with ctx, denies PEC sx Post : : Denies VENEGAS, CP, SOB, RUQ pain, vision changes. Objective Information: Objective Information: T PRBPMAPSpO2 [id number]% Date/Time09/22 16: 17: 16: 16: 16: 17:16 [...] ----- Mn/Dy/Year TimeIntakeOutputNet Sep 22, 2021 2:00 [id number] Sep 22, 2021 6:00 [id number] Sep 21, 2021 10:00 [id number] The Intake and Output Totals for the last 24 hours are: [facility] [id number] Physical Exam: Constitutional: Awake, alert, no acute [...] declines, counselled (more content not included)... Normal [facility] Delivery Recordon 09-22-2021 Delivery Record Lab Tests/Results: Labs: Labs: Blood Typed Date: 26-Apr-2021 Blood Type: O positive Chlamydia Date: 12-Apr-2021 Chlamydia Results: negative Gonorrhea Date: 12-Apr-2021 Gonorrhea Results: negative Strep Results: not ordered GCT (dd-mm-): 01-Aug-2021 GCT result: 197 GTT - Extended [...] Delivery Information: Counts Correctyes Circulating MARK Khan [place] Delivery Information: Team: Team [id number] 05:26 Code Level CalledCode Manning Level 2 team [id number] 05:30 [place] A Delivery Information: Baby A Delivery: Rupture of Membranes date/[id number]-0867 20:45 Amniotic Fluid Colorclear Delivery Typevaginal delivery Delivery Locationlabor and delivery Delivery Date/[id number]-Nru-0744 05:32 Delivery Date/Time Verified ByMARK pelletier and MARK Slade Length of Time of ROM (rounded down to nearest hour)8 Sexfemale Identification Band [id number] Electronic Transponder [id number] ID Bands Verified byMARK pelletier and MARK [...] Updated: 22-Sep-2021 06:07 by Batool Pelletier) Normal [facility] GLUCOSE-POCTon 09-22-2021 Glucose [Mass/Vol] 124 mg/dL High 74 - 99 [facility] Comment on above: Performed By: #### V ERAB #### [facility] [address] [place] [address] Glucose [Mass/Vol] 153 mg/dL High 74 - 99 [facility] Comment on above: Performed By: #### V ERAB #### [facility] [address] [place] [address] Laboratory - Blood bankon ABO group Nom (Bld) O [facility] STATISTICAL DEVELOPER [facility] [place] Work Phone: Rh immune globulin screen (Bld) [Interp] Positive [facility] STATISTICAL DEVELOPER [facility] [place] Work Phone: Laboratory - Chemistry and C hemistry - challengeon 09-22-2021 Glucose [Mass/Vol] 124 mg/dL above high threshold 74 - 99 [facility] STATISTICAL DEVELOPER [facility] [place] Work Phone: Glucose [Mass/Vol] 153 mg/dL above high threshold 74 - 99 [facility] STATISTICAL DEVELOPER [facility] [place] Work Phone: No Panel Informationon 09-22 [facility] STATISTICAL DEVELOPER [facility] [place] Work Phone: Order Reconciliationon 09-22 Order Reconciliation [...] or equ (more content not included)... Normal [facility] Surgical Pathology Depar tmenton 09-22-2021 [facility] Surgical Pathology Department Name THEO SATURDAY [...] and has a recurrence risk of 25-50%. residential solar sales consultant (A3-5): Dr. Xin Álvarez. Electronically Signed Out By HÉCTOR SAMANIEGO DO/CMB By the signature on this report, the individual or group listed as making the Final Interpretation/Diagnosis certifies that they have reviewed this case. Diagnostic interpretation performed at [facility] [address] [place] [address] [facility] [address] Clinical History: Gestational age: 35.1 Ob index: G 2, Full term 0, Tristen 0, Ab 1, Lvg 0 Maternal history: presenting as a transfer from [facility] for severe pre-eclampsia diagnosed based on severe [...] measuring 2.0 x 2.2 x 1.8 cm. Restaurant Culinary Manager sections are submitted in 5 cassettes. CJN Summary of Cassettes: Specimen Label Site A 1 umbilical cord sections 2 membrane rolls 3 placental parenchyma, umbilical cord insertion site 4 placental parenchyma 5 placental parenchyma with lesion cjn/09/23/2021 [facility] Department of Pathology [address] [place] [address] Comment on above: Performed By: #### H BA1E #### [place] [address] Admission Risk Screen - OBon 09-21-2021 Admission [...] Learning Preferencesverbal instruction Cultural Considerationsnone Developmental Considerationsnone Oriental Orthodox Considerationsnone Learning Assessment (Other Learner): Other learner [...] Spiritual Screen: Are there any cultural, spiritual, buddhism practices/values/needs that are important for us to knowno Depression Screen: During the past month, have you often been bothered by feeling down, depressed or hopelessno During the past month, have you often had little interest or pleasure in doing thingsno Have you had any thoughts of harming anyone elseno [place] Suicide: Risk Screen Not Applicable/Able to Answerable to be screened In the Past Month: Have you wished you were or could go to sleep and not wake upno In the Past Month: Have you had any actual thoughts of killing yourselfno Lifetime: Have you ever done, started to do, or prepared to do anything to end your lifeno [place] Suicide Risknegative Family Violence Screen: Are you [...] with underlying chronic conditions or reside in mcc care facilitiesnone of these conditions Persons with Functional or Anatomic Asplenianone of these conditions Immunocompromised Personsnone of these conditions Pneumonia vaccine NOT indicated due to:patient DOES NOT have a condition that indicates vaccination Vaccination - TDap Vaccination Screen: Have you received a TDap vaccine this pregnancyyes (no further action required) Significant Indicatiors: Significant Indicators: Complete Note Name:Admission (more content not included)... Normal [facility] CBCon 09-21-2021 HCT Canceled Normal [facility] Comment on above: Order Comment: TEST CBC WAS CANCELLED, 09/21/2021 08:53 DUPLICATE ORDER. Performed By: #### V ERAB #### [facility] [address] [place] [id number] HGB Canceled Normal [facility] Comment on above: Order Comment: TEST CBC WAS CANCELLED, 09/21/2021 08:53 DUPLICATE ORDER. Performed By: #### V ERAB #### [facility] [address] [place] [address] MCHC Canceled Normal [facility] Comment on above: Order Comment: TEST CBC WAS CANCELLED, 09/21/2021 08:53 DUPLICATE ORDER. Performed By: #### V ERAB #### [facility] [address] [place] [address] MCV Canceled Normal [facility] Comment on above: Order Comment: TEST CBC WAS CANCELLED, 09/21/2021 08:53 DUPLICATE ORDER. Performed By: #### V ERAB #### [facility] [address] [place] [address] NUCLEATED RBC Canceled Normal [facility] Comment on above: Order Comment: TEST CBC WAS CANCELLED, 09/21/2021 08:53 DUPLICATE ORDER. Performed By: #### V ERAB #### [facility] [address] [place] [address] PLT Canceled Normal [facility] Comment on above: Order Comment: TEST CBC WAS CANCELLED, 09/21/2021 08:53 DUPLICATE ORDER. Performed By: #### V ERAB #### [facility] [address] [place] [address] RBC Canceled Normal [facility] Comment on above: Order Comment: TEST CBC WAS CANCELLED, 09/21/2021 08:53 DUPLICATE ORDER. Performed By: #### V ERAB #### [facility] [address] [place] [address] RDW-CV Canceled Normal [facility] Comment on above: Order Comment: TEST CBC WAS CANCELLED, 09/21/2021 08:53 DUPLICATE ORDER. Performed By: #### V ERAB #### [facility] [address] [place] [address] WBC Canceled Normal [facility] Comment on above: Order Comment: TEST CBC WAS CANCELLED, 09/21/2021 08:53 DUPLICATE ORDER. Performed By: #### V ERAB #### [facility] [address] [place] [address] Erythrocyte distribution width (RBC) [Ratio] 15.3 % High 11.5 - 14.5 [facility] Comment on above: Performed By: #### Moisés LUS1 #### [facility] [address] [place] [address] Hematocrit (Bld) [Volume fraction] 46.2 % High 36.0 - 46.0 [facility] Comment on above: Performed By: #### Moisés ANNS1 #### [address] [address] Hemoglobin (Bld) [Mass/Vol] 14.9 g/dL Normal 12.0 - 16.0 [facility] Comment on above: Performed By: #### Moisés ANNS1 #### [address] [address] MCHC (RBC) [Mass/Vol] 32.3 g/dL Normal 32.0 - 36.0 [facility] Comment on above: Performed By: #### Moisés ANNS1 #### [address] [address] MCV (RBC) [Entitic vol] 89 fL Normal 80 - 100 [facility] Comment on above: Performed By: #### Moisés ANNS1 #### [address] [address] NUCLEATED RBC 0.0 /100 WBC Normal 0.0-0.0 [facility] Comment on above: Performed By: #### Moisés ANNS1 #### [address] [address] Platelets (Bld) [#/Vol] 233 10*3/uL Normal 150 - 450 [facility] Comment on above: Performed By: #### Moisés ANNS1 #### [address] [address] RBC 5.19 x10E12/L Normal 4.00 - 5.20 [facility] Comment on above: Performed By: #### Moisés LUS1 #### [address] [address] WBC (Bld) [#/Vol] 11.7 10*3/uL High 4.4 - 11.3 [facility] Comment on above: Performed By: #### Moisés LUS1 #### [address] [address] HCT Canceled Normal [facility] Comment on above: Order Comment: TEST TYPE + SCREEN WAS CANCELLED, 04/26/2021 13:20 T+S DONE SEPERATELY. Performed By: #### T +S #### [facility] [address] [place] [address] HGB Canceled Normal [facility] Comment on above: Order Comment: TEST TYPE + SCREEN WAS CANCELLED, 04/26/2021 13:20 T+S DONE SEPERATELY. Performed By: #### T +S #### [facility] [address] [place] [address] MCHC Canceled Normal [facility] Comment on above: Order Comment: TEST TYPE + SCREEN WAS CANCELLED, 04/26/2021 13:20 T+S DONE SEPERATELY. Performed By: #### T +S #### [facility] [address] [place] [address] MCV Canceled Normal [facility] Comment on above: Order Comment: TEST TYPE + SCREEN WAS CANCELLED, 04/26/2021 13:20 T+S DONE SEPERATELY. Performed By: #### T +S #### [facility] [address] [place] [address] NUCLEATED RBC Canceled Normal [facility] Comment on above: Order Comment: TEST TYPE + SCREEN WAS CANCELLED, 04/26/2021 13:20 T+S DONE SEPERATELY. Performed By: #### T +S #### [facility] [address] [place] [address] PLT Canceled Normal [facility] Comment on above: Order Comment: TEST TYPE + SCREEN WAS CANCELLED, 04/26/2021 13:20 T+S DONE SEPERATELY. Performed By: #### T +S #### [facility] [address] [place] [address] RBC Canceled Normal [facility] Comment on above: Order Comment: TEST TYPE + SCREEN WAS CANCELLED, 04/26/2021 13:20 T+S DONE SEPERATELY. Performed By: #### T +S #### [facility] [address] [place] [address] RDW-CV Canceled Normal [facility] Comment on above: Order Comment: TEST TYPE + SCREEN WAS CANCELLED, 04/26/2021 13:20 T+S DONE SEPERATELY. Performed By: #### T +S #### [facility] [address] [place] [address] WBC Canceled Normal [facility] Comment on above: Order Comment: TEST TYPE + SCREEN WAS CANCELLED, 04/26/2021 13:20 T+S DONE SEPERATELY. Performed By: #### T +S #### [facility] [address] [place] [address] COMPREHENSIVE PANELon 2021 Albumin [Mass/Vol] 3.7 g/dL Normal 3.4 - 5.0 [facility] Comment on above: Performed By: #### V ERAB #### [facility] [address] [place] [address] ALP [Catalytic activity/Vol] 208 U/L High 33 - 110 [facility] Comment on above: Performed By: #### V ERAB #### [facility] [address] [place] [address] ALT [Catalytic activity/Vol] 13 U/L Normal 7 - 45 [facility] Comment on above: Result Comment: Hali ents treated with Sulfasalazine may generate falsely decreased results for ALT. Performed By: #### V ERAB #### [facility] [address] [place] [address] Anion gap [Moles/Vol] 21 mmol/L High 10 - 20 [facility] Comment on above: Performed By: #### V ERAB #### [facility] [address] [place] [address] AST [Catalytic activity/Vol] 21 U/L Normal 9 - 39 [facility] Comment on above: Performed By: #### V ERAB #### [facility] [address] [place] [address] Bilirubin [Mass/Vol] 0.4 mg/dL Normal 0.0 - 1.2 [facility] Comment on above: Performed By: #### V ERAB #### [facility] [address] [place] [address] Calcium [Mass/Vol] 8.4 mg/dL Low 8.6 - 10.6 [facility] Comment on above: Performed By: #### V ERAB #### [facility] [address] [place] [address] Chloride [Moles/Vol] 100 mmol/L Normal 98 - 107 [facility] Comment on above: Performed By: #### V ERAB #### [facility] [address] [place] [address] Creatinine [Mass/Vol] 0.43 mg/dL Low 0.50 - 1.05 [facility] Comment on above: Performed By: #### V ERAB #### [facility] [address] [place] [address] eGFR FEMALE >90 Normal >90 [facility] Comment on above: Result Comment: CALC ULATIONS OF ESTIMATED GFR ARE PERFORMED USING THE 2020 CKD-EPI STUDY REFIT EQUATION WITHOUT THE RACE VARIABLE FOR THE IDMS-TRACEABLE CREATININE METHODS. https://jasn.asnjournals.org/content/early//ASN.623560152 8 Performed By: #### V ERAB #### [facility] [address] [place] [address] Glucose [Mass/Vol] 81 mg/dL Normal 74 - 99 [facility] Comment on above: Performed By: #### V ERAB #### [facility] [address] [place] [address] HCO3 (Bld) [Moles/Vol] 19 mmol/L Low 21 - 32 [facility] Comment on above: Performed By: #### V ERAB #### [facility] [address] [place] [address] Potassium [Moles/Vol] 3.9 mmol/L Normal 3.5 - 5.3 [facility] Comment on above: Performed By: #### V ERAB #### [facility] [address] [place] [address] Protein [Mass/Vol] 7.2 g/dL Normal 6.4 - 8.2 [facility] Comment on above: Performed By: #### V ERAB #### [facility] [address] [place] [address] Sodium [Moles/Vol] 136 mmol/L Normal 136 - 145 [facility] Comment on above: Performed By: #### V ERAB #### [facility] [address] [place] [address] Urea nitrogen [Mass/Vol] 5 mg/dL Low [facility] Comment on above: Performed By: #### V ERAB #### [facility] [address] [place] [address] Clinical Event Note-AROMon 0 09-21-2021 Clinical Event Note-AROM Clinical Event: Clinical Event Note: TopicAROM Details Comfortable with nubain. 5/-3. AROM for clear, Cat 1 tracing, to start pit Seernity Phipps MD PGY-4, STATISTICAL DEVELOPER Electronic Signatures: Serenity Phipps ( (Resident)) (Signed 21-Sep-2021 20:52) Authored: Clinical Event Note Last Updated: 21-Sep-2021 20:52 by Serenity Phipps ( (Resident)) Normal [facility] Clinical Event Note-IOLon Clinical Event Note-IOL Clinical [...] 11:57 by Rose Amaral ( (Resident)) Normal [facility] Clinical Event Note-cyto#on 09-21-2021 Clinical Event Note-cyto# [...] Last Updated: 21-Sep-2021 15:18 by Rose Amaral (Resident)) Normal [facility] Daily Progress Note - OB-Int rapartumon 09-21-2021 Daily Progress Note - OB-Intrapartum Current Stage: Stage: Intrapartum Subjective Data: Intrapartum: Intrapartum Progress Notes Uncomfortable with ctx, denies PEC sx Objective Information: Objective Information: T PRBPMAPSpO2 Value36.473244691/1383736% Date/Time09/21 19: 20: 19: 19: 19:486/ 20:15 Range(36.2C - 36.8C ) (96 - 121 ) (16 - 18 ) (136 - 180 )/ (74 - 96 ) (99 - 124 ) (83% - 100% ) Pain reported at 09/21 10:46: 0 = None ---- Intake and Output ----- Mn/Dy/[facility] Sep 21, 2021 2:00 [id number] Sep 21, 2021 6:00 [id number] Sep 20, 2021 10:00 [id number] The Intake and Output Totals for the last 24 hours are: IntakeOutkayenta health centerNet [id number] Physical Exam: Constitutional: Awake, alert, no acute [...] Testing: NST Interpretation - Baby A: Baseline [id number] Variabilitymoderate (amplitude range 6 to 25 bpm) [...] 160/110 w (more content not included)... Normal [facility] Echocardiogramon 09-21-2021 Echocardiography [facility] [address] [place] [address] and TRANSTHORACIC ECHOCARDIOGRAM REPORT Patient Name: Saturday THEO Reading Physician: [id number] Junito Winn MD Study Date: 09/21/2021 Referring SHIRA MORRISSEY Physician: MRN/PID: [id number] PCP: Accession/Order#: [id number] Department [place] [address] Location: Date of : 1995 Fellow: Gender: F Nurse: Admit Date: Cpht: Mino Tucker [facility] Admission Status: Inpatient - Additional Staff: Critical/Stat (within 1-3 hours) Height: 170.18 cm CC Report to: [address] Weight: 107.05 kg Study Type: Echocardiogram BSA: 2.17 m2 Blood Pressure: 142 /83 mmHg Diagnosis/ICD: 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 [address] Glucose [Mass/Vol] 125 mg/dL High 74 - 99 [facility] Comment on above: Performed By: #### G LUI #### [facility] [address] [place] [address] Glucose [Mass/Vol] 127 mg/dL High 74 - 99 [facility] Comment on above: Performed By: #### T +S #### [facility] [address] [place] [address] Glucose [Mass/Vol] 131 mg/dL High 74 - 99 [facility] Comment on above: Performed By: #### T +S #### [facility] [address] [place] [address] Glucose [Mass/Vol] 99 mg/dL Normal 74 - 99 [facility] Comment on above: Performed By: #### T +S #### [facility] [address] [place] [address] Laboratory - Blood bankon ABO group Nom (Bld) O -[facility] STATISTICAL DEVELOPER [facility] [place] Work Phone: [phone] Blood group antibody screen Ql Negative -[facility] STATISTICAL DEVELOPER [facility] [place] Work Phone: [phone] Rh immune globulin screen (Bld) [Interp] Positive -[facility] STATISTICAL DEVELOPER [facility] [place] Work Phone: [phone] Laboratory - Chemistry and C hemistry - challengeon 09-21-2021 Glucose [Mass/Vol] 110 mg/dL above high threshold 74 - 99 -[facility] STATISTICAL DEVELOPER [facility] [place] Work Phone: [phone] Glucose [Mass/Vol] 125 mg/dL above high threshold 74 - 99 -[facility] STATISTICAL DEVELOPER [facility] [place] Work Phone: Glucose [Mass/Vol] 127 mg/dL above high threshold 74 - 99 -[facility] STATISTICAL DEVELOPER [facility] [place] Work Phone: [phone] Glucose [Mass/Vol] 131 mg/dL above high threshold 74 - 99 [facility] STATISTICAL DEVELOPER [facility] [employer] Work Phone: [phone] Albumin BCP dye [Mass/Vol] 3.7 g/dL 3.4 - 5.[address] [facility] [employer] Work Phone: [phone] ALP [Catalytic activity/Vol] 208 U/L above high threshold 33 - [address] [facility] [employer] Work Phone: [phone] With P-5'-P [Catalytic activity/Vol] 13 U/L 7 - 45 [facility] [employer] Work Phone: [phone] Comment on above: Patients treated wit Sulfasalazine may generate falsely decreased results for ALT. Anion gap [Moles/Vol] 21 mmol/L above high threshold 10 - [address] [facility] [employer] Work Phone: [phone] AST With P-5'-P [Catalytic activity/Vol] 21 U/L 9 - [address] [facility] [employer] Work Phone: [phone] Bilirubin [Mass/Vol] 0.4 mg/dL 0.0 - 1.[address] [facility] [employer] Work Phone: [phone] Calcium [Mass/Vol] 8.4 mg/dL below low threshold 8.6 - 10.6 [facility] STATISTICAL DEVELOPER [facility] [employer] Work Phone: [phone] Chloride [Moles/Vol] 100 mmol/L 98 - 107 [facility] STATISTICAL DEVELOPER [facility] [employer] Work Phone: [phone] [Moles/Vol] 19 mmol/L below low threshold 21 - 32 [facility] STATISTICAL DEVELOPER [facility] [employer] Work Phone: [phone] Creatinine [Mass/Vol] 0.43 mg/dL below low threshold See Below [facility] STATISTICAL DEVELOPER [facility] [employer] Work Phone: [phone] Comment on above: Reference Range: 0.5 0 - 1.05 Glucose [Mass/Vol] 81 mg/dL 74 - 99 [employer] [facility] STATISTICAL DEVELOPER [facility] [place] Work Phone: [phone] Potassium [Moles/Vol] 3.9 mmol/L 3.5 - 5.3 [employer] STATISTICAL DEVELOPER [facility] [place] Work Phone: [phone] Protein [Mass/Vol] 7.2 g/dL 6.4 - 8.2 [employer] [facility] STATISTICAL DEVELOPER [facility] [place] Work Phone: [phone] Sodium [Moles/Vol] 136 mmol/L 136 - 145 [employer] STATISTICAL DEVELOPER [facility] [place] Work Phone: [phone] Urea nitrogen [Mass/Vol] 5 mg/dL below low threshold 6 - 23 [employer] STATISTICAL DEVELOPER [facility] [place] Work Phone: [phone] Glucose [Mass/Vol] 99 mg/dL 74 - 99 -Uni v STATISTICAL DEVELOPER [facility] [place] Work Phone: [phone] Laboratory - Hematology and Cell countson 09-21-2021 Hematocrit (Bld) [Volume fraction] Canceled -Univ STATISTICAL DEVELOPER [facility] [place] Work Phone: [phone] Hemoglobin (Bld) [Mass/Vol] Canceled -Univ STATISTICAL DEVELOPER [facility] [place] Work Phone: [phone] Platelets (Bld) [#/Vol] Canceled [facility] STATISTICAL DEVELOPER [facility] [place] Work Phone: [phone] RBC (Bld) [#/Vol] Canceled [facility] [place] Work Phone: [phone] Erythrocyte distribution width (RBC) [Ratio] 15.3 % above high threshold See Below [facility] [place] Work Phone: [phone] Comment on above: Reference Range: 11. 5 - 14.5 Hematocrit (Bld) [Volume fraction] 46.2 % above high threshold See Below -[facility] [place] Work Phone: [phone] Comment on above: Reference Range: 36. 0 - 46.0 Hemoglobin (Bld) [Mass/Vol] 14.9 g/dL See Below -[facility] [place] Work Phone: [phone] Comment on above: Reference Range: 12. 0 - 16.0 MCHC (RBC) [Mass/Vol] 32.3 g/dL See Below -[facility] [place] Work Phone: [phone] Comment on above: Reference Range: 32. 0 - 36.0 MCV (RBC) [Entitic vol] 89 fL 80 - 100 [facility] [place] Work Phone: [phone] Platelets (Bld) [#/Vol] 233 10*3/uL 150 - 450 [facility] [place] Work Phone: [phone] RBC (Bld) [#/Vol] 5.19 {x10E12/L} See Below [employer] [place] Work Phone: [phone] Comment on above: Reference Range: 4.0 0 - 5.20 WBC (Bld) [#/Vol] 11.7 10*3/uL above high threshold 4.4 - 11.3 [facility] [place] Work Phone: [phone] Panel Informationon 09-21 ORDER RECD [facility] [place] Work Phone: [phone] [facility] [place] Work Phone: [phone] >90 [facility] [place] Work Phone: [phone] Comment on above: CALCULATIONS OF MEL MATED GFR ARE PERFORMED USING THE 2020 CKD-EPI STUDY REFIT EQUATION WITHOUT THE RACE VARIABLE FOR THE IDMS-TRACEABLE CREATININE METHODS.https://jasn.asnjournals.org/content//ASN.2 679476934 0.0 {/100_WBC} 0.0-0.0 [facility] Work Phone: Order Reconciliationon 09-21 Order [...] inpatient order (more content not included)... Normal [facility] Patient Profile - OB v3on Patient Profile - OB v3 Profile: Initial Info: How to be Addressedwednesday Spoken Language PreferredEnglish (1) Source of Informationpatient Reason for admission this visitpregnancy complication Wants Family/Rep Notified of Admissionn/a; family present Notify PCPdo not notify PCP Informed of Patient Visiting Rightsyes [place] [facility] with [facility] Patient Belongings Remaining with Patientcash/credit card; cell phone/electronics; clothing Home Meds have been Reviewed and Verified with Patient/Familyyes Medications Brought to Hospitalno Info: Gravida2 (1) Term Deliveries0 (1) Deliveries0 (1) Abortions1 (1) Living Children0 (1) Patient stated [id number] Calculation of EGA based on patient stated [...] with patient / mother. Discussion Date / [id number] 00:22 Previous Experienceno General Health: Current Weight in kg107 kilogram(s) Current Weight in iov247.8 pound(s) Weight Methodstated Pre Weight (lb)200 pound(s) [...] Lives Withsignificant other Resource/Environmental Concernsnone Anticipated Transition [place] [facility] Anticipated at Transitionnone Additional Information: Information [...] and Physical - OB 20-Sep-2021 17:23 Normal [facility] REQUEST-LEUKOREDUCED RED MORIAH LSon 09-21-2021 REQUEST-LEUKOREDUC ED RED CELLS ORDER RECD Normal [facility] Comment on above: Performed By: #### V ERAB #### [facility] [address] [place] [address] SYPHILIS SCREENING WITH REFL EXon 09-21-2021 SYPHILIS TOTAL AB Non-Reactive Normal NONREACTIVE [facility] Comment on above: Result Comment: No s ignificant level of Treponema pallidum antibody detected. Repeat testing in 2 to 4 weeks may be considered if early infection or incubating syphilis infection is suspected. Performed By: #### V ERAB #### [facility] [address] [place] [address] Lab Specimen Source Normal [facility] Comment on above: Performed By: #### V ERAB #### [facility] [address] [place] [address] T. pallidum IgG+IgM IA Ql (S) Non-Reactive See Below [facility] Work Phone: Comment on above: SOURCE: Reference Ra nge: NONREACTIVENo significant level of Treponema pallidum antibody detected. Repeat testing in 2 to 4 weeks may be considered if early infection or incubating syphilis infection is suspected. TYPE + SCREENon 09-21-2021 ABO TYPE O Normal [facility] Comment on above: Performed By: #### V ERAB #### [facility] [address] [place] [address] RH TYPE Positive Normal [facility] Comment on above: Performed By: #### V ERAB #### [facility] [address] [place] [address] CBCon 09-20-2021 Erythrocyte distribution width (RBC) [Ratio] 15.7 % High 11.5 - 14.5 [facility] Comment on above: Performed By: #### C BC #### [address] [address] Hematocrit (Bld) [Volume fraction] 36.6 % Normal 36.0 - 46.0 [facility] Comment on above: Performed By: #### C BC #### [address] [address] Hemoglobin (Bld) [Mass/Vol] 12.7 g/dL Normal 12.0 - 16.0 [facility] Comment on above: Performed By: #### C BC #### [address] [address] MCHC (RBC) [Mass/Vol] 34.6 g/dL Normal 32.0 - 36.0 [facility] Comment on above: Performed By: #### C BC #### [address] [address] MCV (RBC) [Entitic vol] 83 fL Normal 80 - 100 [facility] Comment on above: Performed By: #### C BC #### [place] [id number] Platelets (Bld) [#/Vol] 177 10*3/uL Normal 150 - 450 [facility] Comment on above: Performed By: #### C BC #### [place] [id number] RBC 4.43 x10E12/L Normal 4.00 - 5.20 [facility] Comment on above: Performed By: #### C BC #### [place] [id number] WBC (Bld) [#/Vol] 8.3 10*3/uL Normal 4.4 - 11.3 [facility] Comment on above: Performed By: #### C BC #### [place] [address] COMPREHENSIVE PANELon 09-20- 2021 Albumin [Mass/Vol] 3.0 g/dL Low 3.4 - 5.0 [facility] Comment on above: Performed By: #### C MP #### [place] [address] ALP [Catalytic activity/Vol] 164 U/L High 33 - 110 [facility] Comment on above: Performed By: #### C MP #### [place] [address] ALT [Catalytic activity/Vol] 12 U/L Normal 7 - 45 [facility] Comment on above: Result Comment: Hali ents treated with Sulfasalazine may generate falsely decreased results for ALT. Performed By: #### C MP #### [place] [id number] Anion gap [Moles/Vol] 11 mmol/L Normal 10 - 20 [facility] Comment on above: Performed By: #### C MP #### [place] [id number] AST [Catalytic activity/Vol] 17 U/L Normal 9 - 39 [facility] Comment on above: Performed By: #### C MP #### [address] [address] Bilirubin [Mass/Vol] 0.3 mg/dL Normal 0.0 - 1.2 [facility] Comment on above: Performed By: #### C MP #### [address] [address] Calcium [Mass/Vol] 8.7 mg/dL Normal 8.6 - 10.3 [facility] Comment on above: Performed By: #### C MP #### [address] [address] Chloride [Moles/Vol] 105 mmol/L Normal 98 - 107 [facility] Comment on above: Performed By: #### C MP #### [address] [address] Creatinine [Mass/Vol] 0.39 mg/dL Low 0.50 - 1.05 [facility] Comment on above: Performed By: #### C MP #### [address] [address] eGFR FEMALE >90 Normal >90 [facility] Comment on above: Result Comment: CALC ULATIONS OF ESTIMATED GFR ARE PERFORMED USING THE 2020 CKD-EPI STUDY REFIT EQUATION WITHOUT THE RACE VARIABLE FOR THE IDMS-TRACEABLE CREATININE METHODS. https://jasn.asnjournals.org/content//ASN.491306363 8 Performed By: #### C MP #### [address] [address] Glucose [Mass/Vol] 80 mg/dL Normal 74 - 99 [facility] Comment on above: Performed By: #### C MP #### [address] [address] HCO3 (Bld) [Moles/Vol] 26 mmol/L Normal 21 - 32 [facility] Comment on above: Performed By: #### C MP #### [address] [address] Potassium [Moles/Vol] 3.7 mmol/L Normal 3.5 - 5.3 [facility] Comment on above: Performed By: #### C MP #### [place] [address] Protein [Mass/Vol] 6.1 g/dL Low 6.4 - 8.2 [facility] Comment on above: Performed By: #### C MP #### [place] [address] Sodium [Moles/Vol] 138 mmol/L Normal 136 - 145 [facility] Comment on above: Performed By: #### C MP #### [place] [address] Urea nitrogen [Mass/Vol] 6 mg/dL Normal 6 - 23 [facility] Comment on above: Performed By: #### C MP #### [place] [address] CORONAVIRUS 2019, SCREEN ASY MPTOMATICon 09-20-2021 SARS-CoV-2 (COVID-19) RNA DILCIA+probe Ql (Unsp spec) Not detected Normal Not Detected [facility] Comment on above: Result Comment: . This test has received FDA Emergency Use Authorization (EUA) and has been verified by [facility]. This test is only authorized for the duration of time that circumstances exist to justify the authorization of the emergency use of in vitro diagnostic tests for the detection of SARS-CoV-2 virus and/or diagnosis of COVID-19 infection under section 564(b)(1) of the Act, 21 U.S.C. 360bbb-3(b)(1), unless the authorization is terminated or revoked sooner. [facility] is certified under CLIA-88 as qualified to perform high complexity testing. Testing is performed in the [facility] laboratory located at [address] [place] [address]. SARS-CoV-2/Flu/RSV Multiplex Test: Fact sheet for providers: https://www.fda.gov/media/448312/download Fact sheet for patients: https://www.fda.gov/media/555746/download Performed By: #### C OVSC #### [place] [address] Lab Specimen Source Nasal, Nasopharyngeal Normal [facility] Comment on above: Performed By: #### C OVSC #### [place] [id number] Coronavirus 2019 RNA by PCR, Screening Asymptomticon 09-20-2021 Coronavirus 2019 RNA by PCR, Screening Asymptomtic Not detected Normal See Below -[facility]EL[facility] [place] Work Phone: Comment on above: SOURCE: Nasal, Nasop haryngealReference Range: Not Detected.This test has received FDA Emergency Use Authorization (EUA) and has been verified by [facility]. This test is only authorized for the duration of time that circumstances exist to justify the authorization of the emergency use of in vitro diagnostic tests for the detection of SARS-CoV-2 virus and/or diagnosis of COVID-19 infection under section 564(b)(1) of the Act, 21 U.S.C. 360bbb-3(b)(1), unless the authorization is terminated or revoked sooner. [facility] is certified under CLIA-88 as qualified to perform high complexity testing. Testing is performed in the [facility] laboratory located at [address] [place] [address].SARS-CoV-2/Flu/RSV Multiplex Test: Fact sheet for providers: https://www.fda.gov/media/584838/downloadFact sheet for patients: https://www.fda.gov/media/782011/download Covid 19 Resultson 2 SARS-CoV-2 (COVID-19) RNA [...] may also be contacted by the [facility] to see if any of your close [...] or Naproxen (Aleve) can also be used. Zmkd-mzj-zkgwiea cough and cold medicines can be used according to the instructions on the package. Some dmak-fjl-sgqevvt medicines also contain acetaminophen. Make sure you [...] water are not available, use alcohol-based hand teletype or varitype keyboard operator. Avoid touching your eyes, nose, and mouth [...] 24 cale (more content not included)... Normal [facility] GROUP B STREP SCREENon 09-20 GROUP B STREP SCREEN PATIENT: THEO SATURDAY S LOCATION: [facility] BILL#: [id number] : 89 AGE: SEX: F ORDERED BY: RACQUEL LECHUGA SOURCE: VAG-RECTAL COLLECTED: 09/20/21 16:15 ANTIBIOTICS AT [facility].: RECEIVED : 09/20/21 23:03 SITE: R Shara Clark U Malini T S GROUP B STREP SCREEN FINAL 09/22/21 09:39 NEGATIVE FOR GROUP B BETA STREP. [facility] Comment on above: Performed By: #### G BSCR #### [facility] [address] [place] [address] Laboratory - Chemistry and C hemistry - challengeon 09-20-2021 Albumin BCP dye [Mass/Vol] 3.0 g/dL below low threshold 3.4 - 5.0 [facility] STATISTICAL DEVELOPER [facility] [place] Work Phone: [phone] ALP [Catalytic activity/Vol] 164 U/L above high threshold 33 - 110 [facility] STATISTICAL DEVELOPER [facility] [place] Work Phone: [phone] ALT With P-5'-P [Catalytic activity/Vol] 12 U/L 7 - 45 [facility] STATISTICAL DEVELOPER [facility] [place] Work Phone: [phone] Comment on above: Patients treated wit h Sulfasalazine may generate falsely decreased results for ALT. Anion gap [Moles/Vol] 11 mmol/L 10 - 20 [facility] STATISTICAL DEVELOPER [facility] [place] Work Phone: [phone] AST With P-5'-P [Catalytic activity/Vol] 17 U/L 9 - 39 [facility] STATISTICAL DEVELOPER [facility] [place] Work Phone: [phone] Bilirubin [Mass/Vol] 0.3 mg/dL 0.0 - 1.2 [facility] STATISTICAL DEVELOPER [facility] [place] Work Phone: [phone] Calcium [Mass/Vol] 8.7 mg/dL 8.6 - 10.3 -[facility] STATISTICAL DEVELOPER [facility] [place] Work Phone: [phone] Chloride [Moles/Vol] 105 mmol/L 98 - 107 [facility] STATISTICAL DEVELOPER [facility] [place] Work Phone: CO2 [Moles/Vol] 26 mmol/L 21 - 32 [facility]ELOPER [employer] Work Phone: [phone] Creatinine [Mass/Vol] 0.39 mg/dL below low threshold See Below [facility] STATISTICAL DEVELOPER [facility] [place] Work Phone: [phone] Comment on above: Reference Range: 0.5 0 - 1.05 Glucose [Mass/Vol] 80 mg/dL 74 - 99 [employer] STATISTICAL DEVELOPER [facility] [employer] Work Phone: [phone] Potassium [Moles/Vol] 3.7 mmol/L 3.5 - 5.3 [facility] STATISTICAL DEVELOPER [facility] [employer] Work Phone: [phone] Protein [Mass/Vol] 6.1 g/dL below low threshold 6.4 - 8.2 [facility]EL[facility] [employer] Work Phone: [phone] Sodium [Moles/Vol] 138 mmol/L 136 - 145 [employer] STATISTICAL DEVELOPER [facility] [employer] Work Phone: [phone] Urea nitrogen [Mass/Vol] 6 mg/dL 6 - 23 [employer] STATISTICAL DEVELOPER [facility] [employer] Work Phone: [phone] Laboratory - Hematology and Cell countson 09-20-2021 Erythrocyte distribution width (RBC) [Ratio] 15.7 % above high threshold See Below [facility] STATISTICAL DEVELOPER [facility] [employer] Work Phone: [phone] Comment on above: Reference Range: 11. 5 - 14.5 Hematocrit (Bld) [Volume fraction] 36.6 % See Below [facility]ISTICAL DEVELOPER [facility] [employer] Work Phone: [phone] Comment on above: Reference Range: 36. 0 - 46.0 Hemoglobin (Bld) [Mass/Vol] 12.7 g/dL See Below [facility] STATISTICAL DEVELOPER [facility] [place] Work Phone: [phone] Comment on above: Reference Range: 12. 0 - 16.0 MCHC (RBC) [Mass/Vol] 34.6 g/dL See Below [facility] [place] Work Phone: [phone] Comment on above: Reference Range: 32. 0 - 36.0 MCV (RBC) [Entitic vol] 83 fL 80 - 100 [facility] [place] Work Phone: [phone] Platelets (Bld) [#/Vol] 177 10*3/uL 150 - 450 [facility] [place] Work Phone: [phone] RBC (Bld) [#/Vol] 4.43 {x10E12/L} See Below [facility] [place] Work Phone: [phone] Comment on above: Reference Range: 4.0 0 - 5.20 WBC (Bld) [#/Vol] 8.3 10*3/uL 4.4 - 11.3 [facility] [place] Work Phone: [phone] Laboratory - Microbiology an d Antimicrobial susceptibilityon 09-20-2021 Bacteria identified Aer cx Nom (Genital specimen) [facility] [place] Work Phone: [phone] No Panel Informationon 09-20 >90 >90 [facility] [place] Work Phone: Comment on above: CALCULATIONS OF MEL MATED GFR ARE PERFORMED USING THE 2020 CKD-EPI STUDY REFIT EQUATION WITHOUT THE RACE VARIABLE FOR THE IDMS-TRACEABLE CREATININE METHODS.https://jasn.asnjournals.org/content//ASN.2 763217091 Order Reconciliationon 09-20 Order Reconciliation Page 1 Admission Reconciliation Document Reconciliation Type: Admission requested on behalf of Racquel Lechuga (Physician) done by Racquel Lechuga) Admission - Reconciliation: 20-Sep-2021 17:31 by: Racquel Lechuga) Home MedicationsEnteredLast Dose TakenReconciled with current Order Reconciliation Comment/ Additional Information ferrous sulfate 325 mg (65 mg elemental iron) oral tablet 1 tab(s) orally every other [id number] PM Reviewed and Held Levemir FlexTouch 100 units/mL subcutaneous solution 10 microcurie subcutaneous once a day (at bedtime)2021 PM Reviewed and Held 1 oral capsule 1 tab(s) orally once a [id number] PM Reviewed and Held Additional Current Orders [...] the bag. Begin infusion at delivery of infant(s).Notes from Pharmacy: DOSE Rate = 60 milliunits/min [...] milliunits/min = (more content not included)... Normal [facility] Risk Screen - OB Triageon Risk [...] Learning Preferencesverbal instruction Cultural Considerationsnone Developmental Considerationsnone Oriental Orthodox Considerationsnone Other Learnerssignificant other Learning Assessment (Other Learner): Other learner availableyes... Learnersignificant other Factors Influencing Readiness to Learnanxiety Factors that Impact Ability to Learnnone Devices/Methods Used to Communicatenone Learning Preferencesverbal instruction Cultural Considerationsnone Developmental Considerationsnone Oriental Orthodox Considerationsnone Depression/Suicide: Depression Screen: During the past month, have you often been bothered by feeling down, depressed or hopelessno During the past month, have you often had little interest or pleasure in doing thingsno Have you had any thoughts of harming anyone [place]sen[place] Suicide: Risk Screen Not Applicable/Able to Answerable to be screened In the Past Month: Have you wished you were or could go to sleep and not wake upno In the Past Month: Have you had any actual thoughts of killing yourselfno Lifetime: Have you ever done, started to do, or prepared to do anything to end your lifeno [place] Suicide Risknegative Family Violence: Abuse Screen: Are [...] 20-Sep-2021 16:43 by Megan Lopez (RN) Normal [facility] TOTAL PROTEIN, URINE SPOTon 09-20-2021 CREATININE,URINE 53.0 mg/dL Normal 20.0 - 320.0 [facility] Comment on above: Performed By: #### T PS2 ####[address] [address] T. PROTEIN/CREAT RATIO 0.70 mg/mg Creat High 0.00 - 0.17 [facility] Comment on above: Performed By: #### T PS2 ####[address] [address] TOTAL PROT,URINE SPOT 37 mg/dL High 5 - 24 [facility] Comment on above: Performed By: #### T PS2 ####[address] [place] [address] Total Protein, Urine Spoton 09-20-2021 Creatinine (U) [Mass/Vol] 53.0 mg/dL See Below [facility] STATISTICAL DEVELOPER [employer] Work Phone: Comment on above: Reference Range: 20. 0 - 320.0 Protein (U) [Mass/Vol] 37 mg/dL above high threshold 5 - 24 [facility] STATISTICAL DEVELOPER [employer] Work Phone: [phone] Protein/Creatinine (U) [Ratio] 0.70 {mg/mg_Creat} above high threshold See Below [facility] STATISTICAL DEVELOPER [employer] Work Phone: Comment on above: Reference Range: 0.0 0 - 0.17 Triage Note - OB v4on 2021 Triage Note - OB v4 Triage: General Info: Time of Arrival on [id number] 12:[facility] Time Acuity Level [id number] 12:55 Chief Complaintscheduled NST pt states has high blood pressure during the and gestational diabetes Spoken Language PreferredEnglish (1) Weight in kg107 kilogram(s) Weight in rly967.8 pound(s) Weight Methodactual (measured) Scale Typestanding Height in feet5 feet Height in inches6.97 inch(es) Height in cm170.1 centimeter(s) Height Methodstated BMI (kg/m2)36.98 square meter Patient Belongingsremains with patient Patient Belongings Remaining with Patientcell phone/electronics Home Meds have been Reviewed and Verified with Patient/Familyyes Info: Gravida2 Term Deliveries0 Deliveries0 Abortions1 Living Children0 Patient stated [id number] Calculation of EGA based on patient stated EDD34.6 Records availableyes Trimester Care Initiatedfirst Care Providerdr lechuga Current Risksgestational diabetes, hypertension, gestational Testsnonstress test Previous live (any gestational age)no Substance: Smoking Statusformer smoker Alcohol Usedenies Drug Usedenies Drug 2 Usedenies Disposition/Disch: Dispositiontransferred to another facility Reason for Facility Transferpre eclampsia Patient Meets Criteria for Home Blood Pressure Monitorno Admission/Observation/Disc harge/Transfer Date/[id number]-[id number] 22:07 Discharged Accompanied Bysignificant other/partner; parent Discharge [facility] Transportation Methodambulance Travel History: Travel or ExposureNO travel to International locations in the past 30 days Additional Information: Information Review: Allergies have been Reviewed and Verified with Patient/Familyyes Allergy, Intolerance, Adverse Event: Allergies: No Known Allergies: Active Electronic Signatures: Kierra Montero (RN) (Signed 20-Sep-2021 13:10) Authored: General Info, Info, Substance, Disposition/Disch, Travel History, Additional Information Megan Lopez (RN) (Signed 20-Sep-2021 22:35) Authored: Disposition/Disch Last Updated: 20-Sep-2021 22:35 by Megan Lopez (RN) References: 1. Data Referenced From Triage Note - OB v4 06-Sep-2021 13:48 Normal [facility] CBCon 09-06-2021 Erythrocyte distribution width (RBC) [Ratio] 15.1 % High 11.5 - 14.5 [facility] Comment on above: Performed By: #### G LUS1 #### [address] [address] Hematocrit (Bld) [Volume fraction] 36.7 % Normal 36.0 - 46.0 [facility] Comment on above: Performed By: #### G LUS1 #### [address] [address] Hemoglobin (Bld) [Mass/Vol] 12.7 g/dL Normal 12.0 - 16.0 [facility] Comment on above: Performed By: #### G LUS1 #### [address] [address] MCHC (RBC) [Mass/Vol] 34.6 g/dL Normal 32.0 - 36.0 [facility] Comment on above: Performed By: #### G LUS1 #### [address] [address] MCV (RBC) [Entitic vol] 82 fL Normal 80 - 100 [facility] Comment on above: Performed By: #### G LUS1 #### [address] [address] Platelets (Bld) [#/Vol] 210 10*3/uL Normal 150 - 450 [facility] Comment on above: Performed By: #### G LUS1 #### [address] [address] RBC 4.47 x10E12/L Normal 4.00 - 5.20 [facility] Comment on above: Performed By: #### G MARISSAS1 #### [address] [address] WBC (Bld) [#/Vol] 8.7 10*3/uL Normal 4.4 - 11.3 [facility] Comment on above: Performed By: #### Moisés ANNS1 #### [address] [address] [address] COMPREHENSIVE PANELon 2021 Albumin [Mass/Vol] 3.2 g/dL Low 3.4 - 5.0 [facility] Comment on above: Performed By: #### G MARISSAS1 #### [address] [address] ALP [Catalytic activity/Vol] 147 U/L High 33 - 110 [facility] Comment on above: Performed By: #### Moisés ANNS1 #### [address] [address] ALT [Catalytic activity/Vol] 10 U/L Normal 7 - 45 [facility] Comment on above: Result Comment: Hali ents treated with Sulfasalazine may generate falsely decreased results for ALT. Performed By: #### G LUS1 #### [address] [address] Anion gap [Moles/Vol] 13 mmol/L Normal 10 - 20 [facility] Comment on above: Performed By: #### G LUS1 #### [address] [address] AST [Catalytic activity/Vol] 15 U/L Normal 9 - 39 [facility] Comment on above: Performed By: #### Moisés ANNS1 #### [address] [address] Bilirubin [Mass/Vol] 0.3 mg/dL Normal 0.0 - 1.2 [facility] Comment on above: Performed By: #### G LUS1 #### [address] [address] Calcium [Mass/Vol] 8.9 mg/dL Normal 8.6 - 10.3 [facility] Comment on above: Performed By: #### G LUS1 #### [address] [address] Chloride [Moles/Vol] 104 mmol/L Normal 98 - 107 [facility] Comment on above: Performed By: #### G LUS1 #### [address] [address] Creatinine [Mass/Vol] 0.36 mg/dL Low 0.50 - 1.05 [facility] Comment on above: Performed By: #### G LUS1 #### [address] [address] eGFR FEMALE >90 Normal >90 [facility] Comment on above: Result Comment: CALC ULATIONS OF ESTIMATED GFR ARE PERFORMED USING THE 2020 CKD-EPI STUDY REFIT EQUATION WITHOUT THE RACE VARIABLE FOR THE IDMS-TRACEABLE CREATININE METHODS. https://jasn.asnjournals.org/content//ASN.908008782 8 Performed By: #### G LUS1 #### [address] [address] Glucose [Mass/Vol] 89 mg/dL Normal 74 - 99 [facility] Comment on above: Performed By: #### G LUS1 #### [address] [address] HCO3 (Bld) [Moles/Vol] 23 mmol/L Normal 21 - 32 [facility] Comment on above: Performed By: #### G LUS1 #### [address] [address] Potassium [Moles/Vol] 3.7 mmol/L Normal 3.5 - 5.3 [facility] Comment on above: Performed By: #### G LUS1 #### [address] [address] Protein [Mass/Vol] 6.2 g/dL Low 6.4 - 8.2 [facility] Comment on above: Performed By: #### G LUS1 #### [address] [address] Sodium [Moles/Vol] 136 mmol/L Normal 136 - 145 [facility] Comment on above: Performed By: #### G LUS1 #### [address] [address] Urea nitrogen [Mass/Vol] 5 mg/dL Low 6 - 23 [facility] Comment on above: Performed By: #### G LUS1 #### [address] [address] Daily Progress Note - OB-Ant enatal Testingon 09-06-2021 Daily Progress Note - OB- Testing Current Stage: Stage: Testing OB Dating: EDC/EGA: Final [id number] EGA32.6 Testing: NST Interpretation - Baby A: [...] Updated: 06-Sep-2021 13:32 by Noe Adame) Normal [facility] HEMOGLOBIN A1Con 09-06-2021 Glucose [Mass/Vol] 108 mg/dL Normal [facility] Comment on above: Performed By: #### H BA1E #### [address] [address] HbA1c (Bld) [Mass fraction] 5.4 % Normal [facility] Comment on above: Result Comment: Diag nosis of Diabetes-Adults Non-Diabetic: < or = 5.6% Increased risk for developing diabetes: 5.7-6.4% Diagnostic of diabetes: > or = 6.5% . Monitoring of Diabetes Age (y) Therapeutic Goal (%) Adults: >18 <7.0 Pediatrics: 13-18 <7.5 7-12 <8.0 0- 6 7.5-8.5 [place] [employer]. Diabetes Care 33(S1), Apr 2009. Performed By: #### H BA1E #### [facility] [address] [id number] Hemoglobin A1Con 09-06-2021 Glucose [Mass/Vol] 108 mg/dL MG-OBG YN-Ris man 320 Work Phone: HbA1c (Bld) [Mass fraction] 5.4 % TD-UPFVV-Ute man 320 Work Phone: Comment on above: Diagnosis of Diabete s-Adults Non-Diabetic: < or = 5.6% Increased risk for developing diabetes: 5.7-6.4% Diagnostic of diabetes: > or = 6.5%. Monitoring of Diabetes Age (y) Therapeutic Goal (%) Adults: >18 <7.0 Pediatrics: 13-18 <7.5 7-12 <8.0 0- 6 7.5-8.5 [place] [employer]. Diabetes Care 33(S1), Apr 2009. Laboratory - Chemistry and C hemistry - challengeon 09-06-2021 Albumin BCP dye [Mass/Vol] 3.2 g/dL below low threshold 3.4 - 5.0 NM-ZGGWD-Dkw man 320 Work Phone: ALP [Catalytic activity/Vol] 147 U/L above high threshold 33 - 110 IU-LPABY-Ddv man 320 Work Phone: ALT With P-5'-P [Catalytic activity/Vol] 10 U/L 7 - 45 AM-DGHRA-Rtb man 320 Work Phone: Comment on above: Patients treated wit h Sulfasalazine may generate falsely decreased results for ALT. Anion gap [Moles/Vol] 13 mmol/L 10 - 20 AQ-YCIYX-Tnx man 320 Work Phone: AST With P-5'-P [Catalytic activity/Vol] 15 U/L 9 - 39 IP-VGCLZ-Ncd man 320 Work Phone: [phone] Bilirubin [Mass/Vol] 0.3 mg/dL 0.0 - 1.2 OC-BXTLC-Uye man 320 Work Phone: [phone] Calcium [Mass/Vol] 8.9 mg/dL 8.6 - 10.3 MG-OBG YN-Ris man 320 Work Phone: [phone] Chloride [Moles/Vol] 104 mmol/L 98 - 107 IN-KKSHR-Ijx man 320 Work Phone: [phone] CO2 [Moles/Vol] 23 mmol/L 21 - 32 MG-OBGYN- Ris man 320 Work Phone: [phone] Creatinine [Mass/Vol] 0.36 mg/dL below low threshold See Below ZT-HBGDE-Ubv man 320 Work Phone: [phone] Comment on above: Reference Range: 0.5 0 - 1.05 Glucose [Mass/Vol] 89 mg/dL 74 - 99 MG-OBG YN-Ris man 320 Work Phone: [phone] Potassium [Moles/Vol] 3.7 mmol/L 3.5 - 5.3 HC-CFCWN-Gil man 320 Work Phone: [phone] Protein [Mass/Vol] 6.2 g/dL below low threshold 6.4 - 8.2 YF-CGYLM-Mdx man 320 Work Phone: [phone] Sodium [Moles/Vol] 136 mmol/L 136 - 145 MG-OBG YN-Ris man 320 Work Phone: [phone] Urea nitrogen [Mass/Vol] 5 mg/dL below low threshold 6 - 23 WY-RCEPT-Uaz man 320 Work Phone: [phone] Laboratory - Hematology and Cell countson 09-06-2021 Erythrocyte distribution width (RBC) [Ratio] 15.1 % above high threshold See Below HK-GUYLN-Lgz man 320 Work Phone: [phone] Comment on above: Reference Range: 11. 5 - 14.5 Hematocrit (Bld) [Volume fraction] 36.7 % See Below AN-JAHHD-Yvs man 320 Work Phone: Comment on above: Reference Range: 36. 0 - 46.0 Hemoglobin (Bld) [Mass/Vol] 12.7 g/dL See Below XA-XXPVH-Yns man 320 Work Phone: Comment on above: Reference Range: 12. 0 - 16.0 MCHC (RBC) [Mass/Vol] 34.6 g/dL See Below PE-XMJFE-Hwt man 320 Work Phone: Comment on above: Reference Range: 32. 0 - 36.0 MCV (RBC) [Entitic vol] 82 fL 80 - 100 AQ-XJATW-Hnm man 320 Work Phone: [phone] Platelets (Bld) [#/Vol] 210 10*3/uL 150 - 450 QD-AYWID-Zap man 320 Work Phone: [phone] RBC (Bld) [#/Vol] 4.47 {x10E12/L} See Below MG -OBGYN-Ris man 320 Work Phone: Comment on above: Reference Range: 4.0 0 - 5.20 WBC (Bld) [#/Vol] 8.7 10*3/uL 4.4 - 11.3 MG-OBG YN-Ris man 320 Work Phone: No Panel Informationon 09-06 >90 >90 VZ-OWMCG-Lka man 320 Work Phone: Comment on above: CALCULATIONS OF MEL MATED GFR ARE PERFORMED USING THE 2020 CKD-EPI STUDY REFIT EQUATION WITHOUT THE RACE VARIABLE FOR THE IDMS-TRACEABLE CREATININE METHODS.https://jasn.asnjournals.org/content//ASN.2 387992222 Triage Note - OB v4on 2021 Triage Note - OB v4 Triage: General Info: Time of Arrival on [id number] 12:55 [facility] Time Acuity Level Uvvzsjua69-Pnw-8624 13:05 Chief ComplaintNST GDM Spoken Language PreferredEnglish (1) Weight in kg104.1 kilogram(s) Weight in ktm226.5 pound(s) Weight Methodactual (measured) Scale Typestanding Home Meds have been Reviewed and Verified with Patient/Familyyes Info: Gravida2 Term Deliveries0 Deliveries0 Abortions1 Living Children0 Patient stated [id number] Calculation of EGA based on patient stated [...] and indications to call provider Admission/Observation/Disc harge/Transfer Date/Tggg60-Fdc-5491 13:35 Discharged Accompanied Bysignificant other/partner Discharge Modeambulatory [...] From Triage - ED 08-Jul-2021 10:27 Normal [facility] URIC ACIDon 09-06-2021 Urate [Mass/Vol] 4.5 mg/dL Normal 2.3 - 6.7 [facility] Comment on above: Result Comment: Marlene puncture immediately after or during the administration of Metamizole may lead to falsely low results. Testing should be performed immediately prior to Metamizole dosing. Performed By: #### G LUS1 #### [id number] [place] [address] Uric Acid, Serumon Urate [Mass/Vol] 4.5 mg/dL 2.3 - 6.7 MG-OBGYN -Ris man 320 Work Phone: Comment on above: Venipuncture immedia tely after or during the administration of Metamizole may lead to falsely low results. Testing should be performed immediately prior to Metamizole dosing. Falls Risk Screeningon 09-05 Fall risk assessment a) No falls within the last year OA-MJLMS-Dqn man 320 Work Phone: GLUCOSE-POCTon 09-05-2021 Glucose [Mass/Vol] 103 mg/dL High 74 - 99 [facility] Comment on above: Performed By: #### G LUS1 #### [facility] [address] [place] [address] Laboratory - Chemistry and C hemistry - challengeon 09-05-2021 Glucose [Mass/Vol] 103 mg/dL above high threshold 74 - 99 TB-SURJK-Yiv man 320 Work Phone: No Panel Informationon 09-05 Normal YM-DPDXL-Itj man 320 Work Phone: OB Biophysical profile [...] EFW (oz) 2 oz EFW by: Hadlock (EAO-VV-GF-FL) Extended Chainman 4.2 mm Head / Face / Neck [...] Electronically signed by: CHRISTA MONSALVE MD Normal [facility] OB Completed scan + Detailed Anatomyon 09-05-2021 [...] EFW (oz) 2 oz EFW by: Hadlock (QLX-ZW-ZO-FL) Extended Chainman 4.2 mm Head / Face / Neck [...] Electronically signed by: CHRISTA MONSALVE MD Normal [facility] STATISTICAL DEVELOPER - Office Visiton STATISTICAL DEVELOPER - Office Visit Diagnoses/Problems Assessed Gestational diabetes [...] current asthma medications as directed by her gun profiler. -Currently on albuterol, using it once a [...] recommended every 1-3 years. Abby Henderson, MS4 [facility] Seen and discussed with Dr. Cartagena. Chief Complaint Pt here for MFM consult Referred By: Dr. Racquel Lechuga [facility] Supervisor: Declined Adult Risk ScreeningThere are no spiritual/cultural [...] alcohol, recreatio (more content not included)... Normal [facility] Nutrition-Adulton 08-25-2021 Nutrition-Adult Medical Diagnosis Assessed Gestational [...] with Different Expertise: emailed Valerie from the [employer]. For [employer] to see if patient could qualify for using the food pantry when she has appointments at [place] (or [facility]). Nutrition Diagnosis Diagnosis 1: new Food- and [...] (V12.69) (Z8 (more content not included)... Normal [email or web address] Nutrition-Adulton 08-21-2021 Nutrition-Adult No report was sent Normal [email or web address] GLUCOSE AMAN,3HR PREGNANCYon 08-11-2021 Glucose [Mass/Vol] 154 mg/dL Abnormal <140 [facility] Comment on above: Performed By: #### G TTP3 #### [address] [address] Glucose [Mass/Vol] 201 mg/dL Abnormal <155 [facility] Comment on above: Performed By: #### G TTP3 #### [address] [address] Glucose [Mass/Vol] 193 mg/dL Abnormal <180 [facility] Comment on above: Performed By: #### G TTP3 #### [address] [address] Glucose [Mass/Vol] 89 mg/dL Normal <95 [facility] Comment on above: Performed By: #### G TTP3 #### [place] [address] INTERPRETATION SEE BELOW Normal [facility] [place] Comment on above: Result Comment: Diag nostics with glucose loading dose of 100 g. Reference values from [place] [employer]. Diabetes Care 2015;38(Suppl.1):S8-S16. Performed By: #### G TTP3 #### [place] [address] No Panel Informationon 08-11 SEE BELOW [facility] [address] Work Phone: [phone] Comment on above: Diagnostics with glu cose loading dose of 100 g. Reference values from [place] [employer]. Diabetes Care 2015;38(Suppl.1):S8-S16. 154 mg/dL Abnormal <140 [facility] [address] Work Phone: [phone] 201 mg/dL Abnormal <155 [facility] [address] Work Phone: [phone] 193 mg/dL Abnormal <180 [facility] [address] Work Phone: 89 mg/dL <95 [facility] [address] Work Phone: [phone] RUBELLA IGG ABon 08-02-2021 RUBELLA IGG AB Equivocal Normal [facility] [place] Comment on above: Result Comment: INTE RPRETATIVE [...] assays. Performed By: #### T +S #### [facility] [address] [place] [address] CBC AND DIFFERENTIALon 08-01 Basophils (Bld) [#/Vol] 0.00 10*3/uL Normal 0.00 - 0.10 [facility] Comment on above: Performed By: #### G LUS1 #### [address] [address] Basophils/100 WBC (Bld) 0.4 % Normal 0.0 - 2.0 [facility] Comment on above: Performed By: #### G LUS1 #### [address] [address] Eosinophils (Bld) [#/Vol] 0.20 10*3/uL Normal 0.00 - 0.70 [facility] Comment on above: Performed By: #### G LUS1 #### [address] [address] Eosinophils/100 WBC (Bld) 2.0 % Normal 0.0 - 6.0 [facility] Comment on above: Performed By: #### G LUS1 #### [address] [address] Erythrocyte distribution width (RBC) [Ratio] 14.8 % High 11.5 - 14.5 [facility] Comment on above: Performed By: #### G LUS1 #### [address] [address] Hematocrit (Bld) [Volume fraction] 34.1 % Low 36.0 - 46.0 [facility] Comment on above: Performed By: #### G LUS1 #### [address] [address] Hemoglobin (Bld) [Mass/Vol] 11.8 g/dL Low 12.0 - 16.0 [facility] Comment on above: Performed By: #### G LUS1 #### [address] [address] Lymphocytes (Bld) [#/Vol] 1.50 10*3/uL Normal 1.20 - 4.80 [facility] Comment on above: Performed By: #### G LUS1 #### [address] [address] Lymphocytes/100 WBC (Bld) 17.6 % Normal 13.0 - 44.0 [facility] Comment on above: Performed By: #### G LUS1 #### [address] [address] MCHC (RBC) [Mass/Vol] 34.6 g/dL Normal 32.0 - 36.0 [facility] Comment on above: Performed By: #### G LUS1 #### [address] [address] MCV (RBC) [Entitic vol] 84 fL Normal 80 - 100 [facility] Comment on above: Performed By: #### G LUS1 #### [address] [address] Monocytes (Bld) [#/Vol] 0.60 10*3/uL Normal 0.10 - 1.00 [facility] Comment on above: Performed By: #### G LUS1 #### [address] [address] Monocytes/100 WBC (Bld) 7.3 % Normal 2.0 - 10.0 [facility] Comment on above: Performed By: #### G LUS1 #### [address] [address] Neutrophils (Bld) [#/Vol] 6.10 10*3/uL Normal 1.20 - 7.70 [facility] Comment on above: Result Comment: Perc ent differential counts (%) should be interpreted in the context of the absolute cell counts (cells/L). Performed By: #### G LUS1 #### [address] [address] Neutrophils/100 WBC (Bld) 72.7 % Normal 40.0 - 80.0 [facility] Comment on above: Performed By: #### G LUS1 #### [address] [address] Platelets (Bld) [#/Vol] 208 10*3/uL Normal 150 - 450 [facility] Comment on above: Performed By: #### G LUS1 #### [address] [address] RBC 4.07 x10E12/L Normal 4.00 - 5.20 [facility] [place] Comment on above: Performed By: #### G LUS1 #### [address] [address] WBC (Bld) [#/Vol] 8.4 10*3/uL Normal 4.4 - 11.3 [facility] Comment on above: Performed By: #### G LUS1 #### [address] [address] Complete Blood Count + Diffe rentialon 08-01-2021 Basophils/100 WBC (Bld) 0.4 % 0.0 - 2.0 [facility] [address] Work Phone: [phone] Erythrocyte distribution width (RBC) [Ratio] 14.8 % above high threshold See Below [facility] [address] Work Phone: [phone] Comment on above: Reference Range: 11. 5 - 14.5 Hematocrit (Bld) [Volume fraction] 34.1 % below low threshold See Below [facility] [address] Work Phone: [phone] Comment on above: Reference Range: 36. 0 - 46.0 Hemoglobin (Bld) [Mass/Vol] 11.8 g/dL below low threshold See Below [facility] [address] Work Phone: [phone] Comment on above: Reference Range: 12. 0 - 16.0 Lymphocytes/100 WBC (Bld) 17.6 % See Below [facility] [address] Work Phone: [phone] Comment on above: Reference Range: 13. 0 - 44.0 MCHC (RBC) [Mass/Vol] 34.6 g/dL See Below [facility] [address] Work Phone: [phone] Comment on above: Reference Range: 32. 0 - 36.0 MCV (RBC) [Entitic vol] 84 fL 80 - 100 [facility] [address] Work Phone: [phone] Monocytes/100 WBC (Bld) 7.3 % 2.0 - 10.0 [facility] [address] Work Phone: [phone] Neutrophils/100 WBC (Bld) 72.7 % See Below [facility] [address] Work Phone: [phone] Comment on above: Reference Range: 40. 0 - 80.0 Platelets (Bld) [#/Vol] 208 10*3/uL 150 - 450 [facility] [address] Work Phone: [phone] RBC (Bld) [#/Vol] 4.07 {x10E12/L} See Below [facility] [address] Work Phone: [phone] Comment on above: Reference Range: 4.0 0 - 5.20 WBC (Bld) [#/Vol] 8.4 10*3/uL 4.4 - 11.3 [facility] [address] Work Phone: [phone] Complete Blood Count + Differential 0.00 {x10E9/L} See Below [facility] [address] Work Phone: [phone] Comment on above: Reference Range: 0.0 0 - 0.10 Complete Blood Count + Differential 0.20 {x10E9/L} See Below [facility] [address] Work Phone: [phone] Comment on above: Reference Range: 0.0 0 - 0.70 Complete Blood Count + Differential 0.60 {x10E9/L} See Below [facility] [address] Work Phone: [phone] Comment on above: Reference Range: 0.1 0 - 1.00 Complete Blood Count + Differential 1.50 {x10E9/L} See Below [facility] [address] Work Phone: [phone] Comment on above: Reference Range: 1.2 0 - 4.80 Complete Blood Count + Differential 6.10 {x10E9/L} See Below [facility] [address] Work Phone: [phone] Comment on above: Reference Range: 1.2 0 - 7.70 Percent differential counts (%) should be interpreted in the context of the absolute cell counts (cells/L). Complete Blood Count + Differential 2.0 % 0.0 - 6.0 [facility] [address] Work Phone: GLUCOSE,1 HR SCREEN, PREGon 08-01-2021 Glucose [Mass/Vol] 197 mg/dL Abnormal <135 [facility] Comment on above: Result Comment: Diag nostic value with glucose loading dose of 50 g. Reference values from [place] [employer]. Diabetes Care 2015;38(Suppl.1):S8-S16 Performed By: #### G LUS1 #### [facility] [address] [place] [address] Glucose, 1 Hour Screen, Preg nancyon 08-01-2021 Glucose 1 Hr post 50 g glucose PO [Mass/Vol] 197 mg/dL Abnormal <135 [facility] [address] Work Phone: Comment on above: Diagnostic value wit h glucose loading dose of 50 g. Reference values from [place] [employer]. Diabetes Care 2015;38(Suppl.1):S8-S16 Rubella IgG Antibodyon 08-01 Rubella virus IgG IA Ql Equivocal [facility] [address] Work Phone: Comment on above: INTERPRETATIVE COMME [...] assays. Provider Note - ED v3on 04-0 9-2022 Provider Note - ED v3 Provider Note: [...] made to minimize errors. Minor errors in medical reviewer may be present. Please call if questions.. [...] From Triage - ED 08-Jul-2021 10:27 [facility] Risk Screen - Adult Emergenc yon 07-08-2021 Risk Screen - Adult Emergency Preferred Language: Preferred Language: Preferred Language for Discussing Health Care (patient/designee)Citizen Of [place] Advanced Directives: Advance Directive/DNRnot applicable Family Violence Adult: Abuse Screen: Are you or have you been threatened or abused physically, emotionally, or sexually by anyoneno Learning Assessment (Patient): Learning Assessment (Patient): Patient is Able to be Assessed for Learningyes Factors Influencing Readiness to Learnacuteness of illness Factors that Impact Ability to Learnnone Devices/Methods Used to Communicatenone Learning Preferencesaudio Cultural Considerationsnone Developmental Considerationsnone Oriental Orthodox Considerationsnone Learning Assessment (Other Learner): Learning Assessment (Other Learner): Other learner availableno Pressure Injury/TB/Substance: Pressure Injury: Do you have a coughno Smoking Statusformer smoker Alcohol Usedenies Drug Usedenies Admission Risk Screen: Significant IndicatorsComplete CAGE: CAGE: Is this an injured patient at a Trauma Center ([facility]/[place]): no Electronic Signatures: Annie Carnes (RN) (Signed 08-Jul-2021 10:32) Authored: Preferred Language, Advanced Directives, Family Violence Adult, Learning Assessment (Patient), Learning Assessment (Other Learner), Pressure Injury/TB/Substance, Pressure Injury, CAGE Last Updated: 08-Jul-2021 10:32 by Annie Carnes (RN) [facility] Triage - EDon 07-08-2021 Triage - ED Quick Triage: Are You yes Have You Given In The Last 6 Weeksno Are You Currently Breastfeedingno Chart Review: ARRIVAL INFORMATION Means of Arrival: Ambulatory Mode of Arrival: private vehicle Arrival From: home Language: Spoken Language Preferred: Citizen Of [place] CHIEF COMPLAINT SATURDAY Amber VENEGAS is a [...] BMI (kg/m2): 34.888 Calculated BSA (m2) 2.14 STATISTICAL DEVELOPER History: Patient has homicidal thoughts: no Risk [...] Medical History, Active Electronic Signatures: Annie Carnes (RN) (Signed 08-Jul-2021 10:31) Entered: Risk Screens, Pain, Arrival, Travel History, Chart Review, Scores, Past Medical History Authored: Quick Triage, Risk Screens, Pain, Arrival, Travel History, Chart Review, Scores, Past Medical History Last Updated: 08-Jul-2021 10:31 by Annie Carnes (MARK) [facility] Panel Informationon 06-14 [facility] [address] Work Phone: OB COMPLETEon 06-14-2021 OB COMPLETE Patient Name: THEO SATURDAY STUDY: US OB COMPLETE 06/14/2021 10:06 am INDICATION: anatomy Z3A.15: with 15 completed weeks gestation. COMPARISON: None. ACCESSION NUMBER(S): [id number] ORDERING CLINICIAN: RACQUEL LECHUGA TECHNIQUE: Routine ultrasound [...] Electronically signed by: ZHANG VENTURA MD Normal [facility] Laboratory - Chemistry and C hemistry - challengeon 05-10-2021 Second trimester quad maternal screen panel SEE BELOW [facility] [address] Work Phone: Comment on above: Genetics test res ults are available electronically in the [facility] under Diagnostic Testing-> Genetics.Results will be sent on a separate report. QUADCHECK-TRIPLE CHECK WITH INHIBINon 05-10-2021 QUADCHECK INTERPRETATION, SEE BELOW Normal [facility] Comment on above: Result Comment: G enetics test results are available electronically in the [facility] under Diagnostic Testing-> Genetics. Results will be sent on a separate report. Performed By: #### G LUS1 #### [address] [address] HEPATITIS B SURFACE AGon HEP.B SURFACE AG Non-Reactive Normal NONREACTIVE [facility] Comment on above: Result Comment: Biot in interference may cause falsely decreased results. Patients taking a Biotin dose of up to 5 mg/day should refrain from taking Biotin for 24 hours before sample collection. Providers may contact their local laboratory for further information. Performed By: #### G LUS1 #### [address] [address] HIV 1/2 ANTIGEN/ANTIBODY SCR EEN WITH REFLEX TO CONFIRMATIONon 04-27-2021 HIV 1/2 AG/AB SCREEN Non-Reactive Normal NONREACTIVE [facility] Comment on above: Result Comment: HIV Ag/Ab screen is performed using the [employer] HIV Ag/Ab Combo assay which detects the presence of HIV p24 antigen as well as antibodies to HIV-1 (Group M and O) and HIV-2. . No laboratory evidence of HIV infection. If acute HIV infection is suspected, consider testing for HIV RNA by PCR (viral load). Performed By: #### G LUS1 #### [address] [address] RUBELLA IGG ABon 04-27-2021 RUBELLA IGG AB Equivocal Normal [facility] [place] Comment on above: Result Comment: INTE RPRETATIVE [...] assays. Performed By: #### V ERAB #### [facility] [address] [place] [address] SYPHILIS SCREENING WITH REFL EXon 04-27-2021 SYPHILIS TOTAL AB Non-Reactive Normal NONREACTIVE [facility] Comment on above: Result Comment: No s ignificant level of Treponema pallidum antibody detected. Repeat testing in 2 to 4 weeks may be considered if early infection or incubating syphilis infection is suspected. Performed By: #### G LUS1 #### [address] [address] CBC AND DIFFERENTIALon 04-26 Basophils (Bld) [#/Vol] 0.10 10*3/uL Normal 0.00 - 0.10 [facility] Comment on above: Performed By: #### H BA1E #### [address] [address] Basophils/100 WBC (Bld) 1.3 % Normal 0.0 - 2.0 [facility] Comment on above: Performed By: #### H BA1E #### [address] [address] Eosinophils (Bld) [#/Vol] 0.30 10*3/uL Normal 0.00 - 0.70 [facility] Comment on above: Performed By: #### H BA1E #### [address] [address] Eosinophils/100 WBC (Bld) 4.3 % Normal 0.0 - 6.0 [facility] Comment on above: Performed By: #### H BA1E #### [address] [address] Erythrocyte distribution width (RBC) [Ratio] 15.8 % High 11.5 - 14.5 [facility] Comment on above: Performed By: #### H BA1E #### [address] [address] Hematocrit (Bld) [Volume fraction] 38.1 % Normal 36.0 - 46.0 [facility] Comment on above: Performed By: #### H BA1E #### [address] [address] Hemoglobin (Bld) [Mass/Vol] 12.8 g/dL Normal 12.0 - 16.0 [facility] Comment on above: Performed By: #### H BA1E #### [address] [address] Lymphocytes (Bld) [#/Vol] 1.60 10*3/uL Normal 1.20 - 4.80 [facility] Comment on above: Performed By: #### H BA1E #### [address] [address] Lymphocytes/100 WBC (Bld) 22.3 % Normal 13.0 - 44.0 [facility] Comment on above: Performed By: #### H BA1E #### [address] [address] MCHC (RBC) [Mass/Vol] 33.5 g/dL Normal 32.0 - 36.0 [facility] Comment on above: Performed By: #### H ADELIA1E #### [address] [address] MCV (RBC) [Entitic vol] 82 fL Normal 80 - 100 [facility] Comment on above: Performed By: #### H ADELIA #### [address] [address] Monocytes (Bld) [#/Vol] 0.50 10*3/uL Normal 0.10 - 1.00 [facility] Comment on above: Performed By: #### H ADELIA #### [address] [address] Monocytes/100 WBC (Bld) 6.2 % Normal 2.0 - 10.0 [facility] Comment on above: Performed By: #### H ADELIA #### [address] [address] Neutrophils (Bld) [#/Vol] 4.80 10*3/uL Normal 1.20 - 7.70 [facility] Comment on above: Result Comment: Perc ent differential counts (%) should be interpreted in the context of the absolute cell counts (cells/L). Performed By: #### H ADELIA #### [address] [address] Neutrophils/100 WBC (Bld) 65.9 % Normal 40.0 - 80.0 [facility] Comment on above: Performed By: #### H ADELIA #### [address] [address] Platelets (Bld) [#/Vol] 216 10*3/uL Normal 150 - 450 [facility] Comment on above: Performed By: #### H ADELIA #### [address] [address] RBC 4.67 x10E12/L Normal 4.00 - 5.20 [facility] Comment on above: Performed By: #### H BA #### [address] [address] WBC (Bld) [#/Vol] 7.3 10*3/uL Normal 4.4 - 11.3 [facility] Comment on above: Performed By: #### H BA1E #### [facility] [address] [id number] Complete Blood Count + Diffe christen 04-26-2021 Basophils/100 WBC (Bld) 1.3 % 0.0 - 2.0 [facility] [address] Work Phone: [phone] Erythrocyte distribution width (RBC) [Ratio] 15.8 % above high threshold See Below [facility] [address] Work Phone: [phone] Comment on above: Reference Range: 11. 5 - 14.5 Hematocrit (Bld) [Volume fraction] 38.1 % See Below [facility] [address] Work Phone: [phone] Comment on above: Reference Range: 36. 0 - 46.0 Hemoglobin (Bld) [Mass/Vol] 12.8 g/dL See Below [facility] [address] Work Phone: [phone] Comment on above: Reference Range: 12. 0 - 16.0 Lymphocytes/100 WBC (Bld) 22.3 % See Below [facility] [address] Work Phone: [phone] Comment on above: Reference Range: 13. 0 - 44.0 MCHC (RBC) [Mass/Vol] 33.5 g/dL See Below [facility] [address] Work Phone: [phone] Comment on above: Reference Range: 32. 0 - 36.0 MCV (RBC) [Entitic vol] 82 fL 80 - 100 [facility] [address] Work Phone: [phone] Monocytes/100 WBC (Bld) 6.2 % 2.0 - 10.0 [facility] [address] Work Phone: [phone] Neutrophils/100 WBC (Bld) 65.9 % See Below [facility] [address] Work Phone: [phone] Comment on above: Reference Range: 40. 0 - 80.0 Platelets (Bld) [#/Vol] 216 10*3/uL 150 - 450 [facility] [address] Work Phone: [phone] RBC (Bld) [#/Vol] 4.67 {x10E12/L} See Below [facility] [address] Work Phone: [phone] Comment on above: Reference Range: 4.0 0 - 5.20 WBC (Bld) [#/Vol] 7.3 10*3/uL 4.4 - 11.3 [facility] [address] Work Phone: [phone] Complete Blood Count + Differential 0.10 {x10E9/L} See Below [facility] [address] Work Phone: [phone] Comment on above: Reference Range: 0.0 0 - 0.10 Complete Blood Count + Differential 0.30 {x10E9/L} See Below [facility] [address] Work Phone: [phone] Comment on above: Reference Range: 0.0 0 - 0.70 Complete Blood Count + Differential 0.50 {x10E9/L} See Below [facility] [address] Work Phone: [phone] Comment on above: Reference Range: 0.1 0 - 1.00 Complete Blood Count + Differential 1.60 {x10E9/L} See Below [facility] [address] Work Phone: [phone] Comment on above: Reference Range: 1.2 0 - 4.80 Complete Blood Count + Differential 4.80 {x10E9/L} See Below [facility] [address] Work Phone: [phone] Comment on above: Reference Range: 1.2 0 - 7.70 Percent differential counts (%) should be interpreted in the context of the absolute cell counts (cells/L). Complete Blood Count + Differential 4.3 % 0.0 - 6.0 [facility] [address] Work Phone: [phone] HIV 1/2 ANTIGEN/ANTIBODY SCR EEN WITH REFLEX TO CONFIRMATIONon 04-26-2021 Lab Specimen Source Normal [facility] Comment on above: Performed By: #### G LUS1 #### [facility] [address] [place] [address] HIV 1+2 Ab Qn (S) Non-Reactive See Below [facility] [address] Work Phone: [phone] Comment on above: SOURCE: Reference Ra nge: NONREACTIVE HIV Ag/Ab screen is performed using the Siemens AtellMonoSphere HIV Ag/Ab Combo assay which detects the presence of HIV p24 antigen as well as antibodies to HIV-1 (Group M and O) and HIV-2..No laboratory evidence of HIV infection. If acute HIV infection is suspected, consider testing for HIV RNA by PCR (viral load). Hepatitis B Surface Antigeno n 04-26-2021 Hepatitis B Surface Antigen Non-Reactive See Below [facility] [address] Work Phone: [phone] Comment on above: SOURCE: Reference Ra nge: NONREACTIVE Biotin interference may cause falsely decreased results. Patients taking a Biotin dose of up to 5 mg/day should refrain from taking Biotin for 24 hours before sample collection. Providers may contact their local laboratory for further information. Laboratory - Blood bankon ABO group Nom (Bld) O [facility] [address] Work Phone: [phone] Blood group antibody screen Ql Negative [facility] [address] Work Phone: [phone] Rh immune globulin screen (Bld) [Interp] Positive [facility] [address] Work Phone: [phone] ABO group Nom (Bld) Canceled [facility] [address] Work Phone: [phone] Blood group antibody screen Ql Canceled [facility] [address] Work Phone: [phone] Rh immune globulin screen (Bld) [Interp] Canceled [facility] [address] Work Phone: [phone] Rubella IgG Antibodyon 04-26 Rubella virus IgG IA Ql Equivocal [facility] [address] Work Phone: [phone] Comment on above: INTERPRETATIVE COMME NT [...] IgG+IgM IA Ql (S) Non-Reactive See Below [facility] [address] Work Phone: Comment on above: Reference Range: NON REACTIVENo significant level of Treponema pallidum antibody detected. Repeat testing in 2 to 4 weeks may be considered if early infection or incubating syphilis infection is suspected. TYPE + SCREENon 04-26-2021 ABO TYPE O [facility] Comment on above: Performed By: #### T +S ####[place] [address] RH TYPE Positive [facility] Comment on above: Performed By: #### T +S ####[place] [address] ABO TYPE Canceled Normal [facility] Comment on above: Order Comment: TEST TYPE + SCREEN WAS CANCELLED, 04/26/2021 13:20 T+S DONE SEPERATELY. Performed By: #### T +S #### [facility] [address] [place] [address] RH TYPE Canceled Normal [facility] Comment on above: Order Comment: TEST TYPE + SCREEN WAS CANCELLED, 04/26/2021 13:20 T+S DONE SEPERATELY. Performed By: #### T +S #### [facility] [address] [place] [address] GC + CHLAMYDIA BY AMPLIFIED DETECTIONon 04-13-2021 CHLAMYDIA TRACH.,AMPLIFIED Negative Normal Negative [facility] Comment on above: Result Comment: The APTIMA Combo 2 assay is FDA-approved for Chlamydia trachomatis and Neisseria gonorrhoeae testing on female endocervical and vaginal swabs, ThinPrep liquid pap samples, male urine samples and urethral swabs. Performance characteristics for Chlamydia trachomatis and Neisseria gonorrhoeae testing on specific nez-NYL-mbimscwn sample types (female urine samples) have been validated by [facility]. This laboratory is certified by CLIA to perform high complexity testing. Samples from all other sites are not validated for this method. Performed By: #### G TTP3 #### [address] [address] N.GONORRHEA,AMPLIF IED Negative Normal Negative [facility] Comment on above: Result Comment: The APTIMA Combo 2 assay is FDA-approved for Chlamydia trachomatis and Neisseria gonorrhoeae testing on female endocervical and vaginal swabs, ThinPrep liquid pap samples, male urine samples and urethral swabs. Performance characteristics for Chlamydia trachomatis and Neisseria gonorrhoeae testing on specific uzp-ZSD-uglwksrg sample types (female urine samples) have been validated by [facility]. This laboratory is certified by CLIA to perform high complexity testing. Samples from all other sites are not validated for this method. Performed By: #### G TTP3 #### [address] [address] Cult, Urineon 04-12-2021 Bacteria identified Cx Nom (U) [facility] [address] Work Phone: GC + CHLAMYDIA BY AMPLIFIED DETECTIONon 04-12-2021 Lab Specimen Source Urine Normal [facility] Comment on above: Performed By: #### G TTP3 #### [address] [address] GC + Chlamydia By Amplified Detectionon 04-12-2021 C. trachomatis rRNA DILCIA+probe Ql (Unsp spec) Negative Negative [facility] [address] Work Phone: Comment on above: The APTIMA Combo 2 a ssay is FDA-approved for Chlamydia trachomatis and Neisseria gonorrhoeae testing on female endocervical and vaginal swabs, ThinPrep liquid pap samples, male urine samples and urethral swabs. Performance characteristics for Chlamydia trachomatis and Neisseria gonorrhoeae testing on specific iou-ITF-cgbkhtra sample types (female urine samples) have been validated by [facility]. This laboratory is certified by CLIA to perform high complexity testing. Samples from all other sites are not validated for this method. N. gonorrhoeae rRNA DILCIA+probe Ql (Unsp spec) Negative Negative [facility] [address] Work Phone: Comment on above: SOURCE: Urine The AP SARAN Combo 2 assay is FDA-approved for Chlamydia trachomatis and Neisseria gonorrhoeae testing on female endocervical and vaginal swabs, ThinPrep liquid pap samples, male urine samples and urethral swabs. Performance characteristics for Chlamydia trachomatis and Neisseria gonorrhoeae testing on specific dif-VQG-kyyepbwi sample types (female urine samples) have been validated by [facility]. This laboratory is certified by CLIA to perform high complexity testing. Samples from all other sites are not validated for this method. LMPon 04-12-2021 Last menstrual period start date 19Jan2021 [facility] [address] Work Phone: Laboratory - Cytologyon 04-01 Cytology report Cyto stain.thin prep Doc (Cvx/Vag) [facility] [address] Work Phone: URINE CULTURE,BACTERIALon URINE CULTURE,BACTERIAL PATIENT: THE[place]UR[place] [facility] [id number] : 89 AGE: SEX: F ORDERED BY: RACQUEL LECHUGA SOURCE: URINE COLLECTED: 04/12/21 11:00 ANTIBIOTICS AT [facility].: RECEIVED : 04/12/21 18:54 SITE: Clean Catch/Voided R E S U L T S URINE CULTURE,BACTERIAL FINAL 04/13/21 11:28 NO SIGNIFICANT GROWTH. Normal [facility] Comment on above: Performed By: #### G TTP3 #### [place] [address] BASIC METABOLIC PANELon - Anion gap [Moles/Vol] 15 mmol/L Normal 10 - 20 [facility] Comment on above: Performed By: #### B MP #### [address] [address] Calcium [Mass/Vol] 9.0 mg/dL Normal 8.6 - 10.3 [facility] Comment on above: Performed By: #### B MP #### [address] [address] Chloride [Moles/Vol] 102 mmol/L Normal 98 - 107 [facility] Comment on above: Performed By: #### B MP #### [address] [address] Creatinine [Mass/Vol] 0.49 mg/dL Low 0.50 - 1.05 [facility] Comment on above: Performed By: #### B MP #### [address] [address] GFR- AM. >60 Normal >60 [facility] Comment on above: Result Comment: CALC ULATIONS OF ESTIMATED GFR ARE PERFORMED USING THE MDRD STUDY EQUATION FOR THE IDMS-TRACEABLE CREATININE METHODS. CLIN CHEM 2007;53:766-72 Performed By: #### B MP #### [address] [address] GFR-NON AM. >60 Normal >60 [facility] Comment on above: Performed By: #### B MP #### [address] [address] Glucose [Mass/Vol] 97 mg/dL Normal 74 - 99 [facility] Comment on above: Performed By: #### B MP #### [address] [address] HCO3 (Bld) [Moles/Vol] 21 mmol/L Normal 21 - 32 [facility] Comment on above: Performed By: #### B MP #### [address] [address] Potassium [Moles/Vol] 3.7 mmol/L Normal 3.5 - 5.3 [facility] Comment on above: Performed By: #### B MP #### [address] [place] [address] Sodium [Moles/Vol] 134 mmol/L Low 136 - 145 [facility] Comment on above: Performed By: #### B MP #### [address] [place] [address] Urea nitrogen [Mass/Vol] 6 mg/dL Normal 6 - 23 [facility] Comment on above: Performed By: #### B MP #### [address] [address] Laboratory - Chemistry and C hemistry - challengeon 03-29-2021 Anion gap [Moles/Vol] 15 mmol/L 10 - 20 [facility] [address] Work Phone: [phone] Calcium [Mass/Vol] 9.0 mg/dL 8.6 - 10.3 [facility] [address] Work Phone: [phone] Chloride [Moles/Vol] 102 mmol/L 98 - 107 [facility] [address] Work Phone: [phone] CO2 [Moles/Vol] 21 mmol/L 21 - 32 [facility] [address] Work Phone: [phone] Creatinine [Mass/Vol] 0.49 mg/dL below low threshold See Below [facility] [address] Work Phone: [phone] Comment on above: Reference Range: 0.5 0 - 1.05 Glucose [Mass/Vol] 97 mg/dL 74 - 99 [facility] [address] Work Phone: [phone] Potassium [Moles/Vol] 3.7 mmol/L 3.5 - 5.3 [facility] [address] Work Phone: [phone] Sodium [Moles/Vol] 134 mmol/L below low threshold 136 - 145 [facility] [address] Work Phone: [phone] Urea nitrogen [Mass/Vol] 6 mg/dL 6 - 23 [facility] [address] Work Phone: [phone] No Panel Informationon 03-29 >60 >60 [facility] [address] Work Phone: Comment on above: CALCULATIONS OF [...] BMI (kg/m2): 32.038 Calculated BSA (m2) 2.09 [place] Coma Scale: Best Eye Response: (E4) spontaneous Best Motor Response: (M6) obeys commands Best Verbal Response: (V5) oriented Liam Score: 15 STATISTICAL DEVELOPER History: control Patient has homicidal thoughts: no [...] 29-Mar-2021 01:03 by Richardson Zepeda (MARK) [facility] URINALYSIS WITH CULTURE IF I NDICATEDon 03-29-2021 Appearance (U) Canceled [facility] Comment on above: Order Comment: TEST URINALYSIS WITH CULTURE IF INDICATED WAS CANCELLED, 03/29/2021 15:33 PATIENT DISCHARGED. Performed By: #### U ARFX #### [place] [address] ASCORBIC ACID Canceled [facility] Comment on above: Order Comment: [...] hours. Performed By: #### U ARFX #### [address] [address] Bilirubin Ql (U) Canceled [facility] Comment on above: Order Comment: TEST URINALYSIS WITH CULTURE IF INDICATED WAS CANCELLED, 03/29/2021 15:33 PATIENT DISCHARGED. Performed By: #### U ARFX #### [address] [address] Color (U) Canceled [facility] Comment on above: Order Comment: TEST URINALYSIS WITH CULTURE IF INDICATED WAS CANCELLED, 03/29/2021 15:33 PATIENT DISCHARGED. Performed By: #### U ARFX #### [address] [address] Glucose Ql (U) Canceled [facility] Comment on above: Order Comment: TEST URINALYSIS WITH CULTURE IF INDICATED WAS CANCELLED, 03/29/2021 15:33 PATIENT DISCHARGED. Performed By: #### U ARFX #### [address] [address] Hemoglobin Ql (U) Canceled [facility] Comment on above: Order Comment: TEST URINALYSIS WITH CULTURE IF INDICATED WAS CANCELLED, 03/29/2021 15:33 PATIENT DISCHARGED. Performed By: #### U ARFX #### [address] [id number] Ketones Ql (U) Canceled [facility] Comment on above: Order Comment: TEST URINALYSIS WITH CULTURE IF INDICATED WAS CANCELLED, 03/29/2021 15:33 PATIENT DISCHARGED. Performed By: #### U ARFX #### [address] [id number] Leukocyte esterase Test strip Ql (U) Canceled [facility] Comment on above: Order Comment: TEST URINALYSIS WITH CULTURE IF INDICATED WAS CANCELLED, 03/29/2021 15:33 PATIENT DISCHARGED. Performed By: #### U ARFX #### [address] [id number] Nitrite Ql (U) Canceled [facility] Comment on above: Order Comment: TEST URINALYSIS WITH CULTURE IF INDICATED WAS CANCELLED, 03/29/2021 15:33 PATIENT DISCHARGED. Performed By: #### U ARFX #### [address] [id number] pH Canceled [facility] Comment on above: Order Comment: TEST URINALYSIS WITH CULTURE IF INDICATED WAS CANCELLED, 03/29/2021 15:33 PATIENT DISCHARGED. Performed By: #### U ARFX #### [address] [address] Protein Ql (U) Canceled [facility] Comment on above: Order Comment: TEST URINALYSIS WITH CULTURE IF INDICATED WAS CANCELLED, 03/29/2021 15:33 PATIENT DISCHARGED. Performed By: #### U ARFX #### [address] [address] Specific gravity (U) [Rel density] Canceled Normal [facility] Comment on above: Order Comment: TEST URINALYSIS WITH CULTURE IF INDICATED WAS CANCELLED, 03/29/2021 15:33 PATIENT DISCHARGED. Performed By: #### U ARFX #### [address] [address] UROBILINOGEN Canceled Normal [facility] Comment on above: Order Comment: TEST URINALYSIS WITH CULTURE IF INDICATED WAS CANCELLED, 03/29/2021 15:33 PATIENT DISCHARGED. Performed By: #### U ARFX #### [address] [address] IO HCG, Urine Test on 03-22-2021 HCG ( test) Ql (U) Positive [facility] [address] Work Phone: [phone] LMPon 03-22-2021 Last menstrual period start date 19Jan2021 [facility] [address] Work Phone: [phone] STATISTICAL DEVELOPER - Office Visiton 03-02 STATISTICAL DEVELOPER - Office Visit Diagnoses/Problems Assessed Positive urine test (V72.42) (Z32.01) Orders IO HCG, Urine Test; Status:Complete; Done: [id number] 09:49AM IO HCG, Urine Test; Status:Resulted - Requires Verification,Retrospective Authorization; Done: [id number] 09:55AM Provider Impressions Patient 26-year-old who comes [...] 03/22/2021 9:32:48 AM Current Meds Medication NameInstruction Pre- Formula TABS Vitals Vital Signs Recorded: 22Mar2021 09:48AM [id number] F Nlnwmgla753 Cckliozsj40 Height5 ft 7 in Yulddi979 lb 2 oz BMI Atzpddnses99.87 kg/m2 BSA Calculated2.01 [id number] Physical Exam Constitutional: Healthy-appearing young female in [...] last menstrual period Results/Data IO HCG, Urine [id number] 09:55AMRacquel Lechuga medline lot:[id number] exp:05/29/2022 Test NameResultFlagReference IO Urine hCGPositive Signatures Electronically signed by : Racquel Lechuga DO; Mar 22 2021 10:05AM EST (Author) Normal [facility]works HCG, ,Urineon 03-21 Beta HCG ( test) Ql (U) Positive Abnormal NEG [facility] Comment on above: Result Comment: If H CG results do not concur with clinical observations, additional testing to confirm result is recommended. This test is not labeled for use as a tumor marker. Performed By: #### U HCG, UA #### [facility] [address] [place] [address] Apple Thinner: Peter Jenkins MD Urinalysis, Routineon 2020 Bilirubin, SemiQt,Ur Negative Normal NEG [facility] Comment on above: Performed By: #### U HCG, UA #### [facility] [address] [place] [address] Apple Thinner: Peter Jenkins MD Blood, Urine Negative Normal NEG [facility] Comment on above: Performed By: #### U HCG, UA #### [facility] [address] [place] [address] Apple Thinner: Peter Jenkins MD Clarity (U) Clear Normal CLEAR [facility] Comment on above: Performed By: #### U HCG, UA #### [facility] [address] [place], [place] [id number] Apple Thinner: Peter Jenkins MD Color (U) Yellow Normal YEL [facility] Comment on above: Performed By: #### U HCG, UA #### [facility] [address] [place] [address] Apple Thinner: Peter Jenkins MD Comment Normal [facility] Comment on above: Performed By: #### U HCG, UA #### [facility] [address] [place] [address] Apple Thinner: Peter Jenkins MD Glucose Ql (U) Negative Normal NEG [facility] Comment on above: Performed By: #### U HCG, UA #### [facility] [address] [place], [place] [id number] Apple Thinner: Peter Jenkins MD Ketones Ql (U) Negative Normal NEG [facility] Comment on above: Performed By: #### U HCG, UA #### [facility] [address] [place] [address] Apple Thinner: Peter Jenkins MD Leukocyte esterase Test strip Ql (U) Negative Normal NEG [facility] Comment on above: Performed By: #### U HCG, UA #### [facility] [address] [place] [address] Apple Thinner: Peter Jenkins MD Nitrite,Ur Negative Normal NEG [facility] Comment on above: Performed By: #### U HCG, UA #### [facility] [address] [place] [address] Apple Thinner: Peter Jenkins MD PH,Ur 6.0 Normal 5.0-8.0 [facility] Comment on above: Performed By: #### U HCG, UA #### [facility] [address] [place] [address] Apple Thinner: Peter Jenkins MD Protein Ql (U) Negative Normal NEG [facility] Comment on above: Performed By: #### U HCG, UA #### [facility] [address] [place] [address] Apple Thinner: Peter Jenkins MD Spec. War,Ur 1.025 Normal 1.005-1.030 [facility] Comment on above: Performed By: #### U HCG, UA #### [facility] [address] [place] [address] Apple Thinner: Peter Jenkins MD Urobilinogen,Ur Normal Normal NORM [facility] Comment on above: Performed By: #### U HCG, UA #### [facility] [address] [place], [place] [id number] Apple Thinner: Peter Jenkins MD , Urineon 1 Beta HCG ( test) Ql (U) Positive Abnormal NEGATIVE [facility] Comment on above: If HCG results do no t concur with clinical observations, additional testing to confirm result is recommended. This test is not labeled for use as a tumor marker. Interpretation and review of laboratory results Abnormal [facility] Urinalysison 03-20-2021 Bilirubin U[facility] Color, UA Yellow Yellow [facility] Glucose, Ur Negative NEGATIVE [facility] Ketones Ql (U) Negative NEGATIVE [facility] Leukocyte esterase Test strip Ql (U) Negative NEGATIVE [facility] Nitrite, Urine Negative NEGATIVE [facility] pH, UA 6.0 [facility] Protein, UA Negative NEGATIVE [facility] Specific War, UA 1.025 [facility] Turbidity UA Clear Clear [facility] Urinalysis Comments [facility] Urine Hgb Negative NEGATIVE [facility] Urobilinogen, Urine Normal Normal [facility] [id number] 12-27-2020 SARS-CoV-2 (COVID-19) RNA DILCIA+probe Ql (Unsp spec) Normal [facility] Comment on above: Performed By: #### C OVID #### [facility] [address] [place], [place] [id number] Apple Thinner: Jose Rosenberg MD [facility] [address] [place] [address] Apple Thinner: Peter Jenkins MD SARS-CoV-2 (COVID-19) RNA DILCIA+probe Ql (Unsp spec) Not detected Normal NOTDET [facility] Comment on above: Result Comment: The specimen is NEGATIVE for SARS-CoV-2, the novel coronavirus associated with COVID-19. A negative result does not rule out COVID-19. Zoë SARS-CoV-2 for use on the Zoë [employer] is a real-time RT-PCR test intended [...] this assay. Fact sheet for Healthcare Providers: https://www.fda.gov/media/203337/download Fact sheet for Patients: https://www.fda.gov/media/333296/download METHODOLOGY: RT-PCR Performed By: #### C OVID #### [address] [place], [place] [id number] Apple Thinner: Jose Rosenberg MD [facility] [address] [place] [address] Apple Thinner: MD BRITTON Sy-CoV-2on 12-26-2020 SARS-CoV-2 (COVID-19) RNA DILCIA+probe Ql (Unsp spec) .THROAT Normal [facility] Comment on above: Performed By: #### C OVID #### [address] [place], [place] [id number] Apple Thinner: Jose Rosenberg MD [facility] [address] [place] [address] Apple Thinner: Peter Jenkins MD [id number] 05-27-2020 SARS-CoV-2 (COVID-19) RNA DILCIA+probe Ql (Unsp spec) Not detected Normal NOTDET [facility] Comment on above: Result Comment: The specimen is NEGATIVE for SARS-CoV-2, the novel coronavirus associated with COVID-19. A negative result does not rule out COVID-19. This test has been authorized by the FDA under an Emergency Use Authorization (EUA) for use by authorized laboratories. SHADOW SARS-CoV-2 Reagents for [employer] are designed to detect the virus that causes COVID-19 in patients with signs and symptoms of infection who are suspected of COVID-19. An individual without symptoms of COVID-19 and who is not shedding SARS-CoV-2 virus would expect to have a negative (not detected) result in this assay. Fact sheet for Healthcare Providers: https://www.fda.gov/media/715292/download Fact sheet for Patients: https://www.fda.gov/media/200477/download METHODOLOGY: RT-PCR Performed By: #### C OVID #### [facility] [address] [place] [address] Apple Thinner: Jose Rosenberg MD [facility] [address] [place], [place] [id number] Apple Thinner: Peter Jenkins MD SARS-CoV-2 (COVID-19) RNA DILCIA+probe Ql (Unsp spec) [facility] Comment on above: Performed By: #### C OVID #### [address] [place] [address] Apple Thinner: Jose Rosenberg MD [facility] [address] [place] [address] Apple Thinner: Peter Jenkins MD [id number] 05-26-2020 SARS-CoV-2 (COVID-19) RNA DILCIA+probe Ql (Unsp spec) .THROAT Normal [facility] Comment on above: Performed By: #### C OVID #### [facility] [address] [place] [address] Apple Thinner: Jose Rosenberg MD [facility] [address] [place] [address] Apple Thinner: Peter Jenkins MD [id number] 05-07-2020 SARS-CoV-2 (COVID-19) RNA DILCIA+probe Ql (Unsp spec) [facility] Comment on above: Performed By: #### C OVID #### [address] [place] [address] Apple Thinner: Jose Rosenberg MD [facility] [address] [facility] [facility] [place], [place] [id number] Apple Thinner: Peter Jenkins MD SARS-CoV-2 (COVID-19) RNA DILCIA+probe Ql (Unsp spec) Not detected [facility] Comment on above: Result Comment: The specimen is NEGATIVE for SARS-CoV-2, the novel coronavirus associated with COVID-19. A negative result does not rule out COVID-19. Zoë SARS-CoV-2 for use on the [employer]ë [employer] Systems is a real-time RT-PCR test intended [...] this assay. Fact sheet for Healthcare Providers: https://www.fda.gov/media/899508/download Fact sheet for Patients: https://www.fda.gov/media/285212/download METHODOLOGY: RT-PCR Performed By: #### C OVID #### [address] [place], [place] [id number] Apple Thinner: Jose Rosenberg MD [facility] [address] [place] [address] Apple Thinner: Peter Jenkins MD [id number] 05-06-2020 SARS-CoV-2 (COVID-19) RNA DILCIA+probe Ql (Unsp spec) .THROAT Normal [facility] Comment on above: Performed By: #### C OVID #### [address] [place], [place] [id number] Apple Thinner: Jose Rosenberg MD [facility] [address] [place] [address] Apple Thinner: Peter Jenkins MD CBC Auto Differentialon 07-3 Basophils (Bld) [#/Vol] 0.10 10*3/uL [place] Basophils/100 WBC (Bld) 1 % 0 - 2 % [place] Differential Type YES [place] Eosinophils (Bld) [#/Vol] 0.30 10*3/uL [place] Eosinophils/100 WBC (Bld) 4 % 0 - 5 % [place] Erythrocyte distribution width (RBC) [Ratio] 14.9 % 12.1 - 15.2 % [place] Hematocrit (Bld) [Volume fraction] 36.5 % 36 - 46 % [place] Hemoglobin (Bld) [Mass/Vol] 12.5 g/dL 12 - 16 g/dL [place] Interpretation and review of laboratory results Abnormal [place] Lymphocytes (Bld) [#/Vol] 1.90 10*3/uL [place] Lymphocytes/100 WBC (Bld) 28 % 15 - 40 % [place] MCH (RBC) [Entitic mass] 26.7 pg 26 - 34 pg [place] MCHC (RBC) [Mass/Vol] 34.2 g/dL 31 - 37 g/dL [place] MCV (RBC) [Entitic vol] 78.1 fL Low 80 - 100 fL [place] Monocytes (Bld) [#/Vol] 0.60 10*3/uL [place] Monocytes/100 WBC (Bld) 8 % 4 - 8 % [place] Platelet mean volume (Bld) [Entitic vol] NOT REPORTED 6 - 12 fL [place] Platelets (Bld) [#/Vol] 271 10*3/uL [place] Platelets (Bld) [#/Vol] NOT REPORTED [place] RBC (Bld) [#/Vol] 4.67 10*6/uL 4 - 5.2 m/uL [place] RBC morphology finding Nom (Bld) NOT REPORTED [place] Segmented neutrophils/100 WBC (Bld) 59 % 47 - 75 % [place] Segs Absolute 4.10 [place] WBC (Bld) [#/Vol] NOT REPORTED per 100 WBC [place] WBC (Bld) [#/Vol] 7.0 10*3/uL [place] WBC Morphology NOT REPORTED [place] Comprehensive Metabolic Pane nahid 10-30-2019 Albumin [Mass/Vol] 4.1 g/dL 3.5 - 5.2 g/dL [place] Albumin/Globulin [Mass ratio] NOT REPORTED [place] ALP [Catalytic activity/Vol] 78 U/L 35 - 104 U/L [place] ALT [Catalytic activity/Vol] 12 U/L 5 - 33 U/L [place] Anion gap [Moles/Vol] 12 mmol/L 9 - 17 mmol/L [place] AST [Catalytic activity/Vol] 17 U/L <32 [place] Bilirubin Ql (U) 0.13 mg/dL Low 0.3 - 1.2 mg/dL [place] Bun/Cre Ratio 20 [place] Calcium [Mass/Vol] 10.2 mg/dL 8.6 - 10. 4 mg/dL [place] Chloride [Moles/Vol] 103 mmol/L 98 - 107 mmol/L [place] CO2 [Moles/Vol] 25 mmol/L 20 - 31 mmol/L [place] Creatinine [Mass/Vol] 0.56 mg/dL 0.5 - 0.9 mg/dL [place] GFR >60 >60 mL/min [place] GFR Non- >60 >60 mL/min [place] GFR/1.73 sq M predicted among non-blacks MDRD (S/P/Bld) [Vol rate/Area] NOT REPORTED [place] GFR/1.73 sq M predicted among non-blacks MDRD (S/P/Bld) [Vol rate/Area] [place] Comment on above: Average GFR for 20-2 9 years old: 116 mL/min/1.73sq m Chronic Kidney Disease: <60 mL/min/1.73sq m Kidney failure: <15 mL/min/1.73sq m eGFR calculated using average adult body mass. Additional eGFR calculator available at: http://www.Eachbaby/multiple_crcl_2012.htm Glucose [Mass/Vol] 95 mg/dL 70 - 99 mg/dL [place] Interpretation and review of laboratory results Abnormal [place] Potassium [Moles/Vol] 4.0 mmol/L 3.7 - 5.3 mmol/L [place] Protein [Mass/Vol] 8.0 g/dL 6.4 - 8.3 g/dL [place] Sodium [Moles/Vol] 140 mmol/L 135 - 144 mmol/L [place] Urea nitrogen [Mass/Vol] 11 mg/dL 6 - 20 mg/dL [place] HCG Qualitative, Serumon hCG Qual Negative NEGATIVE [place] Comment on above: Specimens with hCG l evels near the threshold of the test (25 mIU/mL) may give a negative or indeterminate result. In such cases, another test should be performed with a new specimen in 48-72 hours. If early is suspected clinically in this setting, correlation with quantitative serum b-hCG level is suggested. [facility] [employer] has confirmed the use of plasma for this test. This has not been cleared or approved by the U.S. Food and Drug Administration. The FDA has determined that such clearance is not necessary. Microscopic Urinalysison Amorphous, UA NOT REPORTED None [place] Bacteria, UA RARE Abnormal None [place] Casts UA NOT REPORTED /LPF [place] Crystals, UA NOT REPORTED None /HPF [place] Epithelial Cells UA 2 TO 5 /HPF [place] Interpretation and review of laboratory results Abnormal [place] Mucus, UA NOT REPORTED None [place] Other Observations UA NOT REPORTED NOT REQ. [place] RBC (U) [#/Vol] LOADED [place] Renal Epithelial, UA NOT REPORTED 0 /HPF [place] Trichomonas, UA NOT REPORTED None [place] WBC, UA 0 TO 2 0 /HPF [facility] [place] Yeast, UA NOT REPORTED None [facility], [place] - [facility] [place] Otheron 10-30-2019 Immature granulocytes (Bld) [#/Vol] NOT REPORTED [facility], [place] Urinalysison 10-30-2019 Bilirubin Urine Negative NEGATIVE [facility], [place] Color, UA RED Abnormal YELLOW [place] Glucose, Ur Negative NEGATIVE [place] Interpretation and review of laboratory results Abnormal [place] Ketones Ql (U) Negative NEGATIVE [place] Leukocyte esterase Test strip Ql (U) 1+ Abnormal NEGATIVE [facility], [place] Nitrite, Urine Negative NEGATIVE [facility], [place] pH, UA 7.0 [place] Protein (U) [Mass/Vol] 1+ Abnormal NEGATIVE [facility], [place] Specific War, UA 1.015 [facility], [place] Turbidity UA CLOUDY Abnormal CLEAR [place] Urinalysis Comments [place] Urine Hgb 3+ Abnormal NEGATIVE [facility], [place] Urobilinogen, Urine Normal Normal [place] Vital Signs Date Time Vital Sign Value Performing Clinician Facility 04-20-2023 14:33-0500 Blood Pressure Location Erwin Dupree [facility] 04-20-2023 14:33-0500 Body temperature 98.24 [degF] Erwin Dupree [facility] 04-20-2023 14:33-0500 Diastolic blood pressure 76 mm[Hg] Erwin Dupree [facility] 04-20-2023 14:33-0500 Heart rate 87 /min Erwin Dupree [facility] 04-20-2023 14:33-0500 SaO2% (BldA) [Mass fraction] 98 % Erwin Dupree [facility] 04-20-2023 14:33-0500 Systolic blood pressure 128 mm[Hg] Erwin Dupree [facility] 02-17-2023 15:12-0500 Body temperature 98.42 [degF] Dk De León [facility] 02-17-2023 15:12-0500 Diastolic blood pressure 74 mm[Hg] Dk De León [facility] 02-17-2023 15:12-0500 Heart rate 93 /min Dk Sarthak [facility] 02-17-2023 15:12-0500 Respiratory rate 18 /min Dkgerardo De León [facility] 02-17-2023 15:12-0500 SaO2% (BldA) [Mass fraction] 98 % Dk De León [facility] 02-17-2023 15:12-0500 Systolic blood pressure 132 mm[Hg] Dk De León [facility] 02-04-2023 14:48-0500 Blood Pressure Location HINA SALEEM [facility] 02-04-2023 14:48-0500 Body temperature 98.06 [degF] HINA KO [facility] 02-04-2023 14:48-0500 Diastolic blood pressure 78 mm[Hg] HINA KO [facility] 02-04-2023 14:48-0500 Heart rate 77 /min HINA KO [facility] 02-04-2023 14:48-0500 SaO2% (BldA) [Mass fraction] 99 % HINA KO [facility] 02-04-2023 14:48-0500 Systolic blood pressure 122 mm[Hg] HINA KO [facility] 01-29-2023 15:17-0400 Blood Pressure Location Luigi King [facility] 01-29-2023 15:17-0400 Body temperature 98.06 [degF] Luigi King [facility] 01-29-2023 15:17-0400 Diastolic blood pressure 77 mm[Hg] Luigi King [facility] 01-29-2023 15:17-0400 Heart rate 78 /min Luigi King [facility] 01-29-2023 15:17-0400 SaO2% (BldA) [Mass fraction] 96 % Luigi King [facility] 01-29-2023 15:17-0400 Systolic blood pressure 115 mm[Hg] Luigi King [facility] 01-17-2023 12:50-0400 Blood Pressure Location HINA SALEEM [facility] 01-17-2023 12:50-0400 Body temperature 98.6 [degF] HAMBURG SALEEM [facility] 01-17-2023 12:50-0400 Diastolic blood pressure 80 mm[Hg] HINA KO [facility] 01-17-2023 12:50-0400 Heart rate 91 /min HAMBURG KO [facility] 01-17-2023 12:50-0400 SaO2% (BldA) [Mass fraction] 97 % [facility] 01-17-2023 12:50-0400 Systolic blood pressure 120 mm[Hg] HINA KO [facility] 09-25-2021 17:56-0400 Body temperature 98.24 [degF] No Pcp Required [facility] 09-25-2021 17:56-0400 Diastolic blood pressure 84 mm[Hg] No Pcp Required [facility] 09-25-2021 17:56-0400 Heart rate 87 /min No Pcp Required [facility] 09-25-2021 17:56-0400 Respiratory rate 18 /min No Pcp Required [facility] 09-25-2021 17:56-0400 SaO2% (BldA) [Mass fraction] 97 % No Pcp Required [facility] 09-25-2021 17:56-0400 Systolic blood pressure 131 mm[Hg] No Pcp Required [facility] 09-06-2021 11:34-0400 Body height 170.18 cm No PCP None HF-DERWQ-Zymkwd [address] Work Phone: 09-06-2021 11:34-0400 Body mass index (BMI) [Ratio] 36.04 kg/m2 No PCP None FQ-OTZLX-Oqbkev 320 Work Phone: 09-06-2021 11:34-0400 Body surface area Derived from formula 2.15 m2 No PCP None EX-QGIVC-Vqmrse 320 Work Phone: 09-06-2021 11:34-0400 Body weight 104.39 kg No PCP None XA-CVRLJ-Lcufpw 320 Work Phone: 09-06-2021 11:34-0400 Diastolic blood pressure 84 mm[Hg] No PCP None UM-CMBUG-Ehnybu [address] Work Phone: 09-06-2021 11:34-0400 Systolic blood pressure 142 mm[Hg] No PCP None EN-LXMNN-Disopg 320 Work Phone: 09-05-2021 11:46-0400 Body height 170.18 cm No PCP None HY-KMUXC-Ltgwdt 320 Work Phone: 09-05-2021 11:46-0400 Body mass index (BMI) [Ratio] 36.11 kg/m2 No PCP None GQ-LNOBB-Yltcmt 320 Work Phone: 09-05-2021 11:46-0400 Body surface area Derived from formula 2.15 m2 No PCP None AW-KYGGO-Okueto [address] Work Phone: 09-05-2021 11:46-0400 Body weight 104.58 kg No PCP None EK-WLTFU-Iancrm 320 Work Phone: 09-05-2021 11:46-0400 Diastolic blood pressure 84 mm[Hg] No PCP None HP-WRECY-Hioynr 320 Work Phone: 09-05-2021 11:46-0400 Heart rate 96 /min No PCP None QR-WPXEC-Wqqjxm [address] Work Phone: 09-05-2021 11:46-0400 Systolic blood pressure 135 mm[Hg] No PCP None OK-DKAKJ-Nwueqn 320 Work Phone: 09-05-2021 11:46-0400 0 1 No PCP None VZ-AOMCO-Rfbmtl 320 Work Phone: Comment on above: [employer] 08-22-2021 11:36-0400 Body height 170.18 cm No PCP None [facility] [address] [place] Work Phone: 08-22-2021 11:36-0400 Body mass index (BMI) [Ratio] 35.08 kg/m2 No PCP None [facility] [address] Work Phone: 08-22-2021 11:36-0400 Body surface area Derived from formula 2.12 m2 No PCP None [facility] [address] Work Phone: 08-22-2021 11:36-0400 Body weight 101.6 kg No PCP None [facility] [address] Work Phone: 08-22-2021 11:36-0400 Diastolic blood pressure 88 mm[Hg] No PCP None [facility] [place] Work Phone: 08-22-2021 11:36-0400 Systolic blood pressure 138 mm[Hg] No PCP None [facility] [address] Work Phone: 08-15-2021 11:31-0400 Body height 170.18 cm No PCP None [facility] [place] Work Phone: 08-15-2021 11:31-0400 Body mass index (BMI) [Ratio] 35.29 kg/m2 No PCP None [facility] [place] Work Phone: 08-15-2021 11:31-0400 Body surface area Derived from formula 2.13 m2 No PCP None [facility] [place] Work Phone: 08-15-2021 11:31-0400 Body weight 102.2 kg No PCP None [facility] [place] Work Phone: 08-15-2021 11:31-0400 Diastolic blood pressure 88 mm[Hg] No PCP None [facility] [place] Work Phone: 08-15-2021 11:31-0400 Systolic blood pressure 128 mm[Hg] No PCP None [facility] [place] Work Phone: 08-01-2021 11:14-0400 Body height 170.18 cm No PCP None [facility] [place] Work Phone: 08-01-2021 11:14-0400 Body mass index (BMI) [Ratio] 35.01 kg/m2 No PCP None [facility] [place] Work Phone: 08-01-2021 11:14-0400 Body surface area Derived from formula 2.12 m2 No PCP None [facility] [place] Work Phone: 08-01-2021 11:14-0400 Body weight 101.4 kg No PCP None [facility] [address] [place] Work Phone: 08-01-2021 11:14-0400 Diastolic blood pressure 78 mm[Hg] No PCP None [facility] [address] [place] Work Phone: 08-01-2021 11:14-0400 Systolic blood pressure 122 mm[Hg] No PCP None [facility] [employer] Work Phone: 07-08-2021 12:27-040 Body height 167.6 cm No Pcp Required [facility] 07-08-2021 12:27040 Body temperature 98.06 [degF] No Pcp Required [facility] 07-08-2021 12:270400 Body weight 98 kg No Pcp Required [facility] 07-08-2021 12:27-0400 Diastolic blood pressure 86 mm[Hg] No Pcp Required [facility] 07-08-2021 12:27-0400 Heart rate 106 /min No Pcp Required [facility] 07-08-2021 12:27-0400 Respiratory rate 18 /min No Pcp Required [facility] 07-08-2021 12:27-0400 SaO2% (BldA) [Mass fraction] 99 % No Pcp Required [facility] 07-08-2021 12:27-0400 Systolic blood pressure 145 mm[Hg] No Pcp Required [facility] 07-04-2021 11:10-0400 Body height 170.18 cm No PCP None [facility] [address] Work Phone: 07-04-2021 11:10-0400 Body mass index (BMI) [Ratio] 33.7 kg/m2 No PCP None [facility] [address] [place] Work Phone: 07-04-2021 11:10-0400 Body surface area Derived from formula 2.09 m2 No PCP None [facility] [employer] Work Phone: 07-04-2021 11:10-0400 Body weight 97.6 kg No PCP None [facility] [address] [place] Work Phone: 07-04-2021 11:10-0400 Diastolic blood pressure 72 mm[Hg] No PCP None [facility] [address] [place] Work Phone: 07-04-2021 11:10-0400 Systolic blood pressure 132 mm[Hg] No PCP None [facility] [address] [place] Work Phone: 06-06-2021 10:19-0500 Body height 170.18 cm No PCP None [facility] [address] [place] Work Phone: 06-06-2021 10:19-0500 Body mass index (BMI) [Ratio] 33.01 kg/m2 No PCP None [facility] [address] [place] Work Phone: 06-06-2021 10:19-0500 Body surface area Derived from formula 2.07 m2 No PCP None [facility] [place] Work Phone: 06-06-2021 10:19-0500 Body weight 95.6 kg No PCP None [facility] [address] [place] Work Phone: 05-10-2021 10:39-0500 Body height 170.18 cm No PCP None [facility] [address] [place] Work Phone: 05-10-2021 10:39-0500 Body mass index (BMI) [Ratio] 32.42 kg/m2 No PCP None [facility] [address] [place] Work Phone: 05-10-2021 10:39-0500 Body surface area Derived from formula 2.05 m2 No PCP None [facility] [address] [place] Work Phone: 05-10-2021 10:39-0500 Body temperature 97.3 [degF] No PCP None [facility] [address] [place] Work Phone: 05-10-2021 10:39-0500 Body weight 93.9 kg No PCP None [facility] [address] [place] Work Phone: 05-10-2021 10:39-0500 Diastolic blood pressure 78 mm[Hg] No PCP None [facility] [place] Work Phone: 05-10-2021 10:39-0500 Systolic blood pressure 118 mm[Hg] No PCP None [facility] [place] Work Phone: 04-12-2021 10:57-0500 Body height 170.18 cm No PCP None [facility] [place] Work Phone: 04-12-2021 10:57-0500 Body mass index (BMI) [Ratio] 31.4 kg/m2 No PCP None [facility] [place] Work Phone: 04-12-2021 10:57-0500 Body surface area Derived from formula 2.02 m2 No PCP None [facility] [place] Work Phone: 04-12-2021 10:57-0500 Body temperature 97.3 [degF] No PCP None [facility] [place] Work Phone: 04-12-2021 10:57-0500 Body weight 90.95 kg No PCP None [facility] [place] Work Phone: 04-12-2021 10:57-0500 Diastolic blood pressure 82 mm[Hg] No PCP None [facility] [place] Work Phone: 04-12-2021 10:57-0500 Systolic blood pressure 122 mm[Hg] No PCP None [facility] Work Phone: 03-29-2021 02:59-0500 Body height 170.1 cm No Pcp Required [facility] 03-29-2021 02:59-0500 Body temperature 97.52 [degF] No Pcp Required [facility] 03-29-2021 02:59-0500 Body weight 92.7 kg No Pcp Required [facility] 03-29-2021 02:59-0500 Diastolic blood pressure 80 mm[Hg] No Pcp Required [facility] 03-29-2021 02:59-0500 Heart rate 111 /min No Pcp Required [facility] 03-29-2021 02:59-0500 Respiratory rate 18 /min No Pcp Required [facility] 03-29-2021 02:59-0500 SaO2% (BldA) [Mass fraction] 98 % No Pcp Required [facility] 03-29-2021 02:59-0500 Systolic blood pressure 131 mm[Hg] No Pcp Required [facility] 03-22-2021 09:48-0500 Body height 170.18 cm No PCP None [facility] [address] [place] Work Phone: 03-22-2021 09:48-0500 Body mass index (BMI) [Ratio] 30.87 kg/m2 No PCP None [facility] [address] [place] Work Phone: 03-22-2021 09:48-0500 Body surface area Derived from formula 2.01 m2 No PCP None [facility] [address] [place] Work Phone: 03-22-2021 09:48-0500 Body temperature 98 [degF] No PCP None [facility] [address] [place] Work Phone: 03-22-2021 09:48-0500 Body weight 89.42 kg No PCP None [facility] [address] [place] Work Phone: 03-22-2021 09:48-0500 Diastolic blood pressure 82 mm[Hg] No PCP None [facility] [address] [place] Work Phone: 03-22-2021 09:48-0500 Systolic blood pressure 118 mm[Hg] No PCP None [facility] [address] Work Phone: 03-20-2021 22:03-0500 Body mass index (BMI) [Ratio] 31.68 kg/m2 Marcia Haider MD Work Phone: Factual 03-20-2021 22:03-0500 Body temperature 97.11 [degF] Marcia Haider MD Work Phone: Factual 03-20-2021 22:03-0500 Body weight 91.76 kg Marcia Haider MD Work Phone: Factual 03-20-2021 22:03-0500 Diastolic blood pressure 69 mm[Hg] Marcia Haider MD Work Phone: Factual 03-20-2021 22:03-0500 Heart rate 92 /min Marcia Haider MD Work Phone: Factual 03-20-2021 22:03-0500 Respiratory rate 20 /min Marcia Haider MD Work Phone: Factual 03-20-2021 22:03-0500 SaO2% (BldA) [Mass fraction] 98 % Marcia Haider MD Work Phone: Factual 03-20-2021 22:03-0500 Systolic blood pressure 132 mm[Hg] Marcia Haider MD Work Phone: Factual 02-07-2021 17:53-0500 Body height 170.2 cm Tania Neumann MD Work Phone: Factual 02-07-2021 17:53-0500 Body mass index (BMI) [Ratio] 31.78 kg/m2 Tania Neumann MD Work Phone: Factual 02-07-2021 17:53-0500 Body temperature 98.4 [degF] Tania Neumann MD Work Phone: Factual 02-07-2021 17:53-0500 Body weight 92.03 kg Tania Neumann MD Work Phone: Factual 02-07-2021 17:53-0500 Diastolic blood pressure 96 mm[Hg] Tania Neumann MD Work Phone: Factual 02-07-2021 17:53-0500 Heart rate 100 /min Tania Neumann MD Work Phone: Factual 02-07-2021 17:53-0500 Respiratory rate 18 /min Tania Neumann MD Work Phone: Factual 02-07-2021 17:53-0500 SaO2% (BldA) [Mass fraction] 97 % Tania Neumann MD Work Phone: Factual 02-07-2021 17:53-0500 Systolic blood pressure 136 mm[Hg] Tania Neumann MD Work Phone: Factual 10-30-2019 05:21-0400 Body Temperature 98.2 [degF] [facility] [place] 10-30-2019 05:21-0400 Body weight 85.73 kg [facility] [place] 10-30-2019 05:18-0400 BP Diastolic 78 mm[Hg] [employer] [place] 10-30-2019 05:18-0400 BP Systolic 138 mm[Hg] [employer] [place] 10-30-2019 05:18-0400 Pulse (Heart Rate) 86 /min [place] 10-[place] 05:18-0400 Pulse Oximetry 97 % Noe [employer] [place] 10-30-2019 05:18-0400 Respiratory Rate 17 /min Noe [facility], [place] Encounters Encounter Date Encounter Type Care Provider Facility Start: 04-20-2023 End: 04-20-2023 Patient encounter procedure Erwin Dupree [facility] Start: 02-17-2023 End: 02-17-2023 Emergency department patient visit Dk De [place] [place]: 02-17-2023 End: 02-17-2023 Emergency department patient visit Dk De León [facility] Start: 02-04-2023 [facility] SALEEM Francis y:SAMI Motley Start: 02-04-2023 End: 02-05-2023 ambulatory HAMBURG SALEEM Facility: [place] Start: 02-04-2023 End: 02-04-2023 Patient encounter procedure [facility] Start: 01-29-2023 End: 01-30-2023 ambulatory Luigi King Facility: [place] Start: 01-29-2023 End: 01-29-2023 Patient encounter procedure Luigi King [facility] Start: 01-17-2023 End: 01-18-2023 ambulatory [facility] Facility:[facility] Start: 01-17-2023 End: 01-17-2023 Patient encounter procedure [facility] Start: 01-08-2022 End: 01-09-[address] JADYN MADDOX Facility: Start: 09-28-2021 Chart Update No PCP None -[facility] Work Phone: Start: 09-27-2021 Patient encounter procedure Racquel Lechuga [facility] Diagnostic Start: 09-21-2021 End: 09-25-2021 Evaluation and management of inpatient Deborah Dias [place] [id number] Rm [id number] 01 Start: 09-05-2021 Current tobacco non-user cad cap copd pv dm No PCP None [id number] [address] Work Phone: Start: 08-22-2021 EPVOB, Provider: Racquel Lechuga, Status: Pen, Time: 11:15 AM No PCP None [facility] [place] [address] Work Phone: Start: 08-22-2021 Office outpatient vi sit 15 minutes No PCP None [facility] [address] Work Phone: Start: 08-21-2021 Patient encounter procedure No PCP None [facility] [place] [address] Work Phone: Start: 08-15-2021 EPVOB, Provider: Racquel Lechuga, Status: Pen, Time: 11:15 AM No PCP None [facility] [address] Work Phone: Start: 08-15-2021 Office outpatient vi sit 15 minutes No PCP None [facility] [address] Work Phone: Start: 08-14-2021 Chart Update No PCP None [facility] [address] Work Phone: Start: 08-02-2021 Chart Update No PCP None [facility] [address] Work Phone: Start: 08-01-2021 Office outpatient vi sit 15 minutes No PCP None [facility] [address] Work Phone: Start: 07-08-2021 End: 07-08-2021 Emergency department patient visit Renuka Bryan [facility] Emergency 15 Start: 07-04-2021 Office outpatient vi sit 15 minutes No PCP None [facility] [address] Work Phone: Start: 06-15-2021 Chart Update No PCP None [facility] [address] Work Phone: Start: 05-10-2021 Office outpatient vi sit 10 minutes No PCP None [facility] [address] Work Phone: Start: 04-28-2021 Chart Update No PCP None [facility] [address] Work Phone: Start: 04-27-2021 Chart Update No PCP None [facility] [address] Work Phone: Start: 04-26-2021 Chart Update No PCP None [facility] [address] Work Phone: Start: 04-21-2021 Chart Update No PCP None [facility] [address] Work Phone: Start: 04-12-2021 Office outpatient ne w 45 minutes No PCP None [facility] [address] Work Phone: Start: 03-29-2021 End: 03-29-2021 Emergency department patient visit Harinder Horton [facility] Emergency Start: 03-22-2021 Office outpatient ne w 30 minutes No PCP None [facility] Work Phone: Start: 03-20-2021 End: 03-21-2021 Emergency department patient visit [facility] Start: 03-20-2021 End: 03-20-2021 Emergency department patient visit Marcia Haider MD Work Phone: [facility] ED Comment on above: Low back pain during in first trimester (Primary Dx) Start: 03-14-2021 End: 03-14-2021 Emergency department patient visit [facility] Start: 02-07-2021 Emergency department patient visit [place] [facility] Start: 02-07-2021 End: 02-07-2021 Emergency department patient visit Tania Neumann MD Work Phone: [facility] ED Comment on above: Pain, dental (Primar y Dx) Start: 12-26-2020 End: 12-27-2020 ambulatory JESUS IBARRAYOLALISSETH [facility] Start: 12-26-2020 End: 12-26-2020 Subsequent hospital visit by physician Jesus Jessica DO Work Phone: [facility] Comment on above: Viral infection Start: 05-26-2020 End: 05-27-2020 ambulatory JESUS JESSICA [facility] Start: 05-26-2020 End: 05-26-2020 Subsequent hospital visit by physician Kimberli Covid19 Pat Screening Schedule [facility] PRE ADMIT Comment on above: Arrived Start: 05-06-2020 End: 05-07-2020 ambulatory SOL ROBLEDO [facility] Hospit [facility] Start: 05-06-2020 End: 05-06-2020 Subsequent hospital visit by physician [facility] Laboratory Comment on above: Suspected COVID-19 v irus infection Start: 10-30-2019 End: 10-30-2019 Emergency department patient visit Noe Mancia Work Phone: [facility] ED Comment on above: Lower abdominal pain (Primary Dx); Menorrhagia with regular cycle Start: 06-24-2018 Patient encounter procedure TOM SONG Facility:[id number] Procedures Date Procedure Procedure Detail Performing Clinician Start: 09-21-2021 Antibody screen Comment on above: Order Comment: TEST TYPE + SCREEN WAS CANCELLED, 09/21/2021 20:28 ordered in error. Performed By: #### T +S #### [facility] [address] [place] [address] Start: 09-21-2021 Echocardiography No PCP None Start: 09-21-2021 Antibody screen Comment on above: Performed By: #### V ERAB #### [facility] [address] [place] [address] Start: 08-25-2021 Medical nutrition assmt&ivntj indiv each 15 mi No PCP None Start: 04-26-2021 Antibody screen Comment on above: Performed By: #### T +S ####[facility] [place] [address] Start: 04-26-2021 Antibody screen Comment on above: Order Comment: TEST TYPE + SCREEN WAS CANCELLED, 04/26/2021 13:20 T+S DONE SEPERATELY. Performed By: #### T +S #### [facility] [address] [place] [address] Start: 03-20-2021 Urnls dip stick/tabl et rgnt [...] Pao Conklin, Status: Pen, Time: 9:00 AM -[facility] STATISTICAL [facility] Work Phone: Start: 09-27-2021 Patient encounter procedure Outpatient [facility] Diagnostic [address] [address] Start: 27-Sep-2021 13:45 Racquel Lechuga Intent [facility] Diagnostic Start: 09-24-2021 End: 09-25-2022 hydrOXYzine Pamoate (VISTARIL) 50 mg Oral Capsule Every 6 Hours PRN ; CapsuleDOSE = 50 mg Oral At Bedtime, PRN insomnia Start: 24-Sep-2021 End: 24-Sep-2022 Ordered: 24-Sep-2021 Ladan Cowan Intent [facility] Start: 09-22-2021 End: 09-22-2021 Placental Record [Baby A] Placental Record [Baby A] Date: 22-Sep-2021 [facility] Start: 09-22-2021 End: 09-23-2022 [facility] Comment on above: Consult provider giacomo or [...] Intent Comments: IV push over 5 minutes [facility] Comment on above: IV push over 5 minut es Start: 09-20-2021 EPVOB, Provider: Racquel Lechuga, Status: Pen, Time: 1:30 PM EPVOB, Provider: Racquel Lechuga, Status: Pen, Time: 1:30 PM [id number] [address] Work Phone: Start: 09-06-2021 EPVOB, Provider: [...] Racquel Lechuga, Status: Pen, Time: 11:15 AM [facility] [address] Work Phone: Start: 09-05-2021 ULTRASDANT, Provider : [facility],MGOBGYN, Status: Pen, Time: 10:30 AM ULTRASDANT, Provider: [facility],MGOBGYN, Status: Pen, Time: 10:30 AM [facility] A Work Phone: Start: 08-25-2021 CORY, Provider : Yenny Covington, Status: Pen, Time: 10:00 AM VIRNPVHOME, Provider: Yenny Covington, Status: Pen, Time: 10:00 AM [facility] [address] Work Phone: Start: 08-22-2021 EPVOB, Provider: Racquel Lechuga, Status: Pen, Time: 11:15 AM EPVOB, Provider: Racquel Lechuga, Status: Pen, Time: 11:15 AM [place] [address] [address] Work Phone: Start: 08-21-2021 VIRNPVHOME, Provider : Yenny Covington, Status: Pen, Time: 10:00 AM VIRNPVHOME, Provider: Yenny Covington, Status: Pen, Time: 10:00 AM [place] [address] [address] Work Phone: Start: 08-15-2021 EPVOB, Provider: Racquel Lechuga, Status: Pen, Time: 11:15 AM EPVOB, Provider: Racquel Lechuga, Status: Pen, Time: 11:15 AM [place] [address] [address] Work Phone: Start: 08-01-2021 EPVOB, Provider: Racquel Lechuga, Status: Pen, Time: 11:00 AM EPVOB, Provider: Racquel Lechuga, Status: Pen, Time: 11:00 AM [place] [address] [address] Work Phone: Start: 08-01-2021 Patient encounter procedure [facility] Start: 07-04-2021 EPVOB, Provider: Racquel Lechuga, Status: Pen, Time: 11:00 AM EPVOB, Provider: Racquel Lechuga, Status: Pen, Time: 11:00 AM [place] [address] [place] Work Phone: Start: 06-06-2021 EPVOB, Provider: Racquel Lechuga, Status: Pen, Time: 10:30 AM EPVOB, Provider: Racquel Lechuga, Status: Pen, Time: 10:30 AM [employer] Phone: Start: 05-25-2021 Influenza vaccination Flu vaccine (# 1) [facility] Work Phone: Comment on above: Postponed from 11/30 (Patient Refused) Start: 05-10-2021 EPVOB, Provider: Racquel Lechuga, Status: Pen, Time: 10:30 AM EPVOB, Provider: Racquel Lechuga, Status: Pen, Time: 10:30 AM [employer] Work Phone: Start: 04-12-2021 EPVOB, Provider: Racquel Lechuga, Status: Pen, Time: 10:30 AM EPVOB, Provider: Racquel Lechuga, Status: Pen, Time: 10:30 AM [employer] Work Phone: Start: 04-12-2021 Patient encounter procedure [facility] Start: 11-30-2020 Influenza vaccination Flu vaccine (# 1) [facility] Start: 07-06-2020 End: 07-06-2020 Office Visit 07/06/2020 Office Visit Family Medicine Jesus Jessica, [place] [address] [phone] [facility] Start: 12-01-2019 Influenza vaccination Flu vaccine (# 1) [facility], [place] Start: 2018 Screening for malign ant neoplasm of cervix [facility] Start: 2016 DTaP/Tdap/Td vaccine (1 - Tdap) DTaP/Tdap/Td vaccine (1 - Tdap) [facility] Start: 2013 Screening for Chlamy wayne trachomatis Chlamydia screen [facility] Start: 2012 HIV screening HIV screen [facility] Start: 2009 COVID-19 Vaccine (1) COVID-19 Vaccin e (1) [facility] Start: 2008 HPV vaccine (1 - 2-d ose series) HPV vaccine (1 - 2-dose series) [facility] Start: 2003 Pneumococcal 0-64 ye ars Vaccine (1 of 1 - PPSV23) Pneumococcal 0-64 years Vaccine (1 of 1 - PPSV23) [place], [place] Start: 2003 Pneumococcal 0-64 ye ars Vaccine (1 of 2 - PPSV23) Pneumococcal 0-64 years Vaccine (1 of 2 - PPSV23) [facility] Start: 2002 COVID-19 Vaccine (1) COVID-19 Vaccin e (1) [facility] Start: 1998 Varicella vaccine (1 of 2 - 2-dose childhood series) Varicella vaccine (1 of 2 - 2-dose childhood series) [facility] Start: 1997 Hepatitis C screening Hepatitis C sc reen [facility] End: 05-06-2020 COVID-19 COVID-19 Lab Routine Suspected Covid-19 Virus Infection 1 Occurrences starting 05/06/2020 until 05/06/2020 [place], [place] Comment on above: 1 Occurrences starti ng 05/06/2020 until 05/06/2020 COVID-19 [place], [place] End: 05-26-2020 COVID-19 COVID-19 Lab Routine Once for 1 Occurrences starting 05/26/2020 until 05/26/2020 [facility] [employer] Phone: Comment on above: Once for 1 Occurrenc es starting 05/26/2020 until 05/26/2020 End: 12-26-2020 COVID-19 COVID-19 Lab Routine Viral infection 1 Occurrences starting 12/26/2020 until 12/26/2020 [facility] [email or web address] Phone: Comment on above: 1 Occurrences starti ng 12/26/2020 until 12/26/2020 End: 10-30-2019 Culture, Urine Culture, Urine Microbiology Routine Once for 1 Occurrences starting 10/30/2019 until 10/30/2019 [place], [place] Comment on above: Once for 1 Occurrenc es starting 10/30/2019 until 10/30/2019 Culture, Urine Culture, Urine Microbiology Routine 10/30/2019 6:05 AM EDT [place], [place] Immunizations Immunization Date Immunization Notes Care Provider Ulysses ambrocio 09-24-2021 measles, mumps and rubella virus vaccine No Pcp Required [facility] 08-01-2021 tetanus toxoid, redu pete diphtheria toxoid, and acellular pertussis vaccine, adsorbed No PCP None [facility] 07-03-2017 tetanus toxoid, redu pete diphtheria toxoid, and acellular pertussis vaccine, adsorbed No PCP None [facility] 08-17-2014 HPV, unspecified formulation HINA KO [facility] 08-17-2014 human papilloma viru s vaccine, quadrivalent No PCP None [id number] [address] Work Phone: 08-17-2014 meningococcal ACWY vaccine, unspecified formulation HINA KO [facility] 08-17-2014 meningococcal polysaccharide (groups A, C, Y and W-135) diphtheria toxoid conjugate vaccine (MCV4P) No PCP None RO-[id number]-Oihbfs [address] Work Phone: 06-11-2012 hepatitis A vaccine, pediatric/adolescent dosage, 2 dose schedule No PCP None [id number]-Cuimyb [address] Work Phone: 06-11-2012 hepatitis A vaccine, unspecified formulation HINA KO [facility] 06-11-2012 HPV, unspecified formulation HINA KO [facility] 06-11-2012 human papilloma viru s vaccine, quadrivalent No PCP None CW-BKHKA-[address] Work Phone: 06-11-2012 measles, mumps and rubella virus vaccine No PCP None [facility] 11-23-2010 hepatitis A vaccine, pediatric/adolescent dosage, 2 dose schedule No PCP None [id number]-Vbmykf [address] Work Phone: 11-23-2010 hepatitis A vaccine, unspecified formulation HINA KO [facility] 11-23-2010 HPV, unspecified formulation [employer] [facility] 11-23-2010 human papilloma viru s vaccine, quadrivalent No PCP None AS-LNDWN-Gzsuhk [address] Work Phone: 11-23-2010 meningococcal ACWY vaccine, unspecified formulation [employer] [facility] 11-23-2010 meningococcal oligosaccharide (groups A, C, Y and W-135) diphtheria toxoid conjugate vaccine (MCV4O) No PCP None LD-IQADJ-Exdrpt [address] Work Phone: 11-23-2010 tetanus toxoid, redu pete diphtheria toxoid, and acellular pertussis vaccine, adsorbed No PCP None [facility] 06-22-2002 diphtheria, tetanus toxoids and acellular pertussis vaccine, unspecified formulation No PCP None NH-DNFTG-Piprwf [address] Work Phone: 06-22-2002 DTaP, unspecified formulation [employer] [facility] 06-22-2002 poliovirus vaccine, inactivated No PCP None NR-OXMYY-Qpuxek [address] Work Phone: 06-22-2002 poliovirus vaccine, unspecified formulation [employer] [facility] 12-01-1999 diphtheria, tetanus toxoids and acellular pertussis vaccine, unspecified formulation No PCP None CE-QQZFD-Tuhwyb 320 Work Phone: 12-01-1999 DTaP, unspecified formulation [employer] [facility] 12-01-1999 haemophilus influenz ae type b vaccine, conjugate unspecified formulation No PCP None LU-IBDCJ-Hrnksa [address] Work Phone: 12-01-1999 hepatitis B vaccine, pediatric or pediatric/adolescent dosage No PCP None [facility] 12-01-1999 Hib, unspecified formulation [employer] [facility] 12-01-1999 measles, mumps and rubella virus vaccine No PCP None [facility] 12-01-1999 poliovirus vaccine, inactivated No PCP None BD-TNGKC-Zobuqq [address] Work Phone: 12-01-1999 poliovirus vaccine, unspecified formulation HINA KO [facility] 1997 diphtheria, tetanus toxoids and acellular pertussis vaccine, unspecified formulation No PCP None ZV-UUUFU-Ubppag 320 Work Phone: 1997 DTaP, unspecified formulation [place] KO [facility] 1997 haemophilus influenz ae type b vaccine, conjugate unspecified formulation No PCP None DB-DOHZB-Daypkr 320 Work Phone: 1997 hepatitis B vaccine, pediatric or pediatric/adolescent dosage No PCP None [facility] 1997 Hib, unspecified formulation HINA KO [facility] 1997 poliovirus vaccine, inactivated No PCP None [id number]-DDREF-Unoyhh 320 Work Phone: 1997 poliovirus vaccine, unspecified formulation [place] KO [facility] 1997 hepatitis B vaccine, pediatric or pediatric/adolescent dosage No PCP None [facility] NEGATED: Highlighted row has not occurred!04-20-2023 SARS-CoV-2 mRNA (tozinameran 5y-11y) vaccine Erwin Dupree [facility] NEGATED: Highlighted row has not occurred!02-04-2023 SARS-CoV-2 mRNA (tozinameran 5y-11y) vaccine [facility] NEGATED: Highlighted row has not occurred!01-29-2023 influenza virus vaccine, unspecified formulation Luigi King [facility] Payers Date Payer Category Payer Private Health Insurance [id number] 2014 Private Health [place] [facility] [id number] 2014-Present [phone] [address] [place] [address] [id number] 1997 Unknown [id number] 355 1997 Unknown [id number]. 903 1997 Unknown [id number]. 174 1997 Unknown [id number]. 174 1997 Unknown [id number]. 174 1997 Unknown [id number]. 174 1997 Unknown [id number]. 174 1997 Unknown [id number]. 593 1997 Unknown [id number]. 727 1997 Unknown [id number]. 727 1997 Unknown [id number]. 727 1997 Unknown [id number] 727 1959 Private Health Insurance [id number] Unknown Social History Date Type Detail Facility Start: 10-30-2019 End: 12-26-2020 Tobacco [facility] status [facility] [place] [place] Start: 10-30-2019 End: 12-26-2020 Cigarettes smoked current (pack per day) - Reported [facility] [place] Start: 10-30-2019 End: 12-26-2020 Tobacco use and exposure Never used [facility] [place] Start: 10-30-2019 End: 03-20-2021 Alcohol intake Current non-drinker of alcohol (finding) [place], [place] Sex Assigned At Not on file [place] Exposure to SARS-CoV -2 (event) Not sure [place] Start: 05-25-2020 History SDOH Financial 5 [email or web address] Phone: Start: 05-25-2020 History SDOH Food Worry 1 [email or web address] Phone: Start: 05-25-2020 History SDOH Transpo rt Med 2 [email or web address] Phone: Start: 1995 Sex Assigned At Female M [facility] Phone: Tobacco smoking consumption unknown [facility] Start: 01-17-2023 End: 04-20-2023 Tobacco smoking status Ex-smoker (finding) [facility] Comment on above: 3 cigarettes a day Pt quit smoking abou t 1 yr ago 1/2 ppd per pt Sex Assigned At Female [facility] Tobacco smoking status Never [facility] Comment on above: 3 cigarettes a day Functional Status Date Assessment Result Facility 04-20-2023 Functional Status N/A [facility] 02-17-2023 Functional Status N/A [facility] 02-04-2023 Functional Status N/A [facility] 01-29-2023 Functional Status N/A [facility] 01-17-2023 Functional Status N/A [facility] Functional observable [facility] Mental Status Date Assessment Result Facility 09-23-2021 Cognitive functions [id number] [facility] Clinical Notes 04-12-2021 to 02-04-2023 Note Date [...] numbers. This can be done either in [place] or metric measurements. Note that charts and online BMI calculators are available to help you find your BMI quickly and easily without having to do these calculations yourself. To calculate your BMI in [place] measurements: 1.Measure your weight in pounds [...] Centers for Disease Control and Prevention: www.cdc.gov [place] Heart [employer]: www.heart.org National Heart, Lung, and Blood [place]: www.nhlbi.nih.gov Summary Body mass index (BMI) is a number that is calculated from a person's weight and height. BMI may help estimate how much of a person's weight is composed of fat. BMI can help identify those who may be at higher risk for certain medical problems. BMI can be measured using [place] measurements or metric measurements. BMI charts are used to identify whether you are underweight, normal weight, overweight, or obese. This information is not intended to replace advice given to you by your health care provider. Make sure you discuss any questions you have with your health care provider. Document Revised: 12/09/2019 Document Reviewed: 10/16/2019 KDS Patient Education 2022 [email or web address]. 02/04/2023 15:22:42 Diarrhea, Adult Diarrhea, Adult Diarrhea [...] oral rehydration solution (ORS). This is an nhhy-rco-lpjfvub medicine that helps return your body to [...] drinks, sports drinks, and soda. Eat bland, cuuz-wp-ffxjqd foods in small amounts as you are able. These foods include bananas, applesauce, rice, lean meats, toast, and crackers. Avoid alcohol. Avoid spicy or fatty foods. Medicines Take bvlh-tba-yomxxda and prescription medicines only as told by your health care provider. If you were prescribed an antibiotic medicine, take it as told by your health care provider. Do not stop using the antibiotic even if you start to feel better. General instructions Wash your hands often using soap and water. If soap and water are not available, use a hand teletype or varitype keyboard operator. Others in the household should wash their [...] and water are not available, use hand teletype or varitype keyboard operator. Contact a health care provider if your diarrhea gets worse or you have new symptoms. Get help right away if you have signs of dehydration. This information is not intended to replace advice given to you by your health care provider. Make sure you discuss any questions you have with your health care provider. Document Revised: 09/27/2021 Document Reviewed: 09/27/2021 KDS Patient Education 2022 [email or web address]. 02/04/2023 15:22:37 Upper Respiratory Infection, Adult Upper [...] medicines to help relieve symptoms, such as: Qxvq-qnn-hjmfbnp cold medicines. Cough suppressants. Coughing is a [...] and other clear broths. General instructions Take xsfn-uew-yimzncw and prescription medicines only as told by [...] and water are not available, use hand teletype or varitype keyboard operator. Avoid touching your mouth, face, eyes, or [...] provider. Document Revised: 10/18/2021 Document Reviewed: 10/18/2021 Elsevier Patient Education 2022 [email or web address]. Follow Up Care 02/04/2023 14:00:44 With:Magali Zhong DO Address:Unknown When: Unknown [facility] 01-29-2023 Hospital Discharge instructions [...] numbers. This can be done either in [place] or metric measurements. Note that charts and online BMI calculators are available to help you find your BMI quickly and easily without having to do these calculations yourself. To calculate your BMI in [place] measurements: 1.Measure your weight in pounds [...] Centers for Disease Control and Prevention: www.cdc.gov [place] Heart Association: www.heart.org National Heart, Lung, and Blood [place]: www.nhlbi.nih.gov Summary Body mass index (BMI) is a number that is calculated from a person's weight and height. BMI may help estimate how much of a person's weight is composed of fat. BMI can help identify those who may be at higher risk for certain medical problems. BMI can be measured using [place] measurements or metric measurements. BMI charts are used to identify whether you are underweight, normal weight, overweight, or obese. This information is not intended to replace advice given to you by your health care provider. Make sure you discuss any questions you have with your health care provider. Document Revised: 12/09/2019 Document Reviewed: 10/16/2019 KDS Patient Education 2022 [email or web address]. 01/29/2023 16:00:35 Acute Back Pain, Adult Acute [...] home: Managing pain, stiffness, and swelling Take iosx-qyh-fkypyzr and prescription medicines only as told by [...] each day. Do not sit, drive, or automation engineering technician one place for more than 30 minutes [...] put less stress on your back. Take nake-tfe-rbunnqv and prescription medicines only as told by your health care provider, and apply heat or ice as told. This information is not intended to replace advice given to you by your health care provider. Make sure you discuss any questions you have with your health care provider. Document Revised: 06/09/2021 Document Reviewed: 06/09/2021 KDS Patient Education 2022 [email or web address]. Follow Up Care 01/29/2023 14:23:51 With:Magali Zhong DO Address:Unknown When: Unknown [facility] 01-17-2023 Hospital Discharge instructions Patient Education 01/17/2023 18:40:20 Viral Respiratory Infection, Jokg-Kq-Fjzt Viral Respiratory Infection A viral respiratory infection [...] at home: Managing pain and congestion Take pkot-rce-rrklelj and prescription medicines only as told by [...] cannot use soap and water, use hand teletype or varitype keyboard operator. ?Cover your mouth when you cough. Cover [...] provider. Document Revised: 06/22/2021 Document Reviewed: 06/22/2021 KDS Patient Education 2022 [employer] Follow Up Care 01/17/2023 12:36:31 With:Magali Zhong DO Address:Unknown When: Unknown [facility] 09-22-2021 Note Provider Information [...] : yes Vaginal Delivery Provider: Violette Alvarez Practice Office Associate: Belinda Hogan Hemorrhage Risk Screen: Hemorrhage Medium [...] History and Physical - OB 21-Sep-2021 01:54 [facility] 09-21-2021 Note HPI/OB History: Care Provider: Racquel Lechuga HPI Descriptive Info: HPI 26 yo at 35.0 wga (09/21) by last menstrual period c/w 8 wk ultrasound presenting as a transfer from [facility] for severe pre-eclampsia diagnosed based on severe [...] Results: negative Strep Results: not ordered GCT (-mmm-yy): 01-Aug-2021 GCT result: 197 GTT - Extended (m-yy): 11-Aug-2021 GTT - Extended - Fastin GTT - Extended - 1 hour: 193 GTT - Extended - 2 hour: 201 GTT - Extended - 3 hour: 154 HBsAG Date: 26-Apr-2021 HBsAG Results: negative Hemoglobin A1C (-y): 06-Sep-2021 Hemoglobin A1C: 5.4 % Estimated Average Glucose: 108 HIV Date: 26-Apr-2021 HIV Results: negative Rubella Date: 01-Aug-2021 Rubella Results: pending result Rubella Comments: Result Value null Syphilis (mmm-dd-yyyy): 26-Apr-2021 Syphilis Results: negative Urine Spot (m-yy): 20-Sep-2021 Total Protein/Creatinine Ratio: 0.7 Antepartum/: Antepartum/PP: Last Menstrual Ohfjwv66-Wyi-2388 LUDWIG by Last Menstrual Zogndz89-Ivn-0979 Date Earliest Jgxlgkzbkw93-Txo-9099 EGA at that study (weeks)9 LUDWIG by Oaoanqfsyo86-Uto-6969 Final WHS49-Itx-7215 Current EGA:35 Patient is > or = 35.0 wks EGAyes Determined byultrasound Date of Sewaudbllt16-Nzq-5301 EFW (kg)2.4 kilogram(s) EFW (lb)5 pound(s) EFW [...] are negative Objective: Objective Information: T PRBPMAPSpO2 [id number]/333319% Date/Time09/21 0: 1: 1: 1: 1: 1:51 [...] 72.7 BMP: 03/29/2021 (more content not included)... 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 Asthma, chronic headaches, [...] edema NST Interpretation - Baby A: Baseline PUS386 Variabilitymoderate (amplitude range 6 to 25 bpm) [...] Recommendations were to transfer her to [facility] [place] for further management after starting magnesium and speaking with Dr. Golden about the potential for transfer as well as steroids. I (more content not included)... [facility] 09-05-2021 History of Present illness Narrative Theo, Saturday is a 26yo At 32.5 consulting [facility] for diabetes management.1hr GCT 197, 3hr [...] Preparation Grocery Shopping: patient and spouse/significant other. Nutrition-[facility] Work Phone: 04-12-2021 Note 1 Date of Procedure: 04/12/2021 Pathologist: [facility], Cytology Date Reported: 04/20/2021 Date Received: 04/12/2021 [...] Range: Negative Slide(s) initially screened by a Apprentice at [facility], [address] [place] [address] QC review performed at [facility], [address] [place] [address] Testing for high-risk (HR) type of human [...] verified by the Molecular Diagnostic Laboratory at [facility]. The lab is certified under the Clinical Laboratory Amendments of 1988 (CLIA 88) as qualified to perform high complexity clinical laboratory testing. This specimen has been analyzed by the NeoVistaPrep Imaging System ([employer], [employer]), an automated imaging and review system, which assists the laboratory in evaluating cells on ThinPrep Pap tests. Following automated imaging, selected warren from every slide were reviewed by a conservation or heritage architect and/or pathologist. Electronically Signed Out By [facility], Cytology//JMD/SLD By the signature on this report, [...] Source of Specimen A: THINPREP PAP CERVICAL [facility] Department of Pathology [address] Comment on above: Performed By: #### C #### [facility] Cytology [address] [address] Evaluation + Plan note No data available for this section [facility] Evaluation note Diagnosis Viral infection Unspecified viral infection, in conditions classified elsewhere and of unspecified site documented in this encounter [email or web address] Phone: evaluation note* Diagnosis Pain, dental- Primary Unspecified disorder of the teeth and supporting structures documented in this encounter [email or web address] Phone: evaluyetle note* Diagnosis Low back pain during in first trimester- Primary documented in this encounter [email or web address] Phone: evaluation note* Psychological: appropriate affect, normal moodNeurological: 2+ reflexesExtremities: no calf tenderness, redness, or swellingGastrointestinal: soft, non-tenderCardiovascular: RRRRespiratory/Thorax: norespiratory distress, normal effort; CTABConstitutional: alert, oriented, NAD, tearfulSkin: no rashes or lesions visualized [facility] NarrativeHeight/Weight: UBWNutrition-N [place] [address] DO Work Phone: Hospital Discharge instructions* Attachments The following attachments cannot be sent through Care Everywhere. * Tooth and Gum Pain ([place]izen [place]) documented [facility]En[facility] Ph[facility] Work Phone: Hospital Discharge instructions* Activity:Return to normal activity as tolerated. * Patient Instructions:Pelvic Rest: DO NOT place anything in vagina until cleared by OB Provider. * Follow-Up - OB Provider:Physician/Dept/Service: OB ProviderCall to Schedule in: 1 weekLocation: [id number]: Leisure Studies Professor order placed for blood pressure check within [...] to nearest emergency room. *Information obtained from [facility] s: Save Your Life: Get Care [...] may havecome up since leaving the hospital. 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 * Abdominal Pain ([place]) * Vaginal Bleeding ([place]) documented in this encounter Assessments Diagnosis Lower abdominal pain Abdominal pain, other specified site Menorrhagia with regular cycle Excessive or frequent menstruation Diagnosis Suspected COVID-19 virus infection Chief Complaint * Pt here for MFM consult * Referred By: Dr. Racquel Lechuga * Geophysical Laboratory Supervisor: Declined Reason for Referral * sPEC No data available for this section No data available for this section No data available for this section No data available for this section No data available for this section Additional Source Comments INFORMATION SOURCE (unrecogn ized section and content) DATE CREATED AUTHOR 06/29/2018 [facility] DATE CREATED AUTHOR AUTHOR'S ORGANIZ ATION 03/19/2021 [facility] DATE CREATED AUTHOR AUTHOR'S ORGANIZ ATION 03/21/2021 [facility] DATE CREATED AUTHOR AUTHOR'S ORGANIZ ATION 09/07/2021 [facility] DATE CREATED AUTHOR AUTHOR'S ORGANIZ ATION 10/18/2021 [facility] DATE CREATED AUTHOR AUTHOR'S ORGANIZ ATION 11/25/2021 [facility] DATE CREATED AUTHOR AUTHOR'S ORGANIZ ATION 01/09/2022 [facility] DATE CREATED AUTHOR AUTHOR'S ORGANIZ ATION 02/21/2023 [facility] Reason for Visit (unrecogniz ed section and [...] 1801 1808 (Given - Provid er: Hermelinda Saab, MARK) lidocaine viscous hcl (XYLOCAINE) 2 % solution 15 mL 15 mL, Mouth/Throat, EVERY 3 HOURS PRN, Irritation, Starting on Sat02/07/21 at 1800 1808 (Given - Provid er: Hermelinda Saab RN) Care Teams (unrecognized sec tion and content) Personnel Name: Magali Zhong DO Address: Address: [address] [facility], [facility], [facility] [address] Name: Juliette ROGEL CNP Address: Address: [address] Name: Mayte Rodriguez Address: Address: [address] Filer Finish Relationship Specialty Start Date End Date Jesus Jessica DO [address] [facility] [place] [address] PCP - General Family Medicine [...] BE BASED ON THE PRIMARY CLINICAL RECORDS. [employer] [facility]. provides no warranty or guarantee of the accuracy or completeness of information in this document.
--- NOTE | 2023-11-22 09:40 | ECG_ITS ---
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
--- NOTE | 2023-11-22 09:46 | CT_ITS ---
[address] [address] Patient Name: SATURDAY Amber VENEGAS MRN: [id number] date: 1995 Sex: F Assigned Patient Location: ER Current Patient Location: Accession/Order Number: [id number] Exam Date: 11/22/2023 10:49 Report Date: 11/22/2023 11:12 At the request of: JUSTEN HOUSE Procedure: CT abdomen pelvis wo con EXAMINATION: CT abdomen pelvis wo con HISTORY: left upper quadrant pain , nausea, diarrhea, fatigue; palpable lump left abdomen COMPARISON: No relevant comparison available. TECHNIQUE: Axial, Coronal, and Sagittal images were obtained without and/or with IV contrast as indicated by examination type. Dose reduction techniques were achieved by using automated exposure control and/or adjustment of mA and/or kV according to patient size and/or use of iterative reconstruction technique. FINDINGS: LUNG BASES: No visible pulmonary or pleural disease. LIVER: No enlargement, atrophy, suspicious density, or significant focal lesion. BILIARY: No dilatation or calcification. PANCREAS: No lesion, fluid collection, or abnormal duct dilatation. SPLEEN: No enlargement or focal lesion. ADRENALS: No mass or enlargement. KIDNEYS: Nonobstructing 13 mm stone versus collection of stones within left kidney. No mass, obstruction, or calcification. BOWEL/MESENTERY: Slightly edematous appearance of nugent of nondistended transverse colon. No obstruction or visible mass. AORTA/VASCULAR: No aneurysm or dissection. RETROPERITONEUM: No mass or adenopathy. LYMPH NODES: No adenopathy. URINARY BLADDER: No visible focal wall thickening, lesion, or calculus. PELVIC ORGANS: 1.5 cm right ovarian cyst. No visible mass. Pelvic organs appropriate for patient age. ABDOMINAL WALL: No mass or hernia. BONES: No bony lesion or fracture. OTHER: Negative. CT/CT abdomen pelvis wo con IMPRESSION: 1. Possible mild colitis of transverse colon. 2. Nonobstructing left nephrolithiasis. 3. Patient's palpable lump as marked by a skin surface marker corresponds to the lower margin of the left ribs. No suspicious finding. Electronically authenticated by: JAMEE MCGOWAN Date: 11/22/2023 11:12
[2023-11-22] MEDS: 0.9 % SODIUM CHLORIDE 1,000 ML 1000 ML IV (09:57)
[2023-11-22 10:08] LABS: Bilirubin Urine NEGATIVE (NEGATIVE); Blood Urine NEGATIVE (NEGATIVE); Clarity Urine CLEAR (CLEAR); Color Urine LT. YELLOW (YELLOW); Glucose Urine UA NEGATIVE (NEGATIVE); Ketones Urine NEGATIVE (NEGATIVE); Leukocyte Esterase Urine TRACE (NEGATIVE); Nitrite Urine NEGATIVE (NEGATIVE); Protein Urine NEGATIVE (NEG/TRACE); Specific Gravity Urine >=1.030 (1.005-1.025); Urobilinogen Urine 0.2 EU/dL (0.2-1.0)
[2023-11-22 10:12] LABS: Basophils Absolute Auto 0.1 10^3/uL (0.0-0.1); Basophils Percent Auto 1.3 % (0.2-2.0); Eosinophils Absolute Auto 0.3 10^3/uL (0.0-0.7); Eosinophils Percent Auto 3.8 % (0.9-7.0); Hematocrit 38.7 % (36.0-48.0); Hemoglobin 12.5 g/dL (12.0-16.0); Immature Granulocytes Abs Auto 0.05 10^3/uL (0.00-0.03); Immature Granulocytes Pct Auto 0.6 % (0.0-0.5); Lymphocytes Absolute Auto 2.3 10^3/uL (1.2-3.8); Lymphocytes Percent Auto 27.3 % (20.5-60.0); Mean Corpuscular HGB Conc 32.3 g/dL (29.9-35.2); Mean Corpuscular Hemoglobin 27.1 pg (26.7-34.0); Mean Corpuscular Volume 83.8 fL (81.0-99.0); Mean Platelet Volume 11.2 fL (9.5-13.5); Monocytes Absolute Auto 0.7 10^3/uL (0.3-0.8); Monocytes Percent Auto 7.7 % (1.7-12.0); Neutrophils Percent Auto 59.3 % (43.0-75.0); Platelet Count 313 10^3/uL (150-450); Red Blood Count 4.62 10^6/uL (4.20-5.40); Red Cell Distribution Width 14.2 % (11.0-15.0); White Blood Count 8.4 10^3/uL (4.0-11.0)
[2023-11-22 10:27] LABS: Magnesium 1.8 mg/dL (1.8-2.4)
[2023-11-22 10:30] LABS: HCG Qualitative NEGATIVE (NEGATIVE); Internal Control Within Normal Limits
[2023-11-22 11:25] LABS: Alanine Aminotransferase 16 U/L (14-59); Albumin Globulin Ratio 0.9; Albumin Level 3.3 g/dL (3.4-5.0); Alkaline Phosphatase 83 U/L (46-116); Anion Gap 14.6; Aspartate Amino Transferase 34 U/L (15-37); BUN Creatinine Ratio 8.3; Bilirubin Total 0.3 mg/dL (0.2-1.0); Calcium 8.9 mg/dL (8.5-10.1); Carbon Dioxide 26.6 mmol/L (21.0-32.0); Chloride 105 mmol/L (98-107); Estimated GFR (African America >60 (>=60); Estimated GFR (Non-African Ame >60 (>=60); Globulin 3.7 g/dL; Glucose 74 mg/dL (74-106); Sodium 142 mmol/L (136-145)
[2023-11-22 11:26] LABS: Troponin I High Sensitivity <4.0 pg/mL (4.0-51.3)
[2023-11-22 11:41] LABS: Potassium 4.2 mmol/L (3.5-5.1)
--- NOTE | 2023-11-22 11:45 | ED_ITS ---
HPI HPI - General Adult General Chief complaint: Nausea/Vomiting/Diarrhea Stated complaint: NAUSEA, WEEK, DIARRHEA Time Seen by Provider: 11/22/23 09:39 Source: patient Mode of arrival: walk-in Limitations: no limitations History of Present Illness HPI narrative: The patient presented to us with 2 weeks history of left upper quadrant abdominal pain and feeling of a lump in the left upper quadrant, she mentioned also associated with nausea and vomiting and diarrhea, she had no blood in vomiting as well as in stool. The patient mentioned that she denies any fever chills She also mentioned having some dizziness when she is standing up, when asked about her concern she mentioned that she have a history of ulcerative colitis and Crohn's disease in her family as well as her brother take omeprazole The patient denies any other complaint Related Data Previous Rx's ?Medication ?Instructions ?Recorded famotidine 20 mg tablet (Pepcid) 20 mg PO BID #10 tabs 11/22/23 ondansetron 4 mg disintegrating 4 mg PO Q8H PRN nausea and 11/22/23 tablet vomiting #7 tabs Allergies Allergy/AdvReac Type Severity Reaction Status Date / Time No Known Drug Allergies Allergy Verified 10/04/22 21:58 Opioid HPI Opioid Management Most Recent Opioid Data: No Data to Display Review of Systems ROS Status of ROS 10 or more systems reviewed and unremark able except as noted in history and below PFSH PFSH Social History Smoking status: Never smoker Exam Narrative Exam Narrative: Nurses notes and vital signs reviewed and patient is not hypoxic. General: Well-appearing and in no apparent distress. Skin: Warm, dry, no pallor noted. No rash. Head: Normocephalic, atraumatic. Neck: Supple, non-tender. Eye: Pupils are equal, round and EOMI. No scleral icterus. Ears, Nose, Mouth, and Throat: TM are clear, no nasal mucosal hypertrophy. Oral mucosa is moist, no posterior oropharynx erythema, uvula is mid-line Cardiovascular: Regular Rate and Rhythm without murmur, gallop or rub. Respiratory: No accessory muscle use or respiratory distress. Lungs are clear to auscultation, no wheezing, rales or rhonchi Chest Wall: no tenderness Back: No midline thoracic or lumbar vertebral tenderness. No CVA tenderness Musculoskeletal: normal ROM, no calf or popliteal tenderness, no lower extremity edema/swelling GI: Abdomen is soft, non-distended. Normal bowel sounds. I could not feel the lump the patient pointing to and it is mostly only her prominent ribs in the left side No masses appreciated. No tenderness to palpation. No rebound, guarding, or rigidity noted. Neurological: A&O x4. No cranial nerve dysfunction observed. No truncal ataxia. Moves all extremities. Sensation intact. Psychiatric: Cooperative and interactive. Normal mood and affect. Constitutional Vital Signs, click to edit/add: Last Vital Signs Temp 98.2 F 11/22/23 09:26 Pulse 79 11/22/23 09:26 Resp 18 11/22/23 09:26 BP 126/84 11/22/23 09:26 Pulse Ox 97 11/22/23 09:26 O2 Del Method Room Air 11/22/23 09:26 Course Vital Signs Vital signs: Vital Signs Temperature 98.2 F 11/22/23 09:26 Pulse Rate 79 11/22/23 09:26 Respiratory Rate 18 11/22/23 09:26 Blood Pressure 126/84 11/22/23 09:26 Pulse Oximetry 97 11/22/23 09:26 Oxygen Delivery Method Room Air 11/22/23 09:26 Temperature 98.2 F 11/22/23 09:26 Pulse Rate 79 11/22/23 09:26 Respiratory Rate 18 11/22/23 09:26 Blood Pressure 126/84 11/22/23 09:26 Pulse Oximetry 97 11/22/23 09:26 Oxygen Delivery Method Room Air 11/22/23 09:26 Medical Decision Making [facility] Narrative Medical decision making narrative: The patient CBC and chemistry showed no acute pathology The patient CAT scan showed no acute pathology as well except for colitis Right now colitis could be viral the patient was to continue supportive care with Zofran and Pepcid The patient is to follow up with primary care physician in next 2-3 days or to return to the emergency department should any of the signs or symptoms worsen or new symptoms develop. The patient agrees with the following Diagnosis and Treatment plan and the patient will be discharged home. Lab Data Labs: Lab Results 11/22/23 11/22/23 Range/Units 09:40 09:47 WBC 8.4 (4.0-11.0) 10^3/uL RBC 4.62 (4.20-5.40) 10^6/uL Hgb 12.5 (12.0-16.0) g/dL Hct 38.7 (36.0-48.0) % MCV 83.8 (81.0-99.0) fL MCH 27.1 (26.7-34.0) pg MCHC 32.3 (29.9-35.2) g/dL RDW 14.2 (11.0-15.0) % Plt Count 313 (150-450) 10^3/uL MPV 11.2 (9.5-13.5) fL Neut % (Auto) 59.3 (43.0-75.0) % Lymph % (Auto) 27.3 (20.5-60.0) % Callahan % (Auto) 7.7 (1.7-12.0) % Eos % (Auto) 3.8 (0.9-7.0) % Baso % (Auto) 1.3 (0.2-2.0) % Neut # (Auto) 5.0 (1.4-6.5) 10^3/uL Lymph # (Auto) 2.3 (1.2-3.8) 10^3/uL Callahan # (Auto) 0.7 (0.3-0.8) 10^3/uL Eos # (Auto) 0.3 (0.0-0.7) 10^3/uL Baso # (Auto) 0.1 (0.0-0.1) 10^3/uL Abs Immat Gran (auto) 0.05 H (0.00-0.03) 10^3/uL Imm/Tot Granulo (auto) 0.6 H (0.0-0.5) % Sodium 142 (136-145) mmol/L Potassium 4.2 (3.5-5.1) mmol/L Chloride 105 (98-107) mmol/L Carbon Dioxide 26.6 (21.0-32.0) mmol/L Anion Gap 14.6 BUN 5.0 L (7.0-18.0) mg/dL Creatinine 0.60 (0.55-1.02) mg/dL Est GFR ( Amer) >60 (>=60) Est GFR (Non-Af Amer) >60 (>=60) BUN/Creatinine Ratio 8.3 Glucose 74 (74-106) mg/dL Calcium 8.9 (8.5-10.1) mg/dL Magnesium 1.8 (1.8-2.4) mg/dL Total Bilirubin 0.3 (0.2-1.0) mg/dL AST 34 (15-37) U/L ALT 16 (14-59) U/L Alkaline Phosphatase 83 (46-116) U/L Troponin I High Sens <4.0 L (4.0-51.3) pg/mL Total Protein 7.0 (6.4-8.2) g/dL Albumin 3.3 L (3.4-5.0) g/dL Globulin 3.7 g/dL Albumin/Globulin Ratio 0.9 Serum HCG, Qual Negative (NEGATIVE) Urine Color Lt. yellow (YELLOW) Urine Clarity Clear (CLEAR) Urine pH 6.0 (5.0-9.0) Ur Specific [place] >=1.030 A (1.005-1.025) Urine Protein Negative (NEG/TRACE) mg/dL Urine Glucose (UA) Negative (NEGATIVE) mg/dL Urine Ketones Negative (NEGATIVE) mg/dL Urine Occult Blood Negative (NEGATIVE) Urine Nitrite Negative (NEGATIVE) Urine Bilirubin Negative (NEGATIVE) Urine Urobilinogen 0.2 (0.2-1.0) EU/dL Ur Leukocyte Esterase Trace A (NEGATIVE) Urine RBC 0-2 (0-2) #/HPF Urine WBC 5-10 A (NONE SEEN) #/HPF Ur Squamous Epith Cells Many A (NONE/RARE) #/LPF Ur Transition Epith Cell Rare A (NONE SEEN) #/LPF Urine Crystals None seen (None Seen) #/HPF Urine Bacteria Moderate A (NONE SEEN) #/HPF Urine Casts None seen (NONE SEEN) #/LPF Urine Mucus Moderate A (NONE SEEN) Ur Culture Indicated? Already ordered Discharge Plan Discharge Stand Alone Forms: Work/School Release, Portal Instructions Chief Complaint: Nausea/Vomiting/Diarrhea Clinical Impression: Abdominal pain Patient Disposition: Home, Self-Care Time of Disposition Decision: 12:31 Condition: Good Prescriptions / Home Meds: New ondansetron 4 mg tablet,disintegrating 4 mg PO Q8H PRN (Reason: nausea and vomiting) Qty: 7 0RF famotidine [Pepcid] 20 mg tablet 20 mg PO BID Qty: 10 0RF Print Language: Swazi Instructions: Abdominal Pain (ED) Referrals: Physician,Non-Staff, MD [Primary Care Provider] - 1 week Discharge Date/Time: 11/22/23 12:44
[2023-11-22 11:49] LABS: Urine Microscopic Indicated YES
[2023-11-22 11:50] LABS: Bacteria Urine MODERATE #/HPF (NONE SEEN); Crystals Seen? None Seen #/HPF (None Seen); Mucus Urine MODERATE (NONE SEEN); RBC Urine 0-2 #/HPF (0-2); Squamous Epithelial Cell Urine MANY #/LPF (NONE/RARE); Transitional Epi Cells Urine RARE #/LPF (NONE SEEN)
[2023-11-22 11:51] LABS: Cast Seen? NONE SEEN #/LPF (NONE SEEN); Urine Culture Indicated ALREADY ORDERED
== END 2023-11-22 12:44 | disposition home or self-care (01) ==
PROVIDERS: Emergency Provider Emergency Medicine
DX: R10.9 Unspecified abdominal pain (principal)
CPT/HCPCS: 36415; 74176; 80053; 81001; 83735; 84484; 84703; 85025; 93005; 96360; 99285